=== PATIENT | female | born 1960 | race African-American/Black ===

== ENCOUNTER 2018-08-11 14:15 | Inpatient (IN) | payer OTHER ==
--- NOTE | 2018-08-11 14:45 | PDOC ---
History of Present Illness - General Chief Complaint: Dialysis Shunt Problem Stated Complaint: CLOGGED STINT Time Seen by Provider: 08/11/18 14:45 - History of Present Illness Initial Comments: 58yo F with PMH of ESRD on dialysis [facility] with left AV fistula, CHF, COPD, DM , Schizophrenia, CVA with residual weakness presenting with dialysis shunt problem. Per [facility], patient has clotted access to her fistula. She received a full session of dialysis on Wednesday. Patient has some sort of expressive aphasia at baseline and cannot contribute to history. Past History - Past Medical History Allergies/Adverse Reactions: Allergies Allergy/AdvReac Type Severity Reaction Status Date / Time imipenem Allergy Verified 12/23/14 16:26 NSAIDS (Non-Steroidal Allergy Verified 12/23/14 16:26 Anti-Inflamma piperacillin sodium Allergy Verified 12/23/14 16:26 [From Zosyn] tazobactam sodium Allergy Verified 12/23/14 16:26 [From Zosyn] vancomycin Allergy Verified 12/23/14 16:26 Home Medications: Ambulatory Orders Citalopram Hydrobromide [Celexa -] 10 mg PO DAILY 12/23/14 Olanzapine [Zyprexa] 15 mg PO DAILY 12/23/14 Acetaminophen [Tylenol .Regular Strength -] 650 mg PO Q4H PRN #0 tablet Albuterol 2.5/Ipratropium 0.5 [Duoneb -] 1 amp NEB QIDR amp 02/19/15 Amino Acids/Protein Hydrolys [Prostat Sugar-Free Packet -] 30 ml NGT BID@0800, 1730 packet 02/19/15 Docusate Sodium [Colace -] 100 mg GT TID #0 02/19/15 Levothyroxine [Synthroid -] 225 mcg PO DAILY@0700 tablet 02/19/15 Lorazepam Injection [Ativan Injection -] 1 mg IM Q4H PRN #0 disp.syrin 02/19/15 Nystatin/Triamcinolone Top Oin [Mycolog II -] 1 applic TP BID applic 02/19/15 Pantoprazole Sodium [Protonix -] 40 mg PO DAILY tablet.ec 02/19/15 Scopolamine Hydrobromide [Transderm-Scop -] 1 patch TD Q72H patch.td72 Valproate Sodium [Depakene -] 500 mg GT TID cup 02/19/15 COPD: Yes CHF: Yes Dementia: Yes Diabetes: Yes HTN: Yes Hypercholesterolemia: Yes Psychiatric Problems: Yes (SCHIZOPHRENIA) Thyroid Disease: Yes - Suicide/Smoking/Psychosocial Hx Smoking History: Never smoked Drug/Substance Use Hx: No Substance Use Type: None Hx Substance Use Treatment: No Review of Systems - Review of Systems Able to Perform ROS?: No (pt not abl to communicate) *Physical Exam - Physical Exam Comments: General: Awake, alert, in no acute distress; able to follow commands Head: No signs of trauma Eyes: EOMI, sclera anicteric ENT: Moist mucus membranes Neck: Normal ROM, supple Lungs: Lung sounds decreased at the bases Cardio: Regular rhythm, S1 and S2 present Abdomen: Soft, nontender. Extremities: Normal range of motion, Distal pulses present; Left AV fistula with audible thrill SKIN: Warm, Dry, normal turgor Neurologic: Cranial nerves II through XII grossly intact; expressive aphasia ED Treatment Course - LABORATORY CBC & Chemistry Diagram: 08/11/18 15:50 08/11/18 15:50 Medical Decision Making - Medical Decision Making 58yo F with PMH of ESRD with left AV fistula, CHF, COPD, DM, Schizophrenia presenting with dialysis shunt problem. CBC, CMP, Tpn, EKG, CXR US of left AV fistula 08/11/18 15:35 Spoke with Judie at [facility] ([phone]) who reports patient had clotted access today. She goes to dialysis [facility]. Patient had a full session on Wednesday. At baseline, she reports that patient has difficulty communicating. 08/11/18 15:54 Dr. Loyola, vascular, paged and consulted. Discussed case with Dr. Rene. Consult placed. Patient has history of schizophrenia. Requires two physician signature for consent. 08/11/18 16:16 No anemia Hgb at patient's baseline K=3.9 Tpn: 0.03, indeterminate range Patient does not need emergency dialysis Patient is a resident of [facility] CXR:"Single AP view of the chest is been submitted. Since the prior study of the tracheostomy tube and right jugular line been removed. There is a weak inspiration, chin artifact and some central congestive changes with prominent mediastinum. Correlation recommended. " Plan to admit 08/11/18 17:46 EK, 468, NSR, low voltage QRS Discussed case with Dr. Maryam Geiger who accepted patient for admission. 08/11/18 17:53 US: "Real time and doppler evaluation of the vasculature of both upper extremities demonstrates the following: The study is limited with incomplete evaluation of the right upper extremity due to the patient's refusal to continue the examination. The study was performed as a vein mapping procedure for AV dialysis graft planning. On the left side, the cephalic, basilic, and median cubital veins are widely patent. Widest AP diameter of the basilic vein was approximately 2.8 mm. Widest AP diameter of the cephalic vein was approximately 4 mm proximally. Normal velocity arterial flow was documented within the left axillary, brachial, radial and ulnar arteries. On the right side , the cephalic, basilic and median jugular veins are widely patent. Widest AP diameter of the basilic vein measured 2.5 mm. Widest AP diameter of the cephalic vein measured 4.6 mm proximally. Evaluation of the arteries of the right upper extremity could not be performed. A complete venous map is available within the PACS system. IMPRESSION: Limited venous mapping of both upper extremities as described above. " *DC/Admit/Observation/Transfer Diagnosis at time of Disposition: Dialysis AV fistula malfunction Qualifiers: Encounter type: initial encounter Qualified Code(s): T82.590A - Other mechanical complication of surgically created arteriovenous fistula, initial encounter - Discharge Dispostion Condition at time of disposition: Guarded Decision to Admit order: Yes - Referrals - Patient Instructions - Post Discharge Activity
[2018-08-11 15:59] LABS: BASO % 0.7 % (0-2.0); EOS % 2.2 % (0-4.5); HEMATOCRIT 31.4 % (32.4-45.2); HEMOGLOBIN 10.7 GM/dL (10.7-15.3); LYMPH % 27.2 % (8-40); MCH 35.8 pg (25.7-33.7); MEAN CELL VOLUME 105.3 fl (80-96); MEAN PLT VOLUME 7.6 fl (7.5-11.1); NEUT % 54.9 % (42.8-82.8); PLATELET COUNT 190 K/MM3 (134-434); RBC 2.99 M/mm3 (3.60-5.2); WHITE BLOOD COUNT 4.2 K/mm3 (4.0-10.0)
[2018-08-11 16:22] LABS: INR 0.87 (0.83-1.09); PROTHROMBIN TIME (PATIENT) 10.2 SEC (9.7-13.0)
[2018-08-11 16:25] LABS: ACTIVATED PTT 30.3 SECONDS (25.2-36.5)
[2018-08-11 16:29] LABS: ALBUMIN 2.6 g/dl (3.4-5.0); ALK PHOS 78 U/L (45-117); ANION GAP 8 MMOL/L (8-16); BILIRUBIN,TOTAL 0.2 mg/dL (0.2-1); BLOOD UREA NITROGEN 36 mg/dL (7-18); CALCIUM 8.7 mg/dL (8.5-10.1); CHLORIDE 97 mmol/L (98-107); CO2 30 mmol/L (21-32); GLUCOSE,RANDOM 113 mg/dL (74-106); POTASSIUM 3.9 mmol/L (3.5-5.1); SGOT/AST 7 U/L (15-37); SGPT/ALT 10 U/L (13-61); SODIUM 134 mmol/L (136-145); TOT PROT 6.4 g/dl (6.4-8.2)
--- NOTE | 2018-08-11 17:29 | PN ---
Progress Note (short form) - Note Progress Note: Vascular Surgery Pt with clotted left avf. Last time pt was seen was 2014. Pt has not followed up since then. Will declot left avf chanelle. Pt booked for chanelle afternoon. K is 3.9 Cristian Loyola DO
[2018-08-11] MEDS ORDERED: ACETAMINOPHEN 325 MG TABLET (FP) PO PRN (17:54)
[2018-08-11] MEDS ORDERED: LORazepam 2 MG/ML SDV VIAL IVPUSH PRN (17:54)
--- NOTE | 2018-08-11 18:06 | HP ---
Admitting History and Physical - Admission Chief Complaint: Clotted Left AV Fitula History of Present Illness: 58 y/o with significant medical [facility] resident H/O CKD stage 5 on HD Wed=y and Wednesday at [facility], schizophrenia, Dementia, COPD, CHF , CAD, HTN, hypothyroidism, and morbid obesity CVA expressive aphasia, previously admitted in 2014 with GLENN respiratory failure, patient was put on HD and transferred to [place], today transferred from Dialysis [facility] with Clotted Left AV fistula for re canalization, patient is hemodynamically stable, not in distress unable to provide much information, in the ED Nephrology and Vascular consulted Sr K 3.9 no clinical sign of volume over load will schedule for surgery tomorrow after noon. am. 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: Dementia Cardiovascular: Yes: CAD, CHF, HTN, Hyperlipdemia Pulmonary: Yes: COPD Renal/: Yes: Renal Inusuff Heme/Onc: Yes: Anemia Psych: Yes: Schizophrenia Endocrine: Yes: Diabetes Mellitus, Other (obesity) - Smoking History Smoking history: Never smoked Have you smoked in the past 12 months: No - Alcohol/Substance Use Hx Alcohol Use: No Home Medications - Allergies Allergies/Adverse Reactions: Allergies Allergy/AdvReac Type Severity Reaction Status Date / Time imipenem Allergy Verified 12/23/14 16:26 NSAIDS (Non-Steroidal Allergy Verified 12/23/14 16:26 Anti-Inflamma piperacillin sodium Allergy Verified 12/23/14 16:26 [From Zosyn] tazobactam sodium Allergy Verified 12/23/14 16:26 [From Zosyn] vancomycin Allergy Verified 12/23/14 16:26 - Home Medications Home Medications: Ambulatory Orders Citalopram Hydrobromide [Celexa -] 10 mg PO DAILY 12/23/14 Olanzapine [Zyprexa] 15 mg PO DAILY 12/23/14 Acetaminophen [Tylenol .Regular Strength -] 650 mg PO Q4H PRN #0 tablet Albuterol 2.5/Ipratropium 0.5 [Duoneb -] 1 amp NEB QIDR amp 02/19/15 Amino Acids/Protein Hydrolys [Prostat Sugar-Free Packet -] 30 ml NGT BID@0800, 1730 packet 02/19/15 Docusate Sodium [Colace -] 100 mg GT TID #0 02/19/15 Levothyroxine [Synthroid -] 225 mcg PO DAILY@0700 tablet 02/19/15 Lorazepam Injection [Ativan Injection -] 1 mg IM Q4H PRN #0 disp.syrin 02/19/15 Nystatin/Triamcinolone Top Oin [Mycolog II -] 1 applic TP BID applic 02/19/15 Pantoprazole Sodium [Protonix -] 40 mg PO DAILY tablet.ec 02/19/15 Scopolamine Hydrobromide [Transderm-Scop -] 1 patch TD Q72H patch.td72 Valproate Sodium [Depakene -] 500 mg GT TID cup 02/19/15 Family Disease History - Family Disease History Family Disease History: Heart Disease: Father Review of Systems Unable to obtain ROS, reason: Expressive aphasia Physical Examination Vital Signs: Vital Signs Temperature 98.0 F 08/11/18 15:07 Pulse Rate 85 08/11/18 16:31 Respiratory Rate 15 08/11/18 16:31 Blood Pressure 101/53 L 08/11/18 16:31 O2 Sat by Pulse Oximetry (%) 96 08/11/18 16:31 Constitutional: Yes: Well Nourished, No Distress, Calm Eyes: Yes: Conjunctiva Clear, EOM Intact HENT: Yes: Atraumatic, Normocephalic Neck: Yes: Supple, Trachea Midline Cardiovascular: Yes: Regular Rate and Rhythm, S1, S2. No: JVD, Murmur, Rub Respiratory: Yes: Regular, CTA Bilaterally Gastrointestinal: Yes: Normal Bowel Sounds, Soft Musculoskeletal: No: Back Pain, Joint Stiffness Extremities: No: Calf Tenderness Edema: No Peripheral Pulses: Left Doralis Pedis: 1+, Right Dorsalis Pedis: 1+ Neurological: Yes: Aphasia, Pre-Existing Deficit Labs: CBC, BMP 08/11/18 15:50 08/11/18 15:50 WBC 4.2 K/mm3 (4.0-10.0) 08/11/18 15:50 RBC 2.99 M/mm3 (3.60-5.2) L 08/11/18 15:50 Hgb 10.7 GM/dL (10.7-15.3) 08/11/18 15:50 Hct 31.4 % (32.4-45.2) L 08/11/18 15:50 MCV 105.3 fl (80-96) H 08/11/18 15:50 MCH 35.8 pg (25.7-33.7) H D 08/11/18 15:50 MCHC 34.0 g/dl (32.0-36.0) 08/11/18 15:50 RDW 13.0 % (11.6-15.6) D 08/11/18 15:50 Plt Count 190 K/MM3 (134-434) 08/11/18 15:50 MPV 7.6 fl (7.5-11.1) 08/11/18 15:50 Absolute Neuts (auto) 2.3 K/mm3 (1.5-8.0) 08/11/18 15:50 Neutrophils % 54.9 % (42.8-82.8) 08/11/18 15:50 Lymphocytes % 27.2 % (8-40) D 08/11/18 15:50 Monocytes % 15.0 % (3.8-10.2) H 08/11/18 15:50 Eosinophils % 2.2 % (0-4.5) 08/11/18 15:50 Basophils % 0.7 % (0-2.0) 08/11/18 15:50 Nucleated RBC % 0 % (0-0) 08/11/18 15:50 Sodium 134 mmol/L (136-145) L 08/11/18 15:50 Potassium 3.9 mmol/L (3.5-5.1) 08/11/18 15:50 Chloride 97 mmol/L (98-107) L 08/11/18 15:50 Carbon Dioxide 30 mmol/L (21-32) 08/11/18 15:50 Anion Gap 8 MMOL/L (8-16) 08/11/18 15:50 BUN 36 mg/dL (7-18) H 08/11/18 15:50 Creatinine 6.0 mg/dL (0.55-1.3) H 08/11/18 15:50 Creat Clearance w eGFR 7.15 (>60) 08/11/18 15:50 Random Glucose 113 mg/dL (74-106) H 08/11/18 15:50 Calcium 8.7 mg/dL (8.5-10.1) 08/11/18 15:50 Total Bilirubin 0.2 mg/dL (0.2-1) 08/11/18 15:50 AST 7 U/L (15-37) L 08/11/18 15:50 ALT 10 U/L (13-61) L 08/11/18 15:50 Alkaline Phosphatase 78 U/L (45-117) 08/11/18 15:50 Troponin I 0.03 ng/ml (0.00-0.05) 08/11/18 15:50 Total Protein 6.4 g/dl (6.4-8.2) 08/11/18 15:50 Albumin 2.6 g/dl (3.4-5.0) L 08/11/18 15:50 Imaging - Results Chest X-ray: Report Reviewed (No volume over load) Ultrasound: Report Reviewed (Left AVFistula) EKG: Report Reviewed (EKG: HR 7 QTC 468, NSR, low voltage QRS) Problem List - Problems (1) Dialysis AV fistula malfunction Assessment/Plan: Last dilaysis was full session not in over load, K 3.9 evaluated by Vascyular and Nephrology will go for Left AV fistula declotting tomorrow after noon needs 2 Md consent, Code(s): T82.590A - [facility] COMPL OF SURGICALLY CREATED ARTERIOVENOUS FISTULA, INIT Qualifiers: Encounter type: initial encounter Qualified Code(s): T82.590A - Other mechanical complication of surgically created arteriovenous fistula, initial encounter (2) ESRD (end stage renal disease) Assessment/Plan: On HD missed today due to clotted fistual euvolumic K is 3.9 Code(s): N18.6 - END STAGE RENAL DISEASE (3) COPD exacerbation Assessment/Plan: Stable cont Duoneb inhaler Code(s): J44.1 - CHRONIC OBSTRUCTIVE PULMONARY DISEASE W (ACUTE) EXACERBATION (4) Schizophrenia Assessment/Plan: Resume all home meds Code(s): F20.9 - SCHIZOPHRENIA, UNSPECIFIED (5) Morbid obesity Assessment/Plan: Chronic Code(s): E66.01 - MORBID (SEVERE) OBESITY DUE TO EXCESS CALORIES (6) Hypothyroid Assessment/Plan: Cont Levothyroxine Code(s): E03.9 - HYPOTHYROIDISM, UNSPECIFIED
[2018-08-11] MEDS ORDERED: SCOPOLAMINE HYDROBROMIDE 1 PATCH PATCH.TD72 TD SCH (18:15)
[2018-08-11] MEDS: ALBUTEROL SO4 2.5/IPRATROPIUM 0.5 INH SOL 3 ML VIAL.NEB. NEB SCH ×2 (18:22→20:37)
[2018-08-11] MEDS ORDERED: ALBUTEROL SO4 2.5/IPRATROPIUM 0.5 INH SOL 3 ML VIAL.NEB. NEB ONE ×2 (18:26→19:49)
--- NOTE | 2018-08-11 19:14 | PDOC ---
Documentation entered by Ryanne Borges SCRIBE, acting as scribe for Aura Amaya MD. Aura Amaya MD: This documentation has been prepared by the Katerina palacios Adrianna, SCRIBE, under my direction and personally reviewed by me in its entirety. I confirm that the documentation accurately reflects all work, treatment, procedures, and medical decision making performed by me. Attending Attestation - Resident Resident Name: Ebonie Ellis - ED Attending Attestation I have performed the following: I have examined & evaluated the patient, The case was reviewed & discussed with the resident, I agree w/resident's findings & plan, Exceptions are as noted - HPI HPI: 58 year old female, with a significant PMH of end stage renal disease s/p left AV fistula, COPD, CHF, CAD, dementia, unspecified schizophrenia, DM, HTN, HLD, and morbid obesity, who presents to the emergency department from [facility] for dialysis shunt complication. As per [facility] , patient was unable to undergo dialysis secondary to a clotted access in her fistula. They note she is from [facility]. Patient displays expressive aphasia to commands at baseline, but HPI is limited secondary to patients inability to communicate well. The patient denies chest pain, shortness of breath, headache and dizziness. Denies fever, chills, nausea, vomit, diarrhea and constipation. Denies dysuria, frequency, urgency and hematuria. Allergies: Imipenem, NSAIDS, piperacillin, tazobactam, vancomycin Past surgical history: None reported Social history: No reported PCP: [facility] 08/11/18 17:49 - Physicial Exam PE: 08/11/18 17:38 awake alert lungs clear bilaterally heart rrr no mgr abd soft nt obese. vertical ex lap scar, nontender. ext wwp. left upper ext fistula with thrill bruit. no erythema. nuero alert nonverbal.( baseline) follows commands intermittently. - Medical Decision Making 08/11/18 17:39 58 F h/o HLD dementia cva expressive aphasia, DM schizophrenia, ( t/r/sat) copd , chf, htn, here with difficulty with dialysis access from [facility]. . pt was last dialyzed 2 days ago. no n/v no f/c no other complaints. lives at [facility]. one exam pt with fistula bruit, good thrill. plan us left upper ext. admit to hospitalist. r/o hyperkalemia, fluid overload. 08/11/18 17:44 08/11/18 18:33 EXAM#: TYPE/EXAM: RESULT: [id number] RAD/CHEST X-RAY PORTABLE* Chest: Weakness Single AP view of the chest is been submitted. Since the prior study of 2014 the tracheostomy tube and right jugular line been removed. There is a weak inspiration, chin artifact and some central congestive changes with prominent mediastinum. Correlation recommended. Reported By: Fawad Velasco MD 08/11/18 17:15 EXAM#: TYPE/EXAM: RESULT: [id number] US/DUPLEX VASCUL US-1 ARM Left arm venous Doppler ultrasound Clinical information given: left AV fistula problem The exam was performed utilizing grayscale and Doppler sonography. A left arm AV fistula is noted with patency of the fistula as well as the arterial and venous components. Reported By: Jack Wheeler MD 08/11/18 18:09 Heart Score/ECG Review #1 ECG reviewed & interpreted by me at: 17:43 General ECG Interpretation: Sinus Rhythm, Normal Rate (77), Normal Intervals, No acute ischemic changes Compared to previous ECG there are: Other (left axis.)
[2018-08-11 19:52] LABS: ANISOCYTOSIS 2+; MACROCYTOSIS 2+; PLATELET ESTIMATE ADEQUATE
[2018-08-11] MEDS: DOCUSATE SODIUM 100 MG CAPSULE (FP) PO SCH (23:47)
[2018-08-11] MEDS: VALPROATE SODIUM 250 MG/5 ML UNIT DOSE CUP GT SCH (23:47)
[2018-08-11] MEDS: NYSTATIN/TRIAMCINOLONE TOPICAL OINTMENT 15 GM TUBE TP SCH (23:47)
[2018-08-12 04:10] VITALS: BMI 29.2
[2018-08-12] MEDS ORDERED: LEVOTHYROXINE NA 100 MCG TABLET (FP) ONE (05:24)
[2018-08-12] MEDS ORDERED: LEVOTHYROXINE NA 125 MCG TABLET (FP) ONE (05:24)
[2018-08-12 06:18] LABS: BASO % 0.5 % (0-2.0); EOS % 1.6 % (0-4.5); HEMATOCRIT 31.1 % (32.4-45.2); HEMOGLOBIN 10.5 GM/dL (10.7-15.3); MCH 35.6 pg (25.7-33.7); MCHC 33.8 g/dl (32.0-36.0); MEAN CELL VOLUME 105.2 fl (80-96); MEAN PLT VOLUME 7.7 fl (7.5-11.1); MONO % 14.2 % (3.8-10.2); NEUT % 54.7 % (42.8-82.8); PLATELET COUNT 186 K/MM3 (134-434); RBC 2.95 M/mm3 (3.60-5.2); RDW 13.3 % (11.6-15.6); WHITE BLOOD COUNT 4.7 K/mm3 (4.0-10.0)
[2018-08-12] MEDS: DOCUSATE SODIUM 100 MG CAPSULE (FP) PO SCH ×2 (06:28→14:15)
[2018-08-12] MEDS: VALPROATE SODIUM 250 MG/5 ML UNIT DOSE CUP GT SCH ×2 (06:28→15:40)
[2018-08-12] MEDS ORDERED: LEVOTHYROXINE NA 25 MCG TABLET (FP) PO SCH (07:00)
[2018-08-12] MEDS ORDERED: LEVOTHYROXINE 100 MCG, LEVOTHYROXINE 125 MCG PO SCH (07:00)
[2018-08-12] MEDS ORDERED: HEPARIN NA (PORCINE) 5,000 UNITS/ML 1ML VIAL IVPUSH ONE (07:49)
[2018-08-12] MEDS ORDERED: SODIUM CHLORIDE 250 ML IV PRN (07:49)
[2018-08-12] MEDS: HEPARIN NA (PORCINE) 5,000 UNITS/ML 1ML VIAL IVPUSH SCH ×3 (08:00→10:00)
[2018-08-12 08:04] LABS: ANION GAP 9 MMOL/L (8-16); BLOOD UREA NITROGEN 42 mg/dL (7-18); CALCIUM 8.5 mg/dL (8.5-10.1); CHLORIDE 97 mmol/L (98-107); CO2 29 mmol/L (21-32); CREATININE 6.9 mg/dL (0.55-1.3); GLUCOSE,RANDOM 61 mg/dL (74-106); POTASSIUM 4.1 mmol/L (3.5-5.1); SODIUM 134 mmol/L (136-145)
--- NOTE | 2018-08-12 09:21 | PN ---
Progress Note, Physician - Current Medication List Current Medications: Active Medications Acetaminophen (Tylenol -) 650 mg PO Q4H PRN PRN Reason: FEVER Albuterol/Ipratropium (Duoneb -) 1 amp NEB RQID PENDING SALE TO [facility] Last Admin: 08/11/18 20:37 Dose: 1 amp Amino Acids (Prosource No Carb Liquid Pkt) 30 ml NGT BID@0800,1730 PENDING SALE TO [facility] Citalopram Hydrobromide (Celexa -) 10 mg PO DAILY PENDING SALE TO [facility] Docusate Sodium (Colace -) 100 mg PO TID PENDING SALE TO [facility] Last Admin: 08/12/18 06:28 Dose: 100 mg Heparin Sodium (Porcine) (Heparin -) 1,000 unit IVPUSH ONCE ONE Stop: 08/12/18 07:50 Heparin Sodium (Porcine) (Heparin -) 500 unit IVPUSH Q1H PENDING SALE TO [facility] Stop: 08/12/18 10:01 Sodium Chloride (Normal Saline -) 250 mls @ 3,000 mls/hr IV PRN PRN PRN Reason: Hypotension during Dialysis Stop: 08/13/18 07:49 Levothyroxine Sodium 100 mcg/ (Levothyroxine Sodium 125 mcg) 225 mcg PO DAILY@ 0700 PENDING SALE TO [facility] Last Admin: 08/12/18 06:28 Dose: 225 mcg Lorazepam (Ativan Injection -) 1 mg IVPUSH Q4H PRN PRN Reason: AGITATION Nystatin/Triamcinolone Acetonide (Mycolog Ii Ointment -) 1 applic TP BID PENDING SALE TO [facility] Last Admin: 08/11/18 23:47 Dose: 1 applic Olanzapine (Zyprexa -) 15 mg PO DAILY PENDING SALE TO [facility] Pantoprazole Sodium (Protonix -) 40 mg PO DAILY PENDING SALE TO [facility] Scopolamine HBr (Transderm-Scop -) 1 patch TD Q3D@1000 PENDING SALE TO [facility] Last Admin: 08/11/18 20:54 Dose: 1 patch Valproate Sodium (Depakene -) 500 mg GT TID PENDING SALE TO [facility] Last Admin: 08/12/18 06:28 Dose: 500 mg - Objective Vital Signs: Vital Signs Temperature 83 F L 08/12/18 05:58 Pulse Rate 83 08/12/18 05:58 Respiratory Rate 18 08/12/18 05:58 Blood Pressure 94/60 08/12/18 05:58 O2 Sat by Pulse Oximetry (%) 95 08/12/18 01:00 Constitutional: Yes: Well Nourished, No Distress, Calm Eyes: Yes: Conjunctiva Clear, EOM Intact HENT: Yes: Atraumatic, Normocephalic Neck: Yes: Supple, Trachea Midline Cardiovascular: Yes: Regular Rate and Rhythm, S1, S2. No: JVD, Murmur, Rub Respiratory: Yes: Regular, CTA Bilaterally Gastrointestinal: Yes: Normal Bowel Sounds, Soft Musculoskeletal: No: Back Pain, Joint Stiffness Extremities: No: Calf Tenderness Edema: No Peripheral Pulses: Left Doralis Pedis: 1+, Right Dorsalis Pedis: 1+ Neurological: Yes: Aphasia, Pre-Existing Deficit Labs: CBC, BMP 08/12/18 05:30 08/12/18 05:30 INR, PTT INR 0.87 (0.83-1.09) 08/11/18 15:50 Problem List - Problems (1) Dialysis AV fistula malfunction Code(s): T82.590A - [facility] COMPL OF SURGICALLY CREATED ARTERIOVENOUS FISTULA, INIT Qualifiers: Encounter type: initial encounter Qualified Code(s): T82.590A - Other mechanical complication of surgically created arteriovenous fistula, initial encounter (2) ESRD (end stage renal disease) Code(s): N18.6 - END STAGE RENAL DISEASE (3) COPD exacerbation Code(s): J44.1 - CHRONIC OBSTRUCTIVE PULMONARY DISEASE W (ACUTE) EXACERBATION (4) Schizophrenia Code(s): F20.9 - SCHIZOPHRENIA, UNSPECIFIED (5) Morbid obesity Code(s): E66.01 - MORBID (SEVERE) OBESITY DUE TO EXCESS CALORIES (6) Hypothyroid Code(s): E03.9 - HYPOTHYROIDISM, UNSPECIFIED
[2018-08-12 09:37] VITALS: TEMP 97.5
[2018-08-12] MEDS ORDERED: OLANZapine 5 MG TABLET PO SCH (10:00)
[2018-08-12] MEDS ORDERED: PANTOPRAZOLE 40 MG TABLET (FP) PO SCH (10:00)
[2018-08-12] MEDS ORDERED: CITALOPRAM HYDROBROMIDE 10 MG TABLET (FP) PO SCH (10:00)
--- NOTE | 2018-08-12 10:17 | DS ---
Physical Examination Vital Signs: Vital Signs Temperature 97.5 F L 08/12/18 09:05 Pulse Rate 71 08/12/18 09:40 Respiratory Rate 18 08/12/18 09:40 Blood Pressure 99/75 08/12/18 09:40 O2 Sat by Pulse Oximetry (%) 95 08/12/18 01:00 Constitutional: Yes: Well Nourished, No Distress, Calm Eyes: Yes: Conjunctiva Clear, EOM Intact HENT: Yes: Atraumatic, Normocephalic Neck: Yes: Supple, Trachea Midline Cardiovascular: Yes: Regular Rate and Rhythm, S1, S2. No: JVD, Murmur, Rub Respiratory: Yes: Regular, CTA Bilaterally Gastrointestinal: Yes: Normal Bowel Sounds, Soft Musculoskeletal: No: Back Pain, Joint Stiffness Extremities: No: Calf Tenderness Edema: No Peripheral Pulses: Left Doralis Pedis: 1+, Right Dorsalis Pedis: 1+ Neurological: Yes: Aphasia, Pre-Existing Deficit Labs: CBC, BMP 08/12/18 05:30 08/12/18 05:30 Discharge Summary Reason For Visit: MALFUNCTION OF ARTERIOVENOUS DIALYSIS FISTULA Current Active Problems Dialysis AV fistula malfunction (Acute) ESRD (end stage renal disease) (Acute) Hypothyroid (Acute) Hospital Course: 58 y/o with significant medical [facility] resident H/O CKD stage 5 on HD Wed= and Wednesday at [facility], schizophrenia, Dementia, COPD, CHF , CAD, HTN, hypothyroidism, and morbid obesity CVA expressive aphasia, previously admitted in 2014 with GLENN respiratory failure, patient was put on HD and transferred to [place], today transferred from Dialysis Ctr with Clotted Left AV fistula for re canalization, patient is hemodynamically stable, not in distress unable to provide much information, in the ED Nephrology and Vascular consulted Sr K 3.9 patient has palpable thrill and Vascular ultrasound shows functioning fistula, patient is recived HD , will Dc home after HD to resume all her care at [facility]. Condition: Stable - Instructions Disposition: DETENTION FACILITY - Home Medications Comprehensive Discharge Medication List: Ambulatory Orders Citalopram Hydrobromide [Celexa -] 10 mg PO DAILY 12/23/14 Olanzapine [Zyprexa] 15 mg PO DAILY 12/23/14 Acetaminophen [Tylenol .Regular Strength -] 650 mg PO Q4H PRN #0 tablet Albuterol 2.5/Ipratropium 0.5 [Duoneb -] 1 amp NEB QIDR amp 02/19/15 Amino Acids/Protein Hydrolys [Prostat Sugar-Free Packet -] 30 ml NGT BID@0800, 1730 packet 02/19/15 Docusate Sodium [Colace -] 100 mg GT TID #0 02/19/15 Levothyroxine [Synthroid -] 225 mcg PO DAILY@0700 tablet 02/19/15 Lorazepam Injection [Ativan Injection -] 1 mg IM Q4H PRN #0 disp.syrin 02/19/15 Nystatin/Triamcinolone Top Oin [Mycolog II -] 1 applic TP BID applic 02/19/15 Pantoprazole Sodium [Protonix -] 40 mg PO DAILY tablet.ec 02/19/15 Scopolamine Hydrobromide [Transderm-Scop -] 1 patch TD Q72H patch.td72 Valproate Sodium [Depakene -] 500 mg GT TID cup 02/19/15 Levothyroxine [Synthroid -] 225 mcg PO DAILY@0700 tablet 08/12/18 Levothyroxine [Synthroid -] 225 mcg PO DAILY@0700 tablet 08/12/18
--- NOTE | 2018-08-12 10:47 | EKG ---
Test Reason : Blood Pressure : / mmHG Vent. Rate : 077 BPM Atrial Rate : 077 BPM P-R Int : 198 ms QRS Dur : 092 ms QT Int : 414 ms P-R-T Axes : 058 -21 029 degrees QTc Int : 468 ms NORMAL SINUS RHYTHM LOW VOLTAGE QRS WHEN COMPARED WITH ECG OF 23-JAN-2015 09:11, NO SIGNIFICANT CHANGE WAS FOUND Confirmed by EDY DILLON MD ([id number]) on 08/12/2018 10:47:18 AM Referred By: Confirmed By:EDY DILLON MD
--- NOTE | 2018-08-12 11:00 | PN ---
Progress Note (short form) - Note Progress Note: Vascular Surgery Pt seen and examined. Left avg with good bruit. Please use avg for HD. If ok -- cleared to dc back to [place] Cristian horne dO
--- NOTE | 2018-08-12 12:23 | CONSULT ---
Consult - text type - Consultation Consultation Note: Renal Consult for ESRD on HD with AV access problem This is a 58 year old woman with ESRD on HD, CVA with right side weakness and expressive aphasia, hypertension, DM, schizophrenia was sent from outpatient HD unit with suspected clotted access. They were not able to canulate or feel bruit at the unit. Pt was w/o any acute complaints. In the ED pt was seen by vascular and US was performed that showed access had flow. This morning pt was canulated by HD nurse and was able to have complete session fo HD. Denies any sob, cp, abd pain, N/V/D, Fever or chills. She expressed frustration about her right arm weakness. PMhx: as above Allergies: NKDA Family Hx: NC Social Hx: No T/A/D ROS: as per HPI Home Medications Medication Instructions Recorded Citalopram Hydrobromide [Celexa -] 10 mg PO DAILY 12/23/14 Olanzapine [Zyprexa] 15 mg PO DAILY 12/23/14 Acetaminophen [Tylenol .Regular 650 mg PO Q4H PRN #0 tablet 02/19/15 Strength -] Albuterol 2.5/Ipratropium 0.5 1 amp NEB QIDR amp 02/19/15 [Duoneb -] Amino Acids/Protein Hydrolys 30 ml NGT BID@0800,1730 packet 02/19/15 [Prostat Sugar-Free Packet -] Docusate Sodium [Colace -] 100 mg GT TID #0 02/19/15 Levothyroxine [Synthroid -] 225 mcg PO DAILY@0700 tablet 02/19/15 Lorazepam Injection [Ativan 1 mg IM Q4H PRN #0 disp.syrin 02/19/15 Injection -] Nystatin/Triamcinolone Top Oin 1 applic TP BID applic 02/19/15 [Mycolog II -] Pantoprazole Sodium [Protonix -] 40 mg PO DAILY tablet.ec 02/19/15 Scopolamine Hydrobromide 1 patch TD Q72H patch.td72 02/19/15 [Transderm-Scop -] Valproate Sodium [Depakene -] 500 mg GT TID cup 02/19/15 Levothyroxine [Synthroid -] 225 mcg PO DAILY@0700 tablet 04/19/19 Levothyroxine [Synthroid -] 225 mcg PO DAILY@0700 tablet 08/12/18 Vital Signs Period Temp Pulse Resp BP Sys/Mantilla Pulse Ox Last 24 Hr 83 F-98.9 F 70-87 15-20 87-147/40-98 95-99 Intake & Output 08/09/18 08/10/18 08/11/18 08/12/18 23:59 23:59 23:59 23:59 Weight 110 kg 79.832 kg NAD awake and alert neck supple RRR, NO M/R CTA No LE edema Right UE weakness left UE AVG CBC, BMP 08/12/18 05:30 08/12/18 05:30 Current Medications Acetaminophen (Tylenol -) 650 mg PO Q4H PRN PRN Reason: FEVER Albuterol/Ipratropium (Duoneb -) 1 amp NEB RQID [facility] Last Admin: 08/11/18 20:37 Dose: 1 amp Amino Acids (Prosource No Carb Liquid Pkt) 30 ml NGT BID@0800,1730 [facility] Citalopram Hydrobromide (Celexa -) 10 mg PO DAILY [facility] Docusate Sodium (Colace -) 100 mg PO TID [facility] Last Admin: 08/12/18 06:28 Dose: 100 mg Sodium Chloride (Normal Saline -) 250 mls @ 3,000 mls/hr IV PRN PRN PRN Reason: Hypotension during Dialysis Stop: 08/13/18 07:49 Levothyroxine Sodium 100 mcg/ (Levothyroxine Sodium 125 mcg) 225 mcg PO DAILY@ 0700 [facility] Last Admin: 08/12/18 06:28 Dose: 225 mcg Lorazepam (Ativan Injection -) 1 mg IVPUSH Q4H PRN PRN Reason: AGITATION Nystatin/Triamcinolone Acetonide (Mycolog Ii Ointment -) 1 applic TP BID [facility] Last Admin: 08/11/18 23:47 Dose: 1 applic Olanzapine (Zyprexa -) 15 mg PO DAILY [facility] Pantoprazole Sodium (Protonix -) 40 mg PO DAILY [facility] Scopolamine HBr (Transderm-Scop -) 1 patch TD Q3D@1000 [facility] Last Admin: 08/11/18 20:54 Dose: 1 patch Valproate Sodium (Depakene -) 500 mg GT TID [facility] Last Admin: 08/12/18 06:28 Dose: 500 mg 58 year old woman with ESRD on HD, CVA with right side weakness and expressive aphasia, hypertension, DM, schizophrenia was sent from outpatient HD unit with suspected clotted access. #Suspected Clotted AVG/AV Access problem #ESRD on HD #Schizophrenia #Hypertension #DM #Hx of CVA with right side weakness and expressive aphasia AV access is functioning well this AM and pt able to tolerate HD Vascular consult and intervention appreciated will continue Heparin with HD and arrange vascular follow up for access monitoring as an outpatient will resume regular TTS HD schedule tomorrow as an outpatient discharge planning as per primary team Thank you Deng Rene DO
[2018-08-12] MEDS: AMINO ACIDS/PROTEIN HYDROLYS 30 ML LIQUID.PKT NGT SCH ×2 (14:06→17:31)
[2018-08-12] MEDS ORDERED: SODIUM CHLORIDE 500 ML IV SCH (15:30)
[2018-08-12 15:33] VITALS: BP 80/52; PULSE 92
[2018-08-12] MEDS ORDERED: PT OWN MED DRAWER 7, Y5N ONE (15:38)
[2018-08-12] MEDS: ALBUTEROL SO4 2.5/IPRATROPIUM 0.5 INH SOL 3 ML VIAL.NEB. NEB SCH ×2 (16:00→20:39)
[2018-08-12] MEDS: NYSTATIN/TRIAMCINOLONE TOPICAL OINTMENT 15 GM TUBE TP SCH (17:30)
[2018-08-13 11:12] LABS: HBSAG SCREEN Negative (Negative); HEP A AB, IGM Negative (Negative); HEP B CORE AB, TOT Negative (Negative)
== END 2018-08-12 20:30 | DRG 466 ==
LOC: JER 14:15 → JERBED 17:46 → J4S 08-12 02:39
PROVIDERS: ADMIT Internal Medicine; ATTEND Internal Medicine
PROC: 5A1D70Z Performance of Urinary Filtration, Intermittent, Less than 6 Hours Per Day (ICD-10-PCS; principal; 2018-08-12)
DX: T82.590A Other mechanical complication of surgically created arteriovenous fistula, initial encounter (principal); I13.2 Hypertensive heart and chronic kidney disease with heart failure and with stage 5 chronic kidney disease, or end stage renal disease; E11.22 Type 2 diabetes mellitus with diabetic chronic kidney disease; N18.6 End stage renal disease; F20.9 Schizophrenia, unspecified; F03.90 Unspecified dementia, unspecified severity, without behavioral disturbance, psychotic disturbance, mood disturbance, and anxiety; Y84.1 Kidney dialysis as the cause of abnormal reaction of the patient, or of later complication, without mention of misadventure at the time of the procedure; Y92.89 Other specified places as the place of occurrence of the external cause; Y92.128 Other place in nursing home as the place of occurrence of the external cause; I69.320 Aphasia following cerebral infarction; E03.9 Hypothyroidism, unspecified; Z99.2 Dependence on renal dialysis; E07.9 Disorder of thyroid, unspecified; J44.9 Chronic obstructive pulmonary disease, unspecified; Z68.29 Body mass index [BMI] 29.0-29.9, adult; E66.9 Obesity, unspecified; E78.5 Hyperlipidemia, unspecified; I25.10 Atherosclerotic heart disease of native coronary artery without angina pectoris
CPT/HCPCS: 36415; 71045-TC-FY; 80048; 80053; 84484; 85025; 85610; 85730; 86704; 86706; 86708; 86803; 86850; 86900; 86901; 87340; 93005; 93010; 93971; 94640; 99284-25; J1644

== ENCOUNTER 2018-09-14 15:21 | Observation (INO) | payer OTHER | END 2018-09-15 21:43 | LOC: J8W 09-15 03:50 → JER 15:21 → JERBED 17:20 ==

== ENCOUNTER 2018-10-06 19:01 | Inpatient (IN) | payer OTHER ==
--- NOTE | 2018-10-06 19:18 | PDOC ---
History of Present Illness - General Stated Complaint: OPEN WOUND Time Seen by Provider: 10/06/18 19:08 History Source: EMS, [facility] Records Exam Limitations: Clinical Condition, Physical Impairment - History of Present Illness Initial Comments: Pt is a 58 yo F, with PMH of IDDM, ESRD (HD T/R/Sat), CVA (R-sided deficits and aphasia), HTN DM, schizophrenia, COPDpresenting from dialysis with a complaint of "an open wound". Pts only complaint is that her L arm hurts near the AV graft site. Pt states she received her full dialysis session today. Pt can only provide yes/no answers, as she has aphasia since her CVA, along with residual R sided extremity deficits. Pt denies fevers, vomiting, diarrhea, and urinary symptoms when asked directly. PCP: [facility] ([facility]) Social: Pt denies any cigarette, alcohol, or drug use. Pt denies any recent travel or sick contacts. Surgical: L AVF. Family: no relevant history. 10/06/18 23:17 Past History - Travel Traveled outside of the country in the last 30 days: No Close contact w/someone who was outside of country & ill: No - Past Medical History Allergies/Adverse Reactions: Allergies Allergy/AdvReac Type Severity Reaction Status Date / Time imipenem Allergy Verified 12/23/14 16:26 NSAIDS (Non-Steroidal Allergy Verified 12/23/14 16:26 Anti-Inflamma piperacillin sodium Allergy Verified 12/23/14 16:26 [From Zosyn] tazobactam sodium Allergy Verified 12/23/14 16:26 [From Zosyn] vancomycin Allergy Verified 12/23/14 16:26 Home Medications: Ambulatory Orders Acetaminophen [Tylenol .Regular Strength -] 650 mg PO Q4H PRN tablet 09/15/18 Albuterol 2.5/Ipratropium 0.5 [Duoneb -] 1 amp NEB RQID amp 09/15/18 Amino Acids/Protein Hydrolys [Prosource No Carb Liquid Pkt] 30 ml NGT BID@0800, 1730 packet 09/15/18 Citalopram Hydrobromide [Celexa -] 10 mg PO DAILY tablet 09/15/18 Docusate Sodium [Colace -] 100 mg PO TID capsule 09/15/18 Insulin Sliding Scale [Novolog Vial Sliding Scale -] 1 vial SQ ACHS units 09/15 Levothyroxine Sodium [Synthroid] 225 mcg PO DAILY #30 tablet 09/15/18 Nystatin/Triamcinolone Top Oin [Mycolog II -] 1 applic TP BID applic 09/15/18 Olanzapine [Zyprexa -] 15 mg PO DAILY tablet 09/15/18 Pantoprazole Sodium [Protonix -] 40 mg PO DAILY tablet.ec 09/15/18 Scopolamine Hydrobromide [Transderm-Scop -] 1 patch TD Q3D patch.td72 09/15/18 Valproate Sodium [Depakene -] 500 mg GT TID cup 09/15/18 CVA: Yes (R sided weakness) COPD: Yes CHF: Yes Dementia: Yes Diabetes: Yes HTN: Yes Hypercholesterolemia: Yes Psychiatric Problems: Yes (SCHIZOPHRENIA) Thyroid Disease: Yes - Immunization History Immunization Up to Date: Yes - Suicide/Smoking/Psychosocial Hx Smoking History: Never smoked Have you smoked in the past 12 months: No Hx Alcohol Use: No Drug/Substance Use Hx: No Substance Use Type: None Hx Substance Use Treatment: No Review of Systems - Review of Systems Able to Perform ROS?: No (aphasic, schizophrenia) Is the patient limited Ukrainian proficient: No *Physical Exam - Physical Exam Comments: hypotensive 70s/40s (pt baseline after dialysis, will feed pt), pt afebrile. Pt in NAD, obese body habitus. Pt alert, difficult to obtain orientation as pt aphasic. lining maker generally intact. Residual deficits of CVA to RUE and RLE. Aphasic but answers questions appropriately. No midline spinal tenderness, step-offs, or crepitus. Head normocephalic, atraumatic. Eyes PERRLA, EOMI. Oropharynx without erythema or exudates, no LAD b/l. No nasal congestion, hearing intact. Clear heart sounds, S1/S2, no JVD, b/l pedal edema, or heart murmur. Poor respiratory effort, diminished 2/2 body habitus. No abdominal or CVA tenderness to palpation, no rebound, no guarding. Abdomen soft, non-distended, and with normoactive bowel sounds. AVF site on L upper extremity intact with palpable thrill. Small ~1cm open ulcer with pustular drainage below the AVF. Skin otherwise without jaundice or rash. 10/06/18 19:56 10/06/18 20:13 ED Treatment Course - LABORATORY CBC & Chemistry Diagram: 10/06/18 22:18 10/06/18 22:18 Medical Decision Making - Medical Decision Making Pt was seen at bedside, also will be seen by attending Dr. Mathews. Pt presenting from dialysis with a complaint of "an open wound". Pts only complaint is that her L arm hurts near the AV graft site. Pt states she received her full dialysis session today. Pt can only provide yes/no answers, as she has aphasia since her CVA, along with residual R sided extremity deficits. Pt denies fevers, vomiting, diarrhea, and urinary symptoms when asked directly. Considering superficial cellulitis vs infection of AVF site. Will obtain blood cultures. Pt has been sensitive to linezolid in the past, pt allergic to many abx. Pt normally hypoTN post dialysis (70-80/40s). Ordered work-up including CBC, CMP, type & screen, coags, blood cultures. Provided 500 mL IVF and 600 mg IV linezolid for improvement of hypoTN and abx coverage. Will continue to reassess pt and monitor for symptomatic improvement. ECG: NSR with PACs (difficult to interpret due to tremor), intervals WNL (HR 97 , MD 180, QRS 94, QTc 513). No TWIs or significant ST segment changes. No significant changes from prior ECG (09/14/2018). Labs hemolyzed, will be re-sent. Pt difficult to obtain access and labs. 10/06/18 22:18 CBC WNL for pt (chronic anemia). CMP WNL for pt (Cr 1.9, post dialysis) Chest x-ray with no acute findings. 10/06/18 22:56 Pt admitted to [facility] team for further inpatient observation and abx treatment. Pt stable and lying comfortably. 10/06/18 23:24 *DC/Admit/Observation/Transfer Diagnosis at time of Disposition: ESRD (end stage renal disease) Cellulitis Qualifiers: Site of cellulitis: extremity Site of cellulitis of extremity: upper extremity Laterality: left Qualified Code(s): L03.114 - Cellulitis of left upper limb - Discharge Dispostion Condition at time of disposition: Stable Decision to Admit order: Yes - Referrals Referrals: Fabio Burroughs [Non Staff, Medical] - - Patient Instructions - Post Discharge Activity
[2018-10-06] MEDS ORDERED: LINEZOLID 600 MG PREMIX BAG 600 MG in PREMIX 300 IV ONE (20:09)
--- NOTE | 2018-10-06 20:21 | PDOC ---
Documentation entered by Parisa Hodges SCRIBE, acting as scribe for Riya Mathews DO. Riya Mathews, : This documentation has been prepared by the suzanne, Parisa Hodges SCRIBE, under my direction and personally reviewed by me in its entirety. I confirm that the documentation accurately reflects all work , treatment, procedures, and medical decision making performed by me. Attending Attestation - Resident Resident Name: ShaziaAlexandra - ED Attending Attestation I have performed the following: I have examined & evaluated the patient, The case was reviewed & discussed with the resident, I agree w/resident's findings & plan, Exceptions are as noted - HPI HPI: The patient is a 58 year old female, with a significant PMH of HTN, CVA, schizophrenia, aphasia, ESRD (dialysis T,,), brought in via EMS to the emergency department from dialysis today with a left upper extremity open wound. Patients wound is localized proximal to her dialysis access site and is purulent and draining. History is limited secondary to aphasia. Allergies: imipenem, NSAIDS, piperacillin sodium, tazobactam sodium, vancomycin Past surgical history: None reported Social history: None reported PCP: [facility] 10/06/18 20:36 - Physicial Exam PE: GENERAL: Aphasic, awake, alert, and fully oriented, in no acute distress. HEAD: No signs of trauma EYES: PERRLA, EOMI, sclera anicteric, conjunctiva clear ENT: Auricles normal inspection, hearing grossly normal, nares patent, oropharynx clear without exudates. Moist mucosa NECK: Normal ROM, supple, no lymphadenopathy, JVD, or masses LUNGS: Breath sounds equal, clear to auscultation bilaterally. No wheezes, and no crackles HEART: Regular rate and rhythm, normal S1 and S2, no murmurs, rubs or gallops ABDOMEN: Soft, nontender, normoactive bowel sounds. No guarding, no rebound. No masses EXTREMITIES: (+)LUE distal fistula with a proximal circular 1cm dehiscence, purulent and draining with associated erythema warmth and tenderness. (+) LUE bruit. (+) LUE thrills. Normal range of motion, no edema. No clubbing or cyanosis. No cords. NEUROLOGICAL: (+) Right hemiparesis. Cranial nerves II through XII grossly intact. SKIN: Warm, Dry, normal turgor, no rashes noted. 10/06/18 20:36 - Medical Decision Making 10/06/18 20:15 I, Dr. Riya Mathews, DO, attest that this document has been prepared under my direction and personally reviewed by me in its entirety. I further attest, that it accurately reflects all work, treatment, procedures and medical decision -making performed by me. 10/06/18 20:16 a/p: 58yo female from HD for eval of LUE av fistula with dehiscence and purulent drainage from the distal end of the wound -pt with aphasia as hx - able to say yes and no -purulent drainage from distal end of fistula surgical site -redness around the wound -[address] -Nephro is Dr. Deng Rene -Dr. Cristian Loyola is [facility] sx -no fevers -had full HD today -pain to LUE -bruit and thrill palpated, arm is warm -concern for infection at the fistula site -pt with low bp after HD, no shen, per paperwork normal for hypotension after HD -pt currently eating dinner -pt denies fevers -pt with weakness to R side 10/06/18 20:21 pt from [facility] 10/06/18 21:32 cxr clear labs clotted call to lab to obtain labs 10/06/18 23:38 no elevated wbc abx ordered case discussed with JANNETTE Eduardo from [facility] who accepts pt to service Heart Score/ECG Review - ECG Intrepretation Comment:: 10/06/18 20:15 sinus at 97, pac, baseline artifact, qtc 513, no acute st/t wave findings
[2018-10-06] MEDS ORDERED: SODIUM CHLORIDE 500 ML IV STA (21:23)
[2018-10-06 22:40] LABS: BASO % 0.2 % (0-2.0); EOS % 0.7 % (0-4.5); HEMATOCRIT 26.5 % (32.4-45.2); HEMOGLOBIN 8.5 GM/dL (10.7-15.3); LYMPH % 11.8 % (8-40); MCH 34.3 pg (25.7-33.7); MCHC 32.2 g/dl (32.0-36.0); MEAN CELL VOLUME 106.7 fl (80-96); MEAN PLT VOLUME 6.7 fl (7.5-11.1); MONO % 10.4 % (3.8-10.2); NEUT % 76.9 % (42.8-82.8); PLATELET COUNT 224 K/MM3 (134-434); RBC 2.48 M/mm3 (3.60-5.2); RDW 15.5 % (11.6-15.6)
[2018-10-06 22:57] LABS: INR 0.96 (0.83-1.09); PROTHROMBIN TIME (PATIENT) 11.3 SEC (9.7-13.0)
[2018-10-06 23:12] LABS: ALBUMIN 2.3 g/dl (3.4-5.0); BILIRUBIN,TOTAL 0.2 mg/dL (0.2-1); BLOOD UREA NITROGEN 5.9 mg/dL (7-18); CREATININE 1.9 mg/dL (0.55-1.3); TOT PROT 5.8 g/dl (6.4-8.2)
--- NOTE | 2018-10-06 23:34 | HP ---
Admitting History and Physical - Primary Care Physician PCP: Fabio Burroughs ([facility]) - Admission Chief Complaint: Wound to LUE, Hypotension History of Present Illness: This is a 58 y/o woman from [facility] ESRD (,,), CVA (R- Residual Deficits), Expressive Aphasia, Schizophrenia, Bipolar Disorder, Anxiety,Acute on Chronic Respiratory Failure, COPD. Who presents to the ED from dialysis today with a left upper extremity open wound. Patients wound is localized proximal to her dialysis access site and is purulent and draining. History is limited secondary to aphasia. 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 Cardiovascular: Yes: CAD, CHF, HTN, Hyperlipdemia Pulmonary: Yes: COPD Gastrointestinal: Yes: GERD Renal/: Yes: Renal Inusuff Heme/Onc: Yes: Anemia Psych: Yes: Anxiety, Bipolar, Schizophrenia Endocrine: Yes: Diabetes Mellitus, Other (obesity) - Past Surgical History Past Surgical History: Yes: AV Fistula/Graft - Smoking History Smoking history: Never smoked Have you smoked in the past 12 months: No - Alcohol/Substance Use Hx Alcohol Use: No - Social History Usual Living Arrangement: Yes: Custodial ADL: Support Services History of Recent Travel: No Home Medications - Allergies Allergies/Adverse Reactions: Allergies Allergy/AdvReac Type Severity Reaction Status Date / Time imipenem Allergy Verified 10/07/18 06:48 NSAIDS (Non-Steroidal Allergy Verified 10/07/18 06:48 Anti-Inflamma piperacillin sodium Allergy Verified 10/07/18 06:48 [From Zosyn] tazobactam sodium Allergy Verified 10/07/18 06:48 [From Zosyn] vancomycin Allergy Verified 10/07/18 06:48 - Home Medications Home Medications: Ambulatory Orders Acetaminophen [Tylenol .Regular Strength -] 650 mg PO Q4H PRN tablet 09/15/18 Albuterol 2.5/Ipratropium 0.5 [Duoneb -] 1 amp NEB RQID amp 09/15/18 Amino Acids/Protein Hydrolys [Prosource No Carb Liquid Pkt] 30 ml NGT BID@0800, 1730 packet 09/15/18 Citalopram Hydrobromide [Celexa -] 10 mg PO DAILY tablet 09/15/18 Docusate Sodium [Colace -] 100 mg PO TID capsule 09/15/18 Insulin Sliding Scale [Novolog Vial Sliding Scale -] 1 vial SQ ACHS units 09/15 Levothyroxine Sodium [Synthroid] 225 mcg PO DAILY #30 tablet 09/15/18 Nystatin/Triamcinolone Top Oin [Mycolog II -] 1 applic TP BID applic 09/15/18 Olanzapine [Zyprexa -] 15 mg PO DAILY tablet 09/15/18 Scopolamine Hydrobromide [Transderm-Scop -] 1 patch TD Q3D patch.td72 09/15/18 Valproate Sodium [Depakene -] 500 mg GT TID cup 09/15/18 Atorvastatin Calcium 40 mg PO DAILY 10/07/18 Lorazepam [Ativan] 1 mg PO WEEKLY 10/07/18 Midodrine HCl 2.5 mg PO TID 10/07/18 Ranitidine HCl [Zantac] 150 mg PO DAILY 10/07/18 Sevelamer Carbonate 800 mg PO TID 10/07/18 Home Medications (free text): Celexa 10mg QD. Ativan 1mg ,, (before dialysis). Synthyroid 225mg QD. Dialvite 100mg QD. Atorvastatin 40mg HS. Sevelamer 800mg TID. Tylenol 650mg Q6H prn. Duoneb Q6H. Colace 100mg TID. Zyprexa 15mg QD. Zantac 150mg QD. ScopolamineTransderm 1mg Q72H. Midodrine 2.5mg. Depakane 250mg/5ml po TID Family Disease History - Family Disease History Family Disease History: Heart Disease: Father Review of Systems Unable to obtain ROS, reason: Clinical Condition Physical Examination Vital Signs: Vital Signs Temperature 97.7 F 10/06/18 23:25 Pulse Rate 124 H 10/06/18 23:25 Respiratory Rate 18 10/06/18 23:25 Blood Pressure 133/87 10/06/18 23:25 O2 Sat by Pulse Oximetry (%) 99 10/06/18 23:25 Constitutional: Yes: Well Nourished, No Distress, Calm, Obese Eyes: Yes: Conjunctiva Clear, PERRL HENT: Yes: WNL, Atraumatic, Normocephalic Neck: Yes: WNL, Supple, Trachea Midline Cardiovascular: Yes: Regular Rate and Rhythm, S1, S2 Respiratory: Yes: WNL, Regular, CTA Bilaterally Gastrointestinal: Yes: Normal Bowel Sounds, Soft, Abdomen, Obese Breast(s): Yes: WNL Musculoskeletal: Yes: Back Pain Extremities: Yes: Erythema (circular approx 1cm wound lateral aspect of LUE proximal to AV- Fistula), Other (L- AV Fistula- UE +thrill/bruit) Edema: No Peripheral Pulses WNL: Yes Integumentary: Yes: Erythema (induration with no active drainage to LUE) Wound/Incision: Yes: Open to air, Reddened, Other Neurological: Yes: Aphasia, Pre-Existing Deficit ...Motor Strength: LUE (3/5), LLE (3/5) Psychiatric: Yes: Other (arousable, non-agitated) Labs: CBC, BMP 10/06/18 22:18 10/06/18 22:18 Laboratory Results - last 24 hr 10/06/18 10/06/18 10/06/18 19:54 21:18 21:18 WBC Cancelled Corrected WBC (auto) Cancelled RBC Cancelled Hgb Cancelled Hct Cancelled MCV Cancelled MCH Cancelled MCHC Cancelled RDW Cancelled Plt Count Cancelled MPV Cancelled Absolute Neuts (auto) Cancelled Absolute Lymphs (auto) Cancelled Absolute Monos (auto) Cancelled Absolute Eos (auto) Cancelled Absolute Basos (auto) Cancelled Add Manual Diff Cancelled Neutrophils % Cancelled Lymphocytes % Cancelled Monocytes % Cancelled Eosinophils % Cancelled Basophils % Cancelled Nucleated RBC % Cancelled Platelet Estimate Cancelled Platelet Comment Cancelled Normal RBC Morphology Cancelled Polychromasia Anisocytosis Macrocytosis PT with INR INR Sodium Cancelled Potassium Cancelled Chloride Cancelled Carbon Dioxide Cancelled Anion Gap Cancelled BUN Cancelled Creatinine Cancelled Est GFR (CKD-EPI)AfAm Cancelled Est GFR (CKD-EPI)NonAf Cancelled POC Glucometer 77 Random Glucose Cancelled Calcium Cancelled Total Bilirubin Cancelled AST Cancelled ALT Cancelled Alkaline Phosphatase Cancelled Total Protein Cancelled Albumin Cancelled 10/06/18 10/06/18 10/06/18 22:18 22:18 22:18 WBC 6.0 Corrected WBC (auto) RBC 2.48 L Hgb 8.5 L Hct 26.5 L MCV 106.7 H MCH 34.3 H MCHC 32.2 RDW 15.5 D Plt Count 224 MPV 6.7 L D Absolute Neuts (auto) 4.6 Absolute Lymphs (auto) Absolute Monos (auto) Absolute Eos (auto) Absolute Basos (auto) Add Manual Diff Neutrophils % 76.9 Lymphocytes % 11.8 D Monocytes % 10.4 H Eosinophils % 0.7 Basophils % 0.2 Nucleated RBC % 0 Platelet Estimate Adequate Platelet Comment Normal RBC Morphology Polychromasia 1+ Anisocytosis 1+ Macrocytosis 2+ PT with INR 11.30 INR 0.96 Sodium 140 Potassium 2.7 L* Chloride 102 Carbon Dioxide 31 Anion Gap 7 L BUN 5.9 L Creatinine 1.9 H Est GFR (CKD-EPI)AfAm 32.64 Est GFR (CKD-EPI)NonAf 28.16 POC Glucometer Random Glucose 141 H Calcium 9.0 Total Bilirubin 0.2 AST 10 L ALT 9 L Alkaline Phosphatase 92 Total Protein 5.8 L Albumin 2.3 L Intake & Output 10/04/18 10/05/18 10/06/18 10/07/18 23:59 23:59 23:59 23:59 Intake Total 800 Balance 800 Weight 113.398 kg Current Medications Generic Name Dose Route Start Last Admin Trade Name Freq PRN Reason Stop Dose Admin Albuterol/Ipratropium 1 amp 10/07/18 08:00 Duoneb - NEB RQID RAGHAV Citalopram Hydrobromide 10 mg 10/07/18 10:00 Celexa - PO DAILY RAGHAV Docusate Sodium 100 mg 10/07/18 14:00 Colace - PO TID RAGHAV Levothyroxine Sodium 100 mcg/ 225 mcg 10/07/18 07:00 Levothyroxine Sodium 125 mcg PO DAILY@0700 RAGHAV Nystatin/Triamcinolone Acetonide 1 applic 10/07/18 10:00 Mycolog Ii Ointment - TP BID RAGHAV Olanzapine 15 mg 10/07/18 10:00 Zyprexa - PO DAILY RAGHAV Ranitidine HCl 150 mg 10/07/18 10:00 Zantac - PO DAILY RAGHAV Imaging - Results Chest X-ray: Report Reviewed, Image Reviewed EKG: Image Reviewed (SR with PACs QT/QTc 404/513) Problem List - Problems (1) Cellulitis Assessment/Plan: Blood Cultures-pending No leukocytosis, afebrile Hx imipenem, Zosyn, Vancomycin allergy, multiorganism resistant Linezolid started in ED, will continue renal dosing Appreciate ID consult Appreciate Vascular consult Monitor CBC, BMP Monitor vitals Code(s): L03.90 - CELLULITIS, UNSPECIFIED Qualifiers: Site of cellulitis: extremity Site of cellulitis of extremity: upper extremity Laterality: left Qualified Code(s): L03.114 - Cellulitis of left upper limb (2) Hypotension due to hypovolemia Assessment/Plan: recently dialyzed Continue cardiac monitoring Fluid bolus given in ED CXR- no acute pathology Appreciate Nephrology consult Monitor CBC, BMP Fall Precautions Code(s): I95.89 - OTHER HYPOTENSION; E86.1 - HYPOVOLEMIA (3) ESRD (end stage renal disease) Assessment/Plan: HD-,, Appreciate Nephrology consult Avoid Nephrotoxic drugs Code(s): N18.6 - END STAGE RENAL DISEASE (4) COPD (chronic obstructive pulmonary disease) Assessment/Plan: Stable Continue Duonebs O2 Code(s): J44.9 - CHRONIC OBSTRUCTIVE PULMONARY DISEASE, UNSPECIFIED (5) History of CVA with residual deficit Assessment/Plan: Will continue to monitor and treat with interventions accordingly Aspiration Precautions Fall Precautions Code(s): I69.30 - UNSPECIFIED SEQUELAE OF CEREBRAL INFARCTION (6) GERD (gastroesophageal reflux disease) Assessment/Plan: Stable Continue Zantac Code(s): K21.9 - GASTRO-ESOPHAGEAL REFLUX DISEASE WITHOUT ESOPHAGITIS (7) Anxiety Assessment/Plan: Stable Continue Ativan Code(s): F41.9 - ANXIETY DISORDER, UNSPECIFIED (8) CHF (congestive heart failure) Assessment/Plan: Stable Chest Xray- no acute pathology Will continue to monitor, no diuretics secondary to hypotension Code(s): I50.9 - HEART FAILURE, UNSPECIFIED (9) Diabetes Assessment/Plan: Stable BGMs ISS Code(s): E11.9 - TYPE 2 DIABETES MELLITUS WITHOUT COMPLICATIONS (10) Schizophrenia Assessment/Plan: Continue Zyprexa, Celexa Code(s): F20.9 - SCHIZOPHRENIA, UNSPECIFIED (11) Hypothyroid Assessment/Plan: Continue Synthroid Code(s): E03.9 - HYPOTHYROIDISM, UNSPECIFIED (12) Morbid obesity Assessment/Plan: Chronic Code(s): E66.01 - MORBID (SEVERE) OBESITY DUE TO EXCESS CALORIES Assessment/Plan This is a 58 y/o woman from [facility] admitted to Telemetry for Cellulitis of Left Arm, Hypovalemia, Hypokalemia ESRD for further evaluation of their emergent condition. Plan: See Problem List FEN Fluid Restriction 1L Replete K, monitor Puree w/mechanical, soft, nectar thick liquids DVT ppx OOB SCDs Heparin SQ Code Status: Full Code Dispo: Requires Inpatient Care Visit type - Emergency Visit Emergency Visit: Yes ED Registration Date: 10/06/18 Care time: The patient presented to the Emergency Department on the above date and was hospitalized for further evaluation of their emergent condition. - New Patient This patient is new to me today: Yes Date on this admission: 10/06/18 - Critical Care Critical Care patient: No
[2018-10-06 23:42] LABS: ANISOCYTOSIS 1+; MACROCYTOSIS 2+; PLATELET ESTIMATE ADEQUATE
[2018-10-06 23:59] LABS: POTASSIUM 2.7 mmol/L (3.5-5.1)
[2018-10-07] MEDS ORDERED: POTASSIUM CHLORIDE ORAL LIQUID 20 MEQ/15 ML PO ONE
[2018-10-07] MEDS ORDERED: POTASSIUM CHLORIDE ORAL LIQUID 20 MEQ/15 ML ONE (00:30)
[2018-10-07] MEDS ORDERED: MIDODRINE HCL 2.5 MG TABLET PO STA (00:47)
[2018-10-07] MEDS ORDERED: LORazepam 1 MG TABLET PO ONE (00:47)
[2018-10-07] MEDS ORDERED: LORazepam 0.5 MG TABLET ONE (01:01)
[2018-10-07] MEDS ORDERED: SODIUM CHLORIDE 100 ML IV STA (05:57)
[2018-10-07] MEDS ORDERED: LEVOTHYROXINE NA 200 MCG TABLET PO SCH (07:00)
[2018-10-07] MEDS: LEVOTHYROXINE 100 MCG, LEVOTHYROXINE 125 MCG PO SCH (08:00)
[2018-10-07] MEDS: ALBUTEROL SO4 2.5/IPRATROPIUM 0.5 INH SOL 3 ML VIAL.NEB. NEB SCH ×4 (09:00→20:49)
[2018-10-07 09:35] LABS: BASO % 0.5 % (0-2.0); EOS % 0.8 % (0-4.5); HEMATOCRIT 27.6 % (32.4-45.2); HEMOGLOBIN 8.9 GM/dL (10.7-15.3); MCH 34.1 pg (25.7-33.7); MCHC 32.2 g/dl (32.0-36.0); MEAN CELL VOLUME 105.9 fl (80-96); MEAN PLT VOLUME 7.1 fl (7.5-11.1); NEUT % 72.7 % (42.8-82.8); PLATELET COUNT 260 K/MM3 (134-434); RBC 2.61 M/mm3 (3.60-5.2); RDW 15.9 % (11.6-15.6)
--- NOTE | 2018-10-07 09:42 | CON.ID ---
Consult Consult Specialty:: infectious disease Referred by:: dr arthur Reason for Consultation:: cellulitis left AVG - History of Present Illness Chief Complaint: complaints of pain left AVG History of Present Illness: 58 yo female NHR with aphasia esrd/hd- on midodrine at the DC dmitted with hypotension after HD yesterday noted to have ?drainage from near her AVG- currently NO DRAINAGE- samll scab, blood cultures drawn given a dose of linezolid she is s/p thrombecomy and venoplasty of the clotted avg 09/15 she has multiple antibiotic allergies- I cannot understand her well enough to get the details but she has received cephalosporins in the past (most recent cefazolin 09/15) no fevers no chills no other complaints she is alert-she is able to answer y/n to questions received linezolid in the ER last night - History Source History Provided By: Patient Limitations to Obtaining History: Clinical Condition - Past Medical History 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, 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 Cardio/Vascular: Yes: CAD, CHF, HTN, Hyperlipdemia Pulmonary: Yes: COPD Gastrointestinal: Yes: GERD Renal/: Yes: Renal Inusuff Psych: Yes: Anxiety, Bipolar, Schizophrenia Endocrine: Yes: Diabetes Mellitus, Other (obesity) - Past Surgical History Past Surgical History: Yes: AV Fistula/Graft - Alcohol/Substance Use Hx Alcohol Use: No - Smoking History Smoking history: Never smoked Have you smoked in the past 12 months: No - Social History Usual Living Arrangement: Snf ADL: Support Services History of Recent Travel: No Home Medications - Allergies Allergies/Adverse Reactions: Allergies Allergy/AdvReac Type Severity Reaction Status Date / Time imipenem Allergy Verified 10/07/18 06:48 NSAIDS (Non-Steroidal Allergy Verified 10/07/18 06:48 Anti-Inflamma piperacillin sodium Allergy Verified 10/07/18 06:48 [From Zosyn] tazobactam sodium Allergy Verified 10/07/18 06:48 [From Zosyn] vancomycin Allergy Verified 10/07/18 06:48 - Home Medications Home Medications: Ambulatory Orders Acetaminophen [Tylenol .Regular Strength -] 650 mg PO Q4H PRN tablet 09/15/18 Albuterol 2.5/Ipratropium 0.5 [Duoneb -] 1 amp NEB RQID amp 09/15/18 Amino Acids/Protein Hydrolys [Prosource No Carb Liquid Pkt] 30 ml NGT BID@0800, 1730 packet 09/15/18 Citalopram Hydrobromide [Celexa -] 10 mg PO DAILY tablet 09/15/18 Docusate Sodium [Colace -] 100 mg PO TID capsule 09/15/18 Insulin Sliding Scale [Novolog Vial Sliding Scale -] 1 vial SQ ACHS units 09/15 Levothyroxine Sodium [Synthroid] 225 mcg PO DAILY #30 tablet 09/15/18 Nystatin/Triamcinolone Top Oin [Mycolog II -] 1 applic TP BID applic 09/15/18 Olanzapine [Zyprexa -] 15 mg PO DAILY tablet 09/15/18 Scopolamine Hydrobromide [Transderm-Scop -] 1 patch TD Q3D patch.td72 09/15/18 Valproate Sodium [Depakene -] 500 mg GT TID cup 09/15/18 Atorvastatin Calcium 40 mg PO DAILY 10/07/18 Lorazepam [Ativan] 1 mg PO WEEKLY 10/07/18 Midodrine HCl 2.5 mg PO TID 10/07/18 Ranitidine HCl [Zantac] 150 mg PO DAILY 10/07/18 Sevelamer Carbonate 800 mg PO TID 10/07/18 Family Disease History - Family Disease History Family Disease History: Heart Disease: Father Review of Systems - Review of Systems Constitutional: reports: No Symptoms Eyes: reports: No Symptoms HENT: reports: No Symptoms Neck: reports: No Symptoms Cardiovascular: reports: No Symptoms. denies: Chest Pain Respiratory: reports: No Symptoms. denies: Cough, SOB Gastrointestinal: reports: No Symptoms. denies: Abdominal Pain Genitourinary: reports: No Symptoms Physical Exam Vital Signs: Vital Signs Temperature 97.7 F 10/06/18 23:25 Pulse Rate 95 H 10/07/18 06:57 Respiratory Rate 12 10/07/18 06:57 Blood Pressure 83/34 L 10/07/18 06:57 O2 Sat by Pulse Oximetry (%) 100 10/07/18 07:15 Constitutional: Yes: Well Nourished, No Distress, Calm Eyes: Yes: Conjunctiva Clear HENT: Yes: Atraumatic, Normocephalic Neck: Yes: Supple Cardiovascular: Yes: Regular Rate and Rhythm Respiratory: Yes: Regular, CTA Bilaterally Gastrointestinal: Yes: Normal Bowel Sounds, Soft Extremities: Yes: Other (left avg with small scab no drainage, minimal erythema +bruit) Edema: LLE: Trace, RLE: Trace Psychiatric: Yes: Alert Labs: CBC, BMP 10/07/18 09:11 10/07/18 09:11 blood cultures pending Imaging - Results Chest X-ray: Report Reviewed, Image Reviewed Problem List - Problems (1) Hypotension Code(s): I95.9 - HYPOTENSION, UNSPECIFIED (2) ESRD (end stage renal disease) Code(s): N18.6 - END STAGE RENAL DISEASE (3) Cellulitis Code(s): L03.90 - CELLULITIS, UNSPECIFIED Qualifiers: Site of cellulitis: extremity Site of cellulitis of extremity: upper extremity Laterality: left Qualified Code(s): L03.114 - Cellulitis of left upper limb Assessment/Plan Hypotension- ?secondary to HD, blood cultures sent, suspect chronic she is on midodrine at the DC currently no signs of drainage from the AVG or near the avg- would agree with vascular evaluation multiple allergies will treat with daptomycin one dose and f/u cultures, await vascular evaluation drug interactions with linezolid and her antidepressants f/u blood cultures
[2018-10-07 09:52] LABS: BLOOD UREA NITROGEN 9.4 mg/dL (7-18); CALCIUM 10.2 mg/dL (8.5-10.1); CREATININE 2.7 mg/dL (0.55-1.3); POTASSIUM 3.4 mmol/L (3.5-5.1)
[2018-10-07] MEDS: RANITIDINE HCL 150 MG TABLET (FP) PO SCH (11:00)
[2018-10-07] MEDS: CITALOPRAM HYDROBROMIDE 10 MG TABLET (FP) PO SCH (11:00)
--- NOTE | 2018-10-07 11:44 | EKG ---
Test Reason : Blood Pressure : / mmHG Vent. Rate : 097 BPM Atrial Rate : 097 BPM P-R Int : 180 ms QRS Dur : 094 ms QT Int : 404 ms P-R-T Axes : 057 -18 066 degrees QTc Int : 513 ms POOR DATA QUALITY, INTERPRETATION MAY BE ADVERSELY AFFECTED SINUS RHYTHM WITH PREMATURE ATRIAL COMPLEXES WITH ABERRANT CONDUCTION WHEN COMPARED WITH ECG OF 14-SEP-2018 17:22, ABERRANT CONDUCTION IS NOW PRESENT QT HAS LENGTHENED Confirmed by EDY DILLON MD ([id number]) on 10/07/2018 11:44:06 AM Referred By: Confirmed By:EDY DILLON MD
[2018-10-07] MEDS: NYSTATIN/TRIAMCINOLONE TOPICAL OINTMENT 15 GM TUBE TP SCH ×2 (12:00→22:27)
--- NOTE | 2018-10-07 12:12 | CONSULT ---
Consult - text type - Consultation Consultation Note: Renal Consult for ESRD This is a 58 year old woman with hx of ESRD on HD (TTS at [facility]), Schizoprenia, CVA with right side weakness, expressive aphasia, DM, hx of hypertension who was sent in from the dialysis center for draining wound by AVG site. Pt was able to have a complete dialysis yesterday. Did not have any fevers and AVG was functioning well. Blood cultures were drawn and pt was given Vanco and Fortaz at dialysis), pt had Vancomycin allery listed but was given it in the past without reaction. Pt is awake and alert. Complains about weakness in right arm (chronic). Denies any pain. PMhx: as above Allergies: NKDA Family Hx: NC Social Hx: No T/A/D ROS: as per HPI, all other ros negative Home Medications Medication Instructions Recorded Acetaminophen [Tylenol .Regular 650 mg PO Q4H PRN tablet 09/15/18 Strength -] Albuterol 2.5/Ipratropium 0.5 1 amp NEB RQID amp 09/15/18 [Duoneb -] Amino Acids/Protein Hydrolys 30 ml NGT BID@0800,1730 packet 09/15/18 [Prosource No Carb Liquid Pkt] Citalopram Hydrobromide [Celexa -] 10 mg PO DAILY tablet 09/15/18 Docusate Sodium [Colace -] 100 mg PO TID capsule 09/15/18 Insulin Sliding Scale [Novolog 1 vial SQ ACHS units 09/15/18 Vial Sliding Scale -] Levothyroxine Sodium [Synthroid] 225 mcg PO DAILY #30 tablet 09/15/18 Nystatin/Triamcinolone Top Oin 1 applic TP BID applic 09/15/18 [Mycolog II -] Olanzapine [Zyprexa -] 15 mg PO DAILY tablet 09/15/18 Scopolamine Hydrobromide 1 patch TD Q3D patch.td72 09/15/18 [Transderm-Scop -] Valproate Sodium [Depakene -] 500 mg GT TID cup 09/15/18 Atorvastatin Calcium 40 mg PO DAILY 10/07/18 Lorazepam [Ativan] 1 mg PO WEEKLY 10/07/18 Midodrine HCl 2.5 mg PO TID 10/07/18 Ranitidine HCl [Zantac] 150 mg PO DAILY 10/07/18 Sevelamer Carbonate 800 mg PO TID 10/07/18 Vital Signs Temperature 97.7 F 10/06/18 23:25 Pulse Rate 95 H 10/07/18 06:57 Respiratory Rate 12 10/07/18 06:57 Blood Pressure 83/34 L 10/07/18 06:57 O2 Sat by Pulse Oximetry (%) 100 10/07/18 07:15 Intake & Output 10/04/18 10/05/18 10/06/18 10/07/18 23:59 23:59 23:59 23:59 Intake Total 800 Balance 800 Weight 113.398 kg NAD awake and alert neck supple, no JVD RRR, no M/R CTA, no rales or wheeze soft NT/ND no LE edema left arm, small 1-2cm wound now dry CBC, BMP 10/07/18 09:11 10/07/18 09:11 Current Medications Albuterol/Ipratropium (Duoneb -) 1 amp NEB RQID RAGHAV Citalopram Hydrobromide (Celexa -) 10 mg PO DAILY RAGHAV Docusate Sodium (Colace -) 100 mg PO TID RAGHAV Daptomycin 500 mg/ Sodium (Chloride) 50 mls @ 50 mls/hr IVPB ONCE ONE; Protocol Stop: 10/07/18 13:14 Levothyroxine Sodium 100 mcg/ (Levothyroxine Sodium 125 mcg) 225 mcg PO DAILY@ 0700 [facility] Nystatin/Triamcinolone Acetonide (Mycolog Ii Ointment -) 1 applic TP BID RAGHAV Olanzapine (Zyprexa -) 15 mg PO DAILY RAGHAV Ranitidine HCl (Zantac -) 150 mg PO DAILY [facility] 58 year old woman with hx of ESRD on HD (TTS at [facility]), Schizoprenia, CVA with right side weakness, expressive aphasia, DM, hx of hypertension who was sent in from the dialysis center for draining wound by AVG site. #Wound by AVG site #ESRD on HD #Schizophrenia #Chronic Anemia likely related to CKD Discussed case with vascular surgery who will come and examine patient. They will determine if any additional imaging studies are warranted. S/p IV abx at dialysis and started on Dapto here by ID. No acute need for dialysis today, will maintain on TTS schedule. Low BP likely related to just having dialysis yesterday afternoon. continue psych med as per primary will continue SHARON with HD Thank you Deng Rene DO
[2018-10-07] MEDS ORDERED: DAPTOMYCIN 500 MG in SODIUM CHLORIDE 50 ML IVPB ONE (12:15)
--- NOTE | 2018-10-07 12:21 | PN ---
Progress Note, Physician Chief Complaint: patient seen in ER BP 108 systolic admitted for hypotension during HD awake and alert in ER got lienzolid and IVF - Current Medication List Current Medications: Active Medications Albuterol/Ipratropium (Duoneb -) 1 amp NEB RQID RAGHAV Citalopram Hydrobromide (Celexa -) 10 mg PO DAILY RAGHAV Docusate Sodium (Colace -) 100 mg PO TID RAGHAV Daptomycin 500 mg/ Sodium (Chloride) 50 mls @ 50 mls/hr IVPB ONCE ONE; Protocol Stop: 10/07/18 13:14 Levothyroxine Sodium 100 mcg/ (Levothyroxine Sodium 125 mcg) 225 mcg PO DAILY@ 0700 RAGHAV Nystatin/Triamcinolone Acetonide (Mycolog Ii Ointment -) 1 applic TP BID RAGHAV Olanzapine (Zyprexa -) 15 mg PO DAILY RAGHAV Ranitidine HCl (Zantac -) 150 mg PO DAILY RAGHAV - Objective Vital Signs: Vital Signs Temperature 97.7 F 10/06/18 23:25 Pulse Rate 95 H 10/07/18 06:57 Respiratory Rate 12 10/07/18 06:57 Blood Pressure 83/34 L 10/07/18 06:57 O2 Sat by Pulse Oximetry (%) 100 10/07/18 07:15 Constitutional: Yes: Calm Cardiovascular: Yes: Regular Rate and Rhythm, S1, S2 Respiratory: Yes: CTA Bilaterally, Diminished (at bases) Gastrointestinal: Yes: Normal Bowel Sounds, Soft Musculoskeletal: Yes: Other (left arm scab seen no drainage) Labs: CBC, BMP 10/07/18 09:11 10/07/18 09:11 INR, PTT INR 0.96 (0.83-1.09) 10/06/18 22:18 Problem List - Problems (1) Hypotension Assessment/Plan: cultures ordered got linezolid,daptomycin ordered ID eval Code(s): I95.9 - HYPOTENSION, UNSPECIFIED (2) ESRD (end stage renal disease) Assessment/Plan: on HD per renal midodirine for hypotension during HD Code(s): N18.6 - END STAGE RENAL DISEASE (3) Hypothyroid Assessment/Plan: synthroid tsh ordered Code(s): E03.9 - HYPOTHYROIDISM, UNSPECIFIED (4) Schizophrenia Assessment/Plan: citalopram and zyprexa Code(s): F20.9 - SCHIZOPHRENIA, UNSPECIFIED (5) GERD (gastroesophageal reflux disease) Assessment/Plan: zantac Code(s): K21.9 - GASTRO-ESOPHAGEAL REFLUX DISEASE WITHOUT ESOPHAGITIS
[2018-10-07] MEDS: OLANZapine 5 MG TABLET PO SCH (12:54)
[2018-10-07] MEDS ORDERED: SODIUM CHLORIDE 250 ML IV STA (14:07)
[2018-10-07] MEDS: DOCUSATE SODIUM 100 MG CAPSULE (FP) PO SCH ×2 (14:43→22:27)
--- NOTE | 2018-10-07 16:29 | CON.CARD ---
Consult Consult Specialty:: Cardiology Reason for Consultation:: Low BP - History of Present Illness Chief Complaint: Arm pain at AV fistula site with dialysis History of Present Illness: This is a 58 year old female with a PMH of IDDM, ESRD (HD T/R/Sat), CVA (R- sided deficits and aphasia), HTN DM, schizophrenia, and COPD. She presented from dialysis complaining of arm pain near the AV graft site. Noted to have BP' s on the low side. As low as 93/48 mmHg. - Past Medical History [employer]OPMENT: Yes: CVA, Dementia Cardio/Vascular: Yes: CAD, CHF, HTN, Hyperlipdemia Pulmonary: Yes: COPD Gastrointestinal: Yes: GERD Renal/: Yes: Renal Inusuff Psych: Yes: Anxiety, Bipolar, Schizophrenia Endocrine: Yes: Diabetes Mellitus, Other (obesity) - Past Surgical History Past Surgical History: Yes: AV Fistula/Graft - Alcohol/Substance Use Hx Alcohol Use: No - Smoking History Smoking history: Never smoked Have you smoked in the past 12 months: No - Social History Usual Living Arrangement: Snf ADL: Support Services History of Recent Travel: No Home Medications - Allergies Allergies/Adverse Reactions: Allergies Allergy/AdvReac Type Severity Reaction Status Date / Time imipenem Allergy Verified 10/07/18 06:48 NSAIDS (Non-Steroidal Allergy Verified 10/07/18 06:48 Anti-Inflamma piperacillin sodium Allergy Verified 10/07/18 06:48 [From Zosyn] tazobactam sodium Allergy Verified 10/07/18 06:48 [From Zosyn] vancomycin Allergy Verified 10/07/18 06:48 - Home Medications Home Medications: Ambulatory Orders Amino Acids/Protein Hydrolys [Prosource No Carb Liquid Pkt] 30 ml NGT BID@0800, 1730 packet 09/15/18 Citalopram Hydrobromide [Celexa -] 10 mg PO DAILY tablet 09/15/18 Docusate Sodium [Colace -] 100 mg PO TID capsule 09/15/18 Insulin Sliding Scale [Novolog Vial Sliding Scale -] 1 vial SQ ACHS units 09/15 Levothyroxine Sodium [Synthroid] 225 mcg PO DAILY #30 tablet 09/15/18 Nystatin/Triamcinolone Top Oin [Mycolog II -] 1 applic TP BID applic 09/15/18 Olanzapine [Zyprexa -] 15 mg PO DAILY tablet 09/15/18 Scopolamine Hydrobromide [Transderm-Scop -] 1 patch TD Q3D patch.td72 09/15/18 Valproate Sodium [Depakene -] 500 mg GT TID cup 09/15/18 Acetaminophen [Tylenol .Regular Strength -] 650 mg PO Q6H PRN 10/07/18 Albuterol 2.5/Ipratropium 0.5 [Duoneb -] 1 amp NEB Q6H PRN 10/07/18 Atorvastatin Calcium 40 mg PO HS 10/07/18 Folic Acid/Vit B Complex and C [Dialyvite Tablet] 1 each PO DAILY 10/07/18 Lorazepam [Ativan] 1 mg PO TUTHSA 10/07/18 Midodrine HCl 2.5 mg PO TUTHSA 10/07/18 Ranitidine HCl [Zantac] 150 mg PO DAILY 10/07/18 Sevelamer Carbonate 2,400 mg PO TID 10/07/18 Valproate Sodium [Depakene] 250 mg PO TID 10/07/18 Family Disease History - Family Disease History Family Disease History: Heart Disease: Father Review of Systems Unable to obtain ROS, reason: As per HPI Vital Signs: Vital Signs Temperature 97.9 F 10/07/18 16:00 Pulse Rate 88 10/07/18 16:00 Respiratory Rate 18 10/07/18 16:00 Blood Pressure 94/51 L 10/07/18 16:00 O2 Sat by Pulse Oximetry (%) 99 10/07/18 16:12 Constitutional: Yes: No Distress Eyes: Yes: WNL HENT: Yes: WNL Neck: Yes: WNL Respiratory: Yes: WNL, CTA Bilaterally Gastrointestinal: Yes: Soft Cardiovascular: Yes: Regular Rate and Rhythm Heart Sounds: Yes: S1, S2 Extremities: Yes: WNL, Other (Arm mall ~1cm open ulcer with pustular drainage below the AVF.) Neurological: Yes: Other (Right HP as noted) - Other Data Labs, Other Data: CBC, BMP 10/07/18 09:11 10/07/18 09:11 INR, PTT INR 0.96 (0.83-1.09) 10/06/18 22:18 Assessment/Plan 58 year old female with a PMH of IDDM, ESRD (HD T/R/Sat), CVA (R-sided deficits and aphasia), HTN DM, schizophrenia, and COPD. She presented from dialysis complaining of arm pain near the AV graft site. Noted to have BP's on the low side. As low as 93/48 mmHg. EKG NSR poor baseline otherwise unremarkable Would follow blood cultures to rule out sepsis and follow clinical course BP's seem to be trending up If she remains persistently hypotensive, then obtain an echocardiogarm and can reconsult
[2018-10-07] MEDS: SEVELAMER CARBONATE 800 MG TAB (FP) PO SCH (17:41)
--- NOTE | 2018-10-07 17:53 | PN ---
Progress Note (short form) - Note Progress Note: Vascular Surgery Pt seen and examined. Left avg with good bruit. There is a scab on the graft that is open. Some blood expressed. Please place bacitracin to area daily. Do not stick needles in that area. The area is not warm, or have any signs of erythema or infection. Please give pt antibiotics Discussed case with Dr. Rene. Will follow as outpt. Cristian Loyola DO
[2018-10-07] MEDS ORDERED: PT OWN MED DRAWER 7, Y5N ONE (21:41)
[2018-10-07] MEDS: BACITRACIN 15 GM TUBE TOPICAL OINTMENT TP SCH (22:27)
[2018-10-08] MEDS ORDERED: LEVOTHYROXINE NA 100 MCG TABLET (FP) ONE (05:52)
[2018-10-08] MEDS ORDERED: LEVOTHYROXINE NA 125 MCG TABLET (FP) ONE (05:53)
[2018-10-08] MEDS: DOCUSATE SODIUM 100 MG CAPSULE (FP) PO SCH ×3 (06:01→22:38)
[2018-10-08] MEDS: LEVOTHYROXINE 100 MCG, LEVOTHYROXINE 125 MCG PO SCH (06:01)
[2018-10-08 06:18] LABS: BASO % 0.3 % (0-2.0); EOS % 2.7 % (0-4.5); HEMATOCRIT 25.8 % (32.4-45.2); HEMOGLOBIN 8.5 GM/dL (10.7-15.3); LYMPH % 19.9 % (8-40); MCH 35.1 pg (25.7-33.7); MCHC 33.1 g/dl (32.0-36.0); MEAN CELL VOLUME 105.9 fl (80-96); MONO % 17.7 % (3.8-10.2); NEUT % 59.4 % (42.8-82.8); RBC 2.44 M/mm3 (3.60-5.2); RDW 15.6 % (11.6-15.6)
[2018-10-08 06:47] LABS: ALBUMIN 2.2 g/dl (3.4-5.0); BILIRUBIN,TOTAL 0.3 mg/dL (0.2-1); BLOOD UREA NITROGEN 20.1 mg/dL (7-18); CALCIUM 9.6 mg/dL (8.5-10.1); CREATININE 4.3 mg/dL (0.55-1.3); POTASSIUM 3.7 mmol/L (3.5-5.1); TOT PROT 5.7 g/dl (6.4-8.2)
[2018-10-08] MEDS: ALBUTEROL SO4 2.5/IPRATROPIUM 0.5 INH SOL 3 ML VIAL.NEB. NEB SCH ×4 (08:17→20:24)
[2018-10-08] MEDS: SEVELAMER CARBONATE 800 MG TAB (FP) PO SCH ×3 (08:41→17:25)
[2018-10-08] MEDS: CITALOPRAM HYDROBROMIDE 10 MG TABLET (FP) PO SCH (10:33)
[2018-10-08] MEDS: OLANZapine 5 MG TABLET PO SCH (10:33)
[2018-10-08] MEDS: RANITIDINE HCL 150 MG TABLET (FP) PO SCH (10:34)
[2018-10-08] MEDS: BACITRACIN 15 GM TUBE TOPICAL OINTMENT TP SCH (10:34)
[2018-10-08] MEDS: NYSTATIN/TRIAMCINOLONE TOPICAL OINTMENT 15 GM TUBE TP SCH ×2 (10:34→22:38)
--- NOTE | 2018-10-08 11:50 | PN ---
Progress Note (short form) - Note Progress Note: -Wound by AVG site- s/p massive bleed from the wound site (now in ICU BP may be low at baseline ) -ESRD on HD -Schizophrenia -Chronic Anemia likely related to CKD Active Medications Albuterol/Ipratropium (Duoneb -) 1 amp NEB RQID [facility] Last Admin: 10/08/18 08:17 Dose: Not Given Bacitracin (Bacitracin -) 1 applic TP DAILY [facility] Last Admin: 10/08/18 10:34 Dose: 1 applic Citalopram Hydrobromide (Celexa -) 10 mg PO DAILY [facility] Last Admin: 10/08/18 10:33 Dose: 10 mg Docusate Sodium (Colace -) 100 mg PO TID [facility] Last Admin: 10/08/18 06:01 Dose: 100 mg Levothyroxine Sodium 100 mcg/ (Levothyroxine Sodium 125 mcg) 225 mcg PO DAILY@ 0700 [facility] Last Admin: 10/08/18 06:01 Dose: 225 mcg Nystatin/Triamcinolone Acetonide (Mycolog Ii Ointment -) 1 applic TP BID [facility] Last Admin: 10/08/18 10:34 Dose: 1 applic Olanzapine (Zyprexa -) 15 mg PO DAILY [facility] Last Admin: 10/08/18 10:33 Dose: 15 mg Ranitidine HCl (Zantac -) 150 mg PO DAILY [facility] Last Admin: 10/08/18 10:34 Dose: 150 mg Sevelamer Carbonate (Renvela -) 800 mg PO TIDCM [facility] Last Admin: 10/08/18 08:41 Dose: 800 mg Last Vital Signs Temp Pulse Resp BP Pulse Ox 98.2 F 92 H 20 98/66 96 10/08/18 08:47 10/08/18 08:47 10/08/18 08:47 10/08/18 08:47 10/07/18 21:00 alert in nad, demented, does not answer questions or converse Lungs clear Heart reg Abd soft nontender ext no edema CBC, BMP 10/08/18 05:05 10/08/18 05:05 IMP- ESRD AVF infection? Obesity Chronic hypotension (she gets midodrine 2.5 mg predialysis at her center) Plan- Maintenance HD tomorrow
--- NOTE | 2018-10-08 12:03 | PN ---
Progress Note (short form) - Note Progress Note: alert no complaints right side of bed (right arm with avg) with blood on the floor and on all the bedsheets rapid response call d/w dr anaya d/w rapid response team received daptomycin yesterday for possible infection apparently got vancomycin/fortaz in HD per renal note-blood cultures were drawn in HD will redose vancomycin after HD (currently HD on hold) and f/u dialysis cultures will d/c vancomycin allergy Problem List - Problems (1) Hypotension Code(s): I95.9 - HYPOTENSION, UNSPECIFIED (2) ESRD (end stage renal disease) Code(s): N18.6 - END STAGE RENAL DISEASE (3) Cellulitis Code(s): L03.90 - CELLULITIS, UNSPECIFIED Qualifiers: Site of cellulitis: extremity Site of cellulitis of extremity: upper extremity Laterality: left Qualified Code(s): L03.114 - Cellulitis of left upper limb
--- NOTE | 2018-10-08 12:08 | PN ---
Progress Note, Physician Chief Complaint: RAPID RESPONSE CALLED LEFT ARM AVG BLEED WITH CLOTS AND COPIOUS AMOUNTS OF BLOOD ON BED AND FLOOR PATIENT AWAKE IN MILD DISTRESS - Current Medication List Current Medications: Active Medications Albuterol/Ipratropium (Duoneb -) 1 amp NEB RQID [facility] Last Admin: 10/08/18 11:56 Dose: Not Given Bacitracin (Bacitracin -) 1 applic TP DAILY [facility] Last Admin: 10/08/18 10:34 Dose: 1 applic Chlorhexidine Gluconate (Hibiclens For Decolonization -) 1 applic TP HS [facility] Citalopram Hydrobromide (Celexa -) 10 mg PO DAILY [facility] Last Admin: 10/08/18 10:33 Dose: 10 mg Docusate Sodium (Colace -) 100 mg PO TID [facility] Last Admin: 10/08/18 06:01 Dose: 100 mg Levothyroxine Sodium 100 mcg/ (Levothyroxine Sodium 125 mcg) 225 mcg PO DAILY@ 0700 [facility] Last Admin: 10/08/18 06:01 Dose: 225 mcg Mupirocin (Bactroban Ointment (For Decolonization) -) 1 applic NS BID [facility] Stop: 10/13/18 21:59 Nystatin/Triamcinolone Acetonide (Mycolog Ii Ointment -) 1 applic TP BID [facility] Last Admin: 10/08/18 10:34 Dose: 1 applic Olanzapine (Zyprexa -) 15 mg PO DAILY [facility] Last Admin: 10/08/18 10:33 Dose: 15 mg Ranitidine HCl (Zantac -) 150 mg PO DAILY [facility] Last Admin: 10/08/18 10:34 Dose: 150 mg Sevelamer Carbonate (Renvela -) 800 mg PO TIDCM [facility] Last Admin: 10/08/18 08:41 Dose: 800 mg - Objective Vital Signs: Vital Signs Temperature 98.2 F 10/08/18 08:47 Pulse Rate 92 H 10/08/18 08:47 Respiratory Rate 20 10/08/18 08:47 Blood Pressure 98/66 10/08/18 08:47 O2 Sat by Pulse Oximetry (%) 96 10/07/18 21:00 Constitutional: Yes: Mild Distress Cardiovascular: Yes: Tachycardia Respiratory: Yes: On Nasal O2 Gastrointestinal: Yes: Soft Genitourinary: Yes: Other Extremities: Yes: Other (LEFT ARM GRAFT WITH PRESSURE DRESSING BLEED CONTROLLED) Edema: Yes Labs: CBC, BMP 10/08/18 05:05 10/08/18 05:05 INR, PTT INR 0.96 (0.83-1.09) 10/06/18 22:18 Problem List - Problems (1) AV graft malfunction Code(s): T82.590A - [facility] COMPL OF SURGICALLY CREATED ARTERIOVENOUS FISTULA, INIT (2) Anxiety Code(s): F41.9 - ANXIETY DISORDER, UNSPECIFIED (3) COPD (chronic obstructive pulmonary disease) Code(s): J44.9 - CHRONIC OBSTRUCTIVE PULMONARY DISEASE, UNSPECIFIED (4) History of CVA with residual deficit Code(s): I69.30 - UNSPECIFIED SEQUELAE OF CEREBRAL INFARCTION (5) ESRD (end stage renal disease) Code(s): N18.6 - END STAGE RENAL DISEASE Assessment/Plan CALLED RAPID RESPONSE TRANSFERRING TO ICU VASC SURGERY CALLED STAT CBC , EKG, TROPONINS STAT EKG STAT 02 SUPPORT
--- NOTE | 2018-10-08 12:09 | RAPID ---
Physical Examination Vital Signs: Vital Signs Temperature 98.2 F 10/08/18 08:47 Pulse Rate 92 H 10/08/18 08:47 Respiratory Rate 20 10/08/18 08:47 Blood Pressure 98/66 10/08/18 08:47 O2 Sat by Pulse Oximetry (%) 96 10/07/18 21:00 Findings/Remarks: Rapid response called at 11:41am d/t profuse bleeding. Likeliest observed source was wound adjacent to LUE AV fistula. BP 96/42, HR 159. Large volume blood loss no less than 500cc ruba blood with clots observed. Patient in discomfort, no other complaints. Ordered CBC, CMP, Mg, Phos, Trop, EKG, CXR, 1U PRBC, transfer to ICU. Emergent call placed to vascular Sx.0 Gen: alert and interactive expressive aphasia preventing assessment of orientation CV: tachycardic, no m/r/g Resp: CTA b/l Abd: +bs, soft, NT Neuro: known aphasia, no new deficits appreciated Ext: 2+ pulses, wwp Labs: CBC, BMP 10/08/18 05:05 10/08/18 05:05
--- NOTE | 2018-10-08 12:54 | PN ---
Progress Note (short form) - Note Progress Note: Vascular Surgery Pt had episode of bleeding from AVG. Now not bleeding. 2-0 silk stitch placed to close defect. Graft has good bruit and thrill. Can use access for HD. CAn give PRBC in HD today. Will have investigate integrity of graft. To make sure it is not infected. If so, will need to remove the graft. Cristian Loyola DO
[2018-10-08 13:10] LABS: BASO % 0.4 % (0-2.0); EOS % 1.7 % (0-4.5); HEMOGLOBIN 8.6 GM/dL (10.7-15.3); LYMPH % 16.1 % (8-40); MCH 34.7 pg (25.7-33.7); MCHC 31.9 g/dl (32.0-36.0); MEAN CELL VOLUME 108.7 fl (80-96); MEAN PLT VOLUME 8.5 fl (7.5-11.1); MONO % 11.6 % (3.8-10.2); NEUT % 70.2 % (42.8-82.8); RBC 2.48 M/mm3 (3.60-5.2); RDW 16.1 % (11.6-15.6); WHITE BLOOD COUNT 8.2 K/mm3 (4.0-10.0)
--- NOTE | 2018-10-08 13:23 | CONSULT ---
Consult Consult Specialty:: PULM/CCM Referred by:: Dr. Blaine Jamison Reason for Consultation:: Hemorrhage - History of Present Illness Chief Complaint: Bleeding History of Present Illness: Ms. Lima is a 58 y/o woman w/ COPD, HTN, IDDM, ESRD (HD T/R/Sat), CVA (R- sided deficits and aphasia), & schizophrenia. The pt presents to the ED on 10/06 from dialysis center c/o pain @ L UE AVG site. Pt admitted to floor for Vascular eval & HD. This AM AVG began spontaneously bleeding. Vascular called in. Defect in AVG closed w/ 2.0 silk stitch X 1. All bleeding stopped. Graft has good bruit and thrill. EBL = 500cc. Pt transferred to ICU for close OBS, PRBCs, & HD. - History Source History Provided By: Medical Record Limitations to Obtaining History: Physical Impairment - Past Medical History CARD LACER JACQUARD: Yes: CVA, Dementia Cardio/Vascular: Yes: CAD, CHF, HTN, Hyperlipdemia Pulmonary: Yes: COPD Gastrointestinal: Yes: GERD Renal/: Yes: Renal Inusuff Psych: Yes: Anxiety, Bipolar, Schizophrenia Endocrine: Yes: Diabetes Mellitus, Other (obesity) - Past Surgical History Past Surgical History: Yes: AV Fistula/Graft - Alcohol/Substance Use Hx Alcohol Use: No - Smoking History Smoking history: Never smoked Have you smoked in the past 12 months: No - Social History Usual Living Arrangement: [facility] ADL: Support Services History of Recent Travel: No Home Medications - Allergies Allergies/Adverse Reactions: Allergies Allergy/AdvReac Type Severity Reaction Status Date / Time imipenem Allergy Verified 10/07/18 06:48 NSAIDS (Non-Steroidal Allergy Verified 10/07/18 06:48 Anti-Inflamma piperacillin sodium Allergy Verified 10/07/18 06:48 [From Zosyn] tazobactam sodium Allergy Verified 10/07/18 06:48 [From Zosyn] - Home Medications Home Medications: Ambulatory Orders Citalopram Hydrobromide [Celexa -] 10 mg PO DAILY tablet 09/15/18 Docusate Sodium [Colace -] 100 mg PO TID capsule 09/15/18 Levothyroxine Sodium [Synthroid] 225 mcg PO DAILY #30 tablet 09/15/18 Olanzapine [Zyprexa -] 15 mg PO DAILY tablet 09/15/18 Scopolamine Hydrobromide [Transderm-Scop -] 1 patch TD Q3D patch.td72 09/15/18 Acetaminophen [Tylenol .Regular Strength -] 650 mg PO Q6H PRN 10/07/18 Albuterol 2.5/Ipratropium 0.5 [Duoneb -] 1 amp NEB Q6H PRN 10/07/18 Atorvastatin Calcium 40 mg PO HS 10/07/18 Folic Acid/Vit B Complex and C [Dialyvite Tablet] 1 each PO DAILY 10/07/18 Lorazepam [Ativan] 1 mg PO TUTHSA 10/07/18 Midodrine HCl 2.5 mg PO TUTHSA 10/07/18 Ranitidine HCl [Zantac] 150 mg PO DAILY 10/07/18 Sevelamer Carbonate 2,400 mg PO TID 10/07/18 Valproate Sodium [Depakene] 250 mg PO TID 10/07/18 Amino Acids/Protein Hydrolys [Prosource No Carb Liquid Pkt] 30 ml PO BID@0800, 1730 10/08/18 Nut.tx.imp.renal Fxn,Lac-Reduc [Nepro Carb Steady] 240 ml PO BID 10/08/18 Family Disease History - Family Disease History Family History: Unable to Obtain (Pt can only provide yes/no answers 2/2 expressive aphasia since her CVA, along with residual R sided extremity deficits.) Family Disease History: Heart Disease: Father Review of Systems Unable to obtain ROS, reason: Pt can only provide yes/n Physical Exam Vital Signs: Vital Signs Temperature 98.2 F 10/08/18 08:47 Pulse Rate 92 H 10/08/18 08:47 Respiratory Rate 20 10/08/18 08:47 Blood Pressure 98/66 10/08/18 08:47 O2 Sat by Pulse Oximetry (%) 98 10/08/18 10:35 Intake & Output 10/05/18 10/06/18 10/07/18 10/08/18 23:59 23:59 23:59 23:59 Intake Total 1110 60 Balance 1110 60 Weight 113.398 kg 113.398 kg 113.398 kg Constitutional: Yes: Well Nourished, No Distress, Calm Eyes: Yes: WNL, Conjunctiva Clear, EOM Intact HENT: Yes: WNL, Atraumatic, Normocephalic Neck: Yes: WNL, Supple, Trachea Midline Cardiovascular: Yes: WNL, Regular Rate and Rhythm, Tachycardia Respiratory: Yes: WNL, Regular, CTA Bilaterally Gastrointestinal: Yes: WNL, Normal Bowel Sounds, Soft, Abdomen, Obese ...Rectal Exam: Yes: Deferred Renal/: Yes: Anuria, Other (ON DIALYSIS) Breast(s): Yes: WNL Musculoskeletal: Yes: WNL Extremities: Yes: WNL, Other (L UE AVG) Edema: No Peripheral Pulses WNL: Yes Wound/Incision: Yes: Clean/Dry, Well Approximated, Sutures Intact, Open to air Neurological: Yes: Aphasia, Confusion, Paresthesia, Weakness. No: Facial Droop ...Motor Strength: WNL Psychiatric: Yes: Other (Schizo) Labs: CBC, BMP 10/08/18 12:33 10/08/18 05:05 Laboratory Results - last 24 hr 10/07/18 10/08/18 10/08/18 09:11 05:05 05:05 WBC 8.0 RBC 2.44 L Hgb 8.5 L Hct 25.8 L MCV 105.9 H MCH 35.1 H MCHC 33.1 RDW 15.6 Plt Count 236 MPV Absolute Neuts (auto) 4.8 Neutrophils % 59.4 Lymphocytes % 19.9 D Monocytes % 17.7 H Eosinophils % 2.7 D Basophils % 0.3 Nucleated RBC % 0 Sodium 139 Potassium 3.7 Chloride 105 Carbon Dioxide 28 Anion Gap 6 L BUN 20.1 H Creatinine 4.3 H Est GFR (CKD-EPI)AfAm 12.16 Est GFR (CKD-EPI)NonAf 10.49 Random Glucose 71 L Calcium 9.6 Phosphorus Magnesium Total Bilirubin 0.3 AST 16 ALT 10 L Alkaline Phosphatase 94 Troponin I Total Protein 5.7 L Albumin 2.2 L TSH 0.09 L Blood Type B POSITIVE Antibody Screen Negative Crossmatch See Detail 10/08/18 10/08/18 12:33 13:25 WBC 8.2 RBC 2.48 L Hgb 8.6 L Hct 27.0 L MCV 108.7 H MCH 34.7 H MCHC 31.9 L RDW 16.1 H Plt Count 236 MPV 8.5 D Absolute Neuts (auto) 5.8 Neutrophils % 70.2 Lymphocytes % 16.1 Monocytes % 11.6 H Eosinophils % 1.7 Basophils % 0.4 Nucleated RBC % 0 Sodium 138 Potassium 3.5 Chloride 103 Carbon Dioxide 29 Anion Gap 6 L BUN 21.8 H Creatinine 4.8 H Est GFR (CKD-EPI)AfAm 10.64 Est GFR (CKD-EPI)NonAf 9.18 Random Glucose 139 H Calcium 9.8 Phosphorus 2.2 L Magnesium 2.1 Total Bilirubin 0.2 AST 9 L ALT 8 L Alkaline Phosphatase 94 Troponin I 0.03 Total Protein 5.5 L Albumin 2.3 L TSH Blood Type Antibody Screen Crossmatch Imaging - Results Chest X-ray: Report Reviewed (CXR 10/08: Single AP view of the chest has been submitted. There is no sign of infiltrate or failure. There is a weak inspiration with minimal chin artifact, prominent sclerotic knob, prominent edin and normal heart. There is no sign of an acute chest process. There is a calcification seen in the left apex. The angles are sharp. The soft tissues are intact and there is a left upper arm vascular stent. Impression: No acute chest pathology. No change of an adverse nature since 10/06/2018.) EKG: Image Reviewed (12 LEAD 10/08: RSR in the 1-teens w/o ectopy, T-wave flattening in V1 but non-specific, poor R-wave progression, QTc = 480ms, no acute process (My Read).) Problem List - Problems (1) AV graft malfunction Code(s): T82.590A - [facility] COMPL OF SURGICALLY CREATED ARTERIOVENOUS FISTULA, INIT (2) Anxiety Code(s): F41.9 - ANXIETY DISORDER, UNSPECIFIED (3) COPD (chronic obstructive pulmonary disease) Code(s): J44.9 - CHRONIC OBSTRUCTIVE PULMONARY DISEASE, UNSPECIFIED (4) History of CVA with residual deficit Code(s): I69.30 - UNSPECIFIED SEQUELAE OF CEREBRAL INFARCTION (5) ESRD (end stage renal disease) Code(s): N18.6 - END STAGE RENAL DISEASE (6) CHF (congestive heart failure) Code(s): I50.9 - HEART FAILURE, UNSPECIFIED (7) Diabetes Code(s): E11.9 - TYPE 2 DIABETES MELLITUS WITHOUT COMPLICATIONS (8) Morbid obesity Code(s): E66.01 - MORBID (SEVERE) OBESITY DUE TO EXCESS CALORIES (9) Schizophrenia Code(s): F20.9 - SCHIZOPHRENIA, UNSPECIFIED Assessment/Plan ASSESS: -Bleeding from AVG c/f infected graft -COPD -HTN -CHF -IDDM -ESRD on HD -CVA (R-sided deficits and aphasia) -schizophrenia PLAN: -Supp FiO2 for an SpO2 > 92% -Nebs -IS -Place Midline -PRBCs X1 -HD -F/u Clxrs -Redose vancomycin after HD -Low threshold to remove graft -TTE -Decolonize -BR -Cont all Psych Meds -Cont Synth -PPX -S/p HD this afternoon pt can return to the floor w/o delay. Thank you for this interesting consult. LUNA [facility] ICU PULM/CCM [id number] Critical Care Total Critical Care Time (in minutes): 39 Critical Care Statement: The care of this patient involved high complexity decision making to prevent further life threatening deterioration of the patient 's condition and/or to evaluate & treat vital organ system(s) failure or risk of failure.
[2018-10-08] MEDS: VANCOMYCIN 1 GRAM (PRE-DOCKED) 1,000 MG/250 ML BAG IVPB ONE ×2 (13:59→14:13)
[2018-10-08 14:07] LABS: ALBUMIN 2.3 g/dl (3.4-5.0); BILIRUBIN,TOTAL 0.2 mg/dL (0.2-1); BLOOD UREA NITROGEN 21.8 mg/dL (7-18); CALCIUM 9.8 mg/dL (8.5-10.1); CREATININE 4.8 mg/dL (0.55-1.3); MAGNESIUM 2.1 mg/dL (1.8-2.4); PHOSPHOROUS 2.2 mg/dL (2.5-4.9); POTASSIUM 3.5 mmol/L (3.5-5.1); TOT PROT 5.5 g/dl (6.4-8.2)
[2018-10-08 14:31] LABS: PLATELET COUNT 236 K/MM3 (134-434)
[2018-10-08 14:33] LABS: PLATELET COUNT 236 K/MM3 (134-434)
[2018-10-08] MEDS ORDERED: SODIUM CHLORIDE 250 ML IV PRN (15:07)
--- NOTE | 2018-10-08 17:42 | PROC ---
Procedure Note Procedure: PROCEDURE: MIDLINE INDICATION: POOR VENOUS ACCESS CONSENT: I did obtain consent for the procedure from the pt's cousin Júnior Villar. That was signed, documented, & placed in the patient's chart. I did evaluate the pts R basilic vein w/ US & I did appreciate the vessel to be healthy, patent, & easily accessible. The site was prepped & draped in the usual sterile fashion. STOP TIME OUT I did conduct a time out w/ the pt's Nurse Cristina Samaniego at the bedside. I did anesthetize the target site w/ 2cc 1% Lido. I then entered the pts R basilic vein under US guidance w/ a 21G introducer needle & I did appreciate the flow of non-pulsatile dark venous blood. I then threaded a 50cm Nitinol straight tip Flexura guidewire through the needle into the pts R bascilic vein & removed the needle. I then passed a 5.0 Fr MicroEZ Micro introducer w/ vessel dilator over the wire & into the vessel using the seldinger technique. I removed the wire & I appreciated the wire to be intact & whole. I then removed the central stylette & threaded a 5Fr dual lumen 20cm midline through the sheath into the vessel & then I broke away the sheath & advanced the Midline to the 20cm hub. I did appreciate the return of Dark Venous non-pulsatile blood in both ports. Both ports were flushed & capped in the usual sterile fashion. The line was secured in place w/ the STAT-Lock system. I placed a Bio-disc on the site where the catheter breaches through the pts skin. I applied a sterile dressing to the entire site. EBL < 5cc. The pt tolerated the procedure well. I have no complications to report. Post procedure CXR shows a proximal loop, however, the pt's arm is voluminous and the catheter flushes readily. SONNY Medina [facility] ICU PULM/CCM [id number]
[2018-10-08] MEDS: CHLORHEXIDINE GLUCONATE 4% CLEANSER FOR DECOLONIZATION TP SCH (21:22)
[2018-10-08] MEDS: MUPIROCIN 2% TOPICAL OINTMENT FOR DECOLONIZATION NS SCH (22:37)
[2018-10-08] MEDS ORDERED: LORazepam 2 MG/ML SDV VIAL ONE (23:28)
[2018-10-08] MEDS ORDERED: LORazepam 2 MG/ML SDV VIAL IVPUSH STA (23:32)
[2018-10-09] MEDS ORDERED: PT OWN MED DRAWER 7, Y5N ONE ×4 (06:02→16:12)
[2018-10-09] MEDS: DOCUSATE SODIUM 100 MG CAPSULE (FP) PO SCH ×3 (06:13→21:17)
[2018-10-09] MEDS: LEVOTHYROXINE 100 MCG, LEVOTHYROXINE 125 MCG PO SCH (06:14)
[2018-10-09] MEDS ORDERED: MIDODRINE HCL 2.5 MG TABLET PO ONE ×2 (08:00→22:13)
[2018-10-09] MEDS: ALBUTEROL SO4 2.5/IPRATROPIUM 0.5 INH SOL 3 ML VIAL.NEB. NEB SCH ×4 (08:00→20:13)
[2018-10-09] MEDS: SEVELAMER CARBONATE 800 MG TAB (FP) PO SCH ×3 (09:00→17:05)
[2018-10-09] MEDS: MUPIROCIN 2% TOPICAL OINTMENT FOR DECOLONIZATION NS SCH ×2 (09:06→21:15)
[2018-10-09] MEDS: NYSTATIN/TRIAMCINOLONE TOPICAL OINTMENT 15 GM TUBE TP SCH ×2 (09:07→21:15)
[2018-10-09] MEDS: CITALOPRAM HYDROBROMIDE 10 MG TABLET (FP) PO SCH (09:08)
[2018-10-09] MEDS: RANITIDINE HCL 150 MG TABLET (FP) PO SCH (09:12)
[2018-10-09] MEDS: OLANZapine 5 MG TABLET PO SCH (09:14)
--- NOTE | 2018-10-09 09:16 | PN ---
Progress Note (short form) - Note Progress Note: seen by vascular yesterday in ICU for HD today no more bleeding Vital Signs Period Temp Pulse Resp BP Sys/Mantilla Pulse Ox Last 24 Hr 97.3 F-98.0 F 87-113 13-20 67-126/46-61 98-100 cor-rrr lungs clear abd soft,nt ext no bleeding noted from AVG CBC, BMP 10/08/18 12:33 10/08/18 13:25 Microbiology 10/07/18 00:00 Blood - Peripheral Venous Blood Culture - Preliminary NO GROWTH OBTAINED AFTER 48 HOURS, INCUBATION TO CONTINUE FOR 3 DAYS. 10/06/18 22:18 Blood - Peripheral Venous Blood Culture - Preliminary NO GROWTH OBTAINED AFTER 48 HOURS, INCUBATION TO CONTINUE FOR 3 DAYS. a/p awaiting cultures from HD redose vancomycin today after HD d/w nursing staff will d/w renal and vascular Problem List - Problems (1) Hypotension Code(s): I95.9 - HYPOTENSION, UNSPECIFIED (2) ESRD (end stage renal disease) Code(s): N18.6 - END STAGE RENAL DISEASE (3) Cellulitis Code(s): L03.90 - CELLULITIS, UNSPECIFIED Qualifiers: Site of cellulitis: extremity Site of cellulitis of extremity: upper extremity Laterality: left Qualified Code(s): L03.114 - Cellulitis of left upper limb
[2018-10-09] MEDS: BACITRACIN 15 GM TUBE TOPICAL OINTMENT TP SCH (09:44)
--- NOTE | 2018-10-09 11:18 | PN ---
Progress Note (short form) - Note Progress Note: PULM/CCM Pt Seen & Examined in the ICU. Pt @ baseline. Midline placed yesterday. PRBCs X 1U yesterday for AVG Bleed. No Labs this AM --> Pt is stable --> Hold ;lab draw --> Draw labs this PM s/p HD. Active Medications Albuterol/Ipratropium (Duoneb -) 1 amp NEB RQID [facility] Last Admin: 10/09/18 08:00 Dose: 1 amp Bacitracin (Bacitracin -) 1 applic TP DAILY [facility] Last Admin: 10/09/18 09:44 Dose: 1 applic Chlorhexidine Gluconate (Hibiclens For Decolonization -) 1 applic TP HS [facility] Last Admin: 10/08/18 21:22 Dose: 1 applic Citalopram Hydrobromide (Celexa -) 10 mg PO DAILY [facility] Last Admin: 10/09/18 09:08 Dose: 10 mg Docusate Sodium (Colace -) 100 mg PO TID [facility] Last Admin: 10/09/18 06:13 Dose: 100 mg Sodium Chloride (Normal Saline -) 250 mls @ 3,000 mls/hr IV PRN PRN PRN Reason: Hypotension during Dialysis Stop: 10/09/18 15:07 Levothyroxine Sodium 100 mcg/ (Levothyroxine Sodium 125 mcg) 225 mcg PO DAILY@ 0700 [facility] Last Admin: 10/09/18 06:14 Dose: 225 mcg Mupirocin (Bactroban Ointment (For Decolonization) -) 1 applic NS BID [facility] Stop: 10/13/18 21:59 Last Admin: 10/09/18 09:06 Dose: 1 applic Nystatin/Triamcinolone Acetonide (Mycolog Ii Ointment -) 1 applic TP BID [facility] Last Admin: 10/09/18 09:07 Dose: 1 applic Olanzapine (Zyprexa -) 15 mg PO DAILY [facility] Last Admin: 10/09/18 09:14 Dose: 15 mg Ranitidine HCl (Zantac -) 150 mg PO DAILY [facility] Last Admin: 10/09/18 09:12 Dose: 150 mg Sevelamer Carbonate (Renvela -) 800 mg PO TIDCM [facility] Last Admin: 10/09/18 09:00 Dose: 800 mg Vital Signs Period Temp Pulse Resp BP Sys/Mantilla Pulse Ox Last 24 Hr 97.3 F-98.0 F 87-113 13-22 67-126/46-61 100-100 Intake & Output 10/06/18 10/07/18 10/08/18 10/09/18 23:59 23:59 23:59 23:59 Intake Total 1110 635 Balance 1110 635 Weight 113.398 kg 113.398 kg 113.398 kg 84.2 kg CBC, BMP 10/08/18 12:33 10/08/18 13:25 Microbiology 10/07/18 00:00 Blood - Peripheral Venous Blood Culture - Preliminary NO GROWTH OBTAINED AFTER 48 HOURS, INCUBATION TO CONTINUE FOR 3 DAYS. 10/06/18 22:18 Blood - Peripheral Venous Blood Culture - Preliminary NO GROWTH OBTAINED AFTER 48 HOURS, INCUBATION TO CONTINUE FOR 3 DAYS. RECENT STUDIES TO NOTE: CXR 10/08: Single view of the right upper extremity and a portion of the right chest has been submitted as per request of physician /RIGHT OF WAY MAN. Adam. There is a right arm catheter with its tip by the lateral aspect of the scapula in the axilla. ASSESS: -S/p [employer] for bleeding AVG c/f infected graft -COPD -HTN -CHF -IDDM -ESRD on HD -CVA (R-sided deficits and aphasia) -schizophrenia PLAN: -Supp FiO2 for an SpO2 > 92% -Nebs -IS -HD today -F/u Clxrs -Redose vancomycin after HD today -Low threshold to remove graft -TTE -Decolonize -BR -Cont all Psych Meds -Cont Synth -PPX -S/p HD pt can return to the floor w/o delay. Thank you for this interesting consult. [facility] ICU PULM/CCM [id number] Problem List - Problems (1) AV graft malfunction Code(s): T82.590A - [facility] COMPL OF SURGICALLY CREATED ARTERIOVENOUS FISTULA, INIT (2) Anxiety Code(s): F41.9 - ANXIETY DISORDER, UNSPECIFIED (3) COPD (chronic obstructive pulmonary disease) Code(s): J44.9 - CHRONIC OBSTRUCTIVE PULMONARY DISEASE, UNSPECIFIED (4) History of CVA with residual deficit Code(s): I69.30 - UNSPECIFIED SEQUELAE OF CEREBRAL INFARCTION (5) ESRD (end stage renal disease) Code(s): N18.6 - END STAGE RENAL DISEASE (6) CHF (congestive heart failure) Code(s): I50.9 - HEART FAILURE, UNSPECIFIED (7) Diabetes Code(s): E11.9 - TYPE 2 DIABETES MELLITUS WITHOUT COMPLICATIONS (8) Morbid obesity Code(s): E66.01 - MORBID (SEVERE) OBESITY DUE TO EXCESS CALORIES (9) Schizophrenia Code(s): F20.9 - SCHIZOPHRENIA, UNSPECIFIED
[2018-10-09] MEDS ORDERED: VANCOMYCIN 1 GM in D5W (PRE-DOCKED) 1,000 MG/250 ML IVPB ONE ×2 (11:35→16:30)
--- NOTE | 2018-10-09 12:19 | PN ---
Progress Note, Physician Chief Complaint: AWAKE, HD BEDSIDE IN ICU CONFUSED WHICH IS BASELINE BLEEDING STOPPED LEFT ARM AVG - Current Medication List Current Medications: Active Medications Albuterol/Ipratropium (Duoneb -) 1 amp NEB RQID [facility] Last Admin: 10/09/18 11:41 Dose: Not Given Bacitracin (Bacitracin -) 1 applic TP DAILY [facility] Last Admin: 10/09/18 09:44 Dose: 1 applic Chlorhexidine Gluconate (Hibiclens For Decolonization -) 1 applic TP HS [facility] Last Admin: 10/08/18 21:22 Dose: 1 applic Citalopram Hydrobromide (Celexa -) 10 mg PO DAILY [facility] Last Admin: 10/09/18 09:08 Dose: 10 mg Docusate Sodium (Colace -) 100 mg PO TID [facility] Last Admin: 10/09/18 06:13 Dose: 100 mg Sodium Chloride (Normal Saline -) 250 mls @ 3,000 mls/hr IV PRN PRN PRN Reason: Hypotension during Dialysis Stop: 10/09/18 15:07 Levothyroxine Sodium 100 mcg/ (Levothyroxine Sodium 125 mcg) 225 mcg PO DAILY@ 0700 [facility] Last Admin: 10/09/18 06:14 Dose: 225 mcg Mupirocin (Bactroban Ointment (For Decolonization) -) 1 applic NS BID [facility] Stop: 10/13/18 21:59 Last Admin: 10/09/18 09:06 Dose: 1 applic Nystatin/Triamcinolone Acetonide (Mycolog Ii Ointment -) 1 applic TP BID [facility] Last Admin: 10/09/18 09:07 Dose: 1 applic Olanzapine (Zyprexa -) 15 mg PO DAILY [facility] Last Admin: 10/09/18 09:14 Dose: 15 mg Ranitidine HCl (Zantac -) 150 mg PO DAILY [facility] Last Admin: 10/09/18 09:12 Dose: 150 mg Sevelamer Carbonate (Renvela -) 800 mg PO TIDCM [facility] Last Admin: 10/09/18 09:00 Dose: 800 mg - Objective Vital Signs: Vital Signs Temperature 97.6 F 10/09/18 06:00 Pulse Rate 101 H 10/09/18 11:55 Respiratory Rate 18 10/09/18 11:55 Blood Pressure 113/25 L 10/09/18 11:55 O2 Sat by Pulse Oximetry (%) 100 10/09/18 09:00 Constitutional: Yes: Mild Distress Eyes: Yes: WNL HENT: Yes: WNL Neck: Yes: WNL Cardiovascular: Yes: Regular Rate and Rhythm Respiratory: Yes: WNL Gastrointestinal: Yes: WNL Genitourinary: Yes: Incontinence Musculoskeletal: Yes: Muscle Weakness Extremities: Yes: Other Edema: Yes Integumentary: Yes: Skin Tear, Other (LEFT ARM) Wound/Incision: Yes: Dressing Dry and Intact Neurological: Yes: Confusion ...Motor Strength: LLE, RLE Psychiatric: Yes: Other Labs: CBC, BMP 10/08/18 12:33 10/08/18 13:25 INR, PTT INR 0.96 (0.83-1.09) 10/06/18 22:18 Problem List - Problems (1) AV graft malfunction Code(s): T82.590A - [facility] COMPL OF SURGICALLY CREATED ARTERIOVENOUS FISTULA, INIT (2) Anxiety Code(s): F41.9 - ANXIETY DISORDER, UNSPECIFIED (3) COPD (chronic obstructive pulmonary disease) Code(s): J44.9 - CHRONIC OBSTRUCTIVE PULMONARY DISEASE, UNSPECIFIED (4) History of CVA with residual deficit Code(s): I69.30 - UNSPECIFIED SEQUELAE OF CEREBRAL INFARCTION (5) ESRD (end stage renal disease) Code(s): N18.6 - END STAGE RENAL DISEASE (6) Cellulitis Code(s): L03.90 - CELLULITIS, UNSPECIFIED Qualifiers: Site of cellulitis: extremity Site of cellulitis of extremity: upper extremity Laterality: left Qualified Code(s): L03.114 - Cellulitis of left upper limb (7) Schizophrenia Code(s): F20.9 - SCHIZOPHRENIA, UNSPECIFIED Assessment/Plan IN ICU, BLEEDING STABLE LEFT ARM VASC SX F/U APPRECIATED IV ABX PER ID HD BEDSIDE TRANSFER TO FLOOR DC PLANNING
[2018-10-09 12:33] LABS: HEMATOCRIT 23.9 % (32.4-45.2); HEMOGLOBIN 7.9 GM/dL (10.7-15.3); MCH 32.6 pg (25.7-33.7); MCHC 32.9 g/dl (32.0-36.0); MEAN CELL VOLUME 99.2 fl (80-96); MEAN PLT VOLUME 7.5 fl (7.5-11.1); PLATELET COUNT 229 K/MM3 (134-434); RBC 2.41 M/mm3 (3.60-5.2); RDW 20.8 % (11.6-15.6); WHITE BLOOD COUNT 9.3 K/mm3 (4.0-10.0)
[2018-10-09 12:52] LABS: BLOOD UREA NITROGEN 30.3 mg/dL (7-18); CALCIUM 9.7 mg/dL (8.5-10.1); POTASSIUM 3.9 mmol/L (3.5-5.1)
--- NOTE | 2018-10-09 14:04 | PN ---
Progress Note (short form) - Note Progress Note: -Wound by AVG site- s/p massive bleed from the wound site (now in ICU BP may be low at baseline ) -ESRD on HD -Schizophrenia -Chronic Anemia likely related to CKD Current Medications Albuterol/Ipratropium (Duoneb -) 1 amp NEB RQID [facility] Last Admin: 10/09/18 11:41 Dose: Not Given Bacitracin (Bacitracin -) 1 applic TP DAILY [facility] Last Admin: 10/09/18 09:44 Dose: 1 applic Chlorhexidine Gluconate (Hibiclens For Decolonization -) 1 applic TP HS [facility] Last Admin: 10/08/18 21:22 Dose: 1 applic Citalopram Hydrobromide (Celexa -) 10 mg PO DAILY [facility] Last Admin: 10/09/18 09:08 Dose: 10 mg Docusate Sodium (Colace -) 100 mg PO TID [facility] Last Admin: 10/09/18 06:13 Dose: 100 mg Sodium Chloride (Normal Saline -) 250 mls @ 3,000 mls/hr IV PRN PRN PRN Reason: Hypotension during Dialysis Stop: 10/09/18 15:07 Levothyroxine Sodium 100 mcg/ (Levothyroxine Sodium 125 mcg) 225 mcg PO DAILY@ 0700 [facility] Last Admin: 10/09/18 06:14 Dose: 225 mcg Mupirocin (Bactroban Ointment (For Decolonization) -) 1 applic NS BID [facility] Stop: 10/13/18 21:59 Last Admin: 10/09/18 09:06 Dose: 1 applic Nystatin/Triamcinolone Acetonide (Mycolog Ii Ointment -) 1 applic TP BID [facility] Last Admin: 10/09/18 09:07 Dose: 1 applic Olanzapine (Zyprexa -) 15 mg PO DAILY [facility] Last Admin: 10/09/18 09:14 Dose: 15 mg Ranitidine HCl (Zantac -) 150 mg PO DAILY [facility] Last Admin: 10/09/18 09:12 Dose: 150 mg Sevelamer Carbonate (Renvela -) 800 mg PO TIDCM [facility] Last Admin: 10/09/18 12:40 Dose: 800 mg Last Vital Signs Temp Pulse Resp BP Pulse Ox 97.6 F 107 H 18 89/40 L 100 10/09/18 06:00 10/09/18 13:25 10/09/18 13:25 10/09/18 13:25 10/09/18 09:00 seen while on dialysis alert in nad, demented, does not answer questions or converse Lungs clear Heart reg Abd soft nontender ext no edema CBC, BMP 10/09/18 11:45 10/09/18 11:55 IMP- ESRD AVF infection? Obesity Chronic hypotension (she gets midodrine 2.5 mg predialysis at her center) H/H drop - s/p 1 unit prbc Plan- Maintenance HD tomorrow
[2018-10-09] MEDS ORDERED: EPOETIN ALFA 10,000 UNIT/1 ML VIAL IVPUSH ONE (14:30)
[2018-10-09 15:58] LABS: BLOOD UREA NITROGEN 6.4 mg/dL (7-18); CREATININE 1.7 mg/dL (0.55-1.3)
--- NOTE | 2018-10-09 17:04 | EKG ---
Test Reason : Blood Pressure : / mmHG Vent. Rate : 116 BPM Atrial Rate : 116 BPM P-R Int : 148 ms QRS Dur : 088 ms QT Int : 346 ms P-R-T Axes : 067 006 058 degrees QTc Int : 480 ms SINUS TACHYCARDIA CANNOT RULE OUT ANTERIOR INFARCT , AGE UNDETERMINED ABNORMAL ECG WHEN COMPARED WITH ECG OF 06-OCT-2018 20:02, ABERRANT CONDUCTION IS NO LONGER PRESENT NONSPECIFIC T WAVE ABNORMALITY NO LONGER EVIDENT IN LATERAL LEADS Confirmed by MD FAN, AMADA ([id number]) on 10/09/2018 5:04:02 PM Referred By: GLADYS Confirmed By:AMADA CHAVIRA MD
[2018-10-09] MEDS ORDERED: SODIUM CHLORIDE 250 ML IV STA ×2 (20:57→21:31)
[2018-10-09] MEDS: CHLORHEXIDINE GLUCONATE 4% CLEANSER FOR DECOLONIZATION TP SCH (21:17)
[2018-10-09] MEDS ORDERED: ACETAMINOPHEN 1000 MG/100 ML VIAL (NON FORMULARY) IVPB ONE (21:32)
[2018-10-09] MEDS ORDERED: SODIUM CHLORIDE 500 ML IV STA (22:02)
[2018-10-10] MEDS ORDERED: PT OWN MED DRAWER 7, Y5N ONE ×3 (05:32→09:11)
[2018-10-10] MEDS: DOCUSATE SODIUM 100 MG CAPSULE (FP) PO SCH ×4 (06:01→21:26)
[2018-10-10] MEDS: LEVOTHYROXINE 100 MCG, LEVOTHYROXINE 125 MCG PO SCH (06:01)
--- NOTE | 2018-10-10 07:40 | PN ---
Physical Exam: SUBJECTIVE: Patient seen and examined at bedside- overnight patient was hypotensive with MAPS in the 50's was bolused twice and was given a dose of midodrine 2.5 (supposed to be a BID dosing however she only received it x1) with improvement in MAPS- otherwise she denies any CP/SOB/N/V no more bleeding from AV graft site OBJECTIVE: Vital Signs Period Temp Pulse Resp BP Sys/Mantilla Pulse Ox Last 24 Hr 97.6 F-98.2 F 75-115 14-183 79-119/25-74 100-100 GENERAL: The patient is awake, alert, oriented times 1 (baseline) with expressive aphasia EYES: PEERLA: EOMI no scleral ictuerus. NECK: no JVD; no lymphadenopathy. LUNGS: CTA b/l; no rales, rhonchi or wheezing . HEART: Regular rate and rhythm, S1, S2 without murmur, rub or gallop. ABDOMEN: Soft, nontender, nondistended, normoactive bowel sounds, no guarding, no rebound, no hepatosplenomegaly, no masses. EXTREMITIES: 2+ pulses, warm, well-perfused, trace edema SCDS in place. PSYCH: Normal mood, normal affect. SKIN: Warm, dry, normal turgor, no rashes or lesions noted Laboratory Results - last 24 hr 10/07/18 10/09/18 10/09/18 09:11 11:45 11:55 WBC 9.3 RBC 2.41 L Hgb 7.9 L Hct 23.9 L MCV 99.2 H D MCH 32.6 MCHC 32.9 RDW 20.8 H Plt Count 229 MPV 7.5 D Sodium 139 Potassium 3.9 Chloride 104 Carbon Dioxide 27 Anion Gap 8 BUN 30.3 H Creatinine 6.0 H Est GFR (CKD-EPI)AfAm 8.13 Est GFR (CKD-EPI)NonAf 7.01 POC Glucometer Random Glucose 185 H Calcium 9.7 Blood Type B POSITIVE Antibody Screen Negative Crossmatch See Detail 10/09/18 10/09/18 15:00 22:06 WBC RBC Hgb Hct MCV MCH MCHC RDW Plt Count MPV Sodium Potassium Chloride Carbon Dioxide Anion Gap BUN 6.4 L Creatinine 1.7 H Est GFR (CKD-EPI)AfAm 37.34 Est GFR (CKD-EPI)NonAf 32.21 POC Glucometer 110 Random Glucose Calcium Blood Type Antibody Screen Crossmatch Active Medications Generic Name Dose Route Start Last Admin Trade Name Karriq PRN Reason Stop Dose Admin Albuterol/Ipratropium 1 amp 10/08/18 16:00 10/09/18 20:13 Duoneb - NEB 1 amp RQID [facility] Administration Bacitracin 1 applic 10/09/18 10:00 10/09/18 09:44 Bacitracin - TP 1 applic DAILY [facility] Administration Chlorhexidine Gluconate 1 applic 10/08/18 22:00 10/09/18 21:17 Hibiclens For Decolonization - TP 1 applic HS [facility] Administration Citalopram Hydrobromide 10 mg 10/09/18 10:00 10/09/18 09:08 Celexa - PO 10 mg DAILY [facility] Administration Docusate Sodium 100 mg 10/08/18 14:00 10/10/18 06:01 Colace - PO 100 mg TID [facility] Administration Levothyroxine Sodium 100 mcg/ 225 mcg 10/09/18 07:00 10/10/18 06:01 Levothyroxine Sodium 125 mcg PO 225 mcg DAILY@0700 [facility] Administration Mupirocin 1 applic 10/08/18 22:00 10/09/18 21:15 Bactroban Ointment (For Decolonization) - NS 10/13/18 21:59 1 applic BID [facility] Administration Nystatin/Triamcinolone Acetonide 1 applic 10/08/18 22:00 10/09/18 21:15 Mycolog Ii Ointment - TP 1 applic BID [facility] Administration Olanzapine 15 mg 10/09/18 10:00 10/09/18 09:14 Zyprexa - PO 15 mg DAILY [facility] Administration Ranitidine HCl 150 mg 10/09/18 10:00 10/09/18 09:12 Zantac - PO 150 mg DAILY [facility] Administration Sevelamer Carbonate 800 mg 10/08/18 17:30 10/09/18 17:05 Renvela - PO 800 mg TIDCM [facility] Administration ASSESSMENT/PLAN: 58 y/o female with PMH of ESRD (//), CVA (R sided residual deficits), COPD , extensive psychiatric history, presented to the ED on 10/06 with an infected upper extremity wound, and was found to be bleeding from her left AV graft (EBL around 500cc) and was subsequently transferred to ICU #Neuro patient has had a CVA in the past with R sided deficits -stable; no change patient is at baseline #Cardio patient was hypotensive (though has chronic hypotension at baseline) overnight; given second dose of Midodrine 2.5 mg with improvement -c/w Midodrine 2.5 mg BID -monitor MAPS; #Heme patient had lost around 500 cc of blood when her AV graft was bleeding (on 10/08) ; received 1 unit PRBC -Dr Horne stitched the AV graft back on 10/08 -no longer bleeding from AV graft -repeat Hgb this AM 9.6 -monitor for signs of bleeding #ID patient was given a dose of vanco yesterday after HD -however patient has not been growing anything; blood cx have been negative thus far -ID on board # Pulmonary patient has history of COPD -c/w duonebs PRN -monitor o2 sats; maintain between 88-92% #Psych patient has history of bipolar disorder and schizophrenia -c/w home meds #Renal patient has ESRD (//); last HD session was yesterday -no longer bleeding from AV graft -dr horne to come see patient to see if AV graft needs to be replaced -monitor volume status -monitor electrolytes F/E/N not on fluids monitor electrolytes pureed diet dispo: transfer to floors Visit type - Emergency Visit Emergency Visit: Yes ED Registration Date: 10/06/18 Care time: The patient presented to the Emergency Department on the above date and was hospitalized for further evaluation of their emergent condition. - New Patient This patient is new to me today: Yes Date on this admission: 10/10/18 - Critical Care Critical Care patient: Yes Total Critical Care Time (in minutes): 35 Critical Care Statement: The care of this patient involved high complexity decision making to prevent further life threatening deterioration of the patient 's condition and/or to evaluate & treat vital organ system(s) failure or risk of failure.
[2018-10-10] MEDS: ALBUTEROL SO4 2.5/IPRATROPIUM 0.5 INH SOL 3 ML VIAL.NEB. NEB SCH ×4 (08:17→21:15)
[2018-10-10 08:36] LABS: BLOOD UREA NITROGEN 12.1 mg/dL (7-18); CALCIUM 9.6 mg/dL (8.5-10.1); CREATININE 3.6 mg/dL (0.55-1.3); MAGNESIUM 1.7 mg/dL (1.8-2.4); PHOSPHOROUS 2.7 mg/dL (2.5-4.9); POTASSIUM 3.9 mmol/L (3.5-5.1)
[2018-10-10 08:48] LABS: HEMATOCRIT 28.8 % (32.4-45.2); HEMOGLOBIN 9.6 GM/dL (10.7-15.3); MCH 32.1 pg (25.7-33.7); MCHC 33.3 g/dl (32.0-36.0); MEAN CELL VOLUME 96.3 fl (80-96); MEAN PLT VOLUME 7.5 fl (7.5-11.1); RBC 2.99 M/mm3 (3.60-5.2); RDW 21.7 % (11.6-15.6)
[2018-10-10] MEDS: SEVELAMER CARBONATE 800 MG TAB (FP) PO SCH ×3 (09:00→17:52)
[2018-10-10] MEDS ORDERED: MAGNESIUM OXIDE 400 MG TABLET (FP) PO ONE (09:00)
[2018-10-10] MEDS: CITALOPRAM HYDROBROMIDE 10 MG TABLET (FP) PO SCH (09:06)
[2018-10-10] MEDS: RANITIDINE HCL 150 MG TABLET (FP) PO SCH (09:06)
[2018-10-10] MEDS: OLANZapine 5 MG TABLET PO SCH (09:06)
[2018-10-10 09:07] LABS: PLATELET COUNT 192 K/MM3 (134-434)
[2018-10-10] MEDS: BACITRACIN 15 GM TUBE TOPICAL OINTMENT TP SCH (09:08)
[2018-10-10] MEDS: MUPIROCIN 2% TOPICAL OINTMENT FOR DECOLONIZATION NS SCH (09:09)
[2018-10-10] MEDS: NYSTATIN/TRIAMCINOLONE TOPICAL OINTMENT 15 GM TUBE TP SCH ×2 (09:09→21:27)
--- NOTE | 2018-10-10 09:50 | PN ---
Progress Note (short form) - Note Progress Note: s/p hd yesterday Vital Signs Period Temp Pulse Resp BP Sys/Mantilla Pulse Ox Last 24 Hr 97.6 F-98.2 F 75-115 14-183 79-119/25-74 100-100 cor-rrr lungs clear abd soft, nt ext no edema dressing left afrm CBC, BMP 10/10/18 07:40 10/10/18 07:40 Microbiology 10/07/18 00:00 Blood - Peripheral Venous Blood Culture - Preliminary NO GROWTH OBTAINED AFTER 72 HOURS, INCUBATION TO CONTINUE FOR 2 DAYS. 10/06/18 22:18 Blood - Peripheral Venous Blood Culture - Preliminary NO GROWTH OBTAINED AFTER 72 HOURS, INCUBATION TO CONTINUE FOR 2 DAYS. a/p awaiting cultures from HD rdeosed vancomycin yesterday f/u with vascular surgery Problem List - Problems (1) Hypotension Code(s): I95.9 - HYPOTENSION, UNSPECIFIED (2) ESRD (end stage renal disease) Code(s): N18.6 - END STAGE RENAL DISEASE (3) Cellulitis Code(s): L03.90 - CELLULITIS, UNSPECIFIED Qualifiers: Site of cellulitis: extremity Site of cellulitis of extremity: upper extremity Laterality: left Qualified Code(s): L03.114 - Cellulitis of left upper limb
--- NOTE | 2018-10-10 10:37 | PN ---
Progress Note, Physician Chief Complaint: awake alert s/p HD yesterday h/h improved recieved PRBC yesterday low bP last night got 750 cc bolus and midodrine no more bleeding from AV graft - Current Medication List Current Medications: Active Medications Albuterol/Ipratropium (Duoneb -) 1 amp NEB RQID [facility] Last Admin: 10/09/18 20:13 Dose: 1 amp Bacitracin (Bacitracin -) 1 applic TP DAILY [facility] Last Admin: 10/10/18 09:08 Dose: 1 applic Chlorhexidine Gluconate (Hibiclens For Decolonization -) 1 applic TP HS [facility] Last Admin: 10/09/18 21:17 Dose: 1 applic Citalopram Hydrobromide (Celexa -) 10 mg PO DAILY [facility] Last Admin: 10/10/18 09:06 Dose: 10 mg Docusate Sodium (Colace -) 100 mg PO TID [facility] Last Admin: 10/10/18 06:01 Dose: 100 mg Levothyroxine Sodium 100 mcg/ (Levothyroxine Sodium 125 mcg) 225 mcg PO DAILY@ 0700 [facility] Last Admin: 10/10/18 06:01 Dose: 225 mcg Mupirocin (Bactroban Ointment (For Decolonization) -) 1 applic NS BID [facility] Stop: 10/13/18 21:59 Last Admin: 10/10/18 09:09 Dose: 1 applic Nystatin/Triamcinolone Acetonide (Mycolog Ii Ointment -) 1 applic TP BID [facility] Last Admin: 10/10/18 09:09 Dose: 1 applic Olanzapine (Zyprexa -) 15 mg PO DAILY [facility] Last Admin: 10/10/18 09:06 Dose: 15 mg Ranitidine HCl (Zantac -) 150 mg PO DAILY [facility] Last Admin: 10/10/18 09:06 Dose: 150 mg Sevelamer Carbonate (Renvela -) 800 mg PO TIDCM [facility] Last Admin: 10/10/18 09:00 Dose: 800 mg - Objective Vital Signs: Vital Signs Temperature 97.6 F 10/10/18 08:00 Pulse Rate 106 H 10/10/18 10:00 Respiratory Rate 18 10/10/18 10:00 Blood Pressure 119/71 10/10/18 10:00 O2 Sat by Pulse Oximetry (%) 100 10/10/18 08:44 Constitutional: Yes: Calm Cardiovascular: Yes: Regular Rate and Rhythm, S1, S2 Respiratory: Yes: CTA Bilaterally, Diminished (at bases) Gastrointestinal: Yes: Normal Bowel Sounds, Soft Extremities: Yes: Other (scd left arm dressing bruit) Neurological: Yes: Alert Labs: CBC, BMP 10/10/18 07:40 10/10/18 07:40 INR, PTT INR 0.96 (0.83-1.09) 10/06/18 22:18 Problem List - Problems (1) Hypotension Assessment/Plan: Microbiology 10/07/18 00:00 Blood - Peripheral Venous Blood Culture - Preliminary NO GROWTH OBTAINED AFTER 72 HOURS, INCUBATION TO CONTINUE FOR 2 DAYS. 10/06/18 22:18 Blood - Peripheral Venous Blood Culture - Preliminary NO GROWTH OBTAINED AFTER 72 HOURS, INCUBATION TO CONTINUE FOR 2 DAYS. awaiting cultures from HD got midodrine last night vancomycin yesterday Code(s): I95.9 - HYPOTENSION, UNSPECIFIED (2) ESRD (end stage renal disease) Assessment/Plan: on HD per renal- got HD yesterday midodirine for hypotension during HD Code(s): N18.6 - END STAGE RENAL DISEASE (3) Hypothyroid Assessment/Plan: synthroid dose adjusted to 200mcg from 225mcg tsh noted recheck in 4 weeks Code(s): E03.9 - HYPOTHYROIDISM, UNSPECIFIED (4) Schizophrenia Assessment/Plan: citalopram and zyprexa Code(s): F20.9 - SCHIZOPHRENIA, UNSPECIFIED (5) GERD (gastroesophageal reflux disease) Assessment/Plan: zantac Code(s): K21.9 - GASTRO-ESOPHAGEAL REFLUX DISEASE WITHOUT ESOPHAGITIS (6) Electrolyte abnormality Assessment/Plan: magnesium repleted recheck in AM Code(s): E87.8 - OTH DISORDERS OF ELECTROLYTE AND FLUID BALANCE, NEC
--- NOTE | 2018-10-10 11:11 | PN ---
Teaching Attending Note Name of Resident: Kristin Anaya ATTENDING PHYSICIAN STATEMENT I saw and evaluated the patient. I reviewed the resident's note and discussed the case with the resident. I agree with the resident's findings and plan as documented. SUBJECTIVE: Patient seen & Examined in the ICU. Awake and interactive but confused. No occult bleeding noted from the AVG overnight. H & H stable. Intake & Output 10/07/18 10/08/18 10/09/18 10/10/18 23:59 23:59 23:59 23:59 Intake Total 0065 118 2954 100 Balance 1520 533 6971 100 Weight 250 lb 250 lb 185 lb 10.067 oz 180 lb 8.937 oz Last Vital Signs Temp Pulse Resp BP Pulse Ox 97.6 F 106 H 18 119/71 100 10/10/18 08:00 10/10/18 10:00 10/10/18 10:00 10/10/18 10:00 10/10/18 08:44 Active Medications Albuterol/Ipratropium (Duoneb -) 1 amp NEB RQID [facility] Last Admin: 10/09/18 20:13 Dose: 1 amp Bacitracin (Bacitracin -) 1 applic TP DAILY [facility] Last Admin: 10/10/18 09:08 Dose: 1 applic Chlorhexidine Gluconate (Hibiclens For Decolonization -) 1 applic TP HS [facility] Last Admin: 10/09/18 21:17 Dose: 1 applic Citalopram Hydrobromide (Celexa -) 10 mg PO DAILY [facility] Last Admin: 10/10/18 09:06 Dose: 10 mg Docusate Sodium (Colace -) 100 mg PO TID [facility] Last Admin: 10/10/18 06:01 Dose: 100 mg Levothyroxine Sodium (Synthroid -) 200 mcg PO DAILY@0700 [facility] Mupirocin (Bactroban Ointment (For Decolonization) -) 1 applic NS BID [facility] Stop: 10/13/18 21:59 Last Admin: 10/10/18 09:09 Dose: 1 applic Nystatin/Triamcinolone Acetonide (Mycolog Ii Ointment -) 1 applic TP BID [facility] Last Admin: 10/10/18 09:09 Dose: 1 applic Olanzapine (Zyprexa -) 15 mg PO DAILY [facility] Last Admin: 10/10/18 09:06 Dose: 15 mg Ranitidine HCl (Zantac -) 150 mg PO DAILY [facility] Last Admin: 10/10/18 09:06 Dose: 150 mg Sevelamer Carbonate (Renvela -) 800 mg PO TIDCM [facility] Last Admin: 10/10/18 09:00 Dose: 800 mg GENERAL: awake, alert, interactive, confused, expressive aphasia EYES: scleral ictuerus. NECK: no JVD; no lymphadenopathy. LUNGS: CTA; no rales, rhonchi or wheezing . HEART: Regular rate and rhythm, S1, S2 without murmur, rub or gallop. ABDOMEN: Soft, nontender, nondistended, normoactive bowel sounds, no guarding, no rebound, no hepatosplenomegaly, no masses. EXTREMITIES: 2+ pulses, warm, well-perfused, trace edema, LUE AVG PSYCH: Normal mood, normal affect. SKIN: Warm, dry, normal turgor, no rashes or lesions noted Laboratory Results - last 24 hr 10/07/18 10/09/18 10/09/18 09:11 11:45 11:55 WBC 9.3 RBC 2.41 L Hgb 7.9 L Hct 23.9 L MCV 99.2 H D MCH 32.6 MCHC 32.9 RDW 20.8 H Plt Count 229 MPV 7.5 D Sodium 139 Potassium 3.9 Chloride 104 Carbon Dioxide 27 Anion Gap 8 BUN 30.3 H Creatinine 6.0 H Est GFR (CKD-EPI)AfAm 8.13 Est GFR (CKD-EPI)NonAf 7.01 POC Glucometer Random Glucose 185 H Calcium 9.7 Phosphorus Magnesium Blood Type B POSITIVE Antibody Screen Negative Crossmatch See Detail 10/09/18 10/09/18 10/10/18 15:00 22:06 07:40 WBC RBC Hgb Hct MCV MCH MCHC RDW Plt Count MPV Sodium 141 Potassium 3.9 Chloride 104 Carbon Dioxide 32 Anion Gap 5 L BUN 6.4 L 12.1 Creatinine 1.7 H 3.6 H Est GFR (CKD-EPI)AfAm 37.34 15.07 Est GFR (CKD-EPI)NonAf 32.21 13.00 POC Glucometer 110 Random Glucose 107 H Calcium 9.6 Phosphorus 2.7 Magnesium 1.7 L Blood Type Antibody Screen Crossmatch 10/10/18 07:40 WBC 8.0 RBC 2.99 L Hgb 9.6 L Hct 28.8 L D MCV 96.3 H MCH 32.1 MCHC 33.3 RDW 21.7 H Plt Count 192 MPV 7.5 Sodium Potassium Chloride Carbon Dioxide Anion Gap BUN Creatinine Est GFR (CKD-EPI)AfAm Est GFR (CKD-EPI)NonAf POC Glucometer Random Glucose Calcium Phosphorus Magnesium Blood Type Antibody Screen Crossmatch Problem List - Problems (1) AV graft malfunction Code(s): T82.590A - [facility] COMPL OF SURGICALLY CREATED ARTERIOVENOUS FISTULA, INIT (2) Anxiety Code(s): F41.9 - ANXIETY DISORDER, UNSPECIFIED (3) COPD (chronic obstructive pulmonary disease) Code(s): J44.9 - CHRONIC OBSTRUCTIVE PULMONARY DISEASE, UNSPECIFIED (4) History of CVA with residual deficit Code(s): I69.30 - UNSPECIFIED SEQUELAE OF CEREBRAL INFARCTION (5) ESRD (end stage renal disease) Code(s): N18.6 - END STAGE RENAL DISEASE (6) CHF (congestive heart failure) Code(s): I50.9 - HEART FAILURE, UNSPECIFIED (7) Diabetes Code(s): E11.9 - TYPE 2 DIABETES MELLITUS WITHOUT COMPLICATIONS (8) Morbid obesity Code(s): E66.01 - MORBID (SEVERE) OBESITY DUE TO EXCESS CALORIES (9) Schizophrenia Code(s): F20.9 - SCHIZOPHRENIA, UNSPECIFIED ASSESSMENT: -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
--- NOTE | 2018-10-10 16:18 | PN ---
Progress Note (short form) - Note Progress Note: Renal follow up for ESRD on HD Pt seen and examined at the bedside. awake and alert complains about left arm weakness no overnight events Vital Signs Temperature 97.8 F 10/10/18 12:00 Pulse Rate 103 H 10/10/18 14:00 Respiratory Rate 16 10/10/18 14:00 Blood Pressure 121/66 10/10/18 14:00 O2 Sat by Pulse Oximetry (%) 100 10/10/18 08:44 Intake & Output 10/07/18 10/08/18 10/09/18 10/10/18 23:59 23:59 23:59 23:59 Intake Total 0412 972 2063 100 Balance 1255 023 0901 100 Weight 113.398 kg 113.398 kg 84.2 kg 81.9 kg NAD RRR, no M/R CTA, no rales or wheeze soft NT/ND no LE edema left arm has dressing in place post dialysis suture seen, no bleeding noted CBC, BMP 10/10/18 07:40 10/10/18 07:40 Current Medications Albuterol/Ipratropium (Duoneb -) 1 amp NEB RQID [facility] Last Admin: 10/10/18 15:33 Dose: 1 amp Bacitracin (Bacitracin -) 1 applic TP DAILY [facility] Citalopram Hydrobromide (Celexa -) 10 mg PO DAILY [facility] Docusate Sodium (Colace -) 100 mg PO TID [facility] Last Admin: 10/10/18 14:50 Dose: Not Given Levothyroxine Sodium (Synthroid -) 200 mcg PO DAILY@0700 [facility] Nystatin/Triamcinolone Acetonide (Mycolog Ii Ointment -) 1 applic TP BID [facility] Olanzapine (Zyprexa -) 15 mg PO DAILY [facility] Ranitidine HCl (Zantac -) 150 mg PO DAILY [facility] Sevelamer Carbonate (Renvela -) 800 mg PO TIDCM [facility] 58 year old woman with hx of ESRD on HD (TTS at [facility]), Schizoprenia, CVA with right side weakness, expressive aphasia, DM, hx of hypertension who was sent in from the dialysis center for draining wound by AVG site. #Wound by AVG site #ESRD on HD #Schizophrenia #Chronic Anemia likely related to CKD no acute need for dialysis today AVG site w/o bleeding Blood cultures drawn at dialysis are w/o growth, in hospital cutlures are w/o growth no further need for antibiotics no vascular intervention planned Hgb stable s/p bleeding episode will give SHARON with HD discharge planning as per primary will plan HD as inpatient tomorrow if not discharged Thank you Deng Rene DO
[2018-10-11] MEDS: DOCUSATE SODIUM 100 MG CAPSULE (FP) PO SCH ×3 (06:17→21:46)
[2018-10-11] MEDS: LEVOTHYROXINE NA 200 MCG TABLET PO SCH (06:17)
[2018-10-11] MEDS ORDERED: LEVOTHYROXINE NA 200 MCG TABLET PO SCH (07:00)
[2018-10-11] MEDS: ALBUTEROL SO4 2.5/IPRATROPIUM 0.5 INH SOL 3 ML VIAL.NEB. NEB SCH ×4 (08:05→19:50)
[2018-10-11] MEDS ORDERED: PT OWN MED DRAWER 7, Y5N ONE ×4 (08:15→21:31)
[2018-10-11] MEDS: SEVELAMER CARBONATE 800 MG TAB (FP) PO SCH ×3 (08:19→18:48)
[2018-10-11] MEDS ORDERED: SODIUM CHLORIDE 250 ML IV PRN (08:34)
[2018-10-11] MEDS ORDERED: MAGNESIUM OXIDE 400 MG TABLET (FP) PO ONE (08:45)
[2018-10-11 09:25] LABS: HEMOGLOBIN 9.1 GM/dL (10.7-15.3); MCH 32.7 pg (25.7-33.7); MCHC 33.6 g/dl (32.0-36.0); MEAN CELL VOLUME 97.4 fl (80-96); MEAN PLT VOLUME 7.4 fl (7.5-11.1); PLATELET COUNT 205 K/MM3 (134-434); RBC 2.77 M/mm3 (3.60-5.2); RDW 20.9 % (11.6-15.6); WHITE BLOOD COUNT 7.9 K/mm3 (4.0-10.0)
[2018-10-11] MEDS: RANITIDINE HCL 150 MG TABLET (FP) PO SCH (09:35)
[2018-10-11] MEDS: OLANZapine 5 MG TABLET PO SCH (09:35)
[2018-10-11] MEDS: BACITRACIN 15 GM TUBE TOPICAL OINTMENT TP SCH (09:37)
[2018-10-11] MEDS: CITALOPRAM HYDROBROMIDE 10 MG TABLET (FP) PO SCH (09:38)
[2018-10-11] MEDS: NYSTATIN/TRIAMCINOLONE TOPICAL OINTMENT 15 GM TUBE TP SCH ×3 (09:39→21:51)
[2018-10-11] MEDS: MIDODRINE HCL 2.5 MG TABLET PO SCH ×2 (09:39→18:48)
[2018-10-11] MEDS ORDERED: HEPARIN NA (PORCINE) 5,000 UNITS/ML 1ML VIAL IVPUSH ONE (09:45)
[2018-10-11] MEDS ORDERED: EPOETIN ALFA 10,000 UNIT/1 ML VIAL IVPUSH ONE (09:45)
[2018-10-11 09:51] LABS: BLOOD UREA NITROGEN 18.5 mg/dL (7-18); CALCIUM 9.9 mg/dL (8.5-10.1); PHOSPHOROUS 2.7 mg/dL (2.5-4.9); POTASSIUM 4.3 mmol/L (3.5-5.1)
--- NOTE | 2018-10-11 10:28 | PN ---
Physical Exam: SUBJECTIVE: Patient seen and examined at bedside- overnight patient was hypotensive her pressures improved with fluids and midodrine- she is going for dialysis again this AM- she is complaining of some right arm discomfort OBJECTIVE: Vital Signs Period Temp Pulse Resp BP Sys/Mantilla Pulse Ox Last 24 Hr 97.5 F-98.2 F 88-109 12-19 94-133/46-71 100 GENERAL: The patient is awake, alert, at baseline mental status, in no acute distress. EYES: PEERLA: EOMI; no scleral icterus. NECK: no JVD; no lymphadenopathy LUNGS: CTA B/L; no rales, rhonchi or wheezing HEART: Regular rate and rhythm, S1, S2 without murmur, rub or gallop. ABDOMEN: Soft, nontender, nondistended, normoactive bowel sounds, no guarding, no rebound, no hepatosplenomegaly, no masses. EXTREMITIES: 2+ pulses, warm, well-perfused, trace edema. NEUROLOGICAL: Cranial nerves II through XII grossly intact. Normal speech, gait not observed. PSYCH: Normal mood, normal affect. SKIN: Warm, dry, normal turgor, no rashes or lesions noted Laboratory Results - last 24 hr 10/11/18 10/11/18 09:00 09:00 WBC 7.9 RBC 2.77 L Hgb 9.1 L Hct 27.0 L MCV 97.4 H MCH 32.7 MCHC 33.6 RDW 20.9 H Plt Count 205 MPV 7.4 L Sodium 141 Potassium 4.3 Chloride 105 Carbon Dioxide 33 H Anion Gap 2 L BUN 18.5 H Creatinine 5.0 H Est GFR (CKD-EPI)AfAm 10.13 Est GFR (CKD-EPI)NonAf 8.74 Random Glucose 121 H Calcium 9.9 Phosphorus 2.7 Magnesium 2.0 Active Medications Generic Name Dose Route Start Last Admin Trade Name Freq PRN Reason Stop Dose Admin Albuterol/Ipratropium 1 amp 10/10/18 16:00 10/10/18 21:15 Duoneb - NEB 1 amp RQID [facility] Administration Bacitracin 1 applic 10/11/18 10:00 10/11/18 09:37 Bacitracin - TP Not Given DAILY [facility] Citalopram Hydrobromide 10 mg 10/11/18 10:00 06/18/19 09:38 Celexa - PO 10 mg DAILY [facility] Administration Docusate Sodium 100 mg 10/10/18 14:00 10/11/18 06:17 Colace - PO 100 mg TID [facility] Administration Heparin Sodium (Porcine) 300 unit 10/11/18 09:45 Heparin - IVPUSH 10/11/18 11:46 Q1H [facility] Sodium Chloride 250 mls @ 3,000 mls/hr 10/11/18 08:34 Normal Saline - IV 10/12/18 08:34 PRN PRN Hypotension during Dialysis Levothyroxine Sodium 200 mcg 10/11/18 07:00 10/11/18 06:17 Synthroid - PO 200 mcg DAILY@0700 [facility] Administration Midodrine 2.5 mg 10/11/18 10:00 10/11/18 09:39 Proamatine - PO 2.5 mg BID-MID [facility] Administration Nystatin/Triamcinolone Acetonide 1 applic 10/10/18 22:00 10/11/18 09:39 Mycolog Ii Ointment - TP 1 applic BID [facility] Administration Olanzapine 15 mg 10/11/18 10:00 10/11/18 09:35 Zyprexa - PO 15 mg DAILY [facility] Administration Ranitidine HCl 150 mg 10/11/18 10:00 10/11/18 09:35 Zantac - PO 150 mg DAILY [facility] Administration Sevelamer Carbonate 800 mg 10/10/18 17:30 10/11/18 08:19 Renvela - PO 800 mg TIDCM [facility] Administration ASSESSMENT/PLAN: 58 y/o female with PMH of ESRD (//), CVA (R sided residual deficits), COPD , extensive psychiatric history, presented to the ED on 10/06 with an infected upper extremity wound, and was found to be bleeding from her left AV graft (EBL around 500cc) and was subsequently transferred to ICU #Neuro patient has had a CVA in the past with R sided deficits -stable; no change patient is at baseline #Cardio patient has been hypotensive with improvement in MAPS after fluids and c/w midodrine -c/w Midodrine 2.5 mg BID -monitor MAPS #Heme patient had lost around 500 cc of blood when her AV graft was bleeding (on 10/08) ; received 1 unit PRBC -no longer bleeding from AV graft -repeat Hgb this AM 9.1 -monitor for signs of bleeding #ID patients blood cx have been negative to date thus far -had received 1 dose of vanco after HD two days ago; -ID on board # Pulmonary patient has history of COPD -c/w duonebs PRN -monitor o2 sats; maintain between 88-92% #Psych patient has history of bipolar disorder and schizophrenia -c/w home meds #Renal patient has ESRD (t//); currently getting HD -no longer bleeding from AV graft -no need to remove patients graft as there is no source of infection -monitor volume status -monitor electrolytes F/E/N not on fluids monitor electrolytes pureed diet dispo: will speak to primary team to see if patient can be d/c'd home Problem List - Problems (1) AV graft malfunction Code(s): T82.590A - [facility] COMPL OF SURGICALLY CREATED ARTERIOVENOUS FISTULA, INIT (2) Anxiety Code(s): F41.9 - ANXIETY DISORDER, UNSPECIFIED (3) COPD (chronic obstructive pulmonary disease) Code(s): J44.9 - CHRONIC OBSTRUCTIVE PULMONARY DISEASE, UNSPECIFIED (4) History of CVA with residual deficit Code(s): I69.30 - UNSPECIFIED SEQUELAE OF CEREBRAL INFARCTION (5) Hypotension Code(s): I95.9 - HYPOTENSION, UNSPECIFIED Visit type - Emergency Visit Emergency Visit: Yes ED Registration Date: 10/06/18 Care time: The patient presented to the Emergency Department on the above date and was hospitalized for further evaluation of their emergent condition. - New Patient This patient is new to me today: No - Critical Care Critical Care patient: Yes Total Critical Care Time (in minutes): 35 Critical Care Statement: The care of this patient involved high complexity decision making to prevent further life threatening deterioration of the patient 's condition and/or to evaluate & treat vital organ system(s) failure or risk of failure.
[2018-10-11] MEDS: HEPARIN NA (PORCINE) 5,000 UNITS/ML 1ML VIAL IVPUSH SCH ×3 (10:30→12:30)
--- NOTE | 2018-10-11 11:15 | PN ---
Teaching Attending Note Name of Resident: Kristin Anaya ATTENDING PHYSICIAN STATEMENT I saw and evaluated the patient. I reviewed the resident's note and discussed the case with the resident. I agree with the resident's findings and plan as documented. SUBJECTIVE: Patient seen & Examined in the ICU. Awake and interactive but confused. No acute events overnight. No further bleeding noted from the AVG. Intake & Output 10/08/18 10/09/18 10/10/18 10/11/18 23:59 23:59 23:59 23:59 Intake Total 635 1750 200 200 Balance 635 1750 200 200 Weight 250 lb 185 lb 10.067 oz 180 lb 8.937 oz 179 lb 1 oz Last Vital Signs Temp Pulse Resp BP Pulse Ox 97.9 F 98 H 19 113/59 L 100 10/11/18 08:00 10/11/18 08:00 10/11/18 08:00 10/11/18 08:00 10/10/18 20:11 Active Medications Albuterol/Ipratropium (Duoneb -) 1 amp NEB RQID [facility] Last Admin: 10/10/18 21:15 Dose: 1 amp Bacitracin (Bacitracin -) 1 applic TP DAILY [facility] Last Admin: 10/11/18 09:37 Dose: Not Given Citalopram Hydrobromide (Celexa -) 10 mg PO DAILY [facility] Last Admin: 10/11/18 09:38 Dose: 10 mg Docusate Sodium (Colace -) 100 mg PO TID [facility] Last Admin: 10/11/18 06:17 Dose: 100 mg Heparin Sodium (Porcine) (Heparin -) 300 unit IVPUSH Q1H [facility] Stop: 10/11/18 11:46 Sodium Chloride (Normal Saline -) 250 mls @ 3,000 mls/hr IV PRN PRN PRN Reason: Hypotension during Dialysis Stop: 10/12/18 08:34 Levothyroxine Sodium (Synthroid -) 200 mcg PO DAILY@0700 [facility] Last Admin: 10/11/18 06:17 Dose: 200 mcg Midodrine (Proamatine -) 2.5 mg PO BID-MID [facility] Last Admin: 10/11/18 09:39 Dose: 2.5 mg Nystatin/Triamcinolone Acetonide (Mycolog Ii Ointment -) 1 applic TP BID [facility] Last Admin: 10/11/18 09:39 Dose: 1 applic Olanzapine (Zyprexa -) 15 mg PO DAILY [facility] Last Admin: 10/11/18 09:35 Dose: 15 mg Ranitidine HCl (Zantac -) 150 mg PO DAILY [facility] Last Admin: 10/11/18 09:35 Dose: 150 mg Sevelamer Carbonate (Renvela -) 800 mg PO TIDCM [facility] Last Admin: 10/11/18 08:19 Dose: 800 mg GENERAL: awake, alert, interactive, confused, expressive aphasia EYES: scleral ictuerus. NECK: no JVD; no lymphadenopathy. LUNGS: CTA; no rales, rhonchi or wheezing . HEART: Regular rate and rhythm, S1, S2 without murmur, rub or gallop. ABDOMEN: Soft, nontender, nondistended, normoactive bowel sounds, no guarding, no rebound, no hepatosplenomegaly, no masses. EXTREMITIES: 2+ pulses, warm, well-perfused, trace edema, LUE AVG PSYCH: Normal mood, normal affect. Neuro: right sided weakness and contracture SKIN: Warm, dry, normal turgor, no rashes or lesions noted Laboratory Results - last 24 hr 10/11/18 10/11/18 09:00 09:00 WBC 7.9 RBC 2.77 L Hgb 9.1 L Hct 27.0 L MCV 97.4 H MCH 32.7 MCHC 33.6 RDW 20.9 H Plt Count 205 MPV 7.4 L Sodium 141 Potassium 4.3 Chloride 105 Carbon Dioxide 33 H Anion Gap 2 L BUN 18.5 H Creatinine 5.0 H Est GFR (CKD-EPI)AfAm 10.13 Est GFR (CKD-EPI)NonAf 8.74 Random Glucose 121 H Calcium 9.9 Phosphorus 2.7 Magnesium 2.0 Problem List - Problems (1) AV graft malfunction Code(s): T82.590A - [facility] COMPL OF SURGICALLY CREATED ARTERIOVENOUS FISTULA, INIT (2) Anxiety Code(s): F41.9 - ANXIETY DISORDER, UNSPECIFIED (3) COPD (chronic obstructive pulmonary disease) Code(s): J44.9 - CHRONIC OBSTRUCTIVE PULMONARY DISEASE, UNSPECIFIED (4) History of CVA with residual deficit Code(s): I69.30 - UNSPECIFIED SEQUELAE OF CEREBRAL INFARCTION (5) ESRD (end stage renal disease) Code(s): N18.6 - END STAGE RENAL DISEASE (6) CHF (congestive heart failure) Code(s): I50.9 - HEART FAILURE, UNSPECIFIED (7) Diabetes Code(s): E11.9 - TYPE 2 DIABETES MELLITUS WITHOUT COMPLICATIONS (8) Morbid obesity Code(s): E66.01 - MORBID (SEVERE) OBESITY DUE TO EXCESS CALORIES (9) Schizophrenia Code(s): F20.9 - SCHIZOPHRENIA, UNSPECIFIED ASSESSMENT: -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
[2018-10-11 15:31] VITALS: BMI 30.7
--- NOTE | 2018-10-11 15:41 | PN ---
Progress Note (short form) - Note Progress Note: Renal follow up for ESRD on HD Pt seen and examined in the ICU s/p dialysis this am with 2kg UF pt awake and alert but confused on further bleeding from access site Vital Signs Temperature 97.9 F 10/11/18 08:00 Pulse Rate 115 H 10/11/18 13:30 Respiratory Rate 18 10/11/18 13:30 Blood Pressure 119/61 10/11/18 13:30 O2 Sat by Pulse Oximetry (%) 99 10/11/18 09:00 Intake & Output 10/08/18 10/09/18 10/10/18 10/11/18 23:59 23:59 23:59 23:59 Intake Total 635 1750 200 200 Balance 635 1750 200 200 Weight 113.398 kg 84.2 kg 81.9 kg 81.221 kg NAD RRR, no M/R CTA, no rales or wheeze soft NT/ND no LE edema suture seen by AVG, no bleeding noted CBC, BMP 10/11/18 09:00 10/11/18 09:00 Current Medications Albuterol/Ipratropium (Duoneb -) 1 amp NEB RQID [facility] Last Admin: 10/11/18 12:10 Dose: 1 amp Bacitracin (Bacitracin -) 1 applic TP DAILY [facility] Last Admin: 10/11/18 09:37 Dose: Not Given Citalopram Hydrobromide (Celexa -) 10 mg PO DAILY [facility] Last Admin: 10/11/18 09:38 Dose: 10 mg Docusate Sodium (Colace -) 100 mg PO TID [facility] Last Admin: 10/11/18 13:01 Dose: Not Given Sodium Chloride (Normal Saline -) 250 mls @ 3,000 mls/hr IV PRN PRN PRN Reason: Hypotension during Dialysis Stop: 10/12/18 08:34 Levothyroxine Sodium (Synthroid -) 200 mcg PO DAILY@0700 [facility] Last Admin: 10/11/18 06:17 Dose: 200 mcg Midodrine (Proamatine -) 2.5 mg PO BID-MID [facility] Last Admin: 10/11/18 09:39 Dose: 2.5 mg Nystatin/Triamcinolone Acetonide (Mycolog Ii Ointment -) 1 applic TP BID [facility] Last Admin: 10/11/18 09:39 Dose: 1 applic Olanzapine (Zyprexa -) 15 mg PO DAILY [facility] Last Admin: 10/11/18 09:35 Dose: 15 mg Ranitidine HCl (Zantac -) 150 mg PO DAILY [facility] Last Admin: 10/11/18 09:35 Dose: 150 mg Sevelamer Carbonate (Renvela -) 800 mg PO TIDCM [facility] Last Admin: 10/11/18 13:01 Dose: Not Given 58 year old woman with hx of ESRD on HD (TTS at [facility]), Schizoprenia, CVA with right side weakness, expressive aphasia, DM, hx of hypertension who was sent in from the dialysis center for draining wound by AVG site. #Wound by AVG site #ESRD on HD #Schizophrenia #Chronic Anemia likely related to CKD tolerated dialysis well this am AVG site w/o bleeding Blood cultures drawn at dialysis are w/o growth, in hospital cutlures are w/o growth no further need for antibiotics no vascular intervention planned Hgb stable s/p bleeding episode, will continue SHARON with HD will give SHARON with HD for discharge planning to [place] Thank you Deng Rene DO
--- NOTE | 2018-10-11 18:50 | PN ---
Progress Note, Physician Chief Complaint: ESRD Hypotension AV graft Malfunction History of Present Illness: Previous notes and events reviewed awake and alert NAD complain of chest pain, noted to be tachycardic with HR 110s - Current Medication List Current Medications: Active Medications Albuterol/Ipratropium (Duoneb -) 1 amp NEB RQID [facility] Last Admin: 10/11/18 16:05 Dose: 1 amp Bacitracin (Bacitracin -) 1 applic TP DAILY [facility] Last Admin: 10/11/18 09:37 Dose: Not Given Citalopram Hydrobromide (Celexa -) 10 mg PO DAILY [facility] Last Admin: 10/11/18 09:38 Dose: 10 mg Docusate Sodium (Colace -) 100 mg PO TID [facility] Last Admin: 10/11/18 13:01 Dose: Not Given Sodium Chloride (Normal Saline -) 250 mls @ 3,000 mls/hr IV PRN PRN PRN Reason: Hypotension during Dialysis Stop: 10/12/18 08:34 Levothyroxine Sodium (Synthroid -) 200 mcg PO DAILY@0700 [facility] Last Admin: 10/11/18 06:17 Dose: 200 mcg Midodrine (Proamatine -) 2.5 mg PO BID-MID [facility] Last Admin: 10/11/18 09:39 Dose: 2.5 mg Nystatin/Triamcinolone Acetonide (Mycolog Ii Ointment -) 1 applic TP BID [facility] Last Admin: 10/11/18 09:39 Dose: 1 applic Olanzapine (Zyprexa -) 15 mg PO DAILY [facility] Last Admin: 10/11/18 09:35 Dose: 15 mg Ranitidine HCl (Zantac -) 150 mg PO DAILY [facility] Last Admin: 10/11/18 09:35 Dose: 150 mg Sevelamer Carbonate (Renvela -) 800 mg PO TIDCM [facility] Last Admin: 10/11/18 13:01 Dose: Not Given - Objective Vital Signs: Vital Signs Temperature 99 F 10/11/18 14:00 Pulse Rate 110 H 10/11/18 18:00 Respiratory Rate 16 10/11/18 18:00 Blood Pressure 115/57 L 10/11/18 18:00 O2 Sat by Pulse Oximetry (%) 99 10/11/18 09:00 Constitutional: Yes: No Distress, Calm Eyes: Yes: Conjunctiva Clear HENT: Yes: Atraumatic Cardiovascular: Yes: Tachycardia Respiratory: Yes: Regular, CTA Bilaterally, On Nasal O2 Gastrointestinal: Yes: Normal Bowel Sounds, Soft, Abdomen, Obese Genitourinary: Yes: Incontinence Musculoskeletal: Yes: Muscle Weakness Extremities: Yes: WNL Edema: No Neurological: Yes: Alert, Aphasia, Pre-Existing Deficit Psychiatric: Yes: Alert Labs: CBC, BMP 10/11/18 09:00 10/11/18 09:00 INR, PTT INR 0.96 (0.83-1.09) 10/06/18 22:18 Microbiology 10/07/18 00:00 Blood - Peripheral Venous Blood Culture - Preliminary NO GROWTH OBTAINED AFTER 96 HOURS, INCUBATION TO CONTINUE FOR 1 DAYS. 10/06/18 22:18 Blood - Peripheral Venous Blood Culture - Preliminary NO GROWTH OBTAINED AFTER 96 HOURS, INCUBATION TO CONTINUE FOR 1 DAYS. Problem List - Problems (1) AV graft malfunction Assessment/Plan: -renal on board Code(s): T82.590A - [facility] COMPL OF SURGICALLY CREATED ARTERIOVENOUS FISTULA, INIT (2) COPD (chronic obstructive pulmonary disease) Assessment/Plan: -Pulm on board -O2 via NC -keep SpO2 >90% -bronchodilators Code(s): J44.9 - CHRONIC OBSTRUCTIVE PULMONARY DISEASE, UNSPECIFIED (3) Cellulitis Assessment/Plan: -ID on board -completed ABT -BC neg -no leukocytosis Code(s): L03.90 - CELLULITIS, UNSPECIFIED Qualifiers: Site of cellulitis: extremity Site of cellulitis of extremity: upper extremity Laterality: left Qualified Code(s): L03.114 - Cellulitis of left upper limb (4) GERD (gastroesophageal reflux disease) Assessment/Plan: -Rantidine Code(s): K21.9 - GASTRO-ESOPHAGEAL REFLUX DISEASE WITHOUT ESOPHAGITIS (5) History of CVA with residual deficit Assessment/Plan: -fall precaution -cardiology on board -PT Code(s): I69.30 - UNSPECIFIED SEQUELAE OF CEREBRAL INFARCTION (6) Hypotension Assessment/Plan: -cardiology on board -[place] Code(s): I95.9 - HYPOTENSION, UNSPECIFIED (7) Hypothyroid Assessment/Plan: -Levothyroxine Code(s): E03.9 - HYPOTHYROIDISM, UNSPECIFIED (8) ESRD (end stage renal disease) Assessment/Plan: -renal on board -HD on scheduled days -monitor renal function -BUN/Cr 18/5.0 Code(s): N18.6 - END STAGE RENAL DISEASE (9) CHF (congestive heart failure) Assessment/Plan: -1L fluid restriction -daily weight -cardiology Code(s): I50.9 - HEART FAILURE, UNSPECIFIED (10) Morbid obesity Code(s): E66.01 - MORBID (SEVERE) OBESITY DUE TO EXCESS CALORIES (11) Schizophrenia Assessment/Plan: -Zyprexa Code(s): F20.9 - SCHIZOPHRENIA, UNSPECIFIED (12) Chest pain Assessment/Plan: -EKG and Troponin STAT Code(s): R07.9 - CHEST PAIN, UNSPECIFIED Assessment/Plan see problem list dvt ppx if EKG and Trop neg, can begin d/c planning to SNF
[2018-10-12] MEDS: LEVOTHYROXINE NA 200 MCG TABLET PO SCH (06:22)
[2018-10-12] MEDS: ALBUTEROL SO4 2.5/IPRATROPIUM 0.5 INH SOL 3 ML VIAL.NEB. NEB SCH ×3 (08:05→16:10)
[2018-10-12] MEDS ORDERED: PT OWN MED DRAWER 7, Y5N ONE ×2 (08:13→10:46)
--- NOTE | 2018-10-12 10:46 | EKG ---
Test Reason : Blood Pressure : / mmHG Vent. Rate : 105 BPM Atrial Rate : 105 BPM P-R Int : 172 ms QRS Dur : 088 ms QT Int : 354 ms P-R-T Axes : 044 -14 029 degrees QTc Int : 467 ms SINUS TACHYCARDIA INFERIOR INFARCT , AGE UNDETERMINED POSSIBLE ANTEROLATERAL INFARCT , AGE UNDETERMINED ABNORMAL ECG WHEN COMPARED WITH ECG OF 09-OCT-2018 21:02, NO SIGNIFICANT CHANGE WAS FOUND Confirmed by ALLEGRA GAUTAM, KAREN ([id number]) on 10/12/2018 10:45:55 AM Referred By: Confirmed By:KAREN DINH MD
[2018-10-12] MEDS: SEVELAMER CARBONATE 800 MG TAB (FP) PO SCH ×3 (10:50→17:34)
[2018-10-12] MEDS: MIDODRINE HCL 2.5 MG TABLET PO SCH ×2 (10:50→17:34)
[2018-10-12] MEDS: RANITIDINE HCL 150 MG TABLET (FP) PO SCH (10:51)
[2018-10-12] MEDS: OLANZapine 5 MG TABLET PO SCH (10:51)
[2018-10-12] MEDS: CITALOPRAM HYDROBROMIDE 10 MG TABLET (FP) PO SCH (10:51)
[2018-10-12] MEDS: BACITRACIN 15 GM TUBE TOPICAL OINTMENT TP SCH (10:53)
[2018-10-12] MEDS: NYSTATIN/TRIAMCINOLONE TOPICAL OINTMENT 15 GM TUBE TP SCH (10:54)
--- NOTE | 2018-10-12 11:50 | PN ---
Teaching Attending Note Name of Resident: Virgilio Baker ATTENDING PHYSICIAN STATEMENT I saw and evaluated the patient. I reviewed the resident's note and discussed the case with the resident. I agree with the resident's findings and plan as documented. SUBJECTIVE: Pt seen and examined in the ICU. Mental status at baseline. No bleeding noted. OBJECTIVE: Vital Signs Period Temp Pulse Resp BP Sys/Mantilla Pulse Ox Last 24 Hr 98.2 F-99 F 93-118 12-22 87-154/46-74 96-100 Intake & Output 10/09/18 10/10/18 10/11/18 10/12/18 23:59 23:59 23:59 23:59 Intake Total 1750 200 392 120 Output Total 0 0 Balance 1750 200 392 120 Weight 84.2 kg 81.9 kg 81.221 kg 81.42 kg Gen: NAD at rest Heart: RRR Lung: decreased breath sounds at the bases Abd: soft, nontender Ext: no edema CBC, BMP 10/11/18 09:00 10/11/18 09:00 Active Medications Albuterol/Ipratropium (Duoneb -) 1 amp NEB RQID [facility] Last Admin: 10/12/18 08:05 Dose: 1 amp Bacitracin (Bacitracin -) 1 applic TP DAILY [facility] Last Admin: 10/12/18 10:53 Dose: Not Given Citalopram Hydrobromide (Celexa -) 10 mg PO DAILY [facility] Last Admin: 10/12/18 10:51 Dose: 10 mg Levothyroxine Sodium (Synthroid -) 200 mcg PO DAILY@0700 [facility] Last Admin: 10/12/18 06:22 Dose: 200 mcg Midodrine (Proamatine -) 2.5 mg PO BID-MID [facility] Last Admin: 10/12/18 10:50 Dose: 2.5 mg Nystatin/Triamcinolone Acetonide (Mycolog Ii Ointment -) 1 applic TP BID [facility] Last Admin: 10/12/18 10:54 Dose: 1 applic Olanzapine (Zyprexa -) 15 mg PO DAILY [facility] Last Admin: 10/12/18 10:51 Dose: 15 mg Ranitidine HCl (Zantac -) 150 mg PO DAILY [facility] Last Admin: 10/12/18 10:51 Dose: 150 mg Senna (Senna Oral Solution -) 8.8 mg PO HS [facility] Sevelamer Carbonate (Renvela -) 800 mg PO TIDCM [facility] Last Admin: 10/12/18 10:50 Dose: 800 mg ASSESSMENT AND PLAN: Acute Blood Loss Anemia from bleeding AVG ESRD on HD COPD CHF HTN DM Schizophrenia Hypothyroidism h/o CVA - HD per renal - inhaled bronchodilators - DVT prophylaxis - aspiration precautions - d/c planning in progress
--- NOTE | 2018-10-12 13:23 | PN ---
Progress Note (short form) - Note Progress Note: Renal follow up for ESRD on HD Pt seen and examined in the ICU awake and alert complains of weakness in right arm s/p dialysis yesterday Vital Signs Temperature 98.4 F 10/12/18 08:00 Pulse Rate 112 H 10/12/18 12:00 Respiratory Rate 17 10/12/18 12:00 Blood Pressure 107/45 L 10/12/18 12:00 O2 Sat by Pulse Oximetry (%) 97 10/12/18 09:00 Intake & Output 10/09/18 10/10/18 10/11/18 10/12/18 23:59 23:59 23:59 23:59 Intake Total 1750 200 392 120 Output Total 0 0 Balance 1750 200 392 120 Weight 84.2 kg 81.9 kg 81.221 kg 81.42 kg NAD RRR, no M/R CTA, no rales or wheeze soft NT/ND no LE edema suture seen by AVG, no bleeding noted CBC, BMP 10/11/18 09:00 10/11/18 09:00 Current Medications Albuterol/Ipratropium (Duoneb -) 1 amp NEB RQID [facility] Last Admin: 10/12/18 08:05 Dose: 1 amp Bacitracin (Bacitracin -) 1 applic TP DAILY [facility] Last Admin: 10/12/18 10:53 Dose: Not Given Citalopram Hydrobromide (Celexa -) 10 mg PO DAILY [facility] Last Admin: 10/12/18 10:51 Dose: 10 mg Levothyroxine Sodium (Synthroid -) 200 mcg PO DAILY@0700 [facility] Last Admin: 10/12/18 06:22 Dose: 200 mcg Midodrine (Proamatine -) 2.5 mg PO BID-MID [facility] Last Admin: 10/12/18 10:50 Dose: 2.5 mg Nystatin/Triamcinolone Acetonide (Mycolog Ii Ointment -) 1 applic TP BID [facility] Last Admin: 10/12/18 10:54 Dose: 1 applic Olanzapine (Zyprexa -) 15 mg PO DAILY [facility] Last Admin: 10/12/18 10:51 Dose: 15 mg Ranitidine HCl (Zantac -) 150 mg PO DAILY [facility] Last Admin: 10/12/18 10:51 Dose: 150 mg Senna (Senna Oral Solution -) 8.8 mg PO HS [facility] Sevelamer Carbonate (Renvela -) 800 mg PO TIDCM [facility] Last Admin: 10/12/18 10:50 Dose: 800 mg 58 year old woman with hx of ESRD on HD (TTS at [facility]), Schizoprenia, CVA with right side weakness, expressive aphasia, DM, hx of hypertension who was sent in from the dialysis center for draining wound by AVG site. #Wound by AVG site #ESRD on HD #Schizophrenia #Chronic Anemia likely related to CKD no acute need for dialysis today Blood cultures drawn at dialysis are w/o growth, in hospital cultures are w/o growth no further need for antibiotics no vascular intervention planned Hgb stable s/p bleeding episode, will continue [facility] with HD awaiting discharge to [place], can resume dialysis as an outpatient Thank you Deng Rene DO
--- NOTE | 2018-10-12 13:53 | PN ---
Physical Exam: SUBJECTIVE: Patient seen and examined at bedside. No acute events. No change. OBJECTIVE: Vital Signs Period Temp Pulse Resp BP Sys/Mantilla Pulse Ox Last 24 Hr 98.2 F-99 F 93-118 12-22 87-126/45-67 96-100 Gen: Awake, alert, sleepy, at baseline HEENT: NCAT, EOMI, mandibular tremor Neck: supple, no jvd Cardio: rrr, normal s1s2, no mrg Pulm: limited exam, no rales/ronchi appreciated Abd: obese, nondistended, no guarding Ext: no edema, 2+ pulses Neuro: limited exam, residual R flaccid paralysis Laboratory Results - last 24 hr 10/07/18 10/11/18 10/12/18 09:11 19:15 02:25 Troponin I 0.02 0.02 Blood Type B POSITIVE Antibody Screen Negative Crossmatch See Detail Active Medications Generic Name Dose Route Start Last Admin Trade Name Freq PRN Reason Stop Dose Admin Albuterol/Ipratropium 1 amp 10/10/18 16:00 10/12/18 08:05 Duoneb - NEB 1 amp RQID [facility] Administration Bacitracin 1 applic 10/11/18 10:00 10/12/18 10:53 Bacitracin - TP Not Given DAILY [facility] Citalopram Hydrobromide 10 mg 10/11/18 10:00 10/12/18 10:51 Celexa - PO 10 mg DAILY [facility] Administration Levothyroxine Sodium 200 mcg 10/11/18 07:00 10/12/18 06:22 Synthroid - PO 200 mcg DAILY@0700 [facility] Administration Midodrine 2.5 mg 10/11/18 10:00 10/12/18 10:50 Proamatine - PO 2.5 mg BID-MID [facility] Administration Nystatin/Triamcinolone Acetonide 1 applic 10/10/18 22:00 10/12/18 10:54 Mycolog Ii Ointment - TP 1 applic BID [facility] Administration Olanzapine 15 mg 10/11/18 10:00 10/12/18 10:51 Zyprexa - PO 15 mg DAILY [facility] Administration Ranitidine HCl 150 mg 10/11/18 10:00 10/12/18 10:51 Zantac - PO 150 mg DAILY [facility] Administration Senna 8.8 mg 10/12/18 22:00 Senna Oral Solution - PO HS [facility] Sevelamer Carbonate 800 mg 10/10/18 17:30 10/12/18 10:50 Renvela - PO 800 mg TIDCM [facility] Administration ASSESSMENT/PLAN: Pt is a 58 y/o F with PMH ESRD (//), CVA (R sided residual deficits), COPD , extensive psychiatric history who presented on 10/06 for cellulitis of LUE ( site of fistula) and was transferred to ICU after bleeding from AVF at HD. Pt has been stable in ICU #Bleed -lost 500 ml blood during HD -got 1 prbc -Hb stable #Hypotensions -chronic problem -was on midodrine -BP stable with midodrine #COPD -c/w duonebs #Cellulitis -no erythema/pain -off abx #ESRD -c/w HD #Psych -c/w home meds Visit type - Emergency Visit Emergency Visit: No - New Patient This patient is new to me today: No - Critical Care Critical Care patient: Yes Total Critical Care Time (in minutes): 35 Critical Care Statement: The care of this patient involved high complexity decision making to prevent further life threatening deterioration of the patient 's condition and/or to evaluate & treat vital organ system(s) failure or risk of failure.
--- NOTE | 2018-10-12 14:35 | DS ---
Physical Examination Vital Signs: Vital Signs Temperature 98.4 F 10/12/18 08:00 Pulse Rate 112 H 10/12/18 12:00 Respiratory Rate 17 10/12/18 12:00 Blood Pressure 107/45 L 10/12/18 12:00 O2 Sat by Pulse Oximetry (%) 97 10/12/18 09:00 Findings/Remarks: Patient is a 58 y/o female with ESRD on HD, CVA with R sided residual deficit, expressive aphasia, schizophrenia, bipolar disorder, anxiety, acute on chronic respiratory failure, COPD. [facility] upper [facility] open wound. Her wound is proximal to her diaylsis site and has purulent drainage. Constitutional: Yes: No Distress, Calm, Obese Eyes: Yes: Conjunctiva Clear HENT: Yes: Atraumatic Cardiovascular: Yes: Regular Rate and Rhythm Respiratory: Yes: Regular, CTA Bilaterally Gastrointestinal: Yes: Normal Bowel Sounds, Soft, Abdomen, Obese Musculoskeletal: Yes: Muscle Weakness Extremities: Yes: WNL Edema: No Wound/Incision: Yes: Dressing Dry and Intact Neurological: Yes: Alert, Aphasia, Pre-Existing Deficit Psychiatric: Yes: Alert Labs: CBC, BMP 10/11/18 09:00 10/11/18 09:00 Discharge Summary Reason For Visit: CELLULITIS OF LEFT UPPER EXTREMITY/APHASIA LATE Current Active Problems AV graft malfunction (Acute) Anxiety (Acute) COPD (chronic obstructive pulmonary disease) (Acute) Cellulitis (Acute) Chest pain (Acute) Electrolyte abnormality (Acute) GERD (gastroesophageal reflux disease) (Acute) History of CVA with residual deficit (Acute) Hypotension (Acute) Hypotension due to hypovolemia (Acute) Hypothyroid (Acute) ESRD (end stage renal disease) (Chronic) Hospital Course: see progress notes Laboratory Tests 10/06/18 10/06/18 10/06/18 19:54 21:18 21:18 WBC Cancelled Corrected WBC (auto) Cancelled RBC Cancelled Hgb Cancelled Hct Cancelled MCV Cancelled MCH Cancelled MCHC Cancelled RDW Cancelled Plt Count Cancelled MPV Cancelled Absolute Neuts (auto) Cancelled Absolute Lymphs (auto) Cancelled Absolute Monos (auto) Cancelled Absolute Eos (auto) Cancelled Absolute Basos (auto) Cancelled Add Manual Diff Cancelled Neutrophils % Cancelled Lymphocytes % Cancelled Monocytes % Cancelled Eosinophils % Cancelled Basophils % Cancelled Nucleated RBC % Cancelled Platelet Estimate Cancelled Platelet Comment Cancelled Normal RBC Morphology Cancelled Polychromasia Anisocytosis Macrocytosis PT with INR INR Sodium Cancelled Potassium Cancelled Chloride Cancelled Carbon Dioxide Cancelled Anion Gap Cancelled BUN Cancelled Creatinine Cancelled Est GFR (CKD-EPI)AfAm Cancelled Est GFR (CKD-EPI)NonAf Cancelled POC Glucometer 77 Random Glucose Cancelled Calcium Cancelled Phosphorus Magnesium Total Bilirubin Cancelled AST Cancelled ALT Cancelled Alkaline Phosphatase Cancelled Troponin I Total Protein Cancelled Albumin Cancelled TSH Blood Type Antibody Screen Crossmatch 10/06/18 10/06/18 10/06/18 22:18 22:18 22:18 WBC 6.0 Corrected WBC (auto) RBC 2.48 L Hgb 8.5 L Hct 26.5 L MCV 106.7 H MCH 34.3 H MCHC 32.2 RDW 15.5 D Plt Count 224 MPV 6.7 L D Absolute Neuts (auto) 4.6 Absolute Lymphs (auto) Absolute Monos (auto) Absolute Eos (auto) Absolute Basos (auto) Add Manual Diff Neutrophils % 76.9 Lymphocytes % 11.8 D Monocytes % 10.4 H Eosinophils % 0.7 Basophils % 0.2 Nucleated RBC % 0 Platelet Estimate Adequate Platelet Comment Normal RBC Morphology Polychromasia 1+ Anisocytosis 1+ Macrocytosis 2+ PT with INR 11.30 INR 0.96 Sodium 140 Potassium 2.7 L* Chloride 102 Carbon Dioxide 31 Anion Gap 7 L BUN 5.9 L Creatinine 1.9 H Est GFR (CKD-EPI)AfAm 32.64 Est GFR (CKD-EPI)NonAf 28.16 POC Glucometer Random Glucose 141 H Calcium 9.0 Phosphorus Magnesium Total Bilirubin 0.2 AST 10 L ALT 9 L Alkaline Phosphatase 92 Troponin I Total Protein 5.8 L Albumin 2.3 L TSH Blood Type Antibody Screen Crossmatch 10/07/18 10/07/18 10/07/18 09:11 09:11 09:11 WBC 6.0 Corrected WBC (auto) RBC 2.61 L Hgb 8.9 L Hct 27.6 L MCV 105.9 H MCH 34.1 H MCHC 32.2 RDW 15.9 H Plt Count 260 MPV 7.1 L Absolute Neuts (auto) 4.4 Absolute Lymphs (auto) Absolute Monos (auto) Absolute Eos (auto) Absolute Basos (auto) Add Manual Diff Neutrophils % 72.7 Lymphocytes % 15.0 D Monocytes % 11.0 H Eosinophils % 0.8 Basophils % 0.5 Nucleated RBC % 0 Platelet Estimate Platelet Comment Normal RBC Morphology Polychromasia Anisocytosis Macrocytosis PT with INR INR Sodium 140 Potassium 3.4 L Chloride 103 Carbon Dioxide 31 Anion Gap 6 L BUN 9.4 Creatinine 2.7 H Est GFR (CKD-EPI)AfAm 21.34 Est GFR (CKD-EPI)NonAf 18.41 POC Glucometer Random Glucose 102 Calcium 10.2 H Phosphorus Magnesium Total Bilirubin AST ALT Alkaline Phosphatase Troponin I Total Protein Albumin TSH Blood Type B POSITIVE Antibody Screen Negative Crossmatch See Detail 10/08/18 10/08/18 10/08/18 05:05 05:05 12:33 WBC 8.0 8.2 Corrected WBC (auto) RBC 2.44 L 2.48 L Hgb 8.5 L 8.6 L Hct 25.8 L 27.0 L MCV 105.9 H 108.7 H MCH 35.1 H 34.7 H MCHC 33.1 31.9 L RDW 15.6 16.1 H Plt Count 236 236 MPV 8.5 D Absolute Neuts (auto) 4.8 5.8 Absolute Lymphs (auto) Absolute Monos (auto) Absolute Eos (auto) Absolute Basos (auto) Add Manual Diff Neutrophils % 59.4 70.2 Lymphocytes % 19.9 D 16.1 Monocytes % 17.7 H 11.6 H Eosinophils % 2.7 D 1.7 Basophils % 0.3 0.4 Nucleated RBC % 0 0 Platelet Estimate Platelet Comment Normal RBC Morphology Polychromasia Anisocytosis Macrocytosis PT with INR INR Sodium 139 Potassium 3.7 Chloride 105 Carbon Dioxide 28 Anion Gap 6 L BUN 20.1 H Creatinine 4.3 H Est GFR (CKD-EPI)AfAm 12.16 Est GFR (CKD-EPI)NonAf 10.49 POC Glucometer Random Glucose 71 L Calcium 9.6 Phosphorus Magnesium Total Bilirubin 0.3 AST 16 ALT 10 L Alkaline Phosphatase 94 Troponin I Total Protein 5.7 L Albumin 2.2 L TSH 0.09 L Blood Type Antibody Screen Crossmatch 10/08/18 10/09/18 10/09/18 13:25 11:45 11:55 WBC 9.3 Corrected WBC (auto) RBC 2.41 L Hgb 7.9 L Hct 23.9 L MCV 99.2 H D MCH 32.6 MCHC 32.9 RDW 20.8 H Plt Count 229 MPV 7.5 D Absolute Neuts (auto) Absolute Lymphs (auto) Absolute Monos (auto) Absolute Eos (auto) Absolute Basos (auto) Add Manual Diff Neutrophils % Lymphocytes % Monocytes % Eosinophils % Basophils % Nucleated RBC % Platelet Estimate Platelet Comment Normal RBC Morphology Polychromasia Anisocytosis Macrocytosis PT with INR INR Sodium 138 139 Potassium 3.5 3.9 Chloride 103 104 Carbon Dioxide 29 27 Anion Gap 6 L 8 BUN 21.8 H 30.3 H Creatinine 4.8 H 6.0 H Est GFR (CKD-EPI)AfAm 10.64 8.13 Est GFR (CKD-EPI)NonAf 9.18 7.01 POC Glucometer Random Glucose 139 H 185 H Calcium 9.8 9.7 Phosphorus 2.2 L Magnesium 2.1 Total Bilirubin 0.2 AST 9 L ALT 8 L Alkaline Phosphatase 94 Troponin I 0.03 Total Protein 5.5 L Albumin 2.3 L TSH Blood Type Antibody Screen Crossmatch 10/09/18 10/09/18 10/10/18 15:00 22:06 07:40 WBC Corrected WBC (auto) RBC Hgb Hct MCV MCH MCHC RDW Plt Count MPV Absolute Neuts (auto) Absolute Lymphs (auto) Absolute Monos (auto) Absolute Eos (auto) Absolute Basos (auto) Add Manual Diff Neutrophils % Lymphocytes % Monocytes % Eosinophils % Basophils % Nucleated RBC % Platelet Estimate Platelet Comment Normal RBC Morphology Polychromasia Anisocytosis Macrocytosis PT with INR INR Sodium 141 Potassium 3.9 Chloride 104 Carbon Dioxide 32 Anion Gap 5 L BUN 6.4 L 12.1 Creatinine 1.7 H 3.6 H Est GFR (CKD-EPI)AfAm 37.34 15.07 Est GFR (CKD-EPI)NonAf 32.21 13.00 POC Glucometer 110 Random Glucose 107 H Calcium 9.6 Phosphorus 2.7 Magnesium 1.7 L Total Bilirubin AST ALT Alkaline Phosphatase Troponin I Total Protein Albumin TSH Blood Type Antibody Screen Crossmatch 10/10/18 10/11/18 10/11/18 07:40 09:00 09:00 WBC 8.0 7.9 Corrected WBC (auto) RBC 2.99 L 2.77 L Hgb 9.6 L 9.1 L Hct 28.8 L D 27.0 L MCV 96.3 H 97.4 H MCH 32.1 32.7 MCHC 33.3 33.6 RDW 21.7 H 20.9 H Plt Count 192 205 MPV 7.5 7.4 L Absolute Neuts (auto) Absolute Lymphs (auto) Absolute Monos (auto) Absolute Eos (auto) Absolute Basos (auto) Add Manual Diff Neutrophils % Lymphocytes % Monocytes % Eosinophils % Basophils % Nucleated RBC % Platelet Estimate Platelet Comment Normal RBC Morphology Polychromasia Anisocytosis Macrocytosis PT with INR INR Sodium 141 Potassium 4.3 Chloride 105 Carbon Dioxide 33 H Anion Gap 2 L BUN 18.5 H Creatinine 5.0 H Est GFR (CKD-EPI)AfAm 10.13 Est GFR (CKD-EPI)NonAf 8.74 POC Glucometer Random Glucose 121 H Calcium 9.9 Phosphorus 2.7 Magnesium 2.0 Total Bilirubin AST ALT Alkaline Phosphatase Troponin I Total Protein Albumin TSH Blood Type Antibody Screen Crossmatch 10/11/18 10/12/18 19:15 02:25 WBC Corrected WBC (auto) RBC Hgb Hct MCV MCH MCHC RDW Plt Count MPV Absolute Neuts (auto) Absolute Lymphs (auto) Absolute Monos (auto) Absolute Eos (auto) Absolute Basos (auto) Add Manual Diff Neutrophils % Lymphocytes % Monocytes % Eosinophils % Basophils % Nucleated RBC % Platelet Estimate Platelet Comment Normal RBC Morphology Polychromasia Anisocytosis Macrocytosis PT with INR INR Sodium Potassium Chloride Carbon Dioxide Anion Gap BUN Creatinine Est GFR (CKD-EPI)AfAm Est GFR (CKD-EPI)NonAf POC Glucometer Random Glucose Calcium Phosphorus Magnesium Total Bilirubin AST ALT Alkaline Phosphatase Troponin I 0.02 0.02 Total Protein Albumin TSH Blood Type Antibody Screen Crossmatch Active Medications Generic Name Dose Route Start Last Admin Trade Name Freq PRN Reason Stop Dose Admin Albuterol/Ipratropium 1 amp 10/10/18 16:00 10/12/18 08:05 Duoneb - NEB 1 amp RQID RAGHAV Administration Bacitracin 1 applic 10/11/18 10:00 10/12/18 10:53 Bacitracin - TP Not Given DAILY RAGHAV Citalopram Hydrobromide 10 mg 10/11/18 10:00 10/12/18 10:51 Celexa - PO 10 mg DAILY RAGHAV Administration Levothyroxine Sodium 200 mcg 10/11/18 07:00 10/12/18 06:22 Synthroid - PO 200 mcg DAILY@0700 RAGHAV Administration Midodrine 2.5 mg 10/11/18 10:00 10/12/18 10:50 Proamatine - PO 2.5 mg BID-MID RAGHAV Administration Nystatin/Triamcinolone Acetonide 1 applic 10/10/18 22:00 10/12/18 10:54 Mycolog Ii Ointment - TP 1 applic BID RAGHAV Administration Olanzapine 15 mg 10/11/18 10:00 10/12/18 10:51 Zyprexa - PO 15 mg DAILY RAGHAV Administration Ranitidine HCl 150 mg 10/11/18 10:00 10/12/18 10:51 Zantac - PO 150 mg DAILY RAGHAV Administration Senna 8.8 mg 10/12/18 22:00 Senna Oral Solution - PO [facility] Sevelamer Carbonate 800 mg 10/10/18 17:30 10/12/18 10:50 Renvela - PO 800 mg TIDCM RAGHAV Administration Microbiology 10/07/18 00:00 Blood - Peripheral Venous Blood Culture - Final NO GROWTH AFTER 5 DAYS INCUBATION 10/06/18 22:18 Blood - Peripheral Venous Blood Culture - Final NO GROWTH AFTER 5 DAYS INCUBATION Condition: Stable - Instructions Diet, Activity, Other Instructions: follow up with PMD follow up with behavioral scientist continue with Dialysis scheduled days continue with med regimen as prescribed return to ER if develop SOB, chest pain, bleeding from fistula site, respiratory distress Disposition: LONG TERM FACILITY - Home Medications Comprehensive Discharge Medication List: Ambulatory Orders Citalopram Hydrobromide [Celexa -] 10 mg PO DAILY tablet 09/15/18 Docusate Sodium [Colace -] 100 mg PO TID capsule 09/15/18 Levothyroxine Sodium [Synthroid] 225 mcg PO DAILY #30 tablet 09/15/18 Olanzapine [Zyprexa -] 15 mg PO DAILY tablet 09/15/18 Scopolamine Hydrobromide [Transderm-Scop -] 1 patch TD Q3D patch.[id number] 09/15/18 Acetaminophen [Tylenol .Regular Strength -] 650 mg PO Q6H PRN 10/07/18 Albuterol 2.5/Ipratropium 0.5 [Duoneb -] 1 amp NEB Q6H PRN 10/07/18 Atorvastatin Calcium 40 mg PO HS 10/07/18 Folic Acid/Vit B Complex and C [Dialyvite Tablet] 1 each PO DAILY 10/07/18 Lorazepam [Ativan] 1 mg PO TUTHSA 10/07/18 Midodrine HCl 2.5 mg PO TUTHSA 10/07/18 Ranitidine HCl [Zantac] 150 mg PO DAILY 10/07/18 Sevelamer Carbonate 2,400 mg PO TID 10/07/18 Valproate Sodium [Depakene -] 250 mg PO TID 10/07/18 Amino Acids/Protein Hydrolys [Prosource No Carb Liquid Pkt] 30 ml PO BID@0800, 1730 10/08/18 Nut.tx.imp.renal Fxn,Lac-Reduc [Nepro Carb Steady] 240 ml PO BID 10/08/18 Albuterol 2.5/Ipratropium 0.5 [Duoneb -] 1 amp NEB RQID amp 10/12/18 Bacitracin - [Bacitracin Topical Ointment -] 1 applic TP DAILY tube 10/12/18 Levothyroxine [Synthroid -] 200 mcg PO DAILY@0700 tablet 10/12/18 Midodrine HCl [Proamatine -] 2.5 mg PO BID-MID tablet 10/12/18 Nystatin/Triamcinolone Top Oin [Mycolog II -] 1 applic TP BID applic 10/12/18 Ranitidine [Zantac -] 150 mg PO DAILY tablet 10/12/18 Sevelamer Carbonate [Renvela -] 800 mg PO TIDCM tab 10/12/18
[2018-10-12 19:30] VITALS: BP 139/64; PULSE 94; TEMP 98.7
[2018-10-12] MEDS ORDERED: SENNOSIDES 8.8 MG/5 ML BULK BOTTLE PO SCH (22:00)
== END 2018-10-12 19:55 | DRG 383 ==
LOC: JER 19:01 → JERBED 23:11 → J4S 10-07 15:24 → JICU 10-08 13:06
PROVIDERS: ADMIT Family Medicine; ATTEND Family Medicine
PROC: 30233N1 Transfusion of Nonautologous Red Blood Cells into Peripheral Vein, Percutaneous Approach (ICD-10-PCS; principal; 2018-10-08)
PROC: 05HB33Z Insertion of Infusion Device into Right Basilic Vein, Percutaneous Approach (ICD-10-PCS; 2018-10-08)
PROC: B54MZZA Ultrasonography of Right Upper Extremity Veins, Guidance (ICD-10-PCS; 2018-10-08)
PROC: 5A1D70Z Performance of Urinary Filtration, Intermittent, Less than 6 Hours Per Day (ICD-10-PCS; 2018-10-09)
PROC: 5A1D70Z Performance of Urinary Filtration, Intermittent, Less than 6 Hours Per Day (ICD-10-PCS; 2018-10-11)
DX: L03.114 Cellulitis of left upper limb (principal); E11.22 Type 2 diabetes mellitus with diabetic chronic kidney disease; N18.6 End stage renal disease; I69.320 Aphasia following cerebral infarction; T82.590A Other mechanical complication of surgically created arteriovenous fistula, initial encounter; R58 Hemorrhage, not elsewhere classified; F20.9 Schizophrenia, unspecified; D63.1 Anemia in chronic kidney disease; E66.9 Obesity, unspecified; Z68.31 Body mass index [BMI] 31.0-31.9, adult; I95.9 Hypotension, unspecified; J44.9 Chronic obstructive pulmonary disease, unspecified; F41.9 Anxiety disorder, unspecified; E03.9 Hypothyroidism, unspecified; G81.91 Hemiplegia, unspecified affecting right dominant side; I13.2 Hypertensive heart and chronic kidney disease with heart failure and with stage 5 chronic kidney disease, or end stage renal disease; I95.3 Hypotension of hemodialysis; F03.90 Unspecified dementia, unspecified severity, without behavioral disturbance, psychotic disturbance, mood disturbance, and anxiety; E78.5 Hyperlipidemia, unspecified; I25.10 Atherosclerotic heart disease of native coronary artery without angina pectoris; K21.9 Gastro-esophageal reflux disease without esophagitis; E86.1 Hypovolemia; E87.8 Other disorders of electrolyte and fluid balance, not elsewhere classified; Z99.2 Dependence on renal dialysis
CPT/HCPCS: 36415; 36430; 36511; 71045-TC-FY; 80048; 80053; 82565; 82962; 83735; 84100; 84443; 84484; 84520; 85025; 85027; 85610; 86850; 86900; 86901; 86922; 87040; 93005; 93010; 94640; 99285-25; J0131; J0878; J0885; J1644; J7030; P9038; P9058

== ENCOUNTER 2018-10-27 15:31 | Inpatient (IN) | payer OTHER ==
--- NOTE | 2018-10-27 16:54 | PDOC ---
History of Present Illness - General Chief Complaint: Dialysis Shunt Problem Stated Complaint: Dialysis Shunt Problem Time Seen by Provider: 10/27/18 16:04 - History of Present Illness Initial Comments: Ms. Lima is a 58F with extensive PMH including CVA, expressive aphasia, bipolar disorder, schizophrenia, COPD, and residual right sided weakness, brought in from dialysis center ([facility]) for bleeding from left arm AV fistula. Per dialysis center nurse, she began bleeding yesterday at her correction ([facility]) where they placed a bandage. Upon arrival to the dialysis center today, she continued bleeding from her fistula site, and was brought to this ER. Her last dialysis was Wednesday, did not receive today. Past History - Past Medical History Allergies/Adverse Reactions: Allergies Allergy/AdvReac Type Severity Reaction Status Date / Time imipenem Allergy Verified 10/07/18 06:48 NSAIDS (Non-Steroidal Allergy Verified 10/07/18 06:48 Anti-Inflamma piperacillin sodium Allergy Verified 10/07/18 06:48 [From Zosyn] tazobactam sodium Allergy Verified 10/07/18 06:48 [From Zosyn] Home Medications: Ambulatory Orders Citalopram Hydrobromide [Celexa -] 10 mg PO DAILY tablet 09/15/18 Docusate Sodium [Colace -] 100 mg PO TID capsule 09/15/18 Levothyroxine Sodium [Synthroid] 225 mcg PO DAILY #30 tablet 09/15/18 Olanzapine [Zyprexa -] 15 mg PO DAILY tablet 09/15/18 Scopolamine Hydrobromide [Transderm-Scop -] 1 patch TD Q3D patch.td72 09/15/18 Acetaminophen [Tylenol .Regular Strength -] 650 mg PO Q6H PRN 10/07/18 Albuterol 2.5/Ipratropium 0.5 [Duoneb -] 1 amp NEB Q6H PRN 10/07/18 Atorvastatin Calcium 40 mg PO HS 10/07/18 Folic Acid/Vit B Complex and C [Dialyvite Tablet] 1 each PO DAILY 10/07/18 Lorazepam [Ativan] 1 mg PO TUTHSA 10/07/18 Midodrine HCl 2.5 mg PO TUTHSA 10/07/18 Ranitidine HCl [Zantac] 150 mg PO DAILY 10/07/18 Sevelamer Carbonate 2,400 mg PO TID 10/07/18 Valproate Sodium [Depakene -] 250 mg PO TID 10/07/18 Amino Acids/Protein Hydrolys [Prosource No Carb Liquid Pkt] 30 ml PO BID@0800, 1730 10/08/18 Nut.tx.imp.renal Fxn,Lac-Reduc [Nepro Carb Steady] 240 ml PO BID 10/08/18 Albuterol 2.5/Ipratropium 0.5 [Duoneb -] 1 amp NEB RQID amp 10/12/18 Bacitracin - [Bacitracin Topical Ointment -] 1 applic TP DAILY tube 10/12/18 Levothyroxine [Synthroid -] 200 mcg PO DAILY@0700 tablet 10/12/18 Midodrine HCl [Proamatine -] 2.5 mg PO BID-MID tablet 10/12/18 Nystatin/Triamcinolone Top Oin [Mycolog II -] 1 applic TP BID applic 10/12/18 Ranitidine [Zantac -] 150 mg PO DAILY tablet 10/12/18 Sevelamer Carbonate [Renvela -] 800 mg PO TIDCM tab 10/12/18 CVA: Yes (R sided weakness) COPD: Yes CHF: Yes Dementia: Yes Diabetes: Yes HTN: Yes Hypercholesterolemia: Yes Psychiatric Problems: Yes (SCHIZOPHRENIA) Thyroid Disease: Yes - Immunization History Immunization Up to Date: Yes - Suicide/Smoking/Psychosocial Hx Smoking History: Unknown if ever smoked Have you smoked in the past 12 months: No Information on smoking cessation initiated: No Hx Alcohol Use: No Drug/Substance Use Hx: No Substance Use Type: None Hx Substance Use Treatment: No Review of Systems - Review of Systems Able to Perform ROS?: No (2/2 expressive aphasia ) *Physical Exam - Vital Signs Last Vital Signs Temp Pulse Resp BP Pulse Ox 97.5 F L 110 H 19 112/72 100 10/27/18 15:46 10/27/18 15:46 10/27/18 15:46 10/27/18 15:46 10/27/18 15:46 - Physical Exam Comments: physical exam limited 2/2 s/p CVA and expressive aphasia General Appearance: Yes: Disheveled, Other (nonverbal ). No: Apparent Distress HEENT: positive: EOMI, NAMRATA, Other (poor dentition, moist mucous membranes ). negative: Normal Voice Neck: positive: Trachea midline. negative: Tender, Rigid Respiratory/Chest: positive: Lungs Clear, Normal Breath Sounds. negative: Chest Tender, Respiratory Distress Cardiovascular: positive: Regular Rhythm, S1, S2, Tachycardia. negative: Edema Vascular Pulses: Dorsalis-Pedis (R): 2+, Doralis-Pedis (L): 2+ Gastrointestinal/Abdominal: positive: Tender (epigastric area), Soft, Guarding ( voluntary - epigastric area ). negative: Organomegaly, Pulsatile Mass Musculoskeletal: positive: Normal Inspection. negative: CVA Tenderness Extremity: positive: Normal Capillary Refill, Normal Range of Motion Integumentary: positive: Normal Color, Dry, Cold Neurologic: positive: Alert, Other (right sided motor deficit s/p CVA, unable to assess sensory ). negative: Fully Oriented (oriented x1 to person (baseline ) ) Procedures - Central Line Central Line Position: femoral (R), femoral (L) Anesthesia: 1% Lidocaine Amount of anesthesia (ccs): 3 (per side ) Complications: multiple attempts at right femoral central venous access were unsuccessful, as were multiple attempts at left femoral access Progress: No hematoma or active hemorrhage from active access sites - Additional Procedures Additional Procedures: other Progress: 10/27/18 2330 Right tibial IO placed under standard sterile procedures, confirmation of location with good return after placement noted and flushed without resistance without surrounding subsequent swelling or induration. IO placed in one attempt. ED Treatment Course - LABORATORY CBC & Chemistry Diagram: 10/28/18 12:10 10/28/18 05:25 Medical Decision Making - Medical Decision Making 10/27/18 1600 58F brought in from dialysis center for bleeding from left arm AV fistula site. Last dialysis was Wednesday. Unable to dialyze today. Per dialysis center patient started bleeding last night at correction and the site was bandaged. Changed fistula dressing and applied surgicel. 1650 Order CBC, CMP, PT/PTT, Mg, EKG, CXR. Dr. Deng Rene (nephrology) paged. 1730 Patient is agitated and is afraid of blood draw. IM haldol and ativan ordered. 1740 IM haldol and ativan given. 10/27/18 18:20 Pt reassessed, and in a calmer state. Able to obtain IV access and draw labs. 10/27/18 18:[address] Deng Rene, who recommends that the patient be brought in for observation and vascular surgery consult given new bleeding from the vascular access site. Per Dr. Rene, will dialyze tomorrow unless potassium is greater than 5.5. 10/27/18 19:08 Consult placed by phone to Dr. Connor (vascular surgery)'s office. 10/27/18 19:[address] Connor, who will see the patient tomorrow as a routine consult given that there is no active bleeding at this time. 10/27/18 19:16 Potassium is 3.3. Patient will be admitted for dialysis and vascular surgery consult tomorrow. 10/27/18 19:19 CXR reviewed by me pending official report. No acute process seen. 10/27/18 19:58 Spoke with the hospitalist service who agrees to admit the patient to Dr. Sanchez for observation, and dialysis and vascular surgery consult tomorrow. 10/27/18 2330 The patient began bleeding from her left arm fistula. Pressure was applied. A figure of 8 stitch (4-0 prolene) and interrupted sutures were used to stop the bleeding. Admission changed from regular floor to ICU admission. Attempted central venous access via ultrasound - after multiple attempts on the left and right femoral veins, obtained access via IO to the right proximal tibia. 2 units of pRBC administered. *DC/Admit/Observation/Transfer Diagnosis at time of Disposition: End stage renal disease Dialysis AV fistula malfunction Qualifiers: Encounter type: initial encounter Qualified Code(s): T82.590A - Other mechanical complication of surgically created arteriovenous fistula, initial encounter - Discharge Dispostion Condition at time of disposition: Stable Decision to Admit order: Yes - Referrals - Patient Instructions - Post Discharge Activity
--- NOTE | 2018-10-27 17:01 | PDOC ---
Attending Attestation - Resident Resident Name: Len Golden - ED Attending Attestation I have performed the following: I have examined & evaluated the patient, The case was reviewed & discussed with the resident, I agree w/resident's findings & plan, Exceptions are as noted - HPI HPI: 10/27/18 16:58 58 year old female with past medical history of COPD, ESRD on T/R/S, CVA c/ R sided residual deficit, expressive aphasia, bipolar disorder, schizophrenia sent in from dialysis center for bleeding fistula. Pt underwent to [facility] [place] for her routine dialysis. However, at the site, pt started to have bleeding at the left AV fistula. They had packed the site with gauze and sent pt to the ER. The patient never had dialysis. Here in the ED, the patient is sitting comfortably. Pt does not appear to be in distress to me, but unable to obtain further history given her expressive aphasia. - Physicial Exam PE: 10/27/18 18:32 GENERAL: Awake, alert, in no acute distress HEAD: No signs of trauma EYES: EOMI, sclera anicteric, conjunctiva clear ENT: Auricles normal inspection, hearing grossly normal, nares patent, Moist mucosa NECK: Normal ROM, supple, LUNGS: Breath sounds equal, clear to auscultation bilaterally. No wheezes, and no crackles HEART: Regular rate and rhythm, normal S1 and S2, no murmurs, rubs or gallops ABDOMEN: Soft, nontender, normoactive bowel sounds. No guarding, no rebound. No masses EXTREMITIES: Normal range of motion, no edema. No clubbing or cyanosis. No cords, erythema, or tenderness LUE: LUE fistula with no current bleeding. NEUROLOGICAL: Cranial nerves II through XII grossly intact. Normal speech, normal gait SKIN: Warm, Dry, normal turgor, no rashes or lesions noted. - Critical Care Time Total Critical Care Time: 45 Critical Care Statement: The care of this patient involved high complexity decision making to prevent further life threatening deterioration of the patient 's condition and/or to evaluate & treat vital organ system(s) failure or risk of failure. - Medical Decision Making 10/27/18 17:01 Vital Signs Temp Pulse Resp BP Pulse Ox 97.5 F L 110 H 19 112/72 100 10/27/18 15:46 10/27/18 15:46 10/27/18 15:46 10/27/18 15:46 10/27/18 15:46 58 year old female presents with bleeding LUE fistula. At this time, the fistula was not bleeding. However, surgicel was applied, covered with gauze, and LETICIA wrap applied for pressure. Despite this, the patient will still need dialysis. Will contact pt's orthopedic mechanic Dr. Edgard Vilchis. If bleeding reoccurs, will need to address it and consult vascular surgery. The patient should be admitted to the hospital for dialysis, bleeding and HCT precautions. Pt required some mild chemical sedation as pt was moving her arms away during blood draws. After medication, pt was more amenable to blood draws. 10/27/18 19:15 CBC, BMP 10/27/18 18:20 10/27/18 18:20 CMP Sodium 142 mmol/L (136-145) 10/27/18 18:20 Potassium 3.3 mmol/L (3.5-5.1) L 10/27/18 18:20 Chloride 104 mmol/L (98-107) 10/27/18 18:20 Carbon Dioxide 28 mmol/L (21-32) 10/27/18 18:20 Anion Gap 9 MMOL/L (8-16) 10/27/18 18:20 BUN 14.5 mg/dL (7-18) 10/27/18 18:20 Creatinine 5.6 mg/dL (0.55-1.3) H 10/27/18 18:20 Est GFR (CKD-EPI)AfAm 8.83 10/27/18 18:20 Est GFR (CKD-EPI)NonAf 7.62 10/27/18 18:20 Random Glucose 116 mg/dL (74-106) H 10/27/18 18:20 Calcium 9.9 mg/dL (8.5-10.1) 10/27/18 18:20 Magnesium 2.2 mg/dL (1.8-2.4) 10/27/18 18:20 Total Bilirubin 0.3 mg/dL (0.2-1) 10/27/18 18:20 AST 15 U/L (15-37) 10/27/18 18:20 ALT 13 U/L (13-61) 10/27/18 18:20 Alkaline Phosphatase 109 U/L (45-117) 10/27/18 18:20 Total Protein 6.2 g/dl (6.4-8.2) L 10/27/18 18:20 Albumin 2.5 g/dl (3.4-5.0) L 10/27/18 18:20 Potassium is 3.[address] Mcconnell. He will be a wound care center consultant. Re-evaluation shows no further bleeding. Case discussed with Dr. Edgard Vilchis by my resident. If potassium is < 5.5, he will dialyze tomorrow. Admit. 10/27/18 19:19 Chest xray reviewed by me, pending official radiology read. No acute processes. 10/27/18 21:40 Pt has had sudden bleeding from the suture site. There was approximately 500cc of blood loss. There was already a previous suture in place prior to this ED visit. One 4-0 proline suture figure 8 placed and one 4-0 interrupted suture proline placed. Bleeding had stopped. Surgicel applied over it. LETICIA wrap applied. hospitalist paged for update. Will repeat BP. If BP stable, will send to floors also for serial hcts 10/27/18 21:53 Pt's SBP ~70s. Will continue to monitor patient. 2 u PRBC ordered. Given the illness of the patient and hypovolemia and hypotension, and given pt unable to consent, decision was made to perform a two physician consent out of the best interest of the patient. PRBC consent signed by me and Dr. Len Golden. The benefits outweighed the risks and without blood, there was a high risk of worsening hypotension and potential . 10/27/18 21:54 Case discussed with ICU. Patient accepted to the ICU. 10/27/18 23:54 After multiple attempts at triple lumen catheter both at the left and right femoral vein, unable to successfully cannulate. Pt continues to be hypotensive to 70s/40s. Decision was made given how critically ill the patient is to place a right prox tib IO. Site cleansed with chlorhexidine and IO successfully placed. PRBC was initiated. 10/28/18 01:07 2u PRBC and 1L of NS given. Pt's SBP is now 120s and HRs in 80s. Will send pt to the iCU.
[2018-10-27] MEDS ORDERED: HALOPERIDOL LACTATE 5 MG/ML IM ONE (17:31)
[2018-10-27] MEDS ORDERED: HALOPERIDOL LACTATE 5 MG/ML ONE ×2 (17:37→17:38)
[2018-10-27] MEDS ORDERED: LORazepam 2 MG/ML SDV VIAL ONE (17:38)
[2018-10-27 18:33] LABS: BASO % 0.4 % (0-2.0); EOS % 0.2 % (0-4.5); HEMATOCRIT 37.4 % (32.4-45.2); HEMOGLOBIN 11.8 GM/dL (10.7-15.3); LYMPH % 10.6 % (8-40); MCH 31.2 pg (25.7-33.7); MCHC 31.7 g/dl (32.0-36.0); MEAN CELL VOLUME 98.5 fl (80-96); MEAN PLT VOLUME 8.1 fl (7.5-11.1); MONO % 9.2 % (3.8-10.2); NEUT % 79.6 % (42.8-82.8); PLATELET COUNT 271 K/MM3 (134-434); RDW 17.8 % (11.6-15.6); WHITE BLOOD COUNT 8.2 K/mm3 (4.0-10.0)
[2018-10-27 18:50] LABS: INR 0.88 (0.83-1.09); PROTHROMBIN TIME (PATIENT) 10.4 SEC (9.7-13.0)
[2018-10-27 18:52] LABS: ACTIVATED PTT 25.5 SECONDS (25.2-36.5)
[2018-10-27 18:59] LABS: ALBUMIN 2.5 g/dl (3.4-5.0); BILIRUBIN,TOTAL 0.3 mg/dL (0.2-1); BLOOD UREA NITROGEN 14.5 mg/dL (7-18); CALCIUM 9.9 mg/dL (8.5-10.1); CREATININE 5.6 mg/dL (0.55-1.3); MAGNESIUM 2.2 mg/dL (1.8-2.4); POTASSIUM 3.3 mmol/L (3.5-5.1); TOT PROT 6.2 g/dl (6.4-8.2)
--- NOTE | 2018-10-27 20:43 | HP ---
CHIEF COMPLAINT: ESRD, fistula malfunction ( bleeding left AV fistula) PCP: Dr. Sanchez HISTORY OF PRESENT ILLNESS: 58 year old female with PMHx of COPD, ESRD on HD, CVA with right side residual weakness, and expressive aphasia, bipolar, Schizophrenia, Dementia, COPD, CHF, HTN/HLD, Hypothyrodism, arrived to ED from [facility] [place] due to bleeding from AV fistual site. According to dialysis center nurse, patient had bleeding yesterday at her halfway ([facility]) where they placed a bandage. Upon arrival to the dialysis center today, continued bleeding from her fistula site. Her last dialysis was Wednesday. ER course was notable for: (1) bleeding AV fistula (2)agitated given Haldol and Ativan given (3) spoke to nephrology dialysis tomorrow, need vascular follow up PAST MEDICAL HISTORY: CVA ( expressive aphasia, right side weakness, Bipolar, Schizophrenia, COPD, CHF, Dementia, DM, HTN, HLD, Hypothyroidism PAST SURGICAL HISTORY: Social History: Smoking:NO Alcohol:NO Drugs: NO Family History: Allergies: imipenem Allergy (Verified 10/07/18 06:48) NSAIDS (Non-Steroidal Anti-Inflamma Allergy (Verified 10/07/18 06:48) piperacillin sodium [From Zosyn] Allergy (Verified 10/07/18 06:48) tazobactam sodium [From Zosyn] Allergy (Verified 10/07/18 06:48) HOME MEDICATIONS: Home Medications Medication Instructions Recorded Citalopram Hydrobromide [Celexa -] 10 mg PO DAILY tablet 09/15/18 Docusate Sodium [Colace -] 100 mg PO TID capsule 09/15/18 Levothyroxine Sodium [Synthroid] 225 mcg PO DAILY #30 tablet 09/15/18 Olanzapine [Zyprexa -] 15 mg PO DAILY tablet 09/15/18 Scopolamine Hydrobromide 1 patch TD Q3D patch.td72 09/15/18 [Transderm-Scop -] Acetaminophen [Tylenol .Regular 650 mg PO Q6H PRN 10/07/18 Strength -] Albuterol 2.5/Ipratropium 0.5 1 amp NEB Q6H PRN 10/07/18 [Duoneb -] Atorvastatin Calcium 40 mg PO HS 10/07/18 Folic Acid/Vit B Complex and C 1 each PO DAILY 10/07/18 [Dialyvite Tablet] Lorazepam [Ativan] 1 mg PO TUTHSA 10/07/18 Midodrine HCl 2.5 mg PO TUTHSA 10/07/18 Ranitidine HCl [Zantac] 150 mg PO DAILY 10/07/18 Sevelamer Carbonate 2,400 mg PO TID 10/07/18 Valproate Sodium [Depakene -] 250 mg PO TID 10/07/18 Amino Acids/Protein Hydrolys 30 ml PO BID@0800,1730 10/08/18 [Prosource No Carb Liquid Pkt] Nut.tx.imp.renal Fxn,Lac-Reduc 240 ml PO BID 10/08/18 [Nepro Carb Steady] Albuterol 2.5/Ipratropium 0.5 1 amp NEB RQID amp 10/12/18 [Duoneb -] Bacitracin - [Bacitracin Topical 1 applic TP DAILY tube 10/12/18 Ointment -] Levothyroxine [Synthroid -] 200 mcg PO DAILY@0700 tablet 10/12/18 Midodrine HCl [Proamatine -] 2.5 mg PO BID-MID tablet 10/12/18 Nystatin/Triamcinolone Top Oin 1 applic TP BID applic 10/12/18 [Mycolog II -] Ranitidine [Zantac -] 150 mg PO DAILY tablet 10/12/18 Sevelamer Carbonate [Renvela -] 800 mg PO TIDCM tab 10/12/18 REVIEW OF SYSTEMS: Unable to conduct due to Expressive Aphasia PHYSICAL EXAMINATION Vital Signs - 24 hr 10/27/18 15:46 Temperature 97.5 F L Pulse Rate 110 H Respiratory 19 Rate Blood Pressure 112/72 O2 Sat by Pulse 100 Oximetry (%) Physical exam limited due to advance dementia, and s/p CVA and expressive aphasia General Appearance: NAD, Non- verbal HEENT: NC/AT, EOMI Neck: Trach midline, no JVD Resp: air entry equal, no wheezing Cardio: Regular Rhythm, S1, S2, Tachycardia GI: NT/ND, BS +, no guarding noted Integumentary: warm, dry Neurologic: Aox1 Laboratory Results - last 24 hr 10/27/18 10/27/18 10/27/18 18:20 18:20 18:20 WBC 8.2 RBC 3.80 Hgb 11.8 Hct 37.4 D MCV 98.5 H MCH 31.2 MCHC 31.7 L RDW 17.8 H Plt Count 271 D MPV 8.1 Absolute Neuts (auto) 6.5 Neutrophils % 79.6 Lymphocytes % 10.6 D Monocytes % 9.2 Eosinophils % 0.2 D Basophils % 0.4 Nucleated RBC % 0 PT with INR 10.40 INR 0.88 PTT (Actin FS) 25.5 Sodium 142 Potassium 3.3 L Chloride 104 Carbon Dioxide 28 Anion Gap 9 BUN 14.5 Creatinine 5.6 H Est GFR (CKD-EPI)AfAm 8.83 Est GFR (CKD-EPI)NonAf 7.62 Random Glucose 116 H Calcium 9.9 Magnesium 2.2 Total Bilirubin 0.3 AST 15 ALT 13 Alkaline Phosphatase 109 Total Protein 6.2 L Albumin 2.5 L Blood Type Antibody Screen 10/27/18 18:20 WBC RBC Hgb Hct MCV MCH MCHC RDW Plt Count MPV Absolute Neuts (auto) Neutrophils % Lymphocytes % Monocytes % Eosinophils % Basophils % Nucleated RBC % PT with INR INR PTT (Actin FS) Sodium Potassium Chloride Carbon Dioxide Anion Gap BUN Creatinine Est GFR (CKD-EPI)AfAm Est GFR (CKD-EPI)NonAf Random Glucose Calcium Magnesium Total Bilirubin AST ALT Alkaline Phosphatase Total Protein Albumin Blood Type B POSITIVE Antibody Screen Negative ASSESSMENT/PLAN: 58 year old female arrived from dialysis center for bleeding from left arm AV fistula site. Last dialysis was Wednesday. Changed fistula dressing and applied surgicel. In ED: haldol, ativan given for agitation, labs collected - CXR: negative - pending EKG - per Nephro: dialyze tomorrow ESRD ON HD, malfunction fistula ( bleeding from AV fistula) - monitor site for acute bleeding - follow up Nephro - vascular follow up - repeat cbc, cmp in AM - Continue with Sevelamer, CVA with expressive asphasia and right side weakness Dementia - monitor for acute behavioral issues - monitor for safety/fall precaution HTN, CHF - continue with Midodrine - monitor blood pressure closely Hypothyroidism - continue with Levothyroxine COPD - montior Spo2 - Continue with Duoneb Schizophrenia Bipolar disorder - monitor for acute behavioral issues - monitor for safety/fall precaution - Continue with Depakene, Ativan, Zyprexa and Celexa HLD - monitor lipids - Continue with lipitor DM - monitor FSBS GERD - Continue with Zantac Problem List - Problem (1) Dialysis AV fistula malfunction Assessment/Plan: ESRD ON HD, malfunction fistula ( bleeding from AV fistula) - monitor site for acute bleeding - follow up Nephro - vascular follow up - repeat cbc, cmp in AM - Continue with Sevelamer Code(s): T82.590A - [facility] COMPL OF SURGICALLY CREATED ARTERIOVENOUS FISTULA, INIT Qualifiers: Encounter type: initial encounter Qualified Code(s): T82.590A - Other mechanical complication of surgically created arteriovenous fistula, initial encounter (2) ESRD (end stage renal disease) Assessment/Plan: ESRD ON HD, malfunction fistula ( bleeding from AV fistula) - monitor site for acute bleeding - follow up Nephro - vascular follow up - repeat cbc, cmp in AM - Continue with Sevelamer Code(s): N18.6 - END STAGE RENAL DISEASE (3) Bipolar 1 disorder Assessment/Plan: Schizophrenia Bipolar disorder - monitor for acute behavioral issues - monitor for safety/fall precaution - Continue with Depakene, Ativan, Zyprexa and Celexa Code(s): F31.9 - BIPOLAR DISORDER, UNSPECIFIED (4) Dementia Assessment/Plan: Dementia - monitor for acute behavioral issues - monitor for safety/fall precaution Code(s): F03.90 - UNSPECIFIED DEMENTIA WITHOUT BEHAVIORAL DISTURBANCE (5) HLD (hyperlipidemia) Assessment/Plan: HLD - monitor lipids - Continue with lipitor Code(s): E78.5 - HYPERLIPIDEMIA, UNSPECIFIED (6) COPD (chronic obstructive pulmonary disease) Assessment/Plan: COPD - montior Spo2 - Continue with Duoneb Code(s): J44.9 - CHRONIC OBSTRUCTIVE PULMONARY DISEASE, UNSPECIFIED (7) GERD (gastroesophageal reflux disease) Assessment/Plan: GERD - Continue wiht Zantac - monitor for N/V Code(s): K21.9 - GASTRO-ESOPHAGEAL REFLUX DISEASE WITHOUT ESOPHAGITIS (8) History of CVA with residual deficit Assessment/Plan: CVA with expressive asphasia and right side weakness - monitor for acute behavioral issues - monitor for safety/fall precaution Code(s): I69.30 - UNSPECIFIED SEQUELAE OF CEREBRAL INFARCTION (9) Hypotension Assessment/Plan: Hypotension h/o HTN, CHF - continue with Midodrine - monitor blood pressure closely Code(s): I95.9 - HYPOTENSION, UNSPECIFIED (10) CHF (congestive heart failure) Assessment/Plan: CHF - monitor for sob, edema Code(s): I50.9 - HEART FAILURE, UNSPECIFIED (11) Diabetes Assessment/Plan: DM - monitor FSBS Code(s): E11.9 - TYPE 2 DIABETES MELLITUS WITHOUT COMPLICATIONS (12) Hypothyroid Assessment/Plan: Hypothyroidism - continue with Levothyroxine Code(s): E03.9 - HYPOTHYROIDISM, UNSPECIFIED (13) Schizophrenia Assessment/Plan: Schizophrenia Bipolar disorder - monitor for acute behavioral issues - monitor for safety/fall precaution - Continue with Depakene, Ativan, Zyprexa and Celexa Code(s): F20.9 - SCHIZOPHRENIA, UNSPECIFIED Visit type - Emergency Visit Emergency Visit: Yes ED Registration Date: 10/27/18 Care time: The patient presented to the Emergency Department on the above date and was hospitalized for further evaluation of their emergent condition. - New Patient This patient is new to me today: Yes Date on this admission: 10/27/18 - Critical Care Critical Care patient: No
[2018-10-27] MEDS ORDERED: ALBUTEROL SO4 2.5/IPRATROPIUM 0.5 INH SOL 3 ML VIAL.NEB. NEB PRN (21:02)
[2018-10-27] MEDS ORDERED: ACETAMINOPHEN 325 MG TABLET (FP) PO PRN (21:02)
--- NOTE | 2018-10-27 21:56 | HOSP ---
Subjective - Review of Symptoms Events since last encounter: Reported my Resident in ED patient noted with bleeding and blood loss of 500c from the fistula site, sutures applied (One 4-0 proline suture figure 8 placed and one 4-0 interrupted suture proline placed)surgicel and LETICIA wrap applied \ stat cbc, Type & cross ordered Monitor closely for further bleeding, Follow H &H trend. Subjective: Unable to conduct ROS, patient with dementia, CVA with expressive aphasia Physical Examination Vital Signs: Vital Signs Temperature 97.5 F L 10/27/18 15:46 Pulse Rate 88 10/27/18 20:43 Respiratory Rate 20 10/27/18 20:43 Blood Pressure 90/65 10/27/18 20:43 O2 Sat by Pulse Oximetry (%) 98 10/27/18 20:43 Constitutional: Yes: No Distress, Other Eyes: Yes: EOM Intact HENT: Yes: Atraumatic, Normocephalic Neck: Yes: Trachea Midline Respiratory: Yes: Regular, CTA Bilaterally Gastrointestinal: Yes: Normal Bowel Sounds, Soft Extremities: Yes: Other (Left AV fistula bleeding noted) Neurological: Yes: Aphasia Labs: CBC, BMP 10/27/18 18:20 10/27/18 18:20 Hospitalist Encounter Assessment: Bleeding Left AV fistula patient will be admit to ICU for closer monitoring approx 500cc of blood loss from AV site new sutures applied, surgicel applied LETICIA wrap applied repeat cbc, monitor H&H trend type and cross nephro and vascular will follow in AM Critical Care Critical Care Statement: Patient admit to ICU for close monitoring
--- NOTE | 2018-10-28 00:03 | CONSULT ---
Consultation: REQUESTING PROVIDER: Dr. Buckner CONSULT REQUEST: We have been asked to medically evaluate this patient for hemodynamic instability following a bleed from her AV fistula. HISTORY OF PRESENT ILLNESS: Ms. Lima is a 58 y/o woman with a complicated past medical history including ESRD on dialysis (T,Th,S) with AV fistula in L arm, CHF, COPD, and hypothyroidism s/p CVA, who presented to the ED from her dialysis center after she began bleeding from her AV fistula site. In the ED sutures were placed at the site of the fistula and the bleeding was stopped. It was estimated she lost ~500ccs of fluid. The patient became hypotensive with a MAP in the mid 40s. A central line was attempted but unable to be placed and therefore IO access was obtained in the R tibia. After the procedure MAP was 34 and thus the patient was pressure bagged with ~1L of NS and also received 1 unit of PRBCs. The patients MAP was raised to 80 and the patient was stable for transfer to the ICU for further management of her hemodynamic instability. Patient is not alert or oriented and further history is unable to be obtained. Of note patient has been previously admitted to this hospital in September for the same CC. REVIEW OF SYSTEMS: Unable to obtain due to patient's mental status, currently non-verbal and non- communicative PHYSICAL EXAMINATION Vital Signs - 24 hr 10/27/18 10/27/18 10/27/18 15:46 20:43 23:21 Temperature 97.5 F L Pulse Rate 110 H Pulse Rate [ 88 108 H Right] Respiratory 19 20 25 H Rate Blood Pressure 112/72 Blood Pressure 90/65 79/36 L [Right Arm] O2 Sat by Pulse 100 98 98 Oximetry (%) 10/27/18 23:55 Temperature 97.5 F L Pulse Rate Pulse Rate [ 95 H Right] Respiratory 16 Rate Blood Pressure Blood Pressure 119/74 [Right Arm] O2 Sat by Pulse 98 Oximetry (%) GENERAL: Awake, not oriented, in mild distress, appears uncomfortable, making unintelligible sounds HEAD: Normal with no signs of trauma. EYES: sclera anicteric, conjunctiva clear. EARS, NOSE, THROAT: Ears normal, nares patent, dry mucous membranes, poor dentition LUNGS: CTABL in frontal lung hammond, No accessory muscle use. HEART: tachycardic with systolic murmur noted, normal S1 and S2. ABDOMEN: Soft,obese, nontender, not distended, normoactive bowel sounds, no guarding, no rebound. UPPER EXTREMITIES: 2+ pulses, cool to touch. No peripheral edema. L AV fistula LOWER EXTREMITIES: 2+ pulses, cool to touch. No peripheral edema. IO in R tibia NEUROLOGICAL: Unable to assess PSYCHIATRIC: Non-communicative, unable to cooperate with exam SKIN: Cool extremities, dry, normal turgor. Laboratory Results - last 24 hr 10/27/18 10/27/18 10/27/18 18:20 18:20 18:20 WBC 8.2 RBC 3.80 Hgb 11.8 Hct 37.4 D MCV 98.5 H MCH 31.2 MCHC 31.7 L RDW 17.8 H Plt Count 271 D MPV 8.1 Absolute Neuts (auto) 6.5 Neutrophils % 79.6 Lymphocytes % 10.6 D Monocytes % 9.2 Eosinophils % 0.2 D Basophils % 0.4 Nucleated RBC % 0 PT with INR 10.40 INR 0.88 PTT (Actin FS) 25.5 Sodium 142 Potassium 3.3 L Chloride 104 Carbon Dioxide 28 Anion Gap 9 BUN 14.5 Creatinine 5.6 H Est GFR (CKD-EPI)AfAm 8.83 Est GFR (CKD-EPI)NonAf 7.62 Random Glucose 116 H Calcium 9.9 Magnesium 2.2 Total Bilirubin 0.3 AST 15 ALT 13 Alkaline Phosphatase 109 Total Protein 6.2 L Albumin 2.5 L Blood Type Antibody Screen Crossmatch 10/27/18 18:20 WBC RBC Hgb Hct MCV MCH MCHC RDW Plt Count MPV Absolute Neuts (auto) Neutrophils % Lymphocytes % Monocytes % Eosinophils % Basophils % Nucleated RBC % PT with INR INR PTT (Actin FS) Sodium Potassium Chloride Carbon Dioxide Anion Gap BUN Creatinine Est GFR (CKD-EPI)AfAm Est GFR (CKD-EPI)NonAf Random Glucose Calcium Magnesium Total Bilirubin AST ALT Alkaline Phosphatase Total Protein Albumin Blood Type B POSITIVE Antibody Screen Negative Crossmatch See Detail Active Medications Generic Name Dose Route Start Last Admin Trade Name Freq PRN Reason Stop Dose Admin Acetaminophen 650 mg 10/27/18 21:02 Tylenol - PO Q6H PRN FEVER Albuterol/Ipratropium 1 amp 10/27/18 21:02 Duoneb - NEB Q6H PRN SHORT OF BREATH/WHEEZING Atorvastatin Calcium 40 mg 10/28/18 22:00 Lipitor - PO HS [facility] Chlorhexidine Gluconate 1 applic 10/28/18 22:00 Hibiclens For Decolonization - TP HS [facility] Citalopram Hydrobromide 10 mg 10/28/18 10:00 Celexa - PO DAILY [facility] Insulin Aspart 0 vial 10/27/18 23:45 Novolog Vial Sliding Scale - SQ Q6H [facility] Protocol Levothyroxine Sodium 200 mcg 10/28/18 07:00 Synthroid - PO DAILY@0700 [facility] Lorazepam 1 mg 10/27/18 21:15 Ativan - PO TUTHSA [facility] Midodrine 2.5 mg 10/27/18 21:15 Proamatine - PO TUTHSA RAGHAV Midodrine 2.5 mg 10/28/18 10:00 Proamatine - PO BID-MID [facility] Mupirocin 1 applic 10/28/18 10:00 Bactroban Ointment (For Decolonization) - NS 11/02/18 09:59 BID [facility] Olanzapine 15 mg 10/28/18 10:00 Zyprexa - PO DAILY [facility] Ranitidine HCl 150 mg 10/28/18 10:00 Zantac - PO DAILY [facility] Sevelamer Carbonate 800 mg 10/28/18 08:00 Renvela - PO TIDCM [facility] Valproate Sodium 250 mg 10/27/18 22:00 Depakene - PO TID [facility] CBC, BMP 10/27/18 18:20 10/27/18 18:20 ASSESSMENT/PLAN: Ms. Lima is a 58 year old woman being admitted to the ICU for management of hemodynamic instability s/p bleed from L arm AV fistula site. CV: - Initial HgB 11.8, repeat after 1 unit pRBCs has completed, transfuse to HgB goal of 7. - Hypotension likely 2/2 hypovolemic shock - improved after fluids and 1L pRBCs , continue to cautiously hydrate as patient is ESRD to prevent pulmonary edema. - Frequent BP checks - Vitals q2hrs - Tachycardia likely 2/2 to hypovolemia and anemia, improving - Continue home midodrine - History of HLD - Continue home atorvastatin Renal: ESRD ON HD, malfunction fistula (bleeding from L AV fistula) - bleeding currently resolved, pressure bandage applied and monitoring for further bleeding - replete fluids carefully to avoid fluid overload and pulmonary edema - monitor fluid status - Nephro and Vascular consulted - repeat cbc, cmp in AM - Continue with Sevelamer Neuro: - Patient at baseline is altered and per records unable to communicate effectively. - History of schizophrenia and bipolar disorder - monitor for acute behavioral issues - monitor for safety/fall precaution - Continue with home medications: Depakene, Ativan, Zyprexa and Celexa - History of CVA with expressive asphasia and right side weakness - monitor for safety/fall precaution - History of dementia - monitor for acute behavioral issues Pulm: No acute issues, but history of COPD - montior Spo2 - Continue with Duoneb Endocrine - History of hypothyroidism - continue with Levothyroxine History of DM - monitor blood glucose -sliding scale insulin GI - History of GERD - Continue with home Zantac Dispo: We will continue to follow the patient. Thank you for this consultative opportunity. Visit type - Emergency Visit Emergency Visit: Yes ED Registration Date: 10/27/18 Care time: The patient presented to the Emergency Department on the above date and was hospitalized for further evaluation of their emergent condition. - New Patient This patient is new to me today: Yes Date on this admission: 10/28/18 - Critical Care Critical Care patient: Yes Total Critical Care Time (in minutes): 36 Critical Care Statement: The care of this patient involved high complexity decision making to prevent further life threatening deterioration of the patient 's condition and/or to evaluate & treat vital organ system(s) failure or risk of failure.
[2018-10-28] MEDS: INSULIN SLIDING SCALE (NOVOLOG) 1 VIAL SQ SCH ×4 (02:31→17:48)
[2018-10-28] MEDS: VALPROATE SODIUM 250 MG/5 ML UNIT DOSE CUP PO SCH ×6 (02:33→21:44)
[2018-10-28] MEDS ORDERED: SODIUM CHLORIDE 0.9% 500 ML INFUS.BAG IV ONE (04:12)
--- NOTE | 2018-10-28 05:12 | PN ---
Progress Note (short form) - Note Progress Note: On reassessment, patient is comfortably sleeping in bed. BP checks every hour have consistently shown MAPs between 66-75. Once the MAP dropped to 34, however the cuff appeared to be misplaced and on immediate repeat, the BP arpit back to normal. Tachycardia improved, she is now in sinus rhythm on the monitor at a rate of 81 , down from 130 from the emergency room. Most likely cause of hypotension and tachycardia was hypovolemia Pressors were not started overnight through the IO catheter Volume currently held and BP checks ongoing Repeat CBC was unable to be obtained due to poor peripheral venous access. Will attempt in AM.
[2018-10-28] MEDS: LEVOTHYROXINE NA 200 MCG TABLET PO SCH (06:15)
[2018-10-28 06:18] LABS: BASO % 0.3 % (0-2.0); EOS % 0.3 % (0-4.5); HEMATOCRIT 36.2 % (32.4-45.2); HEMOGLOBIN 11.9 GM/dL (10.7-15.3); LYMPH % 22.8 % (8-40); MCH 31.1 pg (25.7-33.7); MCHC 32.9 g/dl (32.0-36.0); MEAN CELL VOLUME 94.5 fl (80-96); MEAN PLT VOLUME 7.8 fl (7.5-11.1); MONO % 11.9 % (3.8-10.2); NEUT % 64.7 % (42.8-82.8); PLATELET COUNT 245 K/MM3 (134-434); RBC 3.83 M/mm3 (3.60-5.2); RDW 17.7 % (11.6-15.6); WHITE BLOOD COUNT 7.8 K/mm3 (4.0-10.0)
[2018-10-28 06:44] LABS: ALBUMIN 2.3 g/dl (3.4-5.0); BILIRUBIN,TOTAL 0.3 mg/dL (0.2-1); BLOOD UREA NITROGEN 16.2 mg/dL (7-18); CALCIUM 9.4 mg/dL (8.5-10.1); CREATININE 5.8 mg/dL (0.55-1.3); MAGNESIUM 2.1 mg/dL (1.8-2.4); PHOSPHOROUS 3.8 mg/dL (2.5-4.9); POTASSIUM 3.2 mmol/L (3.5-5.1); TOT PROT 5.4 g/dl (6.4-8.2)
[2018-10-28] MEDS ORDERED: KCL 10 MEQ IVPB 10 MEQ/100 ML INFUS.BAG IVPB SCH (07:15)
[2018-10-28] MEDS ORDERED: POTASSIUM CHLORIDE ORAL LIQUID 20 MEQ/15 ML PO ONE (07:16)
[2018-10-28] MEDS: SEVELAMER CARBONATE 800 MG TAB (FP) PO SCH ×3 (08:00→17:36)
--- NOTE | 2018-10-28 08:29 | PN ---
Progress Note, Physician Chief Complaint: Malfunction AV Fistula ESRD History of Present Illness: Previous notes and events reviewed awake and alert NAD Surgical PA at bedside assessing Fistula no current bleeding noted from site, dressing changed on exam MAP noted to be 69 - Current Medication List Current Medications: Active Medications Acetaminophen (Tylenol -) 650 mg PO Q6H PRN PRN Reason: FEVER Albuterol/Ipratropium (Duoneb -) 1 amp NEB Q6H PRN PRN Reason: SHORT OF BREATH/WHEEZING Atorvastatin Calcium (Lipitor -) 40 mg PO HS RAGHAV Chlorhexidine Gluconate (Hibiclens For Decolonization -) 1 applic TP HS RAGHAV Citalopram Hydrobromide (Celexa -) 10 mg PO DAILY [facility] Insulin Aspart (Novolog Vial Sliding Scale -) 1 vial SQ Q6HPO [facility]; Protocol Last Admin: 10/28/18 06:22 Dose: Not Given Levothyroxine Sodium (Synthroid -) 200 mcg PO DAILY@0700 [facility] Last Admin: 10/28/18 06:15 Dose: 200 mcg Lorazepam (Ativan -) 1 mg PO TuThSa@0800 [facility] Midodrine (Proamatine -) 2.5 mg PO BID-MID [facility] Mupirocin (Bactroban Ointment (For Decolonization) -) 1 applic NS BID [facility] Stop: 11/02/18 09:59 Olanzapine (Zyprexa -) 15 mg PO DAILY [facility] Ranitidine HCl (Zantac -) 150 mg PO DAILY [facility] Sevelamer Carbonate (Renvela -) 800 mg PO TIDCM [facility] Valproate Sodium (Depakene -) 250 mg PO TID [facility] Last Admin: 10/28/18 06:14 Dose: 250 mg - Objective Vital Signs: Vital Signs Temperature 98.1 F 10/28/18 02:00 Pulse Rate 84 10/28/18 07:00 Respiratory Rate 13 10/28/18 07:00 Blood Pressure 102/89 10/28/18 07:00 O2 Sat by Pulse Oximetry (%) 100 10/28/18 02:00 Constitutional: Yes: No Distress, Calm, Obese Eyes: Yes: Conjunctiva Clear HENT: Yes: Atraumatic Cardiovascular: Yes: Regular Rate and Rhythm Respiratory: Yes: Regular, Diminished Gastrointestinal: Yes: Normal Bowel Sounds, Soft, Abdomen, Obese Genitourinary: Yes: Incontinence Musculoskeletal: Yes: Muscle Weakness Extremities: Yes: Other (IO RLE LUE AV Fistula) Edema: No Wound/Incision: Yes: Dressing Dry and Intact Neurological: Yes: Alert, Aphasia (expressive), Pre-Existing Deficit, Weakness ( R side residual weakness) Psychiatric: Yes: Alert Labs: CBC, BMP 10/28/18 05:25 10/28/18 05:25 INR, PTT INR 0.88 (0.83-1.09) 10/27/18 18:20 - ....Imaging Chest X-ray: Report Reviewed Problem List - Problems (1) Dialysis AV fistula malfunction Assessment/Plan: -Vascular on board -possible OR today for permacath placement for dialysis -Renal consult -monitor site for bleeding Code(s): T82.590A - MECH COMPL OF SURGICALLY CREATED ARTERIOVENOUS FISTULA, INIT Qualifiers: Encounter type: initial encounter Qualified Code(s): T82.590A - Other mechanical complication of surgically created arteriovenous fistula, initial encounter (2) HLD (hyperlipidemia) Assessment/Plan: -Atorvastatin Code(s): E78.5 - HYPERLIPIDEMIA, UNSPECIFIED (3) ESRD (end stage renal disease) Assessment/Plan: -Renal consult -possible permacath placement for dialysis -BUN/Cr 16.2/5.8 -when resume PO intake renal diet -Sevelamer Code(s): N18.6 - END STAGE RENAL DISEASE (4) GERD (gastroesophageal reflux disease) Assessment/Plan: -Rantidine Code(s): K21.9 - GASTRO-ESOPHAGEAL REFLUX DISEASE WITHOUT ESOPHAGITIS (5) History of CVA with residual deficit Assessment/Plan: -fall precaution Code(s): I69.30 - UNSPECIFIED SEQUELAE OF CEREBRAL INFARCTION (6) Hypotension Assessment/Plan: -Midrodine -maintain MAP >60 Code(s): I95.9 - HYPOTENSION, UNSPECIFIED (7) Diabetes Assessment/Plan: -BGM ACHS -ISS Code(s): E11.9 - TYPE 2 DIABETES MELLITUS WITHOUT COMPLICATIONS (8) Hypothyroid Assessment/Plan: -Levothyroxine -TSH 0.04, will repeat Code(s): E03.9 - HYPOTHYROIDISM, UNSPECIFIED (9) COPD (chronic obstructive pulmonary disease) Assessment/Plan: -O2 via NC -keep SpO2 >90% -bronchodilators Code(s): J44.9 - CHRONIC OBSTRUCTIVE PULMONARY DISEASE, UNSPECIFIED Assessment/Plan see problem list dvt ppx
--- NOTE | 2018-10-28 09:38 | CONSULT ---
<Kinsey Parnell - Last Filed: 10/28/18 10:05> - Consultation REQUESTING PROVIDER: CONSULT REQUEST: We have been asked to surgically evaluate this patient for Left arm bleeding graft. PCP:Martina Sanchez HISTORY OF PRESENT ILLNESS: The patient had bleeding from her left upper extremity dialysis access while attempting HD. They transferred her to the ER where they placed a stitch and compression(JOSE J wrap) to stop the bleeding. She was admitted to the ICU for hypotension and 2 units of PRBC were transfused. She remains normotensive this am and without any further evidence of bleeding. PMHx: CVA ( expressive aphasia, right side weakness, Bipolar, Schizophrenia, COPD, CHF, Dementia, DM, HTN, HLD, Hypothyroidism PSHx: Left radial fistula 2014 Home Medications Medication Instructions Recorded Citalopram Hydrobromide [Celexa -] 10 mg PO DAILY tablet 09/15/18 Docusate Sodium [Colace -] 100 mg PO TID capsule 09/15/18 Levothyroxine Sodium [Synthroid] 225 mcg PO DAILY #30 tablet 09/15/18 Olanzapine [Zyprexa -] 15 mg PO DAILY tablet 09/15/18 Scopolamine Hydrobromide 1 patch TD Q3D patch.td72 09/15/18 [Transderm-Scop -] Acetaminophen [Tylenol .Regular 650 mg PO Q6H PRN 10/07/18 Strength -] Albuterol 2.5/Ipratropium 0.5 1 amp NEB Q6H PRN 10/07/18 [Duoneb -] Atorvastatin Calcium 40 mg PO HS 10/07/18 Folic Acid/Vit B Complex and C 1 each PO DAILY 10/07/18 [Dialyvite Tablet] Lorazepam [Ativan] 1 mg PO TUTHSA 10/07/18 Midodrine HCl 2.5 mg PO TUTHSA 10/07/18 Ranitidine HCl [Zantac] 150 mg PO DAILY 10/07/18 Sevelamer Carbonate 2,400 mg PO TID 10/07/18 Valproate Sodium [Depakene -] 250 mg PO TID 10/07/18 Amino Acids/Protein Hydrolys 30 ml PO BID@0800,1730 10/08/18 [Prosource No Carb Liquid Pkt] Nut.tx.imp.renal Fxn,Lac-Reduc 240 ml PO BID 10/08/18 [Nepro Carb Steady] Albuterol 2.5/Ipratropium 0.5 1 amp NEB RQID amp 10/12/18 [Duoneb -] Bacitracin - [Bacitracin Topical 1 applic TP DAILY tube 10/12/18 Ointment -] Levothyroxine [Synthroid -] 200 mcg PO DAILY@0700 tablet 10/12/18 Midodrine HCl [Proamatine -] 2.5 mg PO BID-MID tablet 10/12/18 Nystatin/Triamcinolone Top Oin 1 applic TP BID applic 10/12/18 [Mycolog II -] Ranitidine [Zantac -] 150 mg PO DAILY tablet 10/12/18 Sevelamer Carbonate [Renvela -] 800 mg PO TIDCM tab 10/12/18 Allergies Allergy/AdvReac Type Severity Reaction Status Date / Time imipenem Allergy Verified 10/07/18 06:48 NSAIDS (Non-Steroidal Allergy Verified 10/07/18 06:48 Anti-Inflamma piperacillin sodium Allergy Verified 10/07/18 06:48 [From Zosyn] tazobactam sodium Allergy Verified 10/07/18 06:48 [From Zosyn] REVIEW OF SYSTEMS: Unable to obtain PHYSICAL EXAM: GENERAL: Awake Left UPPER EXTREMITIES: Jose J wrap taken down. Bruit auscultated in the graft. 1x1 cm ulcer with suture/surgical in place overlying the graft. LOWER EXTREMITIES: 2+ pulses, warm. Right LE with interosseos IV in place. Vital Signs Temperature 98.1 F 10/28/18 02:00 Pulse Rate 88 10/28/18 08:00 Respiratory Rate 14 10/28/18 08:00 Blood Pressure 95/55 L 10/28/18 08:00 O2 Sat by Pulse Oximetry (%) 100 10/28/18 02:00 Lab Results WBC 7.8 K/mm3 (4.0-10.0) 10/28/18 05:25 RBC 3.83 M/mm3 (3.60-5.2) 10/28/18 05:25 Hgb 11.9 GM/dL (10.7-15.3) 10/28/18 05:25 Hct 36.2 % (32.4-45.2) 10/28/18 05:25 MCV 94.5 fl (80-96) 10/28/18 05:25 MCHC 32.9 g/dl (32.0-36.0) 10/28/18 05:25 RDW 17.7 % (11.6-15.6) H 10/28/18 05:25 Plt Count 245 K/MM3 (134-434) 10/28/18 05:25 Sodium 144 mmol/L (136-145) 10/28/18 05:25 Potassium 3.2 mmol/L (3.5-5.1) L 10/28/18 05:25 Chloride 108 mmol/L (98-107) H 10/28/18 05:25 Carbon Dioxide 28 mmol/L (21-32) 10/28/18 05:25 Anion Gap 8 MMOL/L (8-16) 10/28/18 05:25 BUN 16.2 mg/dL (7-18) 10/28/18 05:25 Creatinine 5.8 mg/dL (0.55-1.3) H 10/28/18 05:25 Random Glucose 103 mg/dL (74-106) 10/28/18 05:25 Calcium 9.4 mg/dL (8.5-10.1) 10/28/18 05:25 Blood Type B POSITIVE 10/27/18 18:20 Antibody Screen Negative 10/27/18 18:20 INR 0.88 (0.83-1.09) 10/27/18 18:20 Problem List - Problems (1) Dialysis AV fistula malfunction Assessment/Plan: Pt seen this am with Dr. Connor, will plan for LUE venogram/plasty today. She remains npo. H&H stable and no evidence of further bleeding. K 3.2 today Code(s): T82.590A - MECH COMPL OF SURGICALLY CREATED ARTERIOVENOUS FISTULA, INIT Qualifiers: Encounter type: initial encounter Qualified Code(s): T82.590A - Other mechanical complication of surgically created arteriovenous fistula, initial encounter <Trino Connor - Last Filed: 10/28/18 13:10> - Consultation REQUESTING PROVIDER: CONSULT REQUEST: We have been asked to surgically evaluate this patient for ( specify). PCP:Martina Sanchez HISTORY OF PRESENT ILLNESS: PMHx: PSHx: Home Medications Medication Instructions Recorded Citalopram Hydrobromide [Celexa -] 10 mg PO DAILY tablet 09/15/18 Docusate Sodium [Colace -] 100 mg PO TID capsule 09/15/18 Levothyroxine Sodium [Synthroid] 225 mcg PO DAILY #30 tablet 09/15/18 Olanzapine [Zyprexa -] 15 mg PO DAILY tablet 09/15/18 Scopolamine Hydrobromide 1 patch TD Q3D patch.td72 09/15/18 [Transderm-Scop -] Acetaminophen [Tylenol .Regular 650 mg PO Q6H PRN 10/07/18 Strength -] Albuterol 2.5/Ipratropium 0.5 1 amp NEB Q6H PRN 10/07/18 [Duoneb -] Atorvastatin Calcium 40 mg PO HS 10/07/18 Folic Acid/Vit B Complex and C 1 each PO DAILY 10/07/18 [Dialyvite Tablet] Lorazepam [Ativan] 1 mg PO TUTHSA 10/07/18 Midodrine HCl 2.5 mg PO TUTHSA 10/07/18 Ranitidine HCl [Zantac] 150 mg PO DAILY 10/07/18 Sevelamer Carbonate 2,400 mg PO TID 10/07/18 Valproate Sodium [Depakene -] 250 mg PO TID 10/07/18 Amino Acids/Protein Hydrolys 30 ml PO BID@0800,1730 10/08/18 [Prosource No Carb Liquid Pkt] Nut.tx.imp.renal Fxn,Lac-Reduc 240 ml PO BID 10/08/18 [Nepro Carb Steady] Albuterol 2.5/Ipratropium 0.5 1 amp NEB RQID amp 10/12/18 [Duoneb -] Bacitracin - [Bacitracin Topical 1 applic TP DAILY tube 10/12/18 Ointment -] Levothyroxine [Synthroid -] 200 mcg PO DAILY@0700 tablet 10/12/18 Midodrine HCl [Proamatine -] 2.5 mg PO BID-MID tablet 10/12/18 Nystatin/Triamcinolone Top Oin 1 applic TP BID applic 10/12/18 [Mycolog II -] Ranitidine [Zantac -] 150 mg PO DAILY tablet 10/12/18 Sevelamer Carbonate [Renvela -] 800 mg PO TIDCM tab 10/12/18 Allergies Allergy/AdvReac Type Severity Reaction Status Date / Time imipenem Allergy Verified 10/07/18 06:48 NSAIDS (Non-Steroidal Allergy Verified 10/07/18 06:48 Anti-Inflamma piperacillin sodium Allergy Verified 10/07/18 06:48 [From Zosyn] tazobactam sodium Allergy Verified 10/07/18 06:48 [From Zosyn] REVIEW OF SYSTEMS: CONSTITUTIONAL: Absent: fever, chills, diaphoresis, generalized weakness, malaise, loss of appetite, weight change CARDIOVASCULAR: Absent: chest pain, syncope, palpitations, irregular heart rate, lightheadedness , peripheral edema RESPIRATORY: Absent: cough, shortness of breath, dyspnea with exertion, wheezing, stridor, hemoptysis GASTROINTESTINAL: Absent: abdominal pain, abdominal distension, nausea, vomiting, diarrhea, constipation, melena, hematochezia GENITOURINARY: Absent: dysuria, frequency, urgency, hesitancy, hematuria, flank pain, genital pain MUSCULOSKELETAL: Absent: myalgia, arthralgia, joint swelling, back pain, neck pain SKIN: Absent: rash, itching, pallor HEMATOLOGIC/IMMUNOLOGIC: Absent: easy bleeding, easy bruising, lymphadenopathy NEUROLOGIC: Absent: headache, focal weakness, paresthesias, dizziness, unsteady gait, seizure, mental status changes, bladder or bowel incontinence PSYCHIATRIC: Absent: anxiety, depression, suicidal or homicidal ideation, hallucinations. PHYSICAL EXAM: GENERAL: Awake, alert, and fully oriented, in no acute distress. HEAD: Normal with no signs of trauma. EYES: PERRL, sclera anicteric, conjunctiva clear. NECK: Normal ROM, supple without lymphadenopathy, JVD, or masses. LUNGS: Clear to auscultation bilat anteriorly. No wheezes, and no crackles. No accessory muscle use. HEART: Regular rate and rhythm. No murmurs ABDOMEN: Soft, nontender, not distended, normoactive bowel sounds, no guarding, no rebound, no masses. No organomegaly. MUSCULOSKELETAL: Normal ROM at all joints. No bony deformities or tenderness. No CVA tenderness. UPPER EXTREMITIES: 2+ pulses, warm, well-perfused. No cyanosis. Cap refill <2 seconds. No peripheral edema. LOWER EXTREMITIES: 2+ pulses, warm, well-perfused. No calf tenderness. No peripheral edema. NEUROLOGICAL: Normal speech, gait not observed. PSYCH: Cooperative. Good eye contact. Appropriate mood and affect. SKIN: Warm, dry, normal turgor, no rashes or lesions noted. Vital Signs Temperature 98.3 F 10/28/18 12:00 Pulse Rate 90 10/28/18 12:00 Respiratory Rate 14 10/28/18 12:00 Blood Pressure 111/66 10/28/18 12:00 O2 Sat by Pulse Oximetry (%) 100 10/28/18 09:00 Lab Results WBC 8.3 K/mm3 (4.0-10.0) 10/28/18 12:10 RBC 4.08 M/mm3 (3.60-5.2) 10/28/18 12:10 Hgb 12.7 GM/dL (10.7-15.3) 10/28/18 12:10 Hct 38.9 % (32.4-45.2) 10/28/18 12:10 MCV 95.3 fl (80-96) 10/28/18 12:10 MCHC 32.7 g/dl (32.0-36.0) 10/28/18 12:10 RDW 18.9 % (11.6-15.6) H 10/28/18 12:10 Plt Count 234 K/MM3 (134-434) 10/28/18 12:10 Sodium 144 mmol/L (136-145) 10/28/18 05:25 Potassium 3.2 mmol/L (3.5-5.1) L 10/28/18 05:25 Chloride 108 mmol/L (98-107) H 10/28/18 05:25 Carbon Dioxide 28 mmol/L (21-32) 10/28/18 05:25 Anion Gap 8 MMOL/L (8-16) 10/28/18 05:25 BUN 16.2 mg/dL (7-18) 10/28/18 05:25 Creatinine 5.8 mg/dL (0.55-1.3) H 10/28/18 05:25 Random Glucose 103 mg/dL (74-106) 10/28/18 05:25 Calcium 9.4 mg/dL (8.5-10.1) 10/28/18 05:25 Blood Type B POSITIVE 10/27/18 18:20 Antibody Screen Negative 10/27/18 18:20 INR 0.88 (0.83-1.09) 10/27/18 18:20 This patient recently had percutaneous graft thrombectomy and now has had bleeding from a wound over the graft. Bleeding controlled with pressure and angiogram needed to evaluate for proximal venous stenosis.
[2018-10-28] MEDS: RANITIDINE HCL 150 MG TABLET (FP) PO SCH (10:00)
[2018-10-28] MEDS: OLANZapine 5 MG TABLET PO SCH (10:00)
[2018-10-28] MEDS: CITALOPRAM HYDROBROMIDE 10 MG TABLET (FP) PO SCH ×2 (10:00→17:38)
[2018-10-28] MEDS: MIDODRINE HCL 2.5 MG TABLET PO SCH ×2 (10:00→17:37)
--- NOTE | 2018-10-28 10:26 | PN ---
Teaching Attending Note Name of Resident: Fawad Webber ATTENDING PHYSICIAN STATEMENT I saw and evaluated the patient. I reviewed the resident's note and discussed the case with the resident. I agree with the resident's findings and plan as documented. SUBJECTIVE: Pt seen and examined in the ICU. No further bleeding noted. Plan for venogram/ plasty today. OBJECTIVE: Vital Signs Period Temp Pulse Resp BP Sys/Mantilla Pulse Ox Last 24 Hr 97.2 F-98.1 F 79-110 12-25 55-129/36-105 97-100 Intake & Output 10/25/18 10/26/18 10/27/18 10/28/18 23:59 23:59 23:59 23:59 Intake Total 500 Balance 500 Weight 127.006 kg 78.018 kg Gen: NAD at rest Heart: RRR Lung: decreased breath sounds at the bases Abd: soft, nontender Ext: no edema CBC, BMP 10/28/18 05:25 10/28/18 05:25 Active Medications Acetaminophen (Tylenol -) 650 mg PO Q6H PRN PRN Reason: FEVER Albuterol/Ipratropium (Duoneb -) 1 amp NEB Q6H PRN PRN Reason: SHORT OF BREATH/WHEEZING Atorvastatin Calcium (Lipitor -) 40 mg PO HS [facility]AG[facility] Chlorhexidine Gluconate (Hibiclens For Decolonization -) 1 applic TP HS RAGHAV Citalopram Hydrobromide (Celexa -) 10 mg PO DAILY [facility] Insulin Aspart (Novolog Vial Sliding Scale -) 1 vial SQ Q6HPO [facility]; Protocol Last Admin: 10/28/18 06:22 Dose: Not Given Levothyroxine Sodium (Synthroid -) 200 mcg PO DAILY@0700 [facility] Last Admin: 10/28/18 06:15 Dose: 200 mcg Lorazepam (Ativan -) 1 mg PO TuThSa@0800 [facility] Midodrine (Proamatine -) 2.5 mg PO BID-MID [facility] Mupirocin (Bactroban Ointment (For Decolonization) -) 1 applic NS BID [facility] Stop: 11/02/18 09:59 Olanzapine (Zyprexa -) 15 mg PO DAILY [facility] Ranitidine HCl (Zantac -) 150 mg PO DAILY [facility] Sevelamer Carbonate (Renvela -) 800 mg PO TIDCM [facility] Valproate Sodium (Depakene -) 250 mg PO TID [facility] Last Admin: 10/28/18 06:14 Dose: 250 mg ASSESSMENT AND PLAN: Bleeding Left AV Graft Acute Blood Loss Anemia Hypovolemic Shock h/o CVA COPD LV Diastolic Dysfunction Pulmonary HTN HTN DM Hyperlipidemia Hypothyroidism Schizophrenia Bipolar Disorder - monitor H/H - transfuse as needed - for venogram/plasty today - keep NPO - HD per renal - continue ICU monitoring
[2018-10-28] MEDS: MUPIROCIN 2% TOPICAL OINTMENT FOR DECOLONIZATION NS SCH ×2 (10:40→21:33)
--- NOTE | 2018-10-28 10:56 | PN ---
Physical Exam: SUBJECTIVE: Patient seen and examined at the bedside. Patient is aphasic and unable to give detailed history. Denied pain, shortness of breath. No thrill was palpated at the AV fistula site, but mild bruit was heard. Patient to be taken to OR with Dr. Connor today for venogram/venoplasty. OBJECTIVE: Vital Signs Period Temp Pulse Resp BP Sys/Mantilla Pulse Ox Last 24 Hr 97.2 F-98.1 F 79-110 12-25 55-129/36-105 97-100 GENERAL: The patient is awake, alert and in no acute distress. HEAD: Normal with no signs of trauma. EYES: PERRL, extraocular movements intact, sclera anicteric, conjunctiva clear. No ptosis. NECK: Trachea midline, full range of motion, supple. LUNGS: Decreased breath sounds in lower lobes.Breath sounds equal, clear to auscultation bilaterally, no wheezes, no crackles, no accessory muscle use. HEART: Regular rate and rhythm, S1, S2 without murmur, rub or gallop. ABDOMEN: Soft, nontender, nondistended, normoactive bowel sounds, no guarding, no rebound, no hepatosplenomegaly, no masses. EXTREMITIES: 1+ pulses, warm, well-perfused, trace edema. NEUROLOGICAL: Aphasic speech, spastic paralysis on RUE, 3/5 muscle strength on RLE, 5/5 muscle strength on the L PSYCH: Flat affect. SKIN: Warm, dry, normal turgor, no rashes or lesions noted Laboratory Results - last 24 hr 10/27/18 10/27/18 10/27/18 18:20 18:20 18:20 WBC 8.2 RBC 3.80 Hgb 11.8 Hct 37.4 D MCV 98.5 H MCH 31.2 MCHC 31.7 L RDW 17.8 H Plt Count 271 D MPV 8.1 Absolute Neuts (auto) 6.5 Neutrophils % 79.6 Lymphocytes % 10.6 D Monocytes % 9.2 Eosinophils % 0.2 D Basophils % 0.4 Nucleated RBC % 0 PT with INR 10.40 INR 0.88 PTT (Actin FS) 25.5 Sodium 142 Potassium 3.3 L Chloride 104 Carbon Dioxide 28 Anion Gap 9 BUN 14.5 Creatinine 5.6 H Est GFR (CKD-EPI)AfAm 8.83 Est GFR (CKD-EPI)NonAf 7.62 POC Glucometer Random Glucose 116 H Calcium 9.9 Phosphorus Magnesium 2.2 Total Bilirubin 0.3 AST 15 ALT 13 Alkaline Phosphatase 109 Total Protein 6.2 L Albumin 2.5 L TSH Blood Type Antibody Screen Crossmatch 10/27/18 10/28/18 10/28/18 18:20 05:25 05:25 WBC 7.8 RBC 3.83 Hgb 11.9 Hct 36.2 MCV 94.5 MCH 31.1 MCHC 32.9 RDW 17.7 H Plt Count 245 MPV 7.8 Absolute Neuts (auto) 5.1 Neutrophils % 64.7 Lymphocytes % 22.8 D Monocytes % 11.9 H Eosinophils % 0.3 Basophils % 0.3 Nucleated RBC % 0 PT with INR INR PTT (Actin FS) Sodium 144 Potassium 3.2 L Chloride 108 H Carbon Dioxide 28 Anion Gap 8 BUN 16.2 Creatinine 5.8 H Est GFR (CKD-EPI)AfAm 8.47 Est GFR (CKD-EPI)NonAf 7.31 POC Glucometer Random Glucose 103 Calcium 9.4 Phosphorus 3.8 Magnesium 2.1 Total Bilirubin 0.3 AST 7 L ALT 11 L Alkaline Phosphatase 93 Total Protein 5.4 L Albumin 2.3 L TSH 0.04 L Blood Type B POSITIVE Antibody Screen Negative Crossmatch See Detail 10/28/18 06:18 WBC RBC Hgb Hct MCV MCH MCHC RDW Plt Count MPV Absolute Neuts (auto) Neutrophils % Lymphocytes % Monocytes % Eosinophils % Basophils % Nucleated RBC % PT with INR INR PTT (Actin FS) Sodium Potassium Chloride Carbon Dioxide Anion Gap BUN Creatinine Est GFR (CKD-EPI)AfAm Est GFR (CKD-EPI)NonAf POC Glucometer 69 Random Glucose Calcium Phosphorus Magnesium Total Bilirubin AST ALT Alkaline Phosphatase Total Protein Albumin TSH Blood Type Antibody Screen Crossmatch Active Medications Generic Name Dose Route Start Last Admin Trade Name Freq PRN Reason Stop Dose Admin Acetaminophen 650 mg 10/27/18 21:02 Tylenol - PO Q6H PRN FEVER Albuterol/Ipratropium 1 amp 10/27/18 21:02 Duoneb - NEB Q6H PRN SHORT OF BREATH/WHEEZING Atorvastatin Calcium 40 mg 10/28/18 22:00 Lipitor - PO HS [facility] Chlorhexidine Gluconate 1 applic 10/28/18 22:00 Hibiclens For Decolonization - TP HS [facility] Citalopram Hydrobromide 10 mg 10/28/18 10:00 Celexa - PO DAILY [facility] Insulin Aspart 1 vial 10/28/18 00:30 10/28/18 06:22 Novolog Vial Sliding Scale - SQ Not Given Q6HPO [facility] Protocol Levothyroxine Sodium 200 mcg 10/28/18 07:00 10/28/18 06:15 Synthroid - PO 200 mcg DAILY@0700 [facility] Administration Lorazepam 1 mg 10/29/18 08:00 Ativan - PO TuThSa@0800 [facility] Midodrine 2.5 mg 10/28/18 10:00 Proamatine - PO BID-MID [facility] Mupirocin 1 applic 10/28/18 10:00 Bactroban Ointment (For Decolonization) - NS 11/02/18 09:59 BID [facility] Olanzapine 15 mg 10/28/18 10:00 Zyprexa - PO DAILY [facility] Ranitidine HCl 150 mg 10/28/18 10:00 Zantac - PO DAILY [facility] Sevelamer Carbonate 800 mg 10/28/18 08:00 Renvela - PO TIDCM [facility] Valproate Sodium 250 mg 10/27/18 22:00 10/28/18 06:14 Depakene - PO 250 mg TID [facility] Administration ASSESSMENT/PLAN: Henny Lima is a 58 year old female with a PMHx of COPD, ESRD on HD, CVA with right side residual weakness, and expressive aphasia, bipolar, Schizophrenia, Dementia, COPD, CHF, HTN/HLD, Hypothyrodism admitted to the ICU for a bleeding L AV fistula requiring transfusions. NEUROLOGIC - patient has expressive aphasia at baseline - has weakness on R side at baseline s/p CVA CARDIOLOGY - continue home Lipitor - stable vitals since transfusions - continue midodrine 2.5mg bid RESPIRATORY - stable - Duoneb q6h prn as needed RENAL - patient is anuric - Dr. Rene consulted, recs appreciated - pt will restart dialysis tomorrow after access is reestablished - continue to monitor renal function and electrolytes - recieved venogram with Dr. Connor, graft is patent and has normal flow - continue home Sevelamer GASTROINTESTINAL - continue home ranitidine 150mg daily GENITOURINARY - stable INFECTIOUS DISEASE - no acute issues - blood cxs ordered to assess for infection in AV fistula ENDOCRINE - BGM ACHS - ISS - TSH 0.04 - continue to monitor - continue home Synthroid 200mcg HEMATOLOGY - received 2 units of blood - Hgb 11.9, stable after transfusions, repeat CBC shows Hgb 12.7 - continue to monitor and transfuse as needed - platelets within normal limits - INR 0.88 MUSCULOSKELETAL - stable PSYCHIATRY - continue home meds Zyprexa, Celexa, Depakene, Ativan for bipolar/schizophrenia - Haldol 5mg IV given once in ED F/E/N - no fluids - potassium low, dialysis patient, continue to monitor - NPO pending surgery LINES - R hand placed 10/28 - IO to be removed PROPHYLAXIS - SCDS - holding chemical prophylaxis pending surgery CODE - full code DISPO - monitor in ICU CASE DISCUSSED WITH DR. BURLESON AND PRIMARY TEAM IHSAN MCLEAN DO - PGY-1 INTERNAL MEDICINE Visit type - Emergency Visit Emergency Visit: No - New Patient This patient is new to me today: Yes Date on this admission: 10/28/18 - Critical Care Critical Care patient: Yes Total Critical Care Time (in minutes): 38 Critical Care Statement: The care of this patient involved high complexity decision making to prevent further life threatening deterioration of the patient 's condition and/or to evaluate & treat vital organ system(s) failure or risk of failure.
--- NOTE | 2018-10-28 11:21 | EKG ---
Test Reason : Blood Pressure : / mmHG Vent. Rate : 088 BPM Atrial Rate : 088 BPM P-R Int : 170 ms QRS Dur : 094 ms QT Int : 390 ms P-R-T Axes : 071 -18 050 degrees QTc Int : 471 ms NORMAL SINUS RHYTHM CANNOT RULE OUT INFERIOR INFARCT , AGE UNDETERMINED CANNOT RULE OUT ANTERIOR INFARCT , AGE UNDETERMINED Confirmed by EDY DILLON MD ([id number]) on 10/28/2018 11:21:21 AM Referred By: Confirmed By:EDY DILLON MD
--- NOTE | 2018-10-28 12:03 | CONSULT ---
Consult - text type - Consultation Consultation Note: Renal Consult for ESRD on HD This is a 58 year old woman with history of ESRD no HD (TTS @ [facility]) , Schizophrenia, DM, Hypertension, CVA with right side weakness, expressive aphasia who presented from outpatient dialysis unit with bleeding from AVG site that was not able to be controlled. Pt last had dialysis on Wednesday. In the ER pt noted to still have bleeding from AVG site, pressure dressing was applied bleeding controlled. Lal pt became hypotensvie and 2 PRBC was given. Pt transferred to ICU for monitoring. Pt is awake and alert. Not able to provide HPI. PMHx: as above Allergies: NKDA Family Hx: NC Social Hx: No T/A/D ROS: unable to obtain because of clinical status Home Meds: Home Medications Medication Instructions Recorded Citalopram Hydrobromide [Celexa -] 10 mg PO DAILY tablet 09/15/18 Docusate Sodium [Colace -] 100 mg PO TID capsule 09/15/18 Levothyroxine Sodium [Synthroid] 225 mcg PO DAILY #30 tablet 09/15/18 Olanzapine [Zyprexa -] 15 mg PO DAILY tablet 09/15/18 Scopolamine Hydrobromide 1 patch TD Q3D patch.td72 09/15/18 [Transderm-Scop -] Acetaminophen [Tylenol .Regular 650 mg PO Q6H PRN 10/07/18 Strength -] Albuterol 2.5/Ipratropium 0.5 1 amp NEB Q6H PRN 10/07/18 [Duoneb -] Atorvastatin Calcium 40 mg PO HS 10/07/18 Folic Acid/Vit B Complex and C 1 each PO DAILY 10/07/18 [Dialyvite Tablet] Lorazepam [Ativan] 1 mg PO TUTHSA 10/07/18 Midodrine HCl 2.5 mg PO TUTHSA 10/07/18 Ranitidine HCl [Zantac] 150 mg PO DAILY 10/07/18 Sevelamer Carbonate 2,400 mg PO TID 10/07/18 Valproate Sodium [Depakene -] 250 mg PO TID 10/07/18 Amino Acids/Protein Hydrolys 30 ml PO BID@0800,1730 10/08/18 [Prosource No Carb Liquid Pkt] Nut.tx.imp.renal Fxn,Lac-Reduc 240 ml PO BID 10/08/18 [Nepro Carb Steady] Albuterol 2.5/Ipratropium 0.5 1 amp NEB RQID amp 10/12/18 [Duoneb -] Bacitracin - [Bacitracin Topical 1 applic TP DAILY tube 10/12/18 Ointment -] Levothyroxine [Synthroid -] 200 mcg PO DAILY@0700 tablet 10/12/18 Midodrine HCl [Proamatine -] 2.5 mg PO BID-MID tablet 10/12/18 Nystatin/Triamcinolone Top Oin 1 applic TP BID applic 10/12/18 [Mycolog II -] Ranitidine [Zantac -] 150 mg PO DAILY tablet 10/12/18 Sevelamer Carbonate [Renvela -] 800 mg PO TIDCM tab 10/12/18 Vital Signs Temperature 98 F 10/28/18 10:00 Pulse Rate 83 10/28/18 10:00 Respiratory Rate 14 10/28/18 10:00 Blood Pressure 94/57 L 10/28/18 10:00 O2 Sat by Pulse Oximetry (%) 100 10/28/18 09:00 Intake & Output 10/25/18 10/26/18 10/27/18 10/28/18 23:59 23:59 23:59 23:59 Intake Total 500 Balance 500 Weight 127.006 kg 78.018 kg NAD awake and alert neck supple RRR, no M/R Dec BS, no rales soft, obese, NT/ND no LE edema, clubbing or cyanosis left arm AVG + bruit, no thrill. No bleeding Right UE weakness CBC, BMP 10/28/18 05:25 10/28/18 05:25 Current Medications Acetaminophen (Tylenol -) 650 mg PO Q6H PRN PRN Reason: FEVER Albuterol/Ipratropium (Duoneb -) 1 amp NEB Q6H PRN PRN Reason: SHORT OF BREATH/WHEEZING Atorvastatin Calcium (Lipitor -) 40 mg PO HS RAGHAV Chlorhexidine Gluconate (Hibiclens For Decolonization -) 1 applic TP HS RAG[facility] Citalopram Hydrobromide (Celexa -) 10 mg PO DAILY [facility] Insulin Aspart (Novolog Vial Sliding Scale -) 1 vial SQ Q6HPO [facility]; Protocol Last Admin: 10/28/18 06:22 Dose: Not Given Levothyroxine Sodium (Synthroid -) 200 mcg PO DAILY@0700 [facility] Last Admin: 10/28/18 06:15 Dose: 200 mcg Lorazepam (Ativan -) 1 mg PO TuThSa@0800 [facility] Midodrine (Proamatine -) 2.5 mg PO BID-MID [facility] Mupirocin (Bactroban Ointment (For Decolonization) -) 1 applic NS BID [facility] Stop: 11/02/18 09:59 Olanzapine (Zyprexa -) 15 mg PO DAILY [facility] Ranitidine HCl (Zantac -) 150 mg PO DAILY [facility] Sevelamer Carbonate (Renvela -) 800 mg PO TIDCM [facility] Valproate Sodium (Depakene -) 250 mg PO TID [facility] Last Admin: 10/28/18 06:14 Dose: 250 mg 58 year old woman with history of ESRD no HD (TTS @ [facility]), Schizophrenia, DM, Hypertension, CVA with right side weakness, expressive aphasia who presented from outpatient dialysis unit with bleeding from AVG site that was not able to be controlled. #Bleeding from AVG site #ESRD on HD #Schizophrenia #Hypotension due to suspected blood loss #Renal Osteodystrophpy #DM for vascular evaluation in OR today by vascular surgery no acute need for STAFF PHYSICAL THERAPIST today, will plan HD for tomorrow as inpatient Hgb stable s/p transfusion no SHARON indicated as Hgb > 10 continue psych meds continue renvela with meals insulin sliding scale if stable can anticipate discharge home after dialysis tomorrow Thank you Deng Rene DO
[2018-10-28 12:25] LABS: HEMATOCRIT 38.9 % (32.4-45.2); HEMOGLOBIN 12.7 GM/dL (10.7-15.3); MCH 31.2 pg (25.7-33.7); MCHC 32.7 g/dl (32.0-36.0); MEAN CELL VOLUME 95.3 fl (80-96); MEAN PLT VOLUME 8.4 fl (7.5-11.1); PLATELET COUNT 234 K/MM3 (134-434); RBC 4.08 M/mm3 (3.60-5.2); RDW 18.9 % (11.6-15.6); WHITE BLOOD COUNT 8.3 K/mm3 (4.0-10.0)
[2018-10-28] MEDS ORDERED: HEPARIN NA (PORCINE) 5,000 UNITS/ML 1ML VIAL ONE (12:33)
[2018-10-28] MEDS ORDERED: LIDOCAINE HCL 1%, 10 MG/ML (20ML VIAL) ONE (12:33)
[2018-10-28] MEDS ORDERED: MIDAZOLAM HCL 2 MG/2 ML SINGLE DOSE VIAL ONE ×2 (13:34→13:41)
[2018-10-28] MEDS ORDERED: LIDOCAINE HCL 1%, 10 MG/ML (50 mL VIAL) IJ ONE ×2 (13:45)
--- NOTE | 2018-10-28 14:01 | OP ---
Operative Note - Note: Operative Date: 10/28/18 Pre-Operative Diagnosis: Bleeding from AV graft Operation: Venogram AV graft left arm Findings: Normal flow in graft. No evidence for significant stenosis in graft or outflow veins. Indwelling stents in axillary vein x 2. Possible mild narrowing of innominate vein. Patent arterial anastomosis. Post-Operative Diagnosis: Same as Pre-op Surgeon: Trino Connor Anesthesiologist/MARKETING COMMUNICATIONS ASSISTANT: Lisbet Baker Anesthesia: Fractional
[2018-10-28] MEDS ORDERED: MORPHINE SULFATE 2 MG/ML VIAL SQ ONE (15:18)
[2018-10-28] MEDS ORDERED: MORPHINE SULFATE 2 MG/ML VIAL ONE (15:40)
--- NOTE | 2018-10-28 18:30 | OP ---
DATE OF OPERATION: 10/28/2018 PROCEDURE: Cannulation left arm arteriovenous graft for venogram of left arm and chest. PREOPERATIVE DIAGNOSIS: Bleeding from left arm arteriovenous graft. POSTOPERATIVE DIAGNOSIS: Bleeding from left arm arteriovenous graft, with no venous stenosis. ANESTHESIA: Fractional. ANESTHESIOLOGIST: JOSE FRANCISCO Baker OPERATIVE FINDINGS: The left upper arm arteriovenous graft was patent without evidence of stenosis from the arterial anastomosis to the outflow veins. There were 2 metal stents present from the venous limb of the graft into the axillary vein which were patent without significant stenosis. The left subclavian vein was patent without significant stenosis. The innominate vein showed possible evidence of a mild stenosis with some collateral filling in the chest. OPERATIVE PROCEDURE: Following routine patient identification with side and site verification, intravenous sedation was established. The left arm was prepped with Betadine solution. Timeout was performed. 1% lidocaine was infiltrated at the distal end of the graft and was cannulated with a micropuncture needle directed centrally. The need was exchanged over the wire for a 5 Uzbek catheter, and venography was performed with the above noted findings. There was no 12-mm balloon available to use for a central venoplasty, so no sheath was placed. The catheter was removed and bleeding controlled with a mattress suture of 3-0 nylon. The area of bleeding was debrided to remove all sutures. There was no evidence of infection in the area. The open wound was covered with bacitracin, dry gauze, and a Tegaderm, and the patient was taken to the recovery room in stable condition. Eliseo [id number]
[2018-10-28] MEDS ORDERED: PT OWN MED DRAWER 7, Y5N ONE (21:26)
[2018-10-28] MEDS: CHLORHEXIDINE GLUCONATE 4% CLEANSER FOR DECOLONIZATION TP SCH (21:32)
[2018-10-28] MEDS: ATORVASTATIN CA 40 MG TABLET (FP) PO SCH ×2 (21:32→21:44)
[2018-10-28] MEDS ORDERED: CHLORHEXIDINE GLUCONATE 4% CLEANSER FOR DECOLONIZATION TP SCH (22:00)
[2018-10-28] MEDS ORDERED: MUPIROCIN 2% TOPICAL OINTMENT FOR DECOLONIZATION NS SCH (22:00)
[2018-10-29] MEDS: INSULIN SLIDING SCALE (NOVOLOG) 1 VIAL SQ SCH ×4 (00:59→17:18)
[2018-10-29] MEDS: VALPROATE SODIUM 250 MG/5 ML UNIT DOSE CUP PO SCH ×4 (06:11→22:40)
[2018-10-29] MEDS: LEVOTHYROXINE NA 200 MCG TABLET PO SCH ×2 (06:12→07:30)
[2018-10-29] MEDS: LORazepam 1 MG TABLET PO SCH ×2 (07:45→10:29)
[2018-10-29] MEDS ORDERED: MIDODRINE HCL 2.5 MG TABLET PO SCH (08:00)
[2018-10-29 08:06] LABS: HEMOGLOBIN 10.3 GM/dL (10.7-15.3)
--- NOTE | 2018-10-29 08:13 | PN ---
Progress Note (short form) - Note Progress Note: RENAL coverage for Dr Rene pt awake and alert dialysis being started her bp was low but it arpit Last Vital Signs Temp Pulse Resp BP Pulse Ox 97.5 F L 98 H 17 105/60 98 10/29/18 06:00 10/29/18 06:00 10/29/18 06:00 10/29/18 06:00 10/28/18 14:50 lungs bilat air entry cvs s1s2 rr abd soft ext no edema neuro appears somewhat sedated but answers Current Medications Generic Name Dose Route Start Last Admin Trade Name Freq PRN Reason Stop Dose Admin Acetaminophen 650 mg 10/27/18 21:02 Tylenol - PO Q6H PRN FEVER Albuterol/Ipratropium 1 amp 10/27/18 21:02 Duoneb - NEB Q6H PRN SHORT OF BREATH/WHEEZING Atorvastatin Calcium 40 mg 10/28/18 22:00 10/28/18 21:44 Lipitor - PO Not Given HS RAGHAV Chlorhexidine Gluconate 1 applic 10/28/18 22:00 10/28/18 21:32 Hibiclens For Decolonization - TP 1 applic HS RAGHAV Administration Citalopram Hydrobromide 10 mg 10/28/18 10:00 10/28/18 17:38 Celexa - PO 10 mg DAILY RAGHAV Administration Sodium Chloride 250 mls @ 3,000 mls/hr 10/28/18 12:03 Normal Saline - IV 10/29/18 12:03 PRN PRN Hypotension during Dialysis Insulin Aspart 1 vial 10/28/18 00:30 10/29/18 06:09 Novolog Vial Sliding Scale - SQ Not Given Q6HPO [facility] Protocol Levothyroxine Sodium 200 mcg 10/28/18 07:00 10/29/18 06:12 Synthroid - PO Not Given DAILY@0700 [facility] Lorazepam 1 mg 10/29/18 08:00 Ativan - PO TuThSa@0800 [facility] Midodrine 2.5 mg 10/28/18 10:00 10/28/18 17:37 Proamatine - PO 2.5 mg BID-MID RAG[facility] Administration Mupirocin 1 applic 10/28/18 10:00 10/28/18 21:33 Bactroban Ointment (For Decolonization) - NS 11/02/18 09:59 1 applic BID RAG[facility]AV Administration Olanzapine 15 mg 07/05/19 10:00 10/28/18 10:00 Zyprexa - PO Not Given DAILY [facility]AG[facility] Ranitidine HCl 150 mg 10/28/18 10:00 10/28/18 10:00 Zantac - PO Not Given DAILY [facility]AG[facility] Sevelamer Carbonate 800 mg 10/28/18 08:00 10/28/18 17:36 Renvela - PO 800 mg TIDCM [facility]AG[facility] Administration Valproate Sodium 250 mg 10/27/18 22:00 10/29/18 06:11 Depakene - PO Not Given TID [facility]AG[facility] 58 year old woman with history of ESRD no HD (TTS @ [facility]), Schizophrenia, DM, Hypertension, CVA with right side weakness, expressive aphasia who presented from outpatient dialysis unit with bleeding from AVG site that was not able to be controlled. #Bleeding from AVG site #ESRD on HD #Schizophrenia #Hypotension due to suspected blood loss #Renal Osteodystrophpy #DM will attempt HD today can get a higher dose of midodrine if necessary does not seem to have bled significantly no need for di MV
[2018-10-29 08:52] LABS: ALBUMIN 2.2 g/dl (3.4-5.0); BILIRUBIN,TOTAL 0.4 mg/dL (0.2-1); BLOOD UREA NITROGEN 23.2 mg/dL (7-18); CALCIUM 9.3 mg/dL (8.5-10.1); CREATININE 6.5 mg/dL (0.55-1.3); MAGNESIUM 2.2 mg/dL (1.8-2.4); PHOSPHOROUS 4.1 mg/dL (2.5-4.9); POTASSIUM 3.2 mmol/L (3.5-5.1); TOT PROT 5.2 g/dl (6.4-8.2)
[2018-10-29 08:54] LABS: HEMATOCRIT 31.3 % (32.4-45.2); MEAN CELL VOLUME 93.9 fl (80-96); MEAN PLT VOLUME 8.4 fl (7.5-11.1); RBC 3.34 M/mm3 (3.60-5.2); RDW 18.4 % (11.6-15.6); WHITE BLOOD COUNT 8.4 K/mm3 (4.0-10.0)
[2018-10-29 09:11] LABS: PLATELET COUNT 228 K/MM3 (134-434)
--- NOTE | 2018-10-29 09:13 | RAPID ---
Physical Examination Vital Signs: Vital Signs Temperature 97.5 F L 10/29/18 06:00 Pulse Rate 98 H 10/29/18 08:00 Respiratory Rate 14 10/29/18 08:00 Blood Pressure 115/76 10/29/18 08:00 O2 Sat by Pulse Oximetry (%) 98 10/28/18 14:50 Labs: CBC, BMP 10/29/18 07:59 Rapid Response - Rapid Response Assessment: 1h into dialysis BP read as 46/11, bgm of 124. Rapid Response called. Gave bolus of of 500cc, Trendelenberg patient who was vocalizing and awake the entire time. Had 600cc of fluid removed at that time by dialysis. Outcome: BP cuff replaced, repeat BP at 76/30. IM team arrived but patient was still awake and stable. Consulted Dr. Hernandez, booster pump operator who recommended stopping the dialysis and giving pressors if needed.
[2018-10-29] MEDS ORDERED: SODIUM CHLORIDE 250 ML IV PRN (09:15)
[2018-10-29] MEDS: MIDODRINE HCL 2.5 MG TABLET PO SCH ×3 (09:41→17:22)
[2018-10-29] MEDS: OLANZapine 5 MG TABLET PO SCH (09:41)
[2018-10-29] MEDS ORDERED: PT OWN MED DRAWER 7, Y5N ONE (09:43)
--- NOTE | 2018-10-29 09:43 | PN ---
Teaching Attending Note Name of Resident: Estrada Roberts ATTENDING PHYSICIAN STATEMENT I saw and evaluated the patient. I reviewed the resident's note and discussed the case with the resident. I agree with the resident's findings and plan as documented. SUBJECTIVE: Pt seen and examined in the ICU. s/p venogram showing normal flow. No further bleeding noted. Dialzyed this AM but shortened due to episode of hypotension, improved with return of fluids. OBJECTIVE: Vital Signs Period Temp Pulse Resp BP Sys/Mantilla Pulse Ox Last 24 Hr 97.3 F-98.3 F 64-121 13-23 76-124/36-85 98-100 Intake & Output 10/26/18 10/27/18 10/28/18 10/29/18 23:59 23:59 23:59 23:59 Intake Total 1150 Balance 1150 Weight 127.006 kg 78.018 kg 84.459 kg Gen: NAD at rest Heart: RRR Lung: decreased breath sounds at the bases Abd: soft, nontender Ext: no edema CBC, BMP 10/29/18 07:59 10/29/18 07:59 Active Medications Acetaminophen (Tylenol -) 650 mg PO Q6H PRN PRN Reason: FEVER Albuterol/Ipratropium (Duoneb -) 1 amp NEB Q6H PRN PRN Reason: SHORT OF BREATH/WHEEZING Atorvastatin Calcium (Lipitor -) 40 mg PO HS [facility] Last Admin: 10/28/18 21:44 Dose: Not Given Chlorhexidine Gluconate (Hibiclens For Decolonization -) 1 applic TP HS [facility] Last Admin: 10/28/18 21:32 Dose: 1 applic Citalopram Hydrobromide (Celexa -) 10 mg PO DAILY [facility] Last Admin: 10/28/18 17:38 Dose: 10 mg Sodium Chloride (Normal Saline -) 250 mls @ 3,000 mls/hr IV PRN PRN PRN Reason: Hypotension during Dialysis Stop: 10/29/18 15:00 Last Admin: 10/29/18 08:30 Dose: 3,000 mls/hr Insulin Aspart (Novolog Vial Sliding Scale -) 1 vial SQ Q6HPO [facility]; Protocol Last Admin: 10/29/18 06:09 Dose: Not Given Levothyroxine Sodium (Synthroid -) 200 mcg PO DAILY@0700 [facility] Last Admin: 10/29/18 06:12 Dose: Not Given Lorazepam (Ativan -) 1 mg PO TuThSa@0800 [facility] Midodrine (Proamatine -) 2.5 mg PO BID-MID [facility] Last Admin: 10/28/18 17:37 Dose: 2.5 mg Mupirocin (Bactroban Ointment (For Decolonization) -) 1 applic NS BID [facility] Stop: 11/02/18 09:59 Last Admin: 10/28/18 21:33 Dose: 1 applic Olanzapine (Zyprexa -) 15 mg PO DAILY [facility] Last Admin: 10/28/18 10:00 Dose: Not Given Ranitidine HCl (Zantac -) 150 mg PO DAILY [facility] Last Admin: 10/28/18 10:00 Dose: Not Given Sevelamer Carbonate (Renvela -) 800 mg PO TIDCM [facility] Last Admin: 10/28/18 17:36 Dose: 800 mg Valproate Sodium (Depakene -) 250 mg PO TID [facility] Last Admin: 10/29/18 07:30 Dose: 250 mg ASSESSMENT AND PLAN: Bleeding Left AV Graft resolved s/p Venogram Acute Blood Loss Anemia Hypovolemic Shock improved h/o CVA COPD LV Diastolic Dysfunction Pulmonary HTN HTN DM Hyperlipidemia Hypothyroidism Schizophrenia Bipolar Disorder - monitor H/H - transfuse as needed - HD per renal - PO as tolerated - aspiration precautions - can monitor on floor
[2018-10-29] MEDS: RANITIDINE HCL 150 MG TABLET (FP) PO SCH (09:44)
[2018-10-29] MEDS: SEVELAMER CARBONATE 800 MG TAB (FP) PO SCH ×3 (09:44→17:20)
[2018-10-29] MEDS: CITALOPRAM HYDROBROMIDE 10 MG TABLET (FP) PO SCH (09:48)
[2018-10-29] MEDS: MUPIROCIN 2% TOPICAL OINTMENT FOR DECOLONIZATION NS SCH ×2 (09:48→22:40)
[2018-10-29] MEDS ORDERED: HALOPERIDOL LACTATE 5 MG/ML IM ONE (10:41)
--- NOTE | 2018-10-29 11:21 | CONSULT ---
Consult - Past Medical History PROVIDER RELATIONS SPECIALIST: Yes: CVA, Dementia Cardio/Vascular: Yes: CAD, CHF, HTN, Hyperlipdemia Pulmonary: Yes: COPD Gastrointestinal: Yes: GERD Renal/: Yes: Renal Inusuff Psych: Yes: Anxiety, Bipolar, Schizophrenia Endocrine: Yes: Diabetes Mellitus, Other (obesity) - Past Surgical History Past Surgical History: Yes: AV Fistula/Graft - Alcohol/Substance Use Hx Alcohol Use: No - Smoking History Smoking history: Unknown if ever smoked Have you smoked in the past 12 months: No - Social History Usual Living Arrangement: Halfway ADL: Support Services History of Recent Travel: No Home Medications - Allergies Allergies/Adverse Reactions: Allergies Allergy/AdvReac Type Severity Reaction Status Date / Time imipenem Allergy Verified 10/07/18 06:48 NSAIDS (Non-Steroidal Allergy Verified 10/07/18 06:48 Anti-Inflamma piperacillin sodium Allergy Verified 10/07/18 06:48 [From Zosyn] tazobactam sodium Allergy Verified 10/07/18 06:48 [From Zosyn] - Home Medications Home Medications: Ambulatory Orders Citalopram Hydrobromide [Celexa -] 10 mg PO DAILY tablet 09/15/18 Docusate Sodium [Colace -] 100 mg PO TID capsule 09/15/18 Levothyroxine Sodium [Synthroid] 225 mcg PO DAILY #30 tablet 09/15/18 Olanzapine [Zyprexa -] 15 mg PO DAILY tablet 09/15/18 Scopolamine Hydrobromide [Transderm-Scop -] 1 patch TD Q3D patch.td72 09/15/18 Acetaminophen [Tylenol .Regular Strength -] 650 mg PO Q6H PRN 10/07/18 Albuterol 2.5/Ipratropium 0.5 [Duoneb -] 1 amp NEB Q6H PRN 10/07/18 Atorvastatin Calcium 40 mg PO HS 10/07/18 Folic Acid/Vit B Complex and C [Dialyvite Tablet] 1 each PO DAILY 10/07/18 Lorazepam [Ativan] 1 mg PO TUTHSA 10/07/18 Midodrine HCl 2.5 mg PO TUTHSA 10/07/18 Ranitidine HCl [Zantac] 150 mg PO DAILY 10/07/18 Sevelamer Carbonate 2,400 mg PO TID 10/07/18 Valproate Sodium [Depakene -] 250 mg PO TID 10/07/18 Amino Acids/Protein Hydrolys [Prosource No Carb Liquid Pkt] 30 ml PO BID@0800, 1730 10/08/18 Nut.tx.imp.renal Fxn,Lac-Reduc [Nepro Carb Steady] 240 ml PO BID 10/08/18 Albuterol 2.5/Ipratropium 0.5 [Duoneb -] 1 amp NEB RQID amp 10/12/18 Bacitracin - [Bacitracin Topical Ointment -] 1 applic TP DAILY tube 10/12/18 Levothyroxine [Synthroid -] 200 mcg PO DAILY@0700 tablet 10/12/18 Midodrine HCl [Proamatine -] 2.5 mg PO BID-MID tablet 10/12/18 Nystatin/Triamcinolone Top Oin [Mycolog II -] 1 applic TP BID applic 10/12/18 Ranitidine [Zantac -] 150 mg PO DAILY tablet 10/12/18 Sevelamer Carbonate [Renvela -] 800 mg PO TIDCM tab 10/12/18 Family Disease History - Family Disease History Family Disease History: Heart Disease: Father Physical Exam Vital Signs: Vital Signs Temperature 97.5 F L 10/29/18 06:00 Pulse Rate 103 H 10/29/18 09:32 Respiratory Rate 14 10/29/18 09:32 Blood Pressure 83/54 L 10/29/18 09:32 O2 Sat by Pulse Oximetry (%) 98 10/28/18 14:50 Labs: CBC, BMP 10/29/18 07:59 10/29/18 07:59
--- NOTE | 2018-10-29 11:31 | CONSULT ---
Consultation: ICU CONSULT: RESIDENT Patient s/p venogram showing normal flow without any bleeding at fistula site as of this am. Dialysis performed today. Patient became hypotensive 1h into dialysis, down to 46/11, promptly corrected with 500cc fluid. Vitals stable post-dialysis. Patient will be transferred to med.surg today. REVIEW OF SYSTEMS: Unable to assess, non-verbal. PHYSICAL EXAMINATION Vital Signs - 24 hr 10/28/18 10/28/18 10/28/18 12:00 14:05 14:20 Temperature 98.3 F 97.7 F 97.7 F Pulse Rate 90 85 84 Respiratory 14 14 15 Rate Blood Pressure 111/66 104/76 120/71 O2 Sat by Pulse 100 100 Oximetry (%) 10/28/18 10/28/18 10/28/18 14:34 14:35 14:50 Temperature 97.7 F 97.7 F 97.6 F Pulse Rate 83 64 80 Respiratory 15 15 15 Rate Blood Pressure 107/61 113/50 L 118/61 O2 Sat by Pulse 98 98 Oximetry (%) 10/28/18 10/28/18 10/28/18 15:00 16:00 17:11 Temperature 97.7 F 97.6 F Pulse Rate 92 H 87 90 Respiratory 14 16 16 Rate Blood Pressure 118/65 113/36 L 117/62 O2 Sat by Pulse Oximetry (%) 10/28/18 10/28/18 10/28/18 18:00 19:00 19:30 Temperature 97.3 F L Pulse Rate 84 109 H 102 H Respiratory 16 14 15 Rate Blood Pressure 124/59 L 119/85 94/75 O2 Sat by Pulse Oximetry (%) 10/28/18 10/28/18 10/28/18 20:00 21:17 22:00 Temperature Pulse Rate 99 H 75 94 H Respiratory 13 16 22 H Rate Blood Pressure 83/65 L 105/67 114/71 O2 Sat by Pulse Oximetry (%) 10/28/18 10/29/18 10/29/18 23:00 00:00 01:00 Temperature Pulse Rate 78 90 91 H Respiratory 17 15 23 H Rate Blood Pressure 98/53 L 94/52 L 94/56 L O2 Sat by Pulse Oximetry (%) 10/29/18 10/29/18 10/29/18 02:00 03:00 04:00 Temperature 97.5 F L Pulse Rate 77 87 90 Respiratory 15 17 13 Rate Blood Pressure 83/70 L 110/64 103/61 O2 Sat by Pulse Oximetry (%) 10/29/18 10/29/18 10/29/18 05:06 06:00 07:00 Temperature 97.3 F L 97.5 F L Pulse Rate 84 98 H 101 H Respiratory 22 H 17 16 Rate Blood Pressure 106/47 L 105/60 104/69 O2 Sat by Pulse Oximetry (%) 10/29/18 10/29/18 10/29/18 07:30 07:45 07:50 Temperature Pulse Rate 92 H 94 H 93 H Respiratory 14 14 14 Rate Blood Pressure 124/65 117/73 119/72 O2 Sat by Pulse Oximetry (%) 10/29/18 10/29/18 10/29/18 08:00 08:30 09:00 Temperature Pulse Rate 97 H 121 H 100 H Respiratory 16 16 16 Rate Blood Pressure 95/59 L 76/55 L 86/74 L O2 Sat by Pulse Oximetry (%) 10/29/18 09:32 Temperature Pulse Rate 103 H Respiratory 14 Rate Blood Pressure 83/54 L O2 Sat by Pulse Oximetry (%) GENERAL: Awake, alert, somewhat agitated today HEAD: Normal with no signs of trauma. EYES: PERRL, extraocular movements intact, sclera anicteric, conjunctiva clear. No ptosis. NECK: Trachea midline, full range of motion, supple. LUNGS: Decreased breath sounds in lower lobes. HEART: Regular rate and rhythm, S1, S2 without murmur, rub or gallop. ABDOMEN: Soft, nontender, nondistended, normoactive bowel sounds, no guarding, no rebound, no hepatosplenomegaly, no masses. EXTREMITIES: 1+ pulses, warm, well-perfused, trace edema. NEUROLOGICAL: Aphasic speech, spastic paralysis on RUE PSYCH: Flat affect. SKIN: Warm, dry, normal turgor, no rashes or lesions noted Laboratory Results - last 24 hr 10/28/18 10/28/18 10/28/18 05:20 12:10 12:14 WBC 8.3 RBC 4.08 Hgb 12.7 Hct 38.9 MCV 95.3 MCH 31.2 MCHC 32.7 RDW 18.9 H Plt Count 234 MPV 8.4 Sodium Potassium Chloride Carbon Dioxide Anion Gap BUN Creatinine Est GFR (CKD-EPI)AfAm Est GFR (CKD-EPI)NonAf POC Glucometer 99 Random Glucose Hemoglobin A1c % 4.9 Calcium Phosphorus Magnesium Total Bilirubin AST ALT Alkaline Phosphatase Total Protein Albumin TSH 10/28/18 10/29/18 10/29/18 17:43 00:57 06:07 WBC RBC Hgb Hct MCV MCH MCHC RDW Plt Count MPV Sodium Potassium Chloride Carbon Dioxide Anion Gap BUN Creatinine Est GFR (CKD-EPI)AfAm Est GFR (CKD-EPI)NonAf POC Glucometer 71 84 73 Random Glucose Hemoglobin A1c % Calcium Phosphorus Magnesium Total Bilirubin AST ALT Alkaline Phosphatase Total Protein Albumin TSH 10/29/18 10/29/18 10/29/18 07:59 07:59 08:47 WBC 8.4 RBC 3.34 L Hgb 10.3 L Hct 31.3 L D MCV 93.9 MCH 31.0 MCHC 33.0 RDW 18.4 H Plt Count 228 MPV 8.4 Sodium 146 H Potassium 3.2 L Chloride 111 H Carbon Dioxide 23 Anion Gap 12 BUN 23.2 H Creatinine 6.5 H Est GFR (CKD-EPI)AfAm 7.38 Est GFR (CKD-EPI)NonAf 6.37 POC Glucometer 126 Random Glucose 114 H Hemoglobin A1c % Calcium 9.3 Phosphorus 4.1 Magnesium 2.2 Total Bilirubin 0.4 AST 7 L ALT 10 L Alkaline Phosphatase 91 Total Protein 5.2 L Albumin 2.2 L TSH 0.06 L Active Medications Generic Name Dose Route Start Last Admin Trade Name Freq PRN Reason Stop Dose Admin Acetaminophen 650 mg 10/27/18 21:02 Tylenol - PO Q6H PRN FEVER Albuterol/Ipratropium 1 amp 10/27/18 21:02 Duoneb - NEB Q6H PRN SHORT OF BREATH/WHEEZING Atorvastatin Calcium 40 mg 10/28/18 22:00 10/28/18 21:44 Lipitor - PO Not Given HS RAGHAV Chlorhexidine Gluconate 1 applic 10/28/18 22:00 10/28/18 21:32 Hibiclens For Decolonization - TP 1 applic HS RAGHAV Administration Citalopram Hydrobromide 10 mg 10/28/18 10:00 10/29/18 09:48 Celexa - PO 10 mg DAILY RAGHAV Administration Sodium Chloride 250 mls @ 3,000 mls/hr 10/29/18 09:15 10/29/18 08:30 Normal Saline - IV 10/29/18 15:00 3,000 mls/hr PRN PRN Administration Hypotension during Dialysis Insulin Aspart 1 vial 10/28/18 00:30 10/29/18 06:09 Novolog Vial Sliding Scale - SQ Not Given Q6HPO [facility] Protocol Levothyroxine Sodium 200 mcg 10/28/18 07:00 10/29/18 07:30 Synthroid - PO 200 mcg DAILY@0700 RAGHAV Administration Lorazepam 1 mg 10/29/18 08:00 10/29/18 10:29 Ativan - PO 1 mg TuThSa@0800 RAGHAV Administration Midodrine 2.5 mg 10/28/18 10:00 10/29/18 09:41 Proamatine - PO 2.5 mg BID-MID RAGHAV Administration Mupirocin 1 applic 10/28/18 10:00 10/29/18 09:48 Bactroban Ointment (For Decolonization) - NS 11/02/18 09:59 1 applic BID RAGHAV Administration Olanzapine 15 mg 10/28/18 10:00 10/29/18 09:41 Zyprexa - PO 15 mg DAILY RAGHAV Administration Ranitidine HCl 150 mg 10/28/18 10:00 10/29/18 09:44 Zantac - PO 150 mg DAILY RAGHAV Administration Sevelamer Carbonate 800 mg 10/28/18 08:00 10/29/18 09:44 Renvela - PO 800 mg TIDCM RAGHAV Administration Valproate Sodium 250 mg 10/27/18 22:00 10/29/18 07:30 Depakene - PO 250 mg TID RAGHAV Administration ASSESSMENT/PLAN: Henny Lima is a 58 year old female with a PMHx of COPD, ESRD on HD, CVA with right side residual weakness, and expressive aphasia, bipolar, Schizophrenia, Dementia, COPD, CHF, HTN/HLD, Hypothyrodism admitted to the ICU for a bleeding L AV fistula requiring transfusions. NEUROLOGIC - patient has expressive aphasia at baseline - has weakness on R side at baseline s/p CVA CARDIOLOGY - Will continue to monitor vital post-dialysis - Transfusion as needed - continue home Lipitor - continue midodrine 2.5mg bid RESPIRATORY - stable - Duoneb q6h prn as needed RENAL - 1h of dialysis done, 600cc of fluid removed. - continue to monitor renal function and electrolytes - recieved venogram with Dr. Connor, graft is patent and has normal flow - continue home Sevelamer GASTROINTESTINAL - Speech/swallow eval due to apparent dysphagia - PO if ok. - continue home ranitidine 150mg daily PSYCHIATRY - continue home meds Zyprexa, Celexa, Depakene, Ativan for bipolar/schizophrenia - Haldol 5mg IV given once in ED CODE - full code DISPO - Transfer to MED/SURg today Visit type - Emergency Visit Emergency Visit: No - New Patient This patient is new to me today: No - Critical Care Critical Care patient: Yes Total Critical Care Time (in minutes): 30 Critical Care Statement: The care of this patient involved high complexity decision making to prevent further life threatening deterioration of the patient 's condition and/or to evaluate & treat vital organ system(s) failure or risk of failure.
--- NOTE | 2018-10-29 14:08 | PN ---
Progress Note (short form) - Note Progress Note: 2 episodes of bleeding from arm which stopped with pressure. No bleeding today. Graft bruit present. OK to use graft for dialysis access. If any further bleeding may need covered stent.
[2018-10-29] MEDS ORDERED: RAPID SEQUENCE INTUBATION KIT NR ONE (14:47)
--- NOTE | 2018-10-29 18:25 | PN ---
Progress Note, Physician Chief Complaint: ESRD Malfunctioning of AV fistula History of Present Illness: Operative Date: 10/28/18 Pre-Operative Diagnosis: Bleeding from AV graft Operation: Venogram AV graft left arm Findings: Normal flow in graft. No evidence for significant stenosis in graft or outflow veins. Indwelling stents in axillary vein x 2. Possible mild narrowing of innominate vein. Patent arterial anastomosis. Post-Operative Diagnosis: Same as Pre-op - Current Medication List Current Medications: Active Medications Acetaminophen (Tylenol -) 650 mg PO Q6H PRN PRN Reason: FEVER Albuterol/Ipratropium (Duoneb -) 1 amp NEB Q6H PRN PRN Reason: SHORT OF BREATH/WHEEZING Atorvastatin Calcium (Lipitor -) 40 mg PO HS [facility] Last Admin: 10/28/18 21:44 Dose: Not Given Chlorhexidine Gluconate (Hibiclens For Decolonization -) 1 applic TP HS [facility] Last Admin: 10/28/18 21:32 Dose: 1 applic Citalopram Hydrobromide (Celexa -) 10 mg PO DAILY [facility] Last Admin: 10/29/18 09:48 Dose: 10 mg Gentamicin Sulfate (Garamycin 0.1% Ointment -) 1 applic TP BID [facility] Insulin Aspart (Novolog Vial Sliding Scale -) 1 vial SQ Q6HPO [facility]; Protocol Last Admin: 10/29/18 17:18 Dose: Not Given Levothyroxine Sodium (Synthroid -) 200 mcg PO DAILY@0700 [facility] Last Admin: 10/29/18 07:30 Dose: 200 mcg Lorazepam (Ativan -) 1 mg PO TuThSa@0800 [facility] Last Admin: 10/29/18 10:29 Dose: 1 mg Midodrine (Proamatine -) 2.5 mg PO TID-MID [facility] Last Admin: 10/29/18 17:22 Dose: 2.5 mg Mupirocin (Bactroban Ointment (For Decolonization) -) 1 applic NS BID [facility] Stop: 11/02/18 09:59 Last Admin: 10/29/18 09:48 Dose: 1 applic Olanzapine (Zyprexa -) 15 mg PO DAILY [facility] Last Admin: 10/29/18 09:41 Dose: 15 mg Ranitidine HCl (Zantac -) 150 mg PO DAILY [facility] Last Admin: 10/29/18 09:44 Dose: 150 mg Sevelamer Carbonate (Renvela -) 800 mg PO TIDCM [facility] Last Admin: 10/29/18 17:20 Dose: 800 mg Valproate Sodium (Depakene -) 250 mg PO TID [facility] Last Admin: 10/29/18 13:50 Dose: 250 mg - Objective Vital Signs: Vital Signs Temperature 98.1 F 10/29/18 14:00 Pulse Rate 87 10/29/18 16:00 Respiratory Rate 13 10/29/18 16:00 Blood Pressure 104/64 10/29/18 16:00 O2 Sat by Pulse Oximetry (%) 98 10/28/18 14:50 Constitutional: Yes: Well Nourished, No Distress, Calm Cardiovascular: Yes: Regular Rate and Rhythm Respiratory: Yes: Regular Gastrointestinal: Yes: Normal Bowel Sounds, Soft Genitourinary: Yes: Oliguria Musculoskeletal: Yes: WNL Extremities: Yes: WNL Edema: No Peripheral Pulses WNL: Yes Neurological: Yes: Alert, Oriented Psychiatric: Yes: Alert, Oriented Labs: CBC, BMP 10/29/18 07:59 10/29/18 07:59 INR, PTT INR 0.88 (0.83-1.09) 10/27/18 18:20 Problem List - Problems (1) Hypokalemia Assessment/Plan: -nephrology on board Code(s): E87.6 - HYPOKALEMIA Assessment/Plan (1) Dialysis AV fistula malfunction Assessment/Plan: -Vascular on board -Renal consult -No more bleeding, monitor site for bleeding Code(s): T82.590A - [facility] COMPL OF SURGICALLY CREATED ARTERIOVENOUS FISTULA, INIT Qualifiers: Encounter type: initial encounter Qualified Code(s): T82.590A - Other mechanical complication of surgically created arteriovenous fistula, initial encounter (2) HLD (hyperlipidemia) Assessment/Plan: -Atorvastatin Code(s): E78.5 - HYPERLIPIDEMIA, UNSPECIFIED (3) ESRD (end stage renal disease) Assessment/Plan: -Renal consult -AV graft okay to be used -when resume PO intake renal diet -Sevelamer Code(s): N18.6 - END STAGE RENAL DISEASE (4) GERD (gastroesophageal reflux disease) Assessment/Plan: -Rantidine Code(s): K21.9 - GASTRO-ESOPHAGEAL REFLUX DISEASE WITHOUT ESOPHAGITIS (5) History of CVA with residual deficit Assessment/Plan: -fall precaution Code(s): I69.30 - UNSPECIFIED SEQUELAE OF CEREBRAL INFARCTION (6) Hypotension Assessment/Plan: -Midrodine -maintain MAP >60 Code(s): I95.9 - HYPOTENSION, UNSPECIFIED (7) Diabetes Assessment/Plan: -BGM ACHS -ISS Code(s): E11.9 - TYPE 2 DIABETES MELLITUS WITHOUT COMPLICATIONS (8) Hypothyroid Assessment/Plan: -Decrease Levothyroxine to 200 mcg po daily Code(s): E03.9 - HYPOTHYROIDISM, UNSPECIFIED (9) COPD (chronic obstructive pulmonary disease) Assessment/Plan: -O2 via NC -keep SpO2 >90% -bronchodilators Code(s): J44.9 - CHRONIC OBSTRUCTIVE PULMONARY DISEASE, UNSPECIFIED
[2018-10-29] MEDS: ATORVASTATIN CA 40 MG TABLET (FP) PO SCH (22:40)
[2018-10-29] MEDS: GENTAMICIN SO4 0.1% TOPICAL OINTMENT 15 GM/TUBE TUBE TP SCH (22:41)
[2018-10-29] MEDS: CHLORHEXIDINE GLUCONATE 4% CLEANSER FOR DECOLONIZATION TP SCH (22:41)
[2018-10-30] MEDS ORDERED: SODIUM CHLORIDE 250 ML IV STA (00:07)
[2018-10-30] MEDS: INSULIN SLIDING SCALE (NOVOLOG) 1 VIAL SQ SCH ×3 (04:40→13:00)
[2018-10-30] MEDS: VALPROATE SODIUM 250 MG/5 ML UNIT DOSE CUP PO SCH ×3 (06:13→22:44)
[2018-10-30] MEDS: LEVOTHYROXINE NA 200 MCG TABLET PO SCH (06:50)
--- NOTE | 2018-10-30 08:11 | PN ---
Progress Note (short form) - Note Progress Note: RENAL coverage for Dr Rene pt awake and alert her bp was low but it arpit Last Vital Signs Temp Pulse Resp BP Pulse Ox 98.4 F 90 21 H 128/55 L 98 10/30/18 05:20 10/30/18 05:20 10/30/18 05:20 10/30/18 05:20 10/28/18 14:50 lungs bilat air entry cvs s1s2 rr abd soft ext no edema neuro appears somewhat sedated but answers CBC, BMP 10/29/18 07:59 10/29/18 07:59 Current Medications Generic Name Dose Route Start Last Admin Trade Name Freq PRN Reason Stop Dose Admin Acetaminophen 650 mg 10/27/18 21:02 Tylenol - PO Q6H PRN FEVER Albuterol/Ipratropium 1 amp 10/27/18 21:02 Duoneb - NEB Q6H PRN SHORT OF BREATH/WHEEZING Atorvastatin Calcium 40 mg 10/28/18 22:00 10/29/18 22:40 Lipitor - PO 40 mg HS RAGHAV Administration Chlorhexidine Gluconate 1 applic 10/28/18 22:00 10/29/18 22:41 Hibiclens For Decolonization - TP 1 applic HS RAGHAV Administration Citalopram Hydrobromide 10 mg 10/28/18 10:00 10/29/18 09:48 Celexa - PO 10 mg DAILY RAGHAV Administration Gentamicin Sulfate 1 applic 10/29/18 22:00 10/29/18 22:41 Garamycin 0.1% Ointment - TP 1 applic BID RAGHAV Administration Insulin Aspart 1 vial 10/28/18 00:30 10/30/18 06:12 Novolog Vial Sliding Scale - SQ Not Given Q6HPO [facility] Protocol Levothyroxine Sodium 200 mcg 10/28/18 07:00 10/30/18 06:50 Synthroid - PO 200 mcg DAILY@0700 RAGHAV Administration Lorazepam 1 mg 10/29/18 08:00 10/29/18 10:29 Ativan - PO 1 mg TuThSa@0800 RAGHAV Administration Midodrine 2.5 mg 10/29/18 14:00 10/29/18 17:22 Proamatine - PO 2.5 mg TID-MID RAGHAV Administration Mupirocin 1 applic 10/28/18 10:00 10/29/18 22:40 Bactroban Ointment (For Decolonization) - NS 11/02/18 09:59 1 applic BID RAGHAV Administration Olanzapine 15 mg 10/28/18 10:00 10/29/18 09:41 Zyprexa - PO 15 mg DAILY RAGHAV Administration Ranitidine HCl 150 mg 10/28/18 10:00 10/29/18 09:44 Zantac - PO 150 mg DAILY RAGHAV Administration Sevelamer Carbonate 800 mg 10/28/18 08:00 10/29/18 17:20 Renvela - PO 800 mg TIDCM RAGHAV Administration Valproate Sodium 250 mg 10/27/18 22:00 10/30/18 06:13 Depakene - PO 250 mg TID RAGHAV Administration 58 year old woman with history of ESRD no HD (TTS @ [facility]), Schizophrenia, DM, Hypertension, CVA with right side weakness, expressive aphasia who presented from outpatient dialysis unit with bleeding from AVG site that was not able to be controlled. #Bleeding from AVG site #ESRD on HD #Schizophrenia #Hypotension due to suspected blood loss #Renal Osteodystrophpy #DM Pt needs to have blood work done. She had only one hour of hd before dropping her blood pressure and having a rapid response yesterday If possible will wait until tomorrow for hd but will need to see her labs ( which I suspect should be acceptable) Spoke to nurse KARINA
[2018-10-30] MEDS: SEVELAMER CARBONATE 800 MG TAB (FP) PO SCH ×3 (09:37→17:42)
[2018-10-30] MEDS ORDERED: PT OWN MED DRAWER 7, Y5N ONE ×4 (09:39→20:53)
[2018-10-30] MEDS: RANITIDINE HCL 150 MG TABLET (FP) PO SCH (09:46)
[2018-10-30] MEDS: MIDODRINE HCL 2.5 MG TABLET PO SCH ×3 (09:46→17:42)
[2018-10-30] MEDS: OLANZapine 5 MG TABLET PO SCH (09:46)
[2018-10-30] MEDS: CITALOPRAM HYDROBROMIDE 10 MG TABLET (FP) PO SCH (09:47)
[2018-10-30] MEDS: MUPIROCIN 2% TOPICAL OINTMENT FOR DECOLONIZATION NS SCH (10:03)
[2018-10-30] MEDS: GENTAMICIN SO4 0.1% TOPICAL OINTMENT 15 GM/TUBE TUBE TP SCH ×2 (10:06→22:48)
[2018-10-30 10:10] LABS: ALBUMIN 2.1 g/dl (3.4-5.0); BILIRUBIN,TOTAL 0.3 mg/dL (0.2-1); BLOOD UREA NITROGEN 21.4 mg/dL (7-18); CALCIUM 9.2 mg/dL (8.5-10.1); CREATININE 6.6 mg/dL (0.55-1.3); MAGNESIUM 2.1 mg/dL (1.8-2.4); PHOSPHOROUS 3.9 mg/dL (2.5-4.9); POTASSIUM 3.3 mmol/L (3.5-5.1)
[2018-10-30 10:10] LABS: HEMATOCRIT 32.5 % (32.4-45.2); HEMOGLOBIN 10.4 GM/dL (10.7-15.3); MCH 31.2 pg (25.7-33.7); MEAN CELL VOLUME 97.7 fl (80-96); MEAN PLT VOLUME 8.8 fl (7.5-11.1); PLATELET COUNT 166 K/MM3 (134-434); RBC 3.33 M/mm3 (3.60-5.2); RDW 18.5 % (11.6-15.6); WHITE BLOOD COUNT 6.6 K/mm3 (4.0-10.0)
--- NOTE | 2018-10-30 10:33 | PN ---
Teaching Attending Note Name of Resident: Natty Mcconnell ATTENDING PHYSICIAN STATEMENT I saw and evaluated the patient. I reviewed the resident's note and discussed the case with the resident. I agree with the resident's findings and plan as documented. SUBJECTIVE: Pt seen and examined in the ICU. No bleeding noted. Hemodynamics improved. OBJECTIVE: Vital Signs Period Temp Pulse Resp BP Sys/Mantilla Pulse Ox Last 24 Hr 98.0 F-98.5 F 76-104 12-21 53-164/29-72 100 Intake & Output 10/27/18 10/28/18 10/29/18 10/30/18 23:59 23:59 23:59 23:59 Intake Total 1150 820 Balance 1150 820 Weight 127.006 kg 78.018 kg 84.368 kg Gen: NAD at rest Heart: RRR Lung: decreased breath sounds at the bases Abd: soft, nontender Ext: no edema CBC, BMP 10/30/18 09:45 10/30/18 08:45 Active Medications Acetaminophen (Tylenol -) 650 mg PO Q6H PRN PRN Reason: FEVER Albuterol/Ipratropium (Duoneb -) 1 amp NEB Q6H PRN PRN Reason: SHORT OF BREATH/WHEEZING Atorvastatin Calcium (Lipitor -) 40 mg PO HS [facility] Last Admin: 10/29/18 22:40 Dose: 40 mg Chlorhexidine Gluconate (Hibiclens For Decolonization -) 1 applic TP HS [facility] Last Admin: 10/29/18 22:41 Dose: 1 applic Citalopram Hydrobromide (Celexa -) 10 mg PO DAILY [facility] Last Admin: 10/30/18 09:47 Dose: 10 mg Gentamicin Sulfate (Garamycin 0.1% Ointment -) 1 applic TP BID [facility] Last Admin: 10/30/18 10:06 Dose: 1 applic Insulin Aspart (Novolog Vial Sliding Scale -) 1 vial SQ Q6HPO [facility]; Protocol Last Admin: 10/30/18 06:12 Dose: Not Given Levothyroxine Sodium (Synthroid -) 200 mcg PO DAILY@0700 [facility] Last Admin: 10/30/18 06:50 Dose: 200 mcg Lorazepam (Ativan -) 1 mg PO TuThSa@0800 [facility] Last Admin: 10/29/18 10:29 Dose: 1 mg Midodrine (Proamatine -) 2.5 mg PO TID-MID [facility] Last Admin: 10/30/18 09:46 Dose: 2.5 mg Mupirocin (Bactroban Ointment (For Decolonization) -) 1 applic NS BID [facility] Stop: 11/02/18 09:59 Last Admin: 10/30/18 10:03 Dose: 1 applic Olanzapine (Zyprexa -) 15 mg PO DAILY [facility] Last Admin: 10/30/18 09:46 Dose: 15 mg Ranitidine HCl (Zantac -) 150 mg PO DAILY [facility] Last Admin: 10/30/18 09:46 Dose: 150 mg Sevelamer Carbonate (Renvela -) 800 mg PO TIDCM [facility] Last Admin: 10/30/18 09:37 Dose: 800 mg Valproate Sodium (Depakene -) 250 mg PO TID [facility] Last Admin: 10/30/18 06:13 Dose: 250 mg ASSESSMENT AND PLAN: Bleeding Left AV Graft resolved s/p Venogram Acute Blood Loss Anemia Hypovolemic Shock improved h/o CVA COPD LV Diastolic Dysfunction Pulmonary HTN HTN DM Hyperlipidemia Hypothyroidism Schizophrenia Bipolar Disorder - monitor H/H - transfuse as needed - HD per renal - PO as tolerated - aspiration precautions - can monitor on floor
--- NOTE | 2018-10-30 10:43 | PN ---
Physical Exam: SUBJECTIVE: Patient seen and examined by me on 10/30/2018. The patient was alert in her hospital bed attempting to communicate. Blood draws were taken this morning to trend H/H and CMP to evaluate patient for dialysis. Patient's BPs have been stable and she can be transferred to the floor for further management. OBJECTIVE: Vital Signs Period Temp Pulse Resp BP Sys/Mantilla Pulse Ox Last 24 Hr 98.0 F-98.5 F 76-104 12-21 53-164/29-72 100 GENERAL: Awake, alert, in no acute distress HEAD: Normal with no signs of trauma. EYES: PERRL, extraocular movements intact, sclera anicteric, conjunctiva clear. No ptosis. NECK: Trachea midline, full range of motion, supple. LUNGS: Lungs CTABL, no accessory muscle use HEART: Regular rate and rhythm, S1, S2 without murmur, rub or gallop. ABDOMEN: Soft, nontender, nondistended, normoactive bowel sounds, no guarding, no rebound EXTREMITIES: 1+ pulses, warm, well-perfused, trace edema. NEUROLOGICAL: Aphasic speech, spastic paralysis on RUE SKIN: Warm, dry, normal turgor, no rashes or lesions noted Laboratory Results - last 24 hr 10/29/18 10/29/18 10/29/18 08:20 08:20 12:03 WBC RBC Hgb Hct MCV MCH MCHC RDW MPV Sodium Potassium Chloride Carbon Dioxide Anion Gap BUN Creatinine Est GFR (CKD-EPI)AfAm Est GFR (CKD-EPI)NonAf POC Glucometer 91 Random Glucose Calcium Phosphorus Magnesium Total Bilirubin AST ALT Alkaline Phosphatase Total Protein Albumin Hepatitis Be Antigen Negative Hep C Ab Diagnostic <0.1 10/29/18 10/29/18 10/30/18 17:13 23:46 06:11 WBC RBC Hgb Hct MCV MCH MCHC RDW MPV Sodium Potassium Chloride Carbon Dioxide Anion Gap BUN Creatinine Est GFR (CKD-EPI)AfAm Est GFR (CKD-EPI)NonAf POC Glucometer 88 109 63 Random Glucose Calcium Phosphorus Magnesium Total Bilirubin AST ALT Alkaline Phosphatase Total Protein Albumin Hepatitis Be Antigen Hep C Ab Diagnostic 10/30/18 10/30/18 10/30/18 06:45 08:45 09:45 WBC 6.6 RBC 3.33 L Hgb 10.4 L Hct 32.5 MCV 97.7 H MCH 31.2 MCHC 32.0 RDW 18.5 H MPV 8.8 Sodium 146 H Potassium 3.3 L Chloride 110 H Carbon Dioxide 29 Anion Gap 7 L BUN 21.4 H Creatinine 6.6 H Est GFR (CKD-EPI)AfAm 7.24 Est GFR (CKD-EPI)NonAf 6.25 POC Glucometer 95 Random Glucose 100 Calcium 9.2 Phosphorus 3.9 Magnesium 2.1 Total Bilirubin 0.3 AST 9 L ALT 9 L Alkaline Phosphatase 85 Total Protein 5.0 L Albumin 2.1 L Hepatitis Be Antigen Hep C Ab Diagnostic Active Medications Generic Name Dose Route Start Last Admin Trade Name Freq PRN Reason Stop Dose Admin Acetaminophen 650 mg 10/27/18 21:02 Tylenol - PO Q6H PRN FEVER Albuterol/Ipratropium 1 amp 10/27/18 21:02 Duoneb - NEB Q6H PRN SHORT OF BREATH/WHEEZING Atorvastatin Calcium 40 mg 10/28/18 22:00 10/29/18 22:40 Lipitor - PO 40 mg HS [facility]AGHAV Administration Chlorhexidine Gluconate 1 applic 10/28/18 22:00 10/29/18 22:41 Hibiclens For Decolonization - TP 1 applic HS [facility]AGHAV Administration Citalopram Hydrobromide 10 mg 10/28/18 10:00 10/30/18 09:47 Celexa - PO 10 mg DAILY [facility]AG[facility] Administration Gentamicin Sulfate 1 applic 10/29/18 22:00 10/30/18 10:06 Garamycin 0.1% Ointment - TP 1 applic BID [facility] Administration Insulin Aspart 1 vial 10/28/18 00:30 10/30/18 06:12 Novolog Vial Sliding Scale - SQ Not Given Q6HPO [facility] Protocol Levothyroxine Sodium 200 mcg 10/28/18 07:00 10/30/18 06:50 Synthroid - PO 200 mcg DAILY@0700 RAG[facility]AV Administration Lorazepam 1 mg 10/29/18 08:00 10/29/18 10:29 Ativan - PO 1 mg TuThSa@0800 [facility] Administration Midodrine 2.5 mg 10/29/18 14:00 10/30/18 09:46 Proamatine - PO 2.5 mg TID-MID [facility] Administration Mupirocin 1 applic 10/28/18 10:00 10/30/18 10:03 Bactroban Ointment (For Decolonization) - NS 11/02/18 09:59 1 applic BID [facility] Administration Olanzapine 15 mg 10/28/18 10:00 10/30/18 09:46 Zyprexa - PO 15 mg DAILY [facility] Administration Ranitidine HCl 150 mg 10/28/18 10:00 10/30/18 09:46 Zantac - PO 150 mg DAILY [facility]AG[facility] Administration Sevelamer Carbonate 800 mg 10/28/18 08:00 10/30/18 09:37 Renvela - PO 800 mg TIDCM [facility] Administration Valproate Sodium 250 mg 10/27/18 22:00 10/30/18 06:13 Depakene - PO 250 mg TID [facility]AG[facility] Administration ASSESSMENT/PLAN: Henny Lima is a 58 year old woman with a PMHx of COPD, ESRD on HD (T,, S), CVA with right side residual weakness, and expressive aphasia, bipolar disorder , Schizophrenia, Dementia, CHF, HTN/HLD, Hypothyrodism admitted to the ICU for a bleeding L AV fistula requiring transfusions. NEUROLOGIC - patient has expressive aphasia at baseline - has weakness on R side at baseline s/p CVA CARDIOLOGY - Will continue to monitor vital post-dialysis - Transfusion as needed - continue home Lipitor - continue midodrine 2.5mg bid RESPIRATORY - stable - Duoneb q6h prn as needed RENAL - 1h of dialysis done on 10/29/2018, 600cc of fluid removed. - continue to monitor renal function and electrolytes-repeat CBC and CMP morning of 10/30/2018 - recieved venogram with Dr. Connor, graft is patent and has normal flow - continue home Sevelamer GASTROINTESTINAL - Speech/swallow eval due to apparent dysphagia - PO if ok. - continue home ranitidine 150mg daily PSYCHIATRY - continue home meds Zyprexa, Celexa, Depakene, Ativan for bipolar/schizophrenia - Haldol 5mg IV given once in ED CODE - full code DISPO - Transfer to MED/SURG today Visit type - Emergency Visit Emergency Visit: Yes ED Registration Date: 10/27/18 Care time: The patient presented to the Emergency Department on the above date and was hospitalized for further evaluation of their emergent condition. - New Patient This patient is new to me today: No - Critical Care Critical Care patient: Yes Total Critical Care Time (in minutes): 36 Critical Care Statement: The care of this patient involved high complexity decision making to prevent further life threatening deterioration of the patient 's condition and/or to evaluate & treat vital organ system(s) failure or risk of failure.
[2018-10-30] MEDS ORDERED: ALBUTEROL SO4 2.5/IPRATROPIUM 0.5 INH SOL 3 ML VIAL.NEB. NEB PRN (15:25)
[2018-10-30] MEDS ORDERED: ACETAMINOPHEN 325 MG TABLET (FP) PO PRN (15:25)
--- NOTE | 2018-10-30 21:37 | PN ---
Progress Note, Physician Chief Complaint: ESRD Malfunctioning of AV fistula History of Present Illness: Operative Date: 10/28/18 Pre-Operative Diagnosis: Bleeding from AV graft Operation: Venogram AV graft left arm Findings: Normal flow in graft. No evidence for significant stenosis in graft or outflow veins. Indwelling stents in axillary vein x 2. Possible mild narrowing of innominate vein. Patent arterial anastomosis. Post-Operative Diagnosis: Same as Pre-op - Current Medication List Current Medications: Active Medications Acetaminophen (Tylenol -) 650 mg PO Q6H PRN PRN Reason: FEVER Albuterol/Ipratropium (Duoneb -) 1 amp NEB Q6H PRN PRN Reason: SHORT OF BREATH/WHEEZING Atorvastatin Calcium (Lipitor -) 40 mg PO HS [facility] Citalopram Hydrobromide (Celexa -) 10 mg PO DAILY [facility] Gentamicin Sulfate (Garamycin 0.1% Ointment -) 1 applic TP BID [facility] Last Admin: 10/30/18 10:06 Dose: 1 applic Insulin Aspart (Novolog Vial Sliding Scale -) 1 vial SQ ACBK [facility]; Protocol Levothyroxine Sodium (Synthroid -) 200 mcg PO DAILY@0700 [facility] Lorazepam (Ativan -) 1 mg PO TuThSa@0800 [facility] Midodrine (Proamatine -) 2.5 mg PO TID-MID [facility] Last Admin: 10/30/18 17:42 Dose: 2.5 mg Olanzapine (Zyprexa -) 15 mg PO DAILY [facility] Ranitidine HCl (Zantac -) 150 mg PO DAILY [facility] Sevelamer Carbonate (Renvela -) 800 mg PO TIDCM [facility] Last Admin: 10/30/18 17:42 Dose: 800 mg Valproate Sodium (Depakene -) 250 mg PO TID [facility] - Objective Vital Signs: Vital Signs Temperature 97.7 F 10/30/18 17:40 Pulse Rate 89 10/30/18 17:40 Respiratory Rate 20 10/30/18 17:40 Blood Pressure 108/48 L 10/30/18 17:40 O2 Sat by Pulse Oximetry (%) 100 10/30/18 09:00 Constitutional: Yes: Well Nourished, No Distress, Calm, Obese Labs: CBC, BMP 10/30/18 09:45 10/30/18 08:45 INR, PTT INR 0.88 (0.83-1.09) 10/27/18 18:20 Problem List - Problems (1) Hypokalemia Assessment/Plan: -nephrology on board Code(s): E87.6 - HYPOKALEMIA Assessment/Plan (1) Dialysis AV fistula malfunction Assessment/Plan: -Vascular on board -Renal consult -No more bleeding, monitor site for bleeding Code(s): T82.590A - [facility] COMPL OF SURGICALLY CREATED ARTERIOVENOUS FISTULA, INIT Qualifiers: Encounter type: initial encounter Qualified Code(s): T82.590A - Other mechanical complication of surgically created arteriovenous fistula, initial encounter (2) HLD (hyperlipidemia) Assessment/Plan: -Atorvastatin Code(s): E78.5 - HYPERLIPIDEMIA, UNSPECIFIED (3) ESRD (end stage renal disease) Assessment/Plan: -Renal consult -AV graft okay to be used -when resume PO intake renal diet -Sevelamer Code(s): N18.6 - END STAGE RENAL DISEASE (4) GERD (gastroesophageal reflux disease) Assessment/Plan: -Rantidine Code(s): K21.9 - GASTRO-ESOPHAGEAL REFLUX DISEASE WITHOUT ESOPHAGITIS (5) History of CVA with residual deficit Assessment/Plan: -fall precaution Code(s): I69.30 - UNSPECIFIED SEQUELAE OF CEREBRAL INFARCTION (6) Hypotension Assessment/Plan: -Midrodine -maintain MAP >60 Code(s): I95.9 - HYPOTENSION, UNSPECIFIED (7) Diabetes Assessment/Plan: -BGM ACHS -ISS Code(s): E11.9 - TYPE 2 DIABETES MELLITUS WITHOUT COMPLICATIONS (8) Hypothyroid Assessment/Plan: -Decrease Levothyroxine to 200 mcg po daily Code(s): E03.9 - HYPOTHYROIDISM, UNSPECIFIED (9) COPD (chronic obstructive pulmonary disease) Assessment/Plan: -O2 via NC -keep SpO2 >90% -bronchodilators Code(s): J44.9 - CHRONIC OBSTRUCTIVE PULMONARY DISEASE, UNSPECIFIED
[2018-10-30] MEDS: ATORVASTATIN CA 40 MG TABLET (FP) PO SCH (22:44)
[2018-10-31] MEDS: VALPROATE SODIUM 250 MG/5 ML UNIT DOSE CUP PO SCH ×3 (06:29→21:58)
[2018-10-31] MEDS: LEVOTHYROXINE NA 100 MCG TABLET (FP) PO SCH (06:29)
[2018-10-31] MEDS: INSULIN SLIDING SCALE (NOVOLOG) 1 VIAL SQ SCH (06:30)
[2018-10-31] MEDS ORDERED: LEVOTHYROXINE NA 200 MCG TABLET PO SCH (07:00)
[2018-10-31 08:22] LABS: HEMATOCRIT 32.3 % (32.4-45.2); HEMOGLOBIN 10.3 GM/dL (10.7-15.3); MCH 30.9 pg (25.7-33.7); MCHC 31.8 g/dl (32.0-36.0); MEAN CELL VOLUME 97.1 fl (80-96); PLATELET COUNT 190 K/MM3 (134-434); RBC 3.32 M/mm3 (3.60-5.2); RDW 17.8 % (11.6-15.6); WHITE BLOOD COUNT 5.8 K/mm3 (4.0-10.0)
[2018-10-31] MEDS: SEVELAMER CARBONATE 800 MG TAB (FP) PO SCH ×3 (09:03→17:29)
[2018-10-31 09:10] LABS: ALBUMIN 2.2 g/dl (3.4-5.0); BILIRUBIN,TOTAL 0.3 mg/dL (0.2-1); BLOOD UREA NITROGEN 24.2 mg/dL (7-18); CALCIUM 9.4 mg/dL (8.5-10.1); PHOSPHOROUS 4.1 mg/dL (2.5-4.9); POTASSIUM 3.3 mmol/L (3.5-5.1); TOT PROT 5.2 g/dl (6.4-8.2)
--- NOTE | 2018-10-31 09:11 | CONSULT ---
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: Yes: CVA, Dementia Cardiovascular: Yes: CAD, CHF, HTN, Hyperlipdemia Pulmonary: Yes: COPD Gastrointestinal: Yes: GERD Renal/: Yes: Renal Inusuff Heme/Onc: Yes: Anemia Psych: Yes: Anxiety, Bipolar, Schizophrenia Endocrine: Yes: Diabetes Mellitus, Other (obesity) - Past Surgical History Past Surgical History: Yes: AV Fistula/Graft - Smoking History Smoking history: Unknown if ever smoked Have you smoked in the past 12 months: No - Alcohol/Substance Use Hx Alcohol Use: No - Social History ADL: Support Services History of Recent Travel: No History - Admission Reason For Visit: MALFUNCTION OF ARTERIOVENOUS DIALYSIS FISTULA Speech Evaluation - Communication Primary Language: GEORGIAN Communication: Yes: Dysarthria, Aphasia (expressive aphasia secondary to CVA with right sided weakness) Oral Expression Ability: Yes: Moderate Impairment - Speech Production Dysarthria: Yes: Mixed Apraxia: Yes Able to Make Needs Known: Yes: Moderately Impaired (reduced intelligibility.) Intelligibility: Yes: Moderately Impaired - Speech Characteristics Voice Loudness: Normal Voice Pitch: Yes: Limited Variation Voice Phonatory-based Quality: Yes: Quivering Speech Pattern: Impaired Speech Clarity: < 50% Nasal Resonance: Normal Articulation: Yes: Precise, Imprecise Rate of Speech: Too Slow Voice Comment: Vocal quality reduced; halting, breathy - Language/Auditory Comprehension Follows: Yes: 1 Stage Simple Commands (WFL), 2 Stage Simple Commands (reduced), Complex Commands (reduced) Observation: Able to respond to yes/no queries: Yes, Yes/No Confusion: Yes, Comprehends Conversational Speech: Yes, Benefits from Slow Speech: Yes, Benefits from Repetiton: Yes, Benefits from Increased Volume of Speech: No - Language/Verbal Expression Aphasia: Yes: Fluent, Apraxia, Sound Errors Able to Respond to Simple Queries: Yes: Moderately Impaired Able to Communicate Wants and Needs: Yes: Moderately Impaired Functional Communication Status: Yes: Moderately Impaired (May be able to use a communication board) Aware of Errors: Yes Attempts to Correct Errors: Yes Use of Gestures: Yes Written Expression: not examined Oral Expression: moderate to severe impairment Reading Comprehension: not examined Calculations: not examined Attention: Yes: Mild Impairment - Memory/Perception superintendent terminal Memory: Yes: Moderately Impaired Short Term Memory: Yes: Moderately Impaired - Swallow Evaluation/Bedside Assessment Current Nutritional Intake: Dysphagia Pureed, Clear [place] Textured Liquids Oral Secretions: Yes: Drooling Tracheostomy Present: No Patient on Ventilator: No Dentition: Yes: Edentulous, Missing Teeth Facial Symmetry at Rest: Facial Droop Right (mild) Facial Symmetry on Retraction: Facial Droop Right (mild) Facial Movement: Controlled Sensation: Normal Facial Comment: mild weakness noted but WFL for swallowing purposes. Jaw Position: Open at Rest Against Resistance Opening: Weak Against Resistance Closing: Normal Pucker Lips: Droops Right Smile: Droops Right Lips, Comment: mild weakness noted but WFL for swallowing purposes. Lingual Movement: Apraxic, Reduced Lt Lateralization, Reduced Rt Lateralization Lingual Speed of Movement: Reduced Lingual Movement Strgth Against Opposition: Reduced Lingual Movement Characteristics: Writhing Lingual Comment: mild weakness noted but WFL for swallowing purposes. Soft Palate Description: Normal Color Hard Palate Description: Normal Color Gag Reflex: Strong Bite Reflex: Present Velopharyngeal Movement: Normal Laryngeal Elevation: WFL Laryngeal Movement: Able to Palpate Needs Assistance: Yes Rate of Intake: WFL Bolus Size: WFL Labial Seal: WFL Chewing: WFL Oral Prep Time: WFL A-P Transit: WFL Timing of Swallow: WFL Coughing/Throat Clear: No Change in Voice: No Other Findings/Remarks: 58 yo female seen at bedside for swallow eval to r/o dyphagia. Pt is verbal, A& Ox1 agitated. Pt present with severe expressive aphasia dyarthria and apraxia secondary to CVA with right sided weakness. PMHX includes: ESRD, COPD, bipolar , dementia, CHR HTN/HLD, hypothyroidism, schizophrenia. Oral motor exam revealed mild right side weakness affecting upper extremities face and tongue. Reduced intelligibility, airway protection and halting vocal quality observed. Pt's current diet is pureed, nectar thicken liquids. Pt given PO trials of pureed with total assistance revealed, adequate bolus formation and A P transport with a timely pharyngeal swallow (1-2 second average). No change in voicing or respiration after the swallow. Pt given PO trials of ice chips via spoon, thin liquids via spoon and cup with total assistance revealed good acceptance, reduced labial containment / bolus control with thin liquids via cup and, A P transport with a timely pharyngeal swallow (1-2 second average). No change in voicing or respiration after the swallow. Recommendations - Speech Evaluation, Impression/Plan Impression: 58 yo female presents with moderate declan-pharyngeal dysphagia for solids and thin liquids at bedside. Expressive language is severely affected secondary to CVA with right sided weakness. Reduced intelligibility observed. Pt may be able to use a communication aid to assist with language. Recommended Therapies: Language (Trial communication aid board) Snf Goals: tolerate the least restrictive diet without s/s of aspiration Short Term Goals: tolerate purees and nectar thicken liquids via cup or spoon without s/s of aspiration. Recommended Frequency for Therapy: Follow Up PRN - Dysphagia Impressions/Plan Swallowing Skills: Impaired Dysphagia Impressions: Moderate Impairment, Risk of Aspiration *Silent aspiration: cannot be R/O at bedside Dysphagia Treatment Plan: Small Bites, Safe Rate, 1/2 tsp. at a time, Elevate HOB during feed, OOB for 1 h. after meals, Other (monitor nutritional intake and pulmonary status. Crush meds for ease of swallowing.) Dysphagia Evaluation Summary: Pt is able to tolerate purees and nectar thicken liquids at bedside without s/s of aspiration at this time. Continue current diet and observe standard aspiration precautions. Provide oral care after meals. Results given to meteorologist in charge verbally and to PCP via chart. CART ATTENDANT to follow up for expressive language and diet tolerance. - Recommendations Diet Consistency: Dysphagia Pureed Medication Administration: Crushed with applesauce Liquids: Clear Spring Thick
[2018-10-31 09:16] LABS: CREATININE 7.7 mg/dL (0.55-1.3)
--- NOTE | 2018-10-31 09:36 | PN ---
Progress Note, Physician Chief Complaint: Malfunction AV Fistula ESRD History of Present Illness: Previous notes and events reviewed awake and alert NAD s/p Venogram AV graft L arm RN noted bleeding this morning at graft site no complaints of pain to AV graft, chest pain, SOB - Current Medication List Current Medications: Active Medications Acetaminophen (Tylenol -) 650 mg PO Q6H PRN PRN Reason: FEVER Albuterol/Ipratropium (Duoneb -) 1 amp NEB Q6H PRN PRN Reason: SHORT OF BREATH/WHEEZING Atorvastatin Calcium (Lipitor -) 40 mg PO HS [facility] Last Admin: 10/30/18 22:44 Dose: 40 mg Citalopram Hydrobromide (Celexa -) 10 mg PO DAILY [facility] Gentamicin Sulfate (Garamycin 0.1% Ointment -) 1 applic TP BID [facility] Last Admin: 10/30/18 22:48 Dose: 1 applic Insulin Aspart (Novolog Vial Sliding Scale -) 1 vial SQ ACBK [facility]; Protocol Last Admin: 10/31/18 06:30 Dose: Not Given Levothyroxine Sodium (Synthroid -) 200 mcg PO DAILY@0700 [facility] Last Admin: 10/31/18 06:29 Dose: 200 mcg Lorazepam (Ativan -) 1 mg PO TuThSa@0800 [facility] Midodrine (Proamatine -) 2.5 mg PO TID-MID [facility] Last Admin: 10/30/18 17:42 Dose: 2.5 mg Olanzapine 10 mg/ Olanzapine 5 (mg) 15 mg PO DAILY [facility] Ranitidine HCl (Zantac -) 150 mg PO DAILY [facility] Sevelamer Carbonate (Renvela -) 800 mg PO TIDCM [facility] Last Admin: 10/31/18 09:03 Dose: 800 mg Valproate Sodium (Depakene -) 250 mg PO TID [facility] Last Admin: 10/31/18 06:29 Dose: 250 mg - Objective Vital Signs: Vital Signs Temperature 97.5 F L 10/31/18 06:00 Pulse Rate 87 10/31/18 06:00 Respiratory Rate 20 10/31/18 06:00 Blood Pressure 91/49 L 10/31/18 06:00 O2 Sat by Pulse Oximetry (%) 100 10/30/18 09:00 Constitutional: Yes: No Distress, Calm, Obese Eyes: Yes: Conjunctiva Clear HENT: Yes: Atraumatic Cardiovascular: Yes: Regular Rate and Rhythm Respiratory: Yes: Regular, Diminished Gastrointestinal: Yes: Normal Bowel Sounds, Soft, Abdomen, Obese Genitourinary: Yes: Incontinence Musculoskeletal: Yes: Muscle Weakness Extremities: Yes: WNL, Other (LUE AV graft) Edema: No Wound/Incision: Yes: Dressing Dry and Intact Neurological: Yes: Alert, Aphasia (expressive), Pre-Existing Deficit, Weakness ( R sided) Psychiatric: Yes: Alert Labs: CBC, BMP 10/31/18 07:45 10/31/18 07:45 INR, PTT INR 0.88 (0.83-1.09) 10/27/18 18:20 Problem List - Problems (1) Dialysis AV fistula malfunction Assessment/Plan: -Vascular on board -s/p Venogram LUE AV graft on 10/28 -Renal consult -monitor site for bleeding Code(s): T82.590A - [facility] COMPL OF SURGICALLY CREATED ARTERIOVENOUS FISTULA, INIT Qualifiers: Encounter type: initial encounter Qualified Code(s): T82.590A - Other mechanical complication of surgically created arteriovenous fistula, initial encounter (2) HLD (hyperlipidemia) Assessment/Plan: -Atorvastatin Code(s): E78.5 - HYPERLIPIDEMIA, UNSPECIFIED (3) ESRD (end stage renal disease) Assessment/Plan: -Renal consult -possible permacath placement for dialysis -BUN/Cr 24.2/7.7 -Sevelamer Code(s): N18.6 - END STAGE RENAL DISEASE (4) GERD (gastroesophageal reflux disease) Assessment/Plan: -Rantidine Code(s): K21.9 - GASTRO-ESOPHAGEAL REFLUX DISEASE WITHOUT ESOPHAGITIS (5) History of CVA with residual deficit Assessment/Plan: -fall precaution Code(s): I69.30 - UNSPECIFIED SEQUELAE OF CEREBRAL INFARCTION (6) Hypotension Assessment/Plan: -Midrodine -maintain MAP >60 Code(s): I95.9 - HYPOTENSION, UNSPECIFIED (7) Diabetes Assessment/Plan: -BGM ACHS Code(s): E11.9 - TYPE 2 DIABETES MELLITUS WITHOUT COMPLICATIONS (8) Hypothyroid Assessment/Plan: -Levothyroxine -TSH 0.06 Code(s): E03.9 - HYPOTHYROIDISM, UNSPECIFIED (9) COPD (chronic obstructive pulmonary disease) Assessment/Plan: -O2 via NC -keep SpO2 >90% -bronchodilators Code(s): J44.9 - CHRONIC OBSTRUCTIVE PULMONARY DISEASE, UNSPECIFIED Assessment/Plan see problem list SCDs begin d/c planning to return to SNF
[2018-10-31] MEDS ORDERED: PT OWN MED DRAWER 7, Y5N ONE ×5 (09:51→21:37)
[2018-10-31] MEDS: CITALOPRAM HYDROBROMIDE 10 MG TABLET (FP) PO SCH (09:52)
[2018-10-31] MEDS: RANITIDINE HCL 150 MG TABLET (FP) PO SCH (09:52)
[2018-10-31] MEDS ORDERED: POTASSIUM CHLORIDE ORAL LIQUID 20 MEQ/15 ML PO ONE (09:52)
[2018-10-31] MEDS: OLANZAPINE 10 MG, OLANZAPINE 5 MG PO SCH (09:53)
[2018-10-31] MEDS: MIDODRINE HCL 2.5 MG TABLET PO SCH ×4 (09:53→17:29)
[2018-10-31] MEDS ORDERED: OLANZapine 7.5 MG TABLET PO SCH (10:00)
[2018-10-31] MEDS: GENTAMICIN SO4 0.1% TOPICAL OINTMENT 15 GM/TUBE TUBE TP SCH ×2 (11:30→21:58)
--- NOTE | 2018-10-31 13:55 | PN ---
Progress Note (short form) - Note Progress Note: POD 3, s/p Venogram AV graft left arm Pt seen and examined on AM rounds. Per RN pt w/ bleeding from AVG overnight, pressure dressing applied. Vital Signs Temp 98 F 10/31/18 08:00 Pulse 101 H 10/31/18 08:00 Resp 20 10/31/18 09:00 BP 104/69 10/31/18 08:00 Pulse Ox 100 10/31/18 09:00 Intake & Output 10/30/18 10/31/18 10/31/18 23:59 11:59 23:59 Intake Total 10 10 Balance 10 10 Weight 175 lb 9.6 oz Intake: IV 0 0 normal saline 0 0 IVPB 0 0 Oral 10 10 Other: Voiding Method Incontinent Incontinent Bowel Movement Yes No # Bowel Movements 1 Weight Measurement Method Built in [facility] CBC, BMP 10/31/18 07:45 10/31/18 07:45 Gen: awake, nad Ext: LUE AVF with dressing in place, minimal bloody drainage over dressing. Dressing removed. Sutures in place, no bleeding noted. Ulcer with fibrinous exudate, no drainage noted. A/P: 58 year old female with PMHx of COPD, ESRD on HD, CVA with right side residual weakness, and expressive aphasia, bipolar, Schizophrenia, Dementia, COPD, CHF, HTN/HLD, Hypothyrodism, admitted from [facility] dialysis [place] due to bleeding from AVG, now POD 3, s/p Venogram AV graft left arm. Recurrence of bleeding from AVG overnight -NPO, planned for OR later to day for a covered stent -Attempting to get a hold of pts HCP, no response as of this afternoon (message left) above d/w attending Dr Connor
[2018-10-31] MEDS ORDERED: SODIUM CHLORIDE 250 ML IV PRN (15:20)
--- NOTE | 2018-10-31 15:20 | PN ---
Progress Note (short form) - Note Progress Note: Renal follow up for ESRD on HD Pt seen and examined at the bedside awake and alert reported to have bleeding from AVG site overnight has short dialysis on Wednesday Vital Signs Temperature 98 F 10/31/18 08:00 Pulse Rate 101 H 10/31/18 08:00 Respiratory Rate 20 10/31/18 09:00 Blood Pressure 104/69 10/31/18 08:00 O2 Sat by Pulse Oximetry (%) 100 10/31/18 09:00 NAD awake and alert neck supple RRR, no M/R Dec BS, no rales soft, obese, NT/ND no LE edema, clubbing or cyanosis left arm AVG + bruit, no thrill. No bleeding Right UE weakness CBC, BMP 10/31/18 07:45 10/31/18 07:45 Current Medications Acetaminophen (Tylenol -) 650 mg PO Q6H PRN PRN Reason: FEVER Albuterol/Ipratropium (Duoneb -) 1 amp NEB Q6H PRN PRN Reason: SHORT OF BREATH/WHEEZING Atorvastatin Calcium (Lipitor -) 40 mg PO HS [facility] Last Admin: 10/30/18 22:44 Dose: 40 mg Citalopram Hydrobromide (Celexa -) 10 mg PO DAILY [facility] Last Admin: 10/31/18 09:52 Dose: 10 mg Gentamicin Sulfate (Garamycin 0.1% Ointment -) 1 applic TP BID [facility] Last Admin: 10/31/18 11:30 Dose: 1 applic Insulin Aspart (Novolog Vial Sliding Scale -) 1 vial SQ ACBK [facility]; Protocol Last Admin: 10/31/18 06:30 Dose: Not Given Levothyroxine Sodium (Synthroid -) 200 mcg PO DAILY@0700 [facility] Last Admin: 10/31/18 06:29 Dose: 200 mcg Lorazepam (Ativan -) 1 mg PO TuThSa@0800 [facility] Midodrine (Proamatine -) 2.5 mg PO TID-MID [facility] Last Admin: 10/31/18 14:17 Dose: Not Given Olanzapine 10 mg/ Olanzapine 5 (mg) 15 mg PO DAILY [facility] Last Admin: 10/31/18 09:53 Dose: 15 mg Ranitidine HCl (Zantac -) 150 mg PO DAILY [facility] Last Admin: 10/31/18 09:52 Dose: 150 mg Sevelamer Carbonate (Renvela -) 800 mg PO TIDCM [facility] Last Admin: 10/31/18 12:00 Dose: 800 mg Valproate Sodium (Depakene -) 250 mg PO TID [facility] Last Admin: 10/31/18 14:17 Dose: Not Given 58 year old woman with history of ESRD no HD (TTS @ [facility]), Schizophrenia, DM, Hypertension, CVA with right side weakness, expressive aphasia who presented from outpatient dialysis unit with bleeding from AVG site that was not able to be controlled. #Bleeding from AVG site #ESRD on HD #Schizophrenia #Hypotension due to suspected blood loss #Renal Osteodystrophpy #DM for possible covered stent placement by vascular today no acute need for INCINERATOR OPERATOR today next planned treatment is tomorrow Renal diet, 1.2L fluid restriction Thank you Deng Rene DO
--- NOTE | 2018-10-31 15:52 | PN ---
Progress Note (short form) - Note Progress Note: Case canceled today, Dr Loyola will be taking over the care of the patient. Planned for LUE venogram and stent placement tomorrow, 11/01/[address] Rene aware, will schedule HD prior to OR. NPo after midnight Labs in AM d/w attending Dr Loyola
[2018-10-31] MEDS: ATORVASTATIN CA 40 MG TABLET (FP) PO SCH (21:58)
[2018-11-01] MEDS ORDERED: SODIUM CHLORIDE 250 ML IV STA (02:09)
--- NOTE | 2018-11-01 02:15 | HOSP ---
Subjective - Review of Symptoms Events since last encounter: Hospitalist Encounter Notified by the RN that the patient's BP 52/22, P 80 and is asymptomatic Patient is an ESRD last dialyzed 10/29. Patient is scheduled for a venogram 11/01 Plan: NS Bolus 250ml x1 now Manual BP Physical Examination Vital Signs: Vital Signs Temperature 97.4 F L 11/01/18 01:57 Pulse Rate 80 11/01/18 01:57 Respiratory Rate 20 11/01/18 01:57 Blood Pressure 52/22 L 11/01/18 01:57 O2 Sat by Pulse Oximetry (%) 100 10/31/18 09:00 Constitutional: Yes: No Distress, Calm Eyes: Yes: Conjunctiva Clear HENT: Yes: WNL, Atraumatic, Normocephalic Neck: Yes: WNL, Supple, Trachea Midline Cardiovascular: Yes: Regular Rate and Rhythm, S1, S2 Respiratory: Yes: WNL, Regular, CTA Bilaterally Labs: CBC, BMP 10/31/18 07:45 10/31/18 07:45 Hospitalist Encounter Outcome: Repeat BP 100/50 post bolus Recommendations/Interventions: Consider transfer to Telemetry if BP remains low for closer monitoring.
[2018-11-01] MEDS: VALPROATE SODIUM 250 MG/5 ML UNIT DOSE CUP PO SCH ×4 (05:47→22:26)
[2018-11-01] MEDS: LEVOTHYROXINE NA 100 MCG TABLET (FP) PO SCH (06:20)
[2018-11-01] MEDS ORDERED: DEXTROSE 50%-WATER - 25 GM/50 ML VIAL IVPUSH ONE (06:39)
[2018-11-01] MEDS ORDERED: DEXTROSE 50%-WATER 25 GM/50 ML DISP.SYRIN ONE (06:54)
[2018-11-01] MEDS: INSULIN SLIDING SCALE (NOVOLOG) 1 VIAL SQ SCH (06:58)
[2018-11-01] MEDS ORDERED: LORazepam 1 MG TABLET PO SCH (08:00)
[2018-11-01 08:19] LABS: HEMATOCRIT 29.1 % (32.4-45.2); HEMOGLOBIN 9.5 GM/dL (10.7-15.3); MCH 31.4 pg (25.7-33.7); MCHC 32.7 g/dl (32.0-36.0); MEAN CELL VOLUME 95.9 fl (80-96); MEAN PLT VOLUME 8.4 fl (7.5-11.1); PLATELET COUNT 187 K/MM3 (134-434); RBC 3.03 M/mm3 (3.60-5.2); RDW 17.2 % (11.6-15.6); WHITE BLOOD COUNT 5.5 K/mm3 (4.0-10.0)
--- NOTE | 2018-11-01 08:42 | PN ---
Progress Note, Physician - Current Medication List Current Medications: Active Medications Acetaminophen (Tylenol -) 650 mg PO Q6H PRN PRN Reason: FEVER Albuterol/Ipratropium (Duoneb -) 1 amp NEB Q6H PRN PRN Reason: SHORT OF BREATH/WHEEZING Atorvastatin Calcium (Lipitor -) 40 mg PO HS [facility] Last Admin: 10/31/18 21:58 Dose: 40 mg Citalopram Hydrobromide (Celexa -) 10 mg PO DAILY [facility] Last Admin: 10/31/18 09:52 Dose: 10 mg Dextrose (D50w (Vial) -) 12.5 gm IVPUSH NOW ONE Stop: 11/01/18 06:40 Last Admin: 11/01/18 06:59 Dose: 12.5 gm Epoetin Tristen (Procrit -) 6,000 unit SQ ONCE ONE Stop: 11/01/18 08:01 Gentamicin Sulfate (Garamycin 0.1% Ointment -) 1 applic TP BID [facility] Last Admin: 10/31/18 21:58 Dose: 1 applic Heparin Sodium (Porcine) (Heparin -) 500 unit IVPUSH ONCE ONE Stop: 11/01/18 06:01 Heparin Sodium (Porcine) (Heparin -) 300 unit IVPUSH Q1H RAGHAV Stop: 11/01/18 09:01 Sodium Chloride (Normal Saline -) 250 mls @ 3,000 mls/hr IV PRN PRN PRN Reason: Hypotension during Dialysis Stop: 11/01/18 15:20 Sodium Chloride (Normal Saline -) 250 mls @ 250 mls/hr IV ASDIR STA Stop: 11/01/18 03:08 Last Admin: 11/01/18 03:31 Dose: 250 mls/hr Insulin Aspart (Novolog Vial Sliding Scale -) 1 vial SQ [facility]; Protocol Last Admin: 11/01/18 06:58 Dose: Not Given Levothyroxine Sodium (Synthroid -) 200 mcg PO DAILY@0700 [facility] Last Admin: 11/01/18 06:20 Dose: Not Given Lorazepam (Ativan -) 1 mg PO TuThSa@0800 [facility] Midodrine (Proamatine -) 2.5 mg PO TID-MID [facility] Last Admin: 10/31/18 17:29 Dose: 2.5 mg Olanzapine 10 mg/ Olanzapine 5 (mg) 15 mg PO DAILY [facility] Last Admin: 10/31/18 09:53 Dose: 15 mg Ranitidine HCl (Zantac -) 150 mg PO DAILY [facility] Last Admin: 10/31/18 09:52 Dose: 150 mg Sevelamer Carbonate (Renvela -) 800 mg PO TIDCM [facility] Last Admin: 10/31/18 17:29 Dose: 800 mg Valproate Sodium (Depakene -) 250 mg PO TID [facility] Last Admin: 11/01/18 05:47 Dose: Not Given - Objective Vital Signs: Vital Signs Temperature 98.4 F 11/01/18 06:00 Pulse Rate 78 11/01/18 06:00 Respiratory Rate 20 11/01/18 06:00 Blood Pressure 98/72 11/01/18 06:00 O2 Sat by Pulse Oximetry (%) 100 10/31/18 09:00 Cardiovascular: Yes: S1, S2 Respiratory: Yes: Regular, CTA Bilaterally Gastrointestinal: Yes: Normal Bowel Sounds, Soft Edema: RUE: 2+ Labs: CBC, BMP 11/01/18 07:30 INR, PTT INR 0.88 (0.83-1.09) 10/27/18 18:20 Assessment/Plan - Problems (1) Dialysis AV fistula malfunction Assessment/Plan: -Vascular on board -LUE venogram and stent placement , 11/01/18 at 2pm. -Renal consult noted -monitor site for bleeding Code(s): T82.590A - [facility] COMPL OF SURGICALLY CREATED ARTERIOVENOUS FISTULA, INIT Qualifiers: Encounter type: initial encounter Qualified Code(s): T82.590A - Other mechanical complication of surgically created arteriovenous fistula, initial encounter (2) HLD (hyperlipidemia) Assessment/Plan: -Atorvastatin Code(s): E78.5 - HYPERLIPIDEMIA, UNSPECIFIED (3) ESRD (end stage renal disease) Assessment/Plan: -Renal consult -Dialysis per renal -Sevelamer Code(s): N18.6 - END STAGE RENAL DISEASE (4) GERD (gastroesophageal reflux disease) Assessment/Plan: -Rantidine Code(s): K21.9 - GASTRO-ESOPHAGEAL REFLUX DISEASE WITHOUT ESOPHAGITIS (5) History of CVA with residual deficit Assessment/Plan: -fall precaution Code(s): I69.30 - UNSPECIFIED SEQUELAE OF CEREBRAL INFARCTION (6) Hypotension Assessment/Plan: -Midrodine -maintain MAP >60 Code(s): I95.9 - HYPOTENSION, UNSPECIFIED (7) Diabetes Assessment/Plan: -BGM ACHS Code(s): E11.9 - TYPE 2 DIABETES MELLITUS WITHOUT COMPLICATIONS (8) Hypothyroid Assessment/Plan: -Levothyroxine -TSH 0.06 Code(s): E03.9 - HYPOTHYROIDISM, UNSPECIFIED (9) COPD (chronic obstructive pulmonary disease) Assessment/Plan: -O2 via NC -keep SpO2 >90% -bronchodilators Code(s): J44.9 - CHRONIC OBSTRUCTIVE PULMONARY DISEASE, UNSPECIFIED
[2018-11-01 08:51] LABS: ALBUMIN 2.1 g/dl (3.4-5.0); BILIRUBIN,TOTAL 0.3 mg/dL (0.2-1); BLOOD UREA NITROGEN 31.2 mg/dL (7-18); CALCIUM 9.4 mg/dL (8.5-10.1); POTASSIUM 3.6 mmol/L (3.5-5.1); TOT PROT 5.1 g/dl (6.4-8.2)
[2018-11-01 08:58] LABS: CREATININE 9.1 mg/dL (0.55-1.3)
[2018-11-01] MEDS ORDERED: PT OWN MED DRAWER 7, Y5N ONE ×2 (09:25→20:59)
[2018-11-01] MEDS ORDERED: HEPARIN NA (PORCINE) 5,000 UNITS/ML 1ML VIAL IVPUSH ONE (09:30)
[2018-11-01] MEDS: SEVELAMER CARBONATE 800 MG TAB (FP) PO SCH ×3 (09:31→18:05)
[2018-11-01] MEDS: MIDODRINE HCL 2.5 MG TABLET PO SCH ×3 (09:31→18:03)
[2018-11-01] MEDS ORDERED: EPOETIN ALFA 3,000 UNIT/1 ML ML SQ ONE (10:00)
[2018-11-01 10:41] LABS: PHOSPHOROUS 3.9 mg/dL (2.5-4.9)
[2018-11-01 12:02] VITALS: BMI 29.5
--- NOTE | 2018-11-01 12:07 | PN ---
Progress Note (short form) - Note Progress Note: Renal follow up for ESRD on HD Pt seen and examined during dialysis BP low but stable, SBP in 80's pt is awake and alert AVG with good blood flow no bleeding seen in AVG site Vital Signs Temperature 98.5 F 11/01/18 10:10 Pulse Rate 81 11/01/18 13:40 Respiratory Rate 18 11/01/18 13:40 Blood Pressure 113/58 L 11/01/18 13:40 O2 Sat by Pulse Oximetry (%) 100 10/31/18 09:00 Intake & Output 10/29/18 10/30/18 10/31/18 11/01/18 23:59 23:59 23:59 23:59 Intake Total 820 10 260 250 Balance 820 10 260 250 Weight 84.368 kg 79.651 kg 78.216 kg NAD RRR, no M/R Dec BS, no rales soft, obese, NT/ND no LE edema, clubbing or cyanosis left arm AVG + bruit, no thrill.CBC, BMP CBC, BMP 11/01/18 07:30 11/01/18 07:30 Current Medications Acetaminophen (Tylenol -) 650 mg PO Q6H PRN PRN Reason: FEVER Albuterol/Ipratropium (Duoneb -) 1 amp NEB Q6H PRN PRN Reason: SHORT OF BREATH/WHEEZING Atorvastatin Calcium (Lipitor -) 40 mg PO HS [facility] Last Admin: 10/31/18 21:58 Dose: 40 mg Citalopram Hydrobromide (Celexa -) 10 mg PO DAILY [facility] Last Admin: 10/31/18 09:52 Dose: 10 mg Fentanyl (Sublimaze Injection -) 25 mcg IVPUSH Q5M PRN PRN Reason: PAIN-PACU ORDER X 4 DOSES ONLY Gentamicin Sulfate (Garamycin 0.1% Ointment -) 1 applic TP BID [facility] Last Admin: 10/31/18 21:58 Dose: 1 applic Sodium Chloride (Normal Saline -) 250 mls @ 3,000 mls/hr IV PRN PRN PRN Reason: Hypotension during Dialysis Stop: 11/02/18 12:16 Insulin Aspart (Novolog Vial Sliding Scale -) 1 vial SQ ACBK [facility]; Protocol Last Admin: 11/01/18 06:58 Dose: Not Given Levothyroxine Sodium (Synthroid -) 200 mcg PO DAILY@0700 [facility] Last Admin: 11/01/18 06:20 Dose: Not Given Lorazepam (Ativan -) 1 mg PO TuThSa@0800 [facility] Last Admin: 11/01/18 09:31 Dose: 1 mg Midodrine (Proamatine -) 2.5 mg PO TID-MID [facility] Last Admin: 11/01/18 09:31 Dose: 2.5 mg Olanzapine 10 mg/ Olanzapine 5 (mg) 15 mg PO DAILY [facility] Last Admin: 10/31/18 09:53 Dose: 15 mg Ranitidine HCl (Zantac -) 150 mg PO DAILY [facility] Last Admin: 10/31/18 09:52 Dose: 150 mg Sevelamer Carbonate (Renvela -) 800 mg PO TIDCM [facility] Last Admin: 11/01/18 09:31 Dose: Not Given Valproate Sodium (Depakene -) 250 mg PO TID [facility] Last Admin: 11/01/18 09:32 Dose: 250 mg 58 year old woman with history of ESRD no HD (TTS @ [facility]), Schizophrenia, DM, Hypertension, CVA with right side weakness, expressive aphasia who presented from outpatient dialysis unit with bleeding from AVG site that was not able to be controlled. #Bleeding from AVG site #ESRD on HD #Schizophrenia #Hypotension due to suspected blood loss #Renal Osteodystrophpy #DM tolerating dialysis well for covered graft insertion per vascular surgery today will continue SHARON with dialysis Thank you Deng Rene DO
[2018-11-01] MEDS: ALBUMIN HUMAN 25% 12.5 GM/50 ML VIAL IVPB SCH ×4 (12:15→18:06)
[2018-11-01] MEDS ORDERED: SODIUM CHLORIDE 250 ML IV PRN (12:17)
[2018-11-01] MEDS: HEPARIN NA (PORCINE) 5,000 UNITS/ML 1ML VIAL IVPUSH SCH (12:50)
[2018-11-01] MEDS ORDERED: HEPARIN NA (PORCINE) 5,000 UNITS/ML 1ML VIAL ONE ×2 (13:29→15:48)
[2018-11-01] MEDS ORDERED: LIDOCAINE HCL 1%, 10 MG/ML (20ML VIAL) ONE (13:29)
[2018-11-01] MEDS ORDERED: MIDAZOLAM HCL 2 MG/2 ML SINGLE DOSE VIAL ONE (14:39)
[2018-11-01] MEDS ORDERED: PROPOFOL 20 ML ONE ×2 (14:41→15:33)
[2018-11-01] MEDS ORDERED: SUCCINYLCHOLINE CHLORIDE 200 MG/10 ML SYRINGE ONE (14:41)
[2018-11-01] MEDS ORDERED: LIDOCAINE HCL 1%, 10 MG/ML (20ML VIAL) INF ONE ×3 (15:45)
[2018-11-01] MEDS ORDERED: HEPARIN NA (PORCINE) 5,000 UNITS/ML 1ML VIAL SQ ONE ×2 (15:50)
[2018-11-01] MEDS ORDERED: ONDANSETRON 4 MG/2 ML VIAL IVPUSH PRN (16:28)
--- NOTE | 2018-11-01 16:28 | OP ---
Operative Note - Note: Operative Date: 11/01/18 Pre-Operative Diagnosis: open wound on left avg Operation: venogram, venoplasty, covered stent placement left avg Post-Operative Diagnosis: Same as Pre-op Surgeon: Cristian Loyola Anesthesia: Fractional Estimated Blood Loss (mls): 30 Operative Report Dictated: Yes
[2018-11-01] MEDS ORDERED: SODIUM CHLORIDE 1,000 ML IV SCH (16:30)
--- NOTE | 2018-11-01 17:14 | PN ---
Progress Note, MILITARY TECHNOLOGY MANAGER - Note Progress Note: MILITARY TECHNOLOGY MANAGER attempted to see pt as a follow up to dysphagia eval with recommendations for pureed and thicken liquids. Pt not available secondary to surgery and was NPO for procedure. Chart review completed. Nutritional intake was 50 to 75% intake with no reported s/s of aspiration-like behaviors prior to NPO status. MILITARY TECHNOLOGY MANAGER was follow up for diet tolerance and possible upgrade if appropriate.
[2018-11-01] MEDS: GENTAMICIN SO4 0.1% TOPICAL OINTMENT 15 GM/TUBE TUBE TP SCH ×2 (18:02→22:27)
[2018-11-01] MEDS: OLANZAPINE 10 MG, OLANZAPINE 5 MG PO SCH (18:05)
[2018-11-01] MEDS: RANITIDINE HCL 150 MG TABLET (FP) PO SCH (18:08)
[2018-11-01] MEDS: CITALOPRAM HYDROBROMIDE 10 MG TABLET (FP) PO SCH (18:08)
--- NOTE | 2018-11-01 21:28 | OP ---
DATE OF OPERATION: 11/01/2018 PREOPERATIVE DIAGNOSIS: Left arteriovenous graft wound. POSTOPERATIVE DIAGNOSIS: Left arteriovenous graft wound. PROCEDURE: Venogram, venoplasty, covered stent placement left arteriovenous graft. SURGEON: Cristian Dukes DO ANESTHESIA: Fractional. ESTIMATED BLOOD LOSS: 30 mL. HISTORY: The patient is a 58-year-old female that has a wound on her left AV graft that has bled over the last 3 weeks from time to time while she is at rest. It has now become a hazard for her where she has had excessive amounts of bleeding leading to rapid responses. It was decided that the graft is not infected, and due to that, the patient would benefit from a covered stent placement so that the patient never bleeds again. The patient's next of kin was consented for the procedure understanding all risks, benefits, alternatives, and the patient was then brought to the operating room. DESCRIPTION OF PROCEDURE: Once in the operating room, patient was laid on the operating table in supine manner, and the area of the left arm was prepped and draped in a sterile surgical manner. We then went ahead and injected 10 mL of lidocaine 1% above the anastomosis. We then took our micropuncture needle, punctured the graft. Micropuncture wire was inserted. Micropuncture sheath was inserted, and a traditional short 7-Yi sheath was inserted. We then shot a venogram via hand injection showing that the graft was patent. We then marked on the screen where the wound and hole was located in the graft. We then placed a V18 wire into the veins. We then used a 7 x 5 [place] Viabahn stent graft, and we deployed it across our lesion in the graft. We then ballooned it in place using an 8 x 4 [place] balloon. During the procedure, patient was administered 5000 units of IV heparin. Once the graft was deployed and ballooned in place, we then shot a venogram showing that the stent graft was in place. There was no extravasation of contrast. There was no bleeding from the wound, and there was good flow all the way into the central veins. There was a good thrill in our AV graft. At this point, we used a 4-0 Biosyn stitch, and a [id number] stitch was placed around our sheath, and the sheath was pulled. The area was wet and dried, and Dermabond was placed. The patient tolerated the procedure with no complications. A Band-Aid was placed over the wound. Patient transferred back in stable condition. Total blood loss 30 mL. CRISTIAN DUKES DO [id number]
[2018-11-01] MEDS: ATORVASTATIN CA 40 MG TABLET (FP) PO SCH (22:26)
[2018-11-02] MEDS ORDERED: PT OWN MED DRAWER 7, Y5N ONE ×3 (06:10→13:45)
[2018-11-02 06:32] VITALS: TEMP 97.7
[2018-11-02] MEDS: VALPROATE SODIUM 250 MG/5 ML UNIT DOSE CUP PO SCH ×2 (06:33→13:46)
[2018-11-02] MEDS: INSULIN SLIDING SCALE (NOVOLOG) 1 VIAL SQ SCH (06:33)
[2018-11-02] MEDS: LEVOTHYROXINE NA 100 MCG TABLET (FP) PO SCH (06:33)
--- NOTE | 2018-11-02 08:47 | PN ---
Progress Note (short form) - Note Progress Note: POD 1, s/p venogram, venoplasty, covered stent placement left avg Pt seen and examined. No issues overnight. No bleeding from surgery site. Vital Signs Temp 97.7 F 11/02/18 06:00 Pulse 89 11/02/18 06:00 Resp 20 11/02/18 06:00 BP 120/71 11/02/18 06:00 Pulse Ox 100 11/01/18 17:05 Intake & Output 11/01/18 11/01/18 11/02/18 11:59 23:59 11:59 Intake Total 250 400 0 Output Total 30 Balance 250 370 0 Weight 172 lb 7 oz 174 lb 9.6 oz Intake: IV 250 400 0 Normal Saline - 250 ml @ 250 250 mls/hr IV ASDIR STA Rx#:[id number] normal saline 0 0 IVPB 0 0 0 Output: Estimated Blood Loss 30 Other: Voiding Method Incontinent Diaper # Unmeasured Voids Void 1 Bowel Movement No No Yes: small # Bowel Movements 1 Body Mass Index (BMI) 29.5 Weight Measurement Method Built in [facility] CBC, BMP 11/01/18 07:30 11/01/18 07:30 Gen:awake, alert, nad Resp:unlabored on RA Ext: LUE with bandage in place, c/d/i, AVG with palpable thrill A/P: 58 year old female with PMHx of COPD, ESRD on HD, CVA with right side residual weakness, and expressive aphasia, bipolar, Schizophrenia, Dementia, COPD, CHF, HTN/HLD, Hypothyrodism, admitted from [facility] dialysis center due to bleeding from AVG, now POD 5, s/p Venogram AV graft left arm, POD 2, s/p venogram, venoplasty, covered stent placement left avg. -No bleeding noted overnight, AVG with palpable thrill -Pt should f/u with Dr Loyola in the office in 7-10 days -Call with any questions/concerns
[2018-11-02] MEDS: SEVELAMER CARBONATE 800 MG TAB (FP) PO SCH ×2 (08:57→11:45)
[2018-11-02 09:30] VITALS: BP 109/71; PULSE 101
[2018-11-02] MEDS: GENTAMICIN SO4 0.1% TOPICAL OINTMENT 15 GM/TUBE TUBE TP SCH (09:30)
[2018-11-02] MEDS: MIDODRINE HCL 2.5 MG TABLET PO SCH ×2 (09:30→13:46)
[2018-11-02] MEDS: OLANZAPINE 10 MG, OLANZAPINE 5 MG PO SCH (09:30)
[2018-11-02] MEDS: RANITIDINE HCL 150 MG TABLET (FP) PO SCH (09:31)
[2018-11-02] MEDS: CITALOPRAM HYDROBROMIDE 10 MG TABLET (FP) PO SCH (09:31)
--- NOTE | 2018-11-02 10:35 | DS ---
Physical Examination Vital Signs: Vital Signs Temperature 97.7 F 11/02/18 09:29 Pulse Rate 101 H 11/02/18 09:29 Respiratory Rate 18 11/02/18 09:29 Blood Pressure 109/71 11/02/18 09:29 O2 Sat by Pulse Oximetry (%) 100 11/01/18 17:05 Findings/Remarks: CHRONIC SCHIZOPHRENIA, UNABLE TO COOPERATE TO EXAM Constitutional: Yes: Mild Distress Eyes: Yes: Other HENT: Yes: Drooling Cardiovascular: Yes: Regular Rate and Rhythm Respiratory: Yes: Regular Gastrointestinal: Yes: Abdomen, Obese Renal/: Yes: Incontinence Musculoskeletal: Yes: Muscle Weakness Integumentary: Yes: Other Wound/Incision: Yes: Clean/Dry, Dressing Dry and Intact Neurological: Yes: Weakness Psychiatric: Yes: Agitated, Other Labs: CBC, BMP 11/01/18 07:30 11/01/18 07:30 Discharge Summary Reason For Visit: MALFUNCTION OF ARTERIOVENOUS DIALYSIS FISTULA Current Active Problems Bipolar 1 disorder (Acute) Dementia (Acute) Dialysis AV fistula malfunction (Acute) HLD (hyperlipidemia) (Acute) Hypokalemia (Acute) ESRD (end stage renal disease) (Chronic) Procedures: Principal: SURGICAL REPAIR AV GRAFT Hospital Course: ADMITTED AV GRAFT LEFT ARM REPAIR, FUNCTIONING Condition: Stable - Instructions Diet, Activity, Other Instructions: Follow up with pmd in 1 week continue with dialysis on scheduled days continue with medication as prescribed return to ER if bleeding from or malfunction to AV fistula, respiratory distress , chest pain, AMS ESRD-HD PER NEPHROLOGY Disposition: [facility] - Home Medications Comprehensive Discharge Medication List: Ambulatory Orders Citalopram Hydrobromide [Celexa -] 10 mg PO DAILY tablet 09/15/18 Docusate Sodium [Colace -] 100 mg PO TID capsule 09/15/18 Olanzapine [Zyprexa -] 15 mg PO DAILY tablet 09/15/18 Scopolamine Hydrobromide [Transderm-Scop -] 1 patch TD Q3D patch.[id number] 09/15/18 Acetaminophen [Tylenol .Regular Strength -] 650 mg PO Q6H PRN 10/07/18 Albuterol 2.5/Ipratropium 0.5 [Duoneb -] 1 amp NEB Q6H PRN 10/07/18 Atorvastatin Calcium 40 mg PO HS 10/07/18 Folic Acid/Vit B Complex and C [Dialyvite Tablet] 1 each PO DAILY 10/07/18 Lorazepam [Ativan] 1 mg PO TUTHSA 10/07/18 Sevelamer Carbonate 2,400 mg PO TID 10/07/18 Valproate Sodium [Depakene -] 250 mg PO TID 10/07/18 Amino Acids/Protein Hydrolys [Prosource No Carb Liquid Pkt] 30 ml PO BID@0800, 1730 10/08/18 Nut.tx.imp.renal Fxn,Lac-Reduc [Nepro Carb Steady] 240 ml PO BID 10/08/18 Albuterol 2.5/Ipratropium 0.5 [Duoneb -] 1 amp NEB RQID amp 10/12/18 Bacitracin - [Bacitracin Topical Ointment -] 1 applic TP DAILY tube 10/12/18 Levothyroxine [Synthroid -] 200 mcg PO DAILY@0700 tablet 10/12/18 Midodrine HCl [Proamatine -] 2.5 mg PO BID-MID tablet 10/12/18 Nystatin/Triamcinolone Top Oin [Mycolog II -] 1 applic TP BID applic 10/12/18 Ranitidine [Zantac -] 150 mg PO DAILY tablet 10/12/18 Sevelamer Carbonate [Renvela -] 800 mg PO TIDCM tab 10/12/18 Gentamicin 0.1% Ointment [Garamycin 0.1% Ointment -] 1 applic TP BID tube 10/31 Insulin Sliding Scale [Novolog Vial Sliding Scale -] 1 vial SQ Q6HPO units 12/12 Mupirocin Ointment [Bactroban Ointment (For Decolonization) -] 1 applic NS BID applic 10/31/18 Insulin Sliding Scale [Novolog Vial Sliding Scale -] 1 vial SQ ACBK units 11/02
--- NOTE | 2018-11-02 13:39 | PN ---
Progress Note (short form) - Note Progress Note: Renal follow up for ESRD on HD Pt seen and examined at the bedside awake and alert s/p HD yesterday s/p covered stent placement by vascular surgery no bleeding from AVG noted Vital Signs Temperature 97.7 F 11/02/18 09:29 Pulse Rate 101 H 11/02/18 09:29 Respiratory Rate 18 11/02/18 09:29 Blood Pressure 109/71 11/02/18 09:29 O2 Sat by Pulse Oximetry (%) 100 11/01/18 17:05 Intake & Output 10/30/18 10/31/18 11/01/18 11/02/18 23:59 23:59 23:59 23:59 Intake Total 10 260 650 80 Output Total 30 Balance 10 260 620 80 Weight 79.651 kg 78.216 kg 79.197 kg NAD RRR, no M/R Dec BS, no rales soft, obese, NT/ND no LE edema, clubbing or cyanosis left arm AVG + bruit 11/01/18 07:30 11/01/18 07:30 Current Medications Acetaminophen (Tylenol -) 650 mg PO Q6H PRN PRN Reason: FEVER Albuterol/Ipratropium (Duoneb -) 1 amp NEB Q6H PRN PRN Reason: SHORT OF BREATH/WHEEZING Atorvastatin Calcium (Lipitor -) 40 mg PO HS [facility] Last Admin: 11/01/18 22:26 Dose: 40 mg Citalopram Hydrobromide (Celexa -) 10 mg PO DAILY [facility] Last Admin: 11/02/18 09:31 Dose: 10 mg Gentamicin Sulfate (Garamycin 0.1% Ointment -) 1 applic TP BID [facility] Last Admin: 11/02/18 09:30 Dose: 1 applic Insulin Aspart (Novolog Vial Sliding Scale -) 1 vial SQ ACBK [facility]; Protocol Last Admin: 11/02/18 06:33 Dose: Not Given Levothyroxine Sodium (Synthroid -) 200 mcg PO DAILY@0700 [facility] Last Admin: 11/02/18 06:33 Dose: 200 mcg Lorazepam (Ativan -) 1 mg PO TuThSa@0800 [facility] Last Admin: 11/01/18 09:31 Dose: 1 mg Midodrine (Proamatine -) 2.5 mg PO TID-MID [facility] Last Admin: 11/02/18 09:30 Dose: 2.5 mg Olanzapine 10 mg/ Olanzapine 5 (mg) 15 mg PO DAILY [facility] Last Admin: 11/02/18 09:30 Dose: 15 mg Ondansetron HCl (Zofran Injection) 4 mg IVPUSH Q6H PRN PRN Reason: NAUSEA AND/OR VOMITING Ranitidine HCl (Zantac -) 150 mg PO DAILY [facility] Last Admin: 11/02/18 09:31 Dose: 150 mg Sevelamer Carbonate (Renvela -) 800 mg PO TIDCM [facility] Last Admin: 11/02/18 11:45 Dose: 800 mg Valproate Sodium (Depakene -) 250 mg PO TID [facility] Last Admin: 11/02/18 06:33 Dose: 250 mg 58 year old woman with history of ESRD no HD ([facility]), Schizophrenia, DM, Hypertension, CVA with right side weakness, expressive aphasia who presented from outpatient dialysis unit with bleeding from AVG site that was not able to be controlled. #Bleeding from AVG site #ESRD on HD #Schizophrenia #Hypotension due to suspected blood loss #Renal Osteodystrophpy #DM no acute need for FLIGHT INSTRUCTOR today s/p covered stent placement in AVG, no further bleeding noted ECHO is still pending, if pt discharged before ECHO done can have done as outpatient stable for discharge with next dialysis tomorrow as outpatient Thank you Deng Rene DO
--- NOTE | 2018-11-02 15:27 | ECHO ---
Name: DAKOTA SHEPARD Exam:Adult Echocardiogram Study Date: 11/02/2018 07:38 AM Age: 58 yrs Reason For Study: lvef Height: 64 in Weight: 172 lb BSA: 1.8 m2 MMode/2D Measurements & Calculations IVSd: 1.6 cm Ao root diam: 2.4 cm LVIDd: 3.6 cm LA dimension: 2.1 cm LVIDs: 2.1 cm LVPWd: 1.2 cm EDV(Teich): 56.2 ml LVOT diam: 2.0 cm ESV(Teich): 13.6 ml Doppler Measurements & Calculations MV E max tamia: 127.0 cm/sec Ao V2 max: 153.4 cm/sec MV A max tamia: 177.2 cm/sec Ao max P.4 mmHg MV E/A: 0.72 MV dec time: 0.10 sec MIGUELANGEL(V,D): 2.0 cm2 LV V1 max P.2 mmHg PA V2 max: 137.1 cm/sec LV V1 max: 101.9 cm/sec PA max P.5 mmHg PI Vmax: 92.3 cm/sec Procedure A two-dimensional transthoracic echocardiogram with color flow and Doppler was performed. Left Ventricle There is moderate concentric left ventricular hypertrophy. The left ventricle is not well visualized. The left ventricular ejection fraction is normal. E/A reversal consistent with but not diagnostic of poor LV compliance. Regional wall motion abnormalities cannot be excluded due to limited visualization. Right Ventricle The right ventricle is normal in size and function. Atria Normal left and right atrial size and function. Mitral Valve There is mild mitral annular calcification. The mitral valve is not well visualized. There is no mitr al valve stenosis. There is trace to mild mitral regurgitation. Tricuspid Valve There is mild tricuspid valve thickening. The tricuspid valve is not well visualized. There is no tri cuspid stenosis. There was insufficient TR detected to calculate RV systolic pressure. Aortic Valve There is mild aortic valve thickening. There is mild aortic sclerosis.;. The aortic valve is not well visualized. No hemodynamically significant valvular aortic stenosis. Pulmonic Valve The pulmonic valve is not well visualized. Great Vessels The aortic root is normal size. Pericardium/Pleura There is no pericardial effusion. Interpretation Summary There is moderate concentric left ventricular hypertrophy. The left ventricular ejection fraction is normal. There is trace to mild mitral regurgitation. There was insufficient TR detected to calculate RV systolic pressure. There is mild aortic sclerosis.; There is mild aortic valve thickening. The aortic valve is not well visualized. Regional wall motion abnormalities cannot be excluded due to limited visualization. E/A reversal consistent with but not diagnostic of poor LV compliance The left ventricle is not well visualized. MD Marciano Jain 11/02/2018 03:27 PM
== END 2018-11-02 14:17 | DRG 182 ==
LOC: JER 15:31 → UNDOADMIN 20:00 → JERBED 20:00 → JICU 10-28 01:48 → J8W 10-30 15:04
PROVIDERS: ADMIT Family Medicine; ATTEND Family Medicine
PROC: 06HY33Z Insertion of Infusion Device into Lower Vein, Percutaneous Approach (ICD-10-PCS; 2018-10-27)
PROC: 03L80ZZ Occlusion of Left Brachial Artery, Open Approach (ICD-10-PCS; 2018-10-27)
PROC: 30233N1 Transfusion of Nonautologous Red Blood Cells into Peripheral Vein, Percutaneous Approach (ICD-10-PCS; 2018-10-27)
PROC: B51NYZZ Fluoroscopy of Left Upper Extremity Veins using Other Contrast (ICD-10-PCS; 2018-10-28)
PROC: B50NYZZ Plain Radiography of Left Upper Extremity Veins using Other Contrast (ICD-10-PCS; 2018-10-28)
PROC: 5A1D70Z Performance of Urinary Filtration, Intermittent, Less than 6 Hours Per Day (ICD-10-PCS; 2018-10-29)
PROC: 05U Upper Veins, Supplement (ICD-10-PCS; 2018-11-01)
PROC: 3E033GC Introduction of Other Therapeutic Substance into Peripheral Vein, Percutaneous Approach (ICD-10-PCS; 2018-11-01)
PROC: 057Y3DZ Dilation of Upper Vein with Intraluminal Device, Percutaneous Approach (ICD-10-PCS; principal; 2018-11-01 14:00)
PROC: B246ZZZ Ultrasonography of Right and Left Heart (ICD-10-PCS; 2018-11-02)
DX: T82.838A Hemorrhage due to vascular prosthetic devices, implants and grafts, initial encounter (principal); R57.1 Hypovolemic shock; N18.6 End stage renal disease; D62 Acute posthemorrhagic anemia; R47.01 Aphasia; N25.0 Renal osteodystrophy; I69.351 Hemiplegia and hemiparesis following cerebral infarction affecting right dominant side; F20.9 Schizophrenia, unspecified; I27.20 Pulmonary hypertension, unspecified; I50.1 Left ventricular failure, unspecified; F03.90 Unspecified dementia, unspecified severity, without behavioral disturbance, psychotic disturbance, mood disturbance, and anxiety; L98.499 Non-pressure chronic ulcer of skin of other sites with unspecified severity; I10 Essential (primary) hypertension; I69.320 Aphasia following cerebral infarction; Y84.1 Kidney dialysis as the cause of abnormal reaction of the patient, or of later complication, without mention of misadventure at the time of the procedure; Y92.89 Other specified places as the place of occurrence of the external cause; F31.9 Bipolar disorder, unspecified; J44.9 Chronic obstructive pulmonary disease, unspecified; E66.9 Obesity, unspecified; Z68.30 Body mass index [BMI] 30.0-30.9, adult; E78.5 Hyperlipidemia, unspecified; E03.9 Hypothyroidism, unspecified; E11.9 Type 2 diabetes mellitus without complications
CPT/HCPCS: 36415; 36430; 71045-TC-FY; 76000-TC-FY; 80048; 80053; 82962; 83036; 83735; 84100; 84443; 85025; 85027; 85610; 85730; 86803; 86850; 86900; 86901; 86922; 87040; 87077; 87081; 87340; 87350; 93005; 93010; 93306-TC; 94760; 99283-25; J0885; J1644; P9038; P9047; P9058

== ENCOUNTER 2018-11-24 14:37 | Emergency (ER) | payer OTHER ==
--- NOTE | 2018-11-24 14:58 | PDOC ---
History of Present Illness - General Chief Complaint: Dialysis Shunt Problem Stated Complaint: CLOGGED DIALYSIS SHUNT Time Seen by Provider: 11/24/18 14:57 Past History - Past Medical History Allergies/Adverse Reactions: Allergies Allergy/AdvReac Type Severity Reaction Status Date / Time imipenem Allergy Verified 11/24/18 15:10 NSAIDS (Non-Steroidal Allergy Verified 11/24/18 15:10 Anti-Inflamma piperacillin sodium Allergy Verified 11/24/18 15:10 [From Zosyn] tazobactam sodium Allergy Verified 11/24/18 15:10 [From Zosyn] Home Medications: Ambulatory Orders Citalopram Hydrobromide [Celexa -] 10 mg PO DAILY tablet 09/15/18 Docusate Sodium [Colace -] 100 mg PO TID capsule 09/15/18 Olanzapine [Zyprexa -] 15 mg PO DAILY tablet 09/15/18 Scopolamine Hydrobromide [Transderm-Scop -] 1 patch TD Q3D patch.td72 09/15/18 Acetaminophen [Tylenol .Regular Strength -] 650 mg PO Q6H PRN 10/07/18 Albuterol 2.5/Ipratropium 0.5 [Duoneb -] 1 amp NEB Q6H PRN 10/07/18 Atorvastatin Calcium 40 mg PO HS 10/07/18 Folic Acid/Vit B Complex and C [Dialyvite Tablet] 1 each PO DAILY 10/07/18 Lorazepam [Ativan] 1 mg PO TUTHSA 10/07/18 Sevelamer Carbonate 2,400 mg PO TID 10/07/18 Valproate Sodium [Depakene -] 250 mg PO TID 10/07/18 Amino Acids/Protein Hydrolys [Prosource No Carb Liquid Pkt] 30 ml PO BID@0800, 1730 10/08/18 Nut.tx.imp.renal Fxn,Lac-Reduc [Nepro Carb Steady] 240 ml PO BID 10/08/18 Albuterol 2.5/Ipratropium 0.5 [Duoneb -] 1 amp NEB RQID amp 10/12/18 Bacitracin - [Bacitracin Topical Ointment -] 1 applic TP DAILY tube 10/12/18 Levothyroxine [Synthroid -] 200 mcg PO DAILY@0700 tablet 10/12/18 Midodrine HCl [Proamatine -] 2.5 mg PO BID-MID tablet 10/12/18 Nystatin/Triamcinolone Top Oin [Mycolog II -] 1 applic TP BID applic 10/12/18 Ranitidine [Zantac -] 150 mg PO DAILY tablet 10/12/18 Sevelamer Carbonate [Renvela -] 800 mg PO TIDCM tab 10/12/18 Gentamicin 0.1% Ointment [Garamycin 0.1% Ointment -] 1 applic TP BID tube 10/31 Insulin Sliding Scale [Novolog Vial Sliding Scale -] 1 vial SQ Q6HPO units 12/12 Mupirocin Ointment [Bactroban Ointment (For Decolonization) -] 1 applic NS BID applic 10/31/18 Insulin Sliding Scale [Novolog Vial Sliding Scale -] 1 vial SQ ACBK units 11/02 CVA: Yes (R sided weakness) COPD: Yes CHF: Yes Dementia: Yes Diabetes: Yes HTN: Yes Hypercholesterolemia: Yes Psychiatric Problems: Yes (SCHIZOPHRENIA) Thyroid Disease: Yes - Immunization History Immunization Up to Date: Yes - Suicide/Smoking/Psychosocial Hx Smoking History: Unknown if ever smoked Have you smoked in the past 12 months: No Hx Alcohol Use: No Drug/Substance Use Hx: No Substance Use Type: None Hx Substance Use Treatment: No ED Treatment Course - LABORATORY CBC & Chemistry Diagram: 11/24/18 15:50 11/24/18 18:24 Medical Decision Making - Medical Decision Making 58 yo F with PMH of ESRD on dialysis TuThSat with left AV fistula, CHF, COPD, DM , Schizophrenia, CVA with residual weakness presenting with dialysis shunt problem. Patient is a resident of [facility]. Per [facility] note, AV fistula with pus. Dr. Rene made aware and patient sent to the ED for evaluation. Patient received a full session of dialysis on Wednesday. Patient has some sort of expressive aphasia at baseline and cannot contribute to history. Drill Setup Operator: Dr. Rene ROS: unable to complete (aphasia, Schizophrenia) PE: General: Awake, alert, oriented x 0, obese Head: No signs of trauma Eyes: EOMI, sclera anicteric ENT: Moist mucus membranes Neck: Normal ROM, supple Lungs: Lungs clear, Normal breath sounds Cardio: Regular rhythm, S1 and S2 present Abdomen: Soft, nontender. No guarding, no rebound, no masses Extremities: Moving all extremities, Distal pulses present LUE: Left AV fistula site is warm, shunt site with scar/scab, non-erythematous, unable to express discharge, no fluctuance appreciated SKIN: Warm, Dry, normal turgor Neurologic: Cranial nerves II through XII grossly intact. Aphasic speech. Able to follow commands. Not able to contribute to history. ED Courses/MDM: DDX including but not limited to AV fistula site infection (cellulitis, abscess) , scar tissue 11/24/18 14:58 Spoke with [employer], ; per the nurse there, she received sign-out that the patient's fistula bandage was removed and had pus with some ulceration. The nurse who initially examined the patient is not available Discussed case with Dr Rene who will come evaluate the patient in the next twenty minutes. Surgical PAs may be available to evaluate the patient as well. Transferring the patient to [place] is another option. As she is not septic appearing, lower suspicion for deep infection. We will image the arm and administer antibiotics. Likely admission. Labs ordered 11/24/18 15:35 Dr. Rene evaluated patient at bedside. He recommends labs, vancomycin, and CT of the LUE. He was initially sent a picture of the patient's fistula which does appear to show pus and ulceration; however, the area has since been cleaned. If patient continues to not show signs of sepsis and has negative CT, she may be discharged. Dr. Rene would like to be notified when workup completed. 11/24/18 16:07 CBC WBC 8.1 K/mm3 (4.0-10.0) 11/24/18 15:50 RBC 3.89 M/mm3 (3.60-5.2) 11/24/18 15:50 Hgb 11.6 GM/dL (10.7-15.3) 11/24/18 15:50 Hct 36.7 % (32.4-45.2) D 11/24/18 15:50 MCV 94.3 fl (80-96) 11/24/18 15:50 MCH 29.9 pg (25.7-33.7) 11/24/18 15:50 MCHC 31.7 g/dl (32.0-36.0) L 11/24/18 15:50 RDW 16.1 % (11.6-15.6) H 11/24/18 15:50 Plt Count 309 K/MM3 (134-434) D 11/24/18 15:50 MPV 8.4 fl (7.5-11.1) 11/24/18 15:50 Absolute Neuts (auto) 5.4 K/mm3 (1.5-8.0) 11/24/18 15:50 Neutrophils % 67.3 % (42.8-82.8) 11/24/18 15:50 Lymphocytes % 21.0 % (8-40) 11/24/18 15:50 Monocytes % 9.3 % (3.8-10.2) 11/24/18 15:50 Eosinophils % 1.8 % (0-4.5) D 11/24/18 15:50 Basophils % 0.6 % (0-2.0) 11/24/18 15:50 Nucleated RBC % 0 % (0-0) 11/24/18 15:50 No leukocytosis CMP hemolyzed. Re-ordered and sent by ga Pending CT report 11/24/18 18:48 CMP Sodium 144 mmol/L (136-145) 11/24/18 18:24 Potassium 2.6 mmol/L (3.5-5.1) L* 11/24/18 18:24 Chloride 103 mmol/L (98-107) 11/24/18 18:24 Carbon Dioxide 32 mmol/L (21-32) 11/24/18 18:24 Anion Gap 9 MMOL/L (8-16) 11/24/18 18:24 BUN 23.7 mg/dL (7-18) H 11/24/18 18:24 Creatinine 6.1 mg/dL (0.55-1.3) H 11/24/18 18:24 Est GFR (CKD-EPI)AfAm 7.97 11/24/18 18:24 Est GFR (CKD-EPI)NonAf 6.87 11/24/18 18:24 Random Glucose 170 mg/dL (74-106) H 11/24/18 18:24 Calcium 9.6 mg/dL (8.5-10.1) 11/24/18 18:24 Total Bilirubin 0.3 mg/dL (0.2-1) 11/24/18 18:24 AST 12 U/L (15-37) L 11/24/18 18:24 ALT 17 U/L (13-61) 11/24/18 18:24 Alkaline Phosphatase 98 U/L (45-117) 11/24/18 18:24 Total Protein 6.4 g/dl (6.4-8.2) 11/24/18 18:24 Albumin 2.6 g/dl (3.4-5.0) L 11/24/18 18:24 Potassium 2.6, 40 meq K-Dur ordered BUN and Cr elevated, patient is dialysis patient CT without abscess via Imaging instruction librarian: "Procedure: Contiguous axial tomographic sections were obtained throughout the left hemithorax and proximal left upper extremity without the use of intravenous contrast. Sagittal and coronal reformatted images are provided. COMPARISON: None. Findings: An AV fistula is present. There is mild streaky opacification seen within the subcutaneous soft tissues adjacent to the AV fistula and at the lateral left hemithorax, without discrete fluid collections identified. The visualized musculature appears normal in attenuation. There are hazy and reticular densities seen at the left lung, most prominent at the left lower lobe. The visualized aspects of the thoracic great vessels appear normal in caliber. Atherosclerotic calcifications are identified. The visualized bones appear intact and adequately aligned. Bone mineralization is within normal limits. There are no apparent osseous destructive changes. Degenerative changes are seen at the thoracic spine. Impression: 1. Subcutaneous soft tissue inflammatory changes, without discrete fluid collections to suggest abscess formation. If able to be performed, recommend MR with intravenous gadolinium if there is continued concern for abscess formation. 2. Left-sided air space disease, with etiologies including atelectasis and early pneumonia. Short-term follow-up chest radiographs and/or dedicated chest CT are recommended for continued evaluation. 3. Atherosclerotic calcifications. 4. Degenerative changes at the thoracic spine." 11/24/18 19:[address] Rene who agrees with plan for discharge. He will arrange for outpatient antibiotics to be administered during patient's dialysis. Patient awaiting transport. 11/24/18 20:22 CXR, as read by radiology: "José Luis AP view of the chest has been submitted. Since the prior since 10/27/2018 again noted is a prominent mediastinum with weak inspiration, left arm vascular stent and degenerative changes. An acute process is not seen. " *DC/Admit/Observation/Transfer Diagnosis at time of Disposition: Superficial skin infection Problem with dialysis shunt Qualifiers: Encounter type: initial encounter Qualified Code(s): T82.898A - Other specified complication of vascular prosthetic devices, implants and grafts, initial encounter - Discharge Dispostion Disposition: HOME Condition at time of disposition: Stable - Referrals - Patient Instructions Printed Discharge Instructions: DI for Wound Infection Additional Instructions: You came to the ED for a dialysis shunt problem. Lab work and CT scan did not show a serious infection. We spoke with Dr. Rene who came and evaluated you. We gave you antibiotics while you were here. Dr. Rene will arrange for antibiotics to be administered with your dialysis. Report to your next dialysis session on Wednesday. Immediate medical attention is required if you experience: pus draining from your dialysis shunt site, redness or hardness around the area, pain or tenderness, red streaks, fever or chills. If you think you are having an emergency, call for emergency medical services or present to the emergency department right away. - Post Discharge Activity
[2018-11-24 15:10] VITALS: BMI 30.3
--- NOTE | 2018-11-24 15:38 | PDOC ---
Documentation entered by Aniceto Winslow SCRIBE, acting as scribe for Tirso Jenkins MD. Tirso Jenkins MD: This documentation has been prepared by the Nayla palacios Elijah, SCRIBE, under my direction and personally reviewed by me in its entirety. I confirm that the documentation accurately reflects all work, treatment, procedures, and medical decision making performed by me. Attending Attestation - Resident Resident Name: Ebonie Ellis - ED Attending Attestation I have performed the following: I have examined & evaluated the patient, The case was reviewed & discussed with the resident, I agree w/resident's findings & plan - HPI HPI: 11/24/18 15:35 Patient is a 58 year old female with a significant past medical history of ESRD on dialysis TuThSat with left AV fistula, CHF, COPD, DM, Schizophrenia, CVA with residual weakness who presents to the ED with a dialysis shunt problem. Patient was going to receive dialysis today when the AV fistula was expressive of pus. History limited secondary to patients condition. Allergies: Imipenem, NSAIDs, Piperacillin Sodium, Tazobactam Sodium Nephrologists: Dr. Rene - Physicial Exam PE: 11/24/18 15:35 Vitals: Triage Vital signs reviewed General Appearance: no acute distress, well nourished well developed, Chest Wall: Nontender Cardiac: Regular rate and rhythm, no murmurs, no rubs, no gallops, Lungs: Clear to auscultation bilateral, good air movement bilaterally, Abdomen: Soft, nondistended, normal bowel sounds, nontender to palpation Extremities: Full range of motion to all extremities, left av fistula, small scab distall portion, slight warmth Skin: Warm and dry, no rashes or lesions, no petechiae Psych: normal mood, normal affect 11/24/18 20:56 - Medical Decision Making 11/24/18 20:55 Issue with fistula, ? superfical infection pt seen by her live hanger. Recommends labs and imaging of fistula. if no elevated WBC and no evidence of abscess on imaging can be d/c'd home on PO abx Dr. Mathews to followup labs and dispo
[2018-11-24] MEDS ORDERED: VANCOMYCIN 1,000 MG in DEXTROSE 5%-WATER - 250 ML IVPB ONE (16:02)
--- NOTE | 2018-11-24 16:19 | CONSULT ---
Consult - text type - Consultation Consultation Note: Renal consult for ESRD/Suspected infected graft This is a 58 year old woman with history of ESRD on HD (TTS), Schizophrenia, CVA with expressive aphasia and right side weakness, hx of hypertension, DM who was sent from [facility] dialysis unit with discharge/pus from AVG site. Pt in the ED and not able to provide any additional history. Last outpatient dialysis session was Wednesday. Pt was noted to have puss/ discharge from old ulceration site. Pt is not febrile and is not toxic appearing. s/p recent admission at the beginning of this month with bleeding from AVG site that required a covered stent placement. PMhx: as per HPI Family Hx: NC Allergies: as listed in EMR Social Hx: No T/A/D ROS: limited due to clinical status. Home Medications Medication Instructions Recorded Citalopram Hydrobromide [Celexa -] 10 mg PO DAILY tablet 09/15/18 Docusate Sodium [Colace -] 100 mg PO TID capsule 09/15/18 Olanzapine [Zyprexa -] 15 mg PO DAILY tablet 09/15/18 Scopolamine Hydrobromide 1 patch TD Q3D patch.td72 09/15/18 [Transderm-Scop -] Acetaminophen [Tylenol .Regular 650 mg PO Q6H PRN 10/07/18 Strength -] Albuterol 2.5/Ipratropium 0.5 1 amp NEB Q6H PRN 10/07/18 [Duoneb -] Atorvastatin Calcium 40 mg PO HS 10/07/18 Folic Acid/Vit B Complex and C 1 each PO DAILY 10/07/18 [Dialyvite Tablet] Lorazepam [Ativan] 1 mg PO TUTHSA 10/07/18 Sevelamer Carbonate 2,400 mg PO TID 10/07/18 Valproate Sodium [Depakene -] 250 mg PO TID 10/07/18 Amino Acids/Protein Hydrolys 30 ml PO BID@0800,1730 10/08/18 [Prosource No Carb Liquid Pkt] Nut.tx.imp.renal Fxn,Lac-Reduc 240 ml PO BID 10/08/18 [Nepro Carb Steady] Albuterol 2.5/Ipratropium 0.5 1 amp NEB RQID amp 10/12/18 [Duoneb -] Bacitracin - [Bacitracin Topical 1 applic TP DAILY tube 10/12/18 Ointment -] Levothyroxine [Synthroid -] 200 mcg PO DAILY@0700 tablet 10/12/18 Midodrine HCl [Proamatine -] 2.5 mg PO BID-MID tablet 10/12/18 Nystatin/Triamcinolone Top Oin 1 applic TP BID applic 10/12/18 [Mycolog II -] Ranitidine [Zantac -] 150 mg PO DAILY tablet 10/12/18 Sevelamer Carbonate [Renvela -] 800 mg PO TIDCM tab 10/12/18 Gentamicin 0.1% Ointment 1 applic TP BID tube 10/31/18 [Garamycin 0.1% Ointment -] Insulin Sliding Scale [Novolog 1 vial SQ Q6HPO units 10/31/18 Vial Sliding Scale -] Mupirocin Ointment [Bactroban 1 applic NS BID applic 10/31/18 Ointment (For Decolonization) -] Insulin Sliding Scale [Novolog 1 vial SQ ACBK units 11/02/18 Vial Sliding Scale -] Vital Signs Temperature 98.9 F 11/24/18 14:50 Pulse Rate 103 H 11/24/18 14:50 Respiratory Rate 18 11/24/18 14:50 Blood Pressure 131/79 11/24/18 14:50 O2 Sat by Pulse Oximetry (%) 100 11/24/18 14:50 Intake & Output 11/21/18 11/22/18 11/23/18 11/24/18 23:59 23:59 23:59 23:59 Weight 85.275 kg NAD awake and alert left arm AVG site with old ulcer/scar. no discharge/bleed/pus noted. Arm does not appear to be tender no LE edema Current Medications Vancomycin HCl 1,000 mg/ (Dextrose) 250 mls @ 166.667 mls/hr IVPB ONCE ONE; Protocol Stop: 11/24/18 17:31 58 year old woman with history of ESRD on HD (TTS), Schizophrenia, CVA with expressive aphasia and right side weakness, hx of hypertension, DM who was sent from [facility] dialysis unit with discharge/pus from AVG site. #Suspected AVG site infection vs superficial skin infection #ESRD on HD #Schizophrenia Pt does not appear toxic or septic at this time. Arm is w/o discharge however given overt puss seen at the dialysis unit would warrant imaging of the arm to ensure there is no abscess or underlying collection. check CBC, BMP and blood cultures Empiric vancomycin to be given if no sings of infection can consider discharge with resumption of outpatient dialysis. discussed with the ED Deng Rene DO
[2018-11-24 16:34] LABS: BASO % 0.6 % (0-2.0); EOS % 1.8 % (0-4.5); HEMATOCRIT 36.7 % (32.4-45.2); HEMOGLOBIN 11.6 GM/dL (10.7-15.3); MCH 29.9 pg (25.7-33.7); MCHC 31.7 g/dl (32.0-36.0); MEAN CELL VOLUME 94.3 fl (80-96); MEAN PLT VOLUME 8.4 fl (7.5-11.1); MONO % 9.3 % (3.8-10.2); NEUT % 67.3 % (42.8-82.8); PLATELET COUNT 309 K/MM3 (134-434); RBC 3.89 M/mm3 (3.60-5.2); RDW 16.1 % (11.6-15.6); WHITE BLOOD COUNT 8.1 K/mm3 (4.0-10.0)
[2018-11-24 16:36] LABS: INR 0.92 (0.83-1.09); PROTHROMBIN TIME (PATIENT) 10.8 SEC (9.7-13.0)
[2018-11-24] MEDS ORDERED: VANCOMYCIN 1 GRAM (PRE-DOCKED) 1,000 MG/250 ML BAG IVPB ONE (16:45)
[2018-11-24 18:10] VITALS: TEMP 98.4
[2018-11-24 19:14] LABS: ALBUMIN 2.6 g/dl (3.4-5.0); BILIRUBIN,TOTAL 0.3 mg/dL (0.2-1); BLOOD UREA NITROGEN 23.7 mg/dL (7-18); CALCIUM 9.6 mg/dL (8.5-10.1); CREATININE 6.1 mg/dL (0.55-1.3); TOT PROT 6.4 g/dl (6.4-8.2)
[2018-11-24 19:15] LABS: POTASSIUM 2.6 mmol/L (3.5-5.1)
[2018-11-24] MEDS ORDERED: POTASSIUM CHLORIDE TABS 20 MEQ TABLET.ER (FP) PO ONE (19:41)
[2018-11-24] MEDS ORDERED: POTASSIUM CHLORIDE ORAL LIQUID 20 MEQ/15 ML ONE (20:20)
[2018-11-24 23:29] VITALS: BP 126/57; PULSE 77
== END 2018-11-24 23:00 | disposition home or self-care (01) ==
LOC: JER 14:37
DX: T82.7XXA Infection and inflammatory reaction due to other cardiac and vascular devices, implants and grafts, initial encounter (principal); L08.89 Other specified local infections of the skin and subcutaneous tissue; I25.10 Atherosclerotic heart disease of native coronary artery without angina pectoris; I13.2 Hypertensive heart and chronic kidney disease with heart failure and with stage 5 chronic kidney disease, or end stage renal disease; N18.6 End stage renal disease; I50.9 Heart failure, unspecified; Z99.2 Dependence on renal dialysis; E11.9 Type 2 diabetes mellitus without complications; Z79.4 Long term (current) use of insulin; J44.9 Chronic obstructive pulmonary disease, unspecified; F20.9 Schizophrenia, unspecified; I69.851 Hemiplegia and hemiparesis following other cerebrovascular disease affecting right dominant side; I69.820 Aphasia following other cerebrovascular disease
CPT/HCPCS: 36415; 71045-TC-FY; 73200-TC-RT; 80053; 85025; 85610; 85730; 87040; 99283-25